=== PATIENT | female | born 1950 | race Caucasian/White ===

== ENCOUNTER 2017-05-15 07:48 | Inpatient (IN) | payer MEDICARE, MEDICAID ==
--- NOTE | 2017-05-06 00:16 | HP ---
HISTORY AND PHYSICAL: DATE OF OFFICE VISIT: 05/05/17 DATE OF SURGERY: 05/15/17 SURGEON: Frances Castillo MD * (DICTATED BY RICKY ORLANDO) PROCEDURE: Right total knee arthroplasty. CHIEF COMPLAINT: Right knee pain. HISTORY OF PRESENT ILLNESS: Ms. Jennings is a 67-year-old female with complaints of right knee pain secondary to advanced osteoarthritis. She has failed conservative management and has elected to proceed with a right total knee arthroplasty. PAST MEDICAL HISTORY: Multiple sclerosis, history of bladder cancer, chronic pain, and hyperlipidemia. PAST SURGICAL HISTORY: Tonsillectomy, hysterectomy, bladder plication, right lung lobe removal and right knee arthroscopy. CURRENT MEDICATIONS: 1. Dyazide. 2. Modafinil. 3. Vitamin D. 4. Abilify. 5. Colace. 6. Mirtazapine. 7. Montelukast sodium. 8. Flexeril. 9. Clonazepam. 10. Fluoxetine. 11. Morphine sulfate. 12. Astelin nasal spray. 13. Ambien. 14. Ampyra. 15. Premarin. 16. Bisacodyl. 17. Celebrex. ALLERGIES: LATEX, ZOCOR, and BACLOFEN. FAMILY HISTORY: Breast cancer, heart disease, chronic kidney disease. SOCIAL HISTORY: She is a 67-year-old female. She lives with her spouse. She does not smoke, use drugs or alcohol. REVIEW OF SYSTEMS: A complete 14-point review of systems was reviewed with the patient, was all negative or noncontributory. PHYSICAL EXAMINATION GENERAL: She is well developed, well nourished, in no acute distress. VITAL SIGNS: She stands 5 feet 2 inches tall, weighs 148 pounds. Her blood pressure is 132/78, her heart rate is 80. HEENT: Normocephalic, atraumatic. NECK: Supple. No palpable lymph nodes. PULMONARY: Lungs are clear to auscultation bilaterally. CARDIO: Regular rate and rhythm. Strong S1, S2. ABDOMEN: Soft, nontender, nondistended. NEUROLOGIC: She is alert and oriented x3. Cranial nerves II through XII are intact. MUSCULOSKELETAL: Right lower extremity, the skin is intact. There are no open wounds or abrasions. She has a valgus deformity of her left knee. Distally, she is overall neurovascularly intact. She walks with an antalgic type gait favoring her right knee. ASSESSMENT AND PLAN: Ms. Jennings is a 67-year-old female with complaints of right knee pain secondary to end-stage osteoarthritis. She has failed conservative management and has elected to proceed with a right total knee arthroplasty, which is scheduled for 05/15/[address] Castillo discussed the risks and benefits of the surgery and all of her questions were answered. She is currently on morphine sulfate 15 mg every 4 hours as needed for pain, so no pain medications was sent to her pharmacy at today's visit. She has a prescription for Coumadin, which she will start taking after the surgery. She will follow up with Dr. Castillo in 2 weeks after the surgery RICKY ORLANDO [id number] #: [id number] MTDD
[~2017-05-15 07:48] MED LIST: Buffered Lidocaine 0.9% SYRIN* 5 ML/SYR SYRINGE INTRADERM ONE
[2017-05-15] MEDS ORDERED: Buffered Lidocaine 0.9% SYRIN* 5 ML/SYR SYRINGE ONE (07:52)
[2017-05-15] MEDS ORDERED: Midazolam* 1 MG/ML 5 ML VIAL (5 MG) ONE ×2 (09:50→10:40)
[2017-05-15] MEDS ORDERED: Bupivacaine 0.5% SDV PF* 30 ML VIAL ONE (09:58)
[2017-05-15] MEDS ORDERED: fentaNYL* 50 MCG/ML 2 ML VIAL (100 MCG VIAL) ONE ×2 (10:17→14:19)
[2017-05-15] MEDS ORDERED: fentaNYL* 50 MCG/ML 2 ML VIAL (100 MCG VIAL) IV PRN (11:00)
[2017-05-15] MEDS ORDERED: HYDROmorphone* 1 MG/ML 1 ML SYR IV PRN (11:00)
[2017-05-15] MEDS ORDERED: DiMENhydriNATE IV* 50 MG/ML VIAL IV PUSH PRN (11:00)
[2017-05-15] MEDS ORDERED: Ondansetron INJ* 2 MG/ML VIAL IV PRN ×2 (11:00→11:03)
[2017-05-15] MEDS ORDERED: EPHEDrine (Pressors)* 50 MG/ML VIAL IV PUSH PRN (11:03)
[2017-05-15] MEDS ORDERED: Lactated Ringers 500 ml BAG* 500 ML IV PRN (11:03)
[2017-05-15] MEDS ORDERED: Ropivacaine 0.2% EPIDURAL* 200 MG/100 ML BAG EPIDURAL SCH (12:00)
[2017-05-15] MEDS ORDERED: Ropivacaine 0.2% EPIDURAL* 200 MG/100 ML BAG EPIDURAL ONE (12:37)
[2017-05-15] MEDS ORDERED: Bisacodyl SUPP* 10 MG SUPP PR PRN (12:51)
[2017-05-15] MEDS ORDERED: Acetaminophen TAB* 325 MG PO PRN (12:51)
[2017-05-15] MEDS ORDERED: Omeprazole CAP* 20 MG PO PRN (12:57)
[2017-05-15] MEDS ORDERED: AZELASTINE HCL BOTH NARES PRN (12:57)
--- NOTE | 2017-05-15 13:49 | RAD ---
HISTORY: Status post right knee arthroplasty COMPARISONS: January 13, 2017 VIEWS: 2, Frontal and lateral views of the right knee FINDINGS: BONE DENSITY: Normal. BONES: The patient is status post right knee arthroplasty. There is no hardware failure or osteolysis. JOINTS: Status post right knee arthroplasty ALIGNMENT: There is no dislocation. SOFT TISSUES: There is post surgical change to the soft tissues OTHER FINDINGS: None. IMPRESSION: STATUS POST RIGHT KNEE ARTHROPLASTY
[2017-05-15] MEDS ORDERED: clonazePAM TAB(*) 1 MG PO PRN (14:00)
[2017-05-15] MEDS ORDERED: oxyCODONE/Acetamin 5/325 MG* TAB ONE (14:20)
[2017-05-15] MEDS: oxyCODONE/Acetamin 5/325 MG* TAB PO PRN (14:21)
[2017-05-15] MEDS: ceFAZolin 1 GM VIAL(*) 1 GM in NS 0.9% 50 ML* 50 ML IVPB SCH ×2 (16:42→23:50)
--- NOTE | 2017-05-15 16:44 | CONSULT ---
Subjective Date of Service: 05/15/17 Interval History: 67 yo F with hx of multiple sclerosis, depression, bladder cancer, GERD and chronic pain s/p R TKA. Patient seen post-op on SSU. Prior to surgery she reports no acute issues. Calvert well recently, no fever, chills, illness. Multiple sclerosis has been stable, follows with Dr. Foreman. Chronic pain managed through pain clinic, on MSIR chronically. Reports no pain presently, still with residual effects from spinal anethesia. Only complaint is indigestion at this time. No SOB. Family History: Findings - Breast cancer, CAD, CKD Social History: Findings - Former 20 pack-year smoking history, no alcohol or illicit drug use, lives home with ex-, uses walker at baseline Past Medical History: Findings - Multiple sclerosis, GERD, depression, chronic pain, hx of bladder cancer Review of Systems - Measurements Intake and Output: Intake and Output Last 24 Hours 05/13/17 05/14/17 05/15/17 05/16/17 06:59 06:59 06:59 06:59 Intake Total 2620 Output Total 1900 Balance 720 Weight 68.946 kg Intake: IV Fluids 2500 LR 2500 Oral 120 Output: Hi 1900 - Review of Systems Constitutional Symptoms: Negative: Fever Dermatology: Positive: Normal HEENT: Positive: Normal Eyes: Positive: Normal Thyroid: Positive: Normal Pulmonary: Positive: Normal Cardiology: Positive: Normal Gastroenterology: Positive: Normal Genital - Urinary: Positive: Normal Musculoskeletal: Positive: Joint Pain, Arthritis Endocrinology: Positive: Normal Neurology: Positive: Normal Psychiatry: Positive: Normal Objective Active Medications: Acetaminophen (Tylenol Tab*) 650 mg PO Q4H PRN Aripiprazole (Abilify Tab*) 15 mg PO QAM NORMA Bisacodyl (Dulcolax Supp*) 10 mg OR DAILY PRN Clonazepam (Klonopin Tab(*)) 1 mg PO TID PRN Diphenhydramine HCl (Benadryl Iv*) 12.5 mg IV Q6H PRN Docusate Sodium (Colace Cap*) 100 mg PO BID NORMA Enoxaparin Sodium (Lovenox(*)) 30 mg SUBCUT Q24H NROMA Ephedrine Sulfate (Ephedrine Sulfate (Pressors)*) 5 mg IV PUSH Q5M PRN Fluoxetine HCl (Prozac Cap*) 20 mg PO QAM NORMA Ropivacaine (Ropivacaine 0.2% Epidural*) 200 mg in 100 mls @ 0 mls/hr EPIDURAL .PER RATE NORMA; Per Protocol Lactated Ringer's (Lactated Ringers 500 Ml Bag*) 500 mls @ 2,000 mls/hr IV ONCE PRN Cefazolin Sodium 1 gm/ Sodium (Chloride) 50 mls @ 200 mls/hr IVPB Q8H NORMA Lactated Ringer's (Lactated Ringers 1000 Ml Bag*) 1,000 mls @ 100 mls/hr IV PER RATE NORMA Lactulose (Lactulose*) 30 ml PO Q6H PRN Magnesium Hydroxide (Milk Of Magnesia Liq*) 30 ml PO Q6H PRN Mirtazapine (Remeron Tab*) 45 mg PO BEDTIME NORMA Modafinil (Provigil Tab*) 200 mg PO QAM NORMA Morphine Sulfate (Morphine Inj (Syringe)*) 4 mg IV Q2H PRN Multivitamins/Minerals (Theragran/Minerals Tab*) 1 tab PO QAM NORMA Non-Formulary Medication (Azelastine Hcl [Astelin]) 1 spray BOTH NARES DAILY PRN Non-Formulary Medication (Dalfampridine [Ampyra]) 10 mg PO BID NORMA Omeprazole (Prilosec Cap*) 20 mg PO QAM PRN Ondansetron HCl (Zofran Inj*) 4 mg IV Q6H PRN Ondansetron HCl (Zofran Inj*) 4 mg IV Q6H PRN Ondansetron HCl (Zofran Tab*) 4 mg PO Q6H PRN Oxycodone HCl (Roxycodone Tab*) 10 mg PO Q4H PRN Oxycodone/Acetaminophen (Percocet 5/325 Tab*) 1 tab PO Q3H PRN Oxycodone/Acetaminophen (Percocet 5/325 Tab*) 1 tab PO Q3H PRN Oxycodone/Acetaminophen (Percocet 5/325 Tab*) 2 tab PO Q3H PRN Polyethylene Glycol/Electrolytes (Miralax*) 17 gm PO DAILY PRN Warfarin Sodium (Coumadin Tab(*)) 6 mg PO ONCE@1700 ONE Zolpidem Tartrate (Ambien Tab*) 10 mg PO BEDTIME NORMA Vital Signs 05/15/17 05/15/17 05/15/17 08:18 12:55 13:00 Temperature 97.7 F 97.2 F Pulse Rate 80 72 70 Respiratory 18 16 16 Rate Blood Pressure 144/72 94/56 106/63 (mmHg) O2 Sat by Pulse 97 98 100 Oximetry 05/15/17 05/15/17 05/15/17 13:45 14:00 14:15 Temperature Pulse Rate 62 67 68 Respiratory 16 16 14 Rate Blood Pressure 122/77 118/66 108/51 (mmHg) O2 Sat by Pulse 99 100 100 Oximetry 05/15/17 05/15/17 05/15/17 14:51 15:14 15:22 Temperature 97.7 F Pulse Rate 67 67 Respiratory 16 16 18 Rate Blood Pressure 134/70 134/70 (mmHg) O2 Sat by Pulse 87 97 Oximetry Oxygen Devices in Use Now: Nasal Cannula - 2L Appearance: Elderly, F, laying in bed in NAD Eyes: No Scleral Icterus Ears/Nose/Mouth/Throat: - - Dry MM Neck: NL Appearance and Movements; NL JVP Respiratory: Symmetrical Chest Expansion and Respiratory Effort, Clear to Auscultation - in anterior and lateral moya Cardiovascular: NL Sounds; No Murmurs; No JVD, RRR Abdominal: NL Sounds; No Tenderness; No Distention Lymphatic: No Cervical Adenopathy Extremities: - - R knee with WOOD wrap and cryounit in place, hemovac in place with bloody discharge, mild LE edema Neurological: Alert and Oriented x 3, - - R foot able to wiggle toes, SILT Assessment/Plan - Billing 67 yo F with hx of multiple sclerosis, GERD, depression, chronic pain, hx of bladder cancer s/p R TKA on 05/15 1) S/P R TKA - management and analgesia as per Ortho - patient is on Lovenox/Coumadin for DVT PPx 2) Multiple sclerosis - continue home Ampyra, flexeril 3) Depression - continue abilify, fluoxetine, remeron 4) GERD - continue home PPI, will write for prn calcium carbonate 5) DVT PPx - Lovenox/Warfarin Thank you for this consult, will continue to follow along
[2017-05-15] MEDS: Calcium Carbonate CHEW TAB* 500 MG (TUMS) PO PRN (16:50)
[2017-05-15] MEDS ORDERED: Warfarin TAB(*) 6 MG PO ONE (17:00)
[2017-05-15] MEDS: Docusate CAP* 100 MG PO SCH (20:20)
[2017-05-15] MEDS: Mirtazapine TAB* 15 MG PO SCH (20:20)
[2017-05-15] MEDS: Polyethylene Glycol 3350* 17 GM PACKET PO PRN (20:20)
[2017-05-15] MEDS: DALFAMPRIDINE 10 MG PO SCH (20:23)
[2017-05-16] MEDS: oxyCODONE/Acetamin 5/325 MG* TAB PO PRN ×5 (04:59→23:19)
[2017-05-16 05:10] LABS: Hematocrit 26 % (35-47)
[2017-05-16 05:22] LABS: BUN/Creatinine Ratio 11.8 (8-20); Calcium 7.7 mg/dL (8.6-10.3); EGFR African American 153.8 (>60); EGFR Non-African American 119.6 (>60); Potassium 3.2 mmol/L (3.5-5.0)
[2017-05-16] MEDS ORDERED: oxyCODONE TAB* 5 MG TAB PO PRN (06:00)
[2017-05-16] MEDS ORDERED: Ondansetron INJ* 2 MG/ML VIAL IV PRN (06:00)
[2017-05-16] MEDS ORDERED: Ondansetron TAB* 4 MG PO PRN (06:00)
[2017-05-16] MEDS ORDERED: diPHENhydraMINE IV* 50 MG/ML 1 ml VIAL (BENADRYL) IV PRN (06:00)
[2017-05-16] MEDS ORDERED: oxyCODONE/Acetamin 5/325 MG* TAB PO PRN (06:00)
[2017-05-16] MEDS: Morphine INJ* 4 MG/ML 1 ML SYRINGE IV PRN ×2 (07:06→14:27)
--- NOTE | 2017-05-16 07:56 | PN ---
Progress Note - Progress Note Date of Service: 05/16/17 SOAP: Subjective: 67 y/o female s/p R TKA 05/[address] Castillo. Patient c/o pain, waiting for pain medication to work. Anxious about recovery. + tachy in AM, other VSS, afebrile. Objective: General- Resting in chair, anxious appearing, NAD AO MSK- SUrgical dressing intact over R knee, no drainage noted. Drain removed without difficulty. + DF/PF. PT 2+ R side. sensation grossly intact. Vital Signs Temp 98.9 F 05/16/17 05:00 Pulse 106 05/16/17 05:00 Resp 18 05/16/17 07:06 BP 112/56 05/16/17 03:33 Pulse Ox 100 05/16/17 03:33 Intake & Output 05/15/17 05/16/17 05/16/17 18:59 06:59 18:59 Intake Total 2980 2399 Output Total 1900 3850 Balance 1080 -1451 Weight 152 lb Intake: IV Fluids 2500 1404 LR 2500 1404 IVPB 105 Cefazolin 105 Oral 480 890 Output: Urine 2400 Hi 1900 1450 Assessment: stable 67 y/o female s/p R TKA 05/[address] Castillo. Plan: - DVT prophylaxis- Coumadin, lovenox. - Hyponatermia- Chronically low, KVO fluids, continue to monitor, BMP tomorrow - Hypokalemia- MVI, continue to monitor - Tachycardia- likely related to pain, anxiety. Continue to monitor Active Medications Generic Name Dose Route Start Last Admin Trade Name Freq PRN Reason Stop Dose Admin Acetaminophen 650 mg 05/15/17 12:51 Tylenol Tab* PO Q4H PRN PAIN OR TEMPERATURE Aripiprazole 15 mg 05/16/17 09:00 Abilify Tab* PO QAM NORMA Bisacodyl 10 mg 05/15/17 12:51 Dulcolax Supp* CA DAILY PRN constipation Calcium Carbonate 500 mg 05/15/17 16:38 05/15/17 16:50 Tums* PO 500 mg Q4H PRN Administration INDIGESTION Clonazepam 1 mg 05/15/17 14:00 Klonopin Tab(*) PO TID PRN NEEDED Diphenhydramine HCl 12.5 mg 05/16/17 06:00 Benadryl Iv* IV Q6H PRN PRURITIS Docusate Sodium 100 mg 05/15/17 21:00 05/15/17 20:20 Colace Cap* PO 100 mg BID NORMA Administration Enoxaparin Sodium 30 mg 05/16/17 12:00 Lovenox(*) SUBCUT Q24H NORMA Fluoxetine HCl 20 mg 05/16/17 09:00 Prozac Cap* PO QAM NORMA Cefazolin Sodium 1 gm/ Sodium 50 mls @ 200 mls/hr 05/15/17 16:00 05/15/17 23: 50 Chloride IVPB 05/16/17 08:14 200 mls/hr Q8H NORMA Administration Lactated Ringer's 1,000 mls @ 100 mls/hr 05/15/17 13:00 05/16/17 01:49 Lactated Ringers 1000 Ml Bag* IV 100 mls/hr PER RATE NORMA Administration Lactulose 30 ml 05/15/17 12:51 Lactulose* PO Q6H PRN constipation Magnesium Hydroxide 30 ml 05/15/17 12:51 Milk Of Magnesia Liq* PO Q6H PRN constipation Mirtazapine 45 mg 05/15/17 21:00 05/15/17 20:20 Remeron Tab* PO 45 mg BEDTIME [facility] Administration Modafinil 200 mg 05/16/17 09:00 Provigil Tab* PO QAM [facility] Morphine Sulfate 4 mg 05/16/17 06:00 05/16/17 07:06 Morphine Inj (Syringe)* IV 4 mg Q2H PRN Administration PAIN Multivitamins/Minerals 1 tab 05/16/17 09:00 Theragran/Minerals Tab* PO QAM [facility] Non-Formulary Medication 1 spray 05/15/17 12:57 Azelastine Hcl [Astelin] BOTH NARES DAILY PRN SINUS CONGESTION Non-Formulary Medication 10 mg 05/15/17 21:00 05/15/17 20:23 Dalfampridine [Ampyra] PO Not Given BID [facility] Omeprazole 20 mg 05/15/17 12:57 Prilosec Cap* PO QAM PRN INDIGESTION Ondansetron HCl 4 mg 05/16/17 06:00 Zofran Inj* IV Q6H PRN nausea Ondansetron HCl 4 mg 05/16/17 06:00 Zofran Tab* PO Q6H PRN NAUSEA Oxycodone HCl 10 mg 05/16/17 06:00 Roxycodone Tab* PO Q4H PRN SEVERE PAIN Oxycodone/Acetaminophen 1 tab 05/16/17 06:00 Percocet 5/325 Tab* PO Q3H PRN PAIN - MODERATE Oxycodone/Acetaminophen 2 tab 05/16/17 06:00 Percocet 5/325 Tab* PO Q3H PRN PAIN - MODERATE Polyethylene Glycol/Electrolytes 17 gm 05/15/17 12:51 05/15/17 20:20 Miralax* PO 17 gm DAILY PRN Administration Constipation Zolpidem Tartrate 10 mg 05/16/17 21:00 Ambien Tab* PO BEDTIME [facility] Protocol
[2017-05-16] MEDS: ceFAZolin 1 GM VIAL(*) 1 GM in NS 0.9% 50 ML* 50 ML IVPB SCH (08:16)
[2017-05-16] MEDS: Modafinil TAB* 100 MG PO SCH (08:17)
[2017-05-16] MEDS: FLUoxetine CAP* 20 MG PO SCH (08:17)
[2017-05-16] MEDS: Multivitamins/Minerals TAB PO SCH (08:17)
[2017-05-16] MEDS: Docusate CAP* 100 MG PO SCH ×2 (08:17→20:27)
[2017-05-16] MEDS: DALFAMPRIDINE 10 MG PO SCH ×2 (08:25→20:29)
[2017-05-16] MEDS: ARIPiprazole TAB* 15 MG PO SCH (09:14)
[2017-05-16] MEDS: Calcium Carbonate CHEW TAB* 500 MG (TUMS) PO PRN (09:18)
--- NOTE | 2017-05-16 09:31 | OP ---
DATE OF OPERATION: 05/15/17 - ROOM #342 DATE OF : 46 SURGEON: Frances Castillo MD SIGNAL INTELLIGENCE ANALYST: RICKY Addison. Ms. Ferrari did help throughout the procedure with preparation of the leg, wound retraction, manipulation of the knee, and wound closure. ANESTHESIOLOGIST: Dr. Garcia. ANESTHESIA: Spinal. PRE-OP DIAGNOSIS: Severe end-stage degenerative osteoarthritis of the right knee joint with valgus deformity and MCL incompetence. POST-OP DIAGNOSIS: Severe end-stage degenerative osteoarthritis of the right knee joint with valgus deformity and MCL incompetence. OPERATIVE PROCEDURE: Right total knee arthroplasty. COMPLICATIONS: None. TOURNIQUET TIME: 54 minutes. ESTIMATED BLOOD LOSS: 300 cc. SPECIMEN: Bone and cartilage from the right knee joint, sent to Pathology. HARDWARE: This is cemented [employer] total knee hardware. For the cement, two packages of Simplex bone cement. For the femur, a size 3 right posterior stabilized Legion femoral component. For the tibia, size 3 Genesys II right tibial base plate. For the insert, an 11 mm constrained articular insert size 3-4, and for the patella, 32 mm 7.5 thickness 3-peg hole poly patella. BRIEF HISTORY/INDICATIONS: Ms. Jennings is a 67-year-old female who has developed valgus deformity and severe arthritis over the last few years. When she presented to my clinic, she had a 30-degree valgus deformity with complete MCL incompetence. She had subluxation of the tibia on the femur. Radiograph showed [id number] arthritis of the lateral compartment and patellofemoral compartment. Due to her inability to ambulate without severe pain and failure of conservative treatment, she elected to undergo right total knee arthroplasty. Informed consent was obtained from the patient. She understood the risks of surgery included but were not limited to bleeding, infection, damage to nearby structures, continued pain, need for further surgery, intraoperative fracture, nerve palsy, hardware failure or loosening, knee stiffness, loss of motion, continued instability, need for a hinged implant, stroke, heart attack, blood clot, and . She wished to proceed. INTRAOPERATIVE FINDINGS: Intraoperatively, the patient was noted to have severe bony deformation involving the medial patellar facet, which was partially fractured. She also had lateral femoral condylar hypoplasia as well as chronic wear laterally at the lateral femoral condyle. Proximal tibia also had significant bone deformity. There was complete MCL incompetence and ACL incompetence. There was LCL stability, incompetence. DESCRIPTION OF PROCEDURE: Ms. Jennings was identified in the preanesthesia unit. Her right lower extremity was marked as the correct operative side. Informed consent was signed and placed in the chart. The patient was taken to the operating room and placed under spinal anesthesia. A Hi catheter was placed. Tourniquet was placed on the right thigh. Right lower extremity was prepped and draped in the usual sterile fashion. Preop time-out was made to correctly identify the patient's side and site. Appropriate perioperative antibiotics were given within 1 hour of incision. A 14 cm midline incision was made with a 10-blade. This was carried down sharply to the extensor mechanism. A new 10-blade was used to make a standard medial parapatellar arthrotomy. The patella was subluxed laterally. The MCL was noted to be completely incompetent. There was a palpable LCL. Electrocautery was used to elevate soft tissue off the superomedial tibia to the mid sagittal plane. There was a large amount of suprapatellar scar tissue, which was also excised carefully with electrocautery. The knee was flexed up. It was noted that the lateral femoral condyle had hypoplasia as well as highly abnormal wear along the lateral border. A drill was used to enter the distal femur. Distal femoral cutting guide was placed on the distal femur and the lateral femoral condylar hypoplasia was accounted for. 9 mm of distal femur was carefully removed. Next, the external rotation guide was pinned on the distal femur and the distal femur was sized to a size 3. A size 3 multi-cutting jig was pinned on the distal femur. Oscillating saw was used to make the appropriate 4 chamfer cuts. There was some missing bone laterally along the lateral femoral condyle but this was less than one-quarter of the width of the condyle. Decision was made to replace this with cement instead of taking more bone and augmenting. The PCL was completely released. Extramedullary tibial cutting guide was pinned on the proximal tibia. Oscillating saw was used to make the proximal tibial cut perpendicular to the mechanical axis of the tibia. The bone was carefully removed. Knee was brought out into extension. The spacer block had good fit. There was good alignment of the knee joint to anatomic valgus. MCL incompetence continued to be noted, but LCL was competent. Flexion and extension gaps were well balanced. The knee was flexed up. Lamina technical sales support specialist was placed both medially and laterally. Any remaining meniscus was carefully excised with electrocautery. Posterior osteophytes were removed with a curved osteotome. A size 3 right femoral trial was impacted onto the distal femur and had excellent fit. The box for the posterior stabilized implant was prepared using a reamer and box cut osteotome. A size 3 tibial tray trial with an 11 mm insert trial was placed and the knee was taken through a range of motion. The knee had full extension to 130 degrees of flexion with good patellofemoral tracking. Patella was everted. There was a recent fracture of the medial aspect of the medial patellar facet. Oscillating saw was used to remove 7 mm of patellar bone and cartilage. The patella was sized to a size 32. Three peg holes were drilled through the size 32 guide. 32 trial patella was placed and the knee was taken through a range of motion. There was satisfactory patellofemoral tracking. All trials were carefully removed. The tibia was subluxed anteriorly and sized to a size 3. Proximal tibia was prepared using a size 3 keel punch. All bony cut surfaces were copiously irrigated with sterile saline and dried. Final implants were cemented into place starting with the tibia, followed by the femur , and last the patella. An 11 mm insert trial was placed while the knee was brought out into full extension. Tourniquet was turned down at 54 minutes. The cement was allowed to fully cure. The knee was copiously irrigated with sterile saline. Electrocautery was used to obtain meticulous hemostasis. Once the cement had fully cured, the insert trial was removed. Any excess cement was carefully removed from around the implant and capsule. Final insert chosen was an 11 mm constrained articular insert size 3-4. This was locked into position on the tibial tray without difficulty. Stability of the insert was checked and rechecked and noted to be stable. The knee was copiously irrigated with sterile saline. The extensor mechanism was closed over a medium Hemovac drain using interrupted #1 Vicryls. The rest of the incision was closed in a layered fashion using 0 and 2-0 Vicryls. Skin was closed using running 3-0 nylon suture. Sterile Xeroform, 4x4s, and Webril were used to cover the incision. Joao wrap and cold pack were placed over this. The patient's anesthesia was reversed without difficulty. She was taken to the PACU in stable condition. Intended weightbearing will be weightbearing as tolerated. Intended DVT prophylaxis will be Coumadin with Lovenox bridge. [id number] #: [id number] MTDD
[2017-05-16] MEDS ORDERED: Potassium Chlor TAB* 20 MEQ TAB.ER PO ONE (09:41)
--- NOTE | 2017-05-16 11:48 | PN ---
Subjective Date of Service: 05/16/17 Interval History: Patient seen this morning. Had some pain this morning after epidural removed, tachycardia as well, but has since settled. Good PO intake. No N/V. Hi in place, plan to take it out this afternoon. No BM yet. Family History: Findings - Breast cancer, CAD, CKD Social History: Findings - Former 20 pack-year smoking history, no alcohol or illicit drug use, lives home with ex-, uses walker at baseline Past Medical History: Findings - Multiple sclerosis, GERD, depression, chronic pain, hx of bladder cancer Objective Active Medications: Acetaminophen (Tylenol Tab*) 650 mg PO Q4H PRN Aripiprazole (Abilify Tab*) 15 mg PO QAM [facility] Bisacodyl (Dulcolax Supp*) 10 mg MA DAILY PRN Calcium Carbonate (Tums*) 500 mg PO Q4H PRN Clonazepam (Klonopin Tab(*)) 1 mg PO TID PRN Diphenhydramine HCl (Benadryl Iv*) 12.5 mg IV Q6H PRN Docusate Sodium (Colace Cap*) 100 mg PO BID NORMA Enoxaparin Sodium (Lovenox(*)) 30 mg SUBCUT Q24H [facility] Fluoxetine HCl (Prozac Cap*) 20 mg PO QAM [facility]MA Lactulose (Lactulose*) 30 ml PO Q6H PRN Magnesium Hydroxide (Milk Of Magnesia Liq*) 30 ml PO Q6H PRN Mirtazapine (Remeron Tab*) 45 mg PO BEDTIME [facility] Modafinil (Provigil Tab*) 200 mg PO QAM [facility] Morphine Sulfate (Morphine Inj (Syringe)*) 4 mg IV Q2H PRN Multivitamins/Minerals (Theragran/Minerals Tab*) 1 tab PO QAM [facility]MA Non-Formulary Medication (Azelastine Hcl [Astelin]) 1 spray BOTH NARES DAILY PRN Non-Formulary Medication (Dalfampridine [Ampyra]) 10 mg PO BID NORMA Omeprazole (Prilosec Cap*) 20 mg PO QAM PRN Ondansetron HCl (Zofran Inj*) 4 mg IV Q6H PRN Ondansetron HCl (Zofran Tab*) 4 mg PO Q6H PRN Oxycodone HCl (Roxycodone Tab*) 10 mg PO Q4H PRN Oxycodone/Acetaminophen (Percocet 5/325 Tab*) 1 tab PO Q3H PRN Oxycodone/Acetaminophen (Percocet 5/325 Tab*) 2 tab PO Q3H PRN Polyethylene Glycol/Electrolytes (Miralax*) 17 gm PO DAILY PRN Warfarin Sodium (Coumadin Tab(*)) 6 mg PO ONCE@1700 ONE Zolpidem Tartrate (Ambien Tab*) 10 mg PO BEDTIME NORMA Vital Signs 05/15/17 05/15/17 05/15/17 12:55 13:00 13:05 Temperature 97.2 F Pulse Rate 72 70 67 Respiratory 16 16 16 Rate Blood Pressure 94/56 106/63 112/59 (mmHg) O2 Sat by Pulse 98 100 100 Oximetry 05/15/17 05/15/17 05/15/17 13:15 13:30 13:45 Temperature Pulse Rate 65 61 62 Respiratory 14 12 16 Rate Blood Pressure 116/61 120/67 122/77 (mmHg) O2 Sat by Pulse 100 100 99 Oximetry 05/15/17 05/15/17 05/15/17 14:00 14:15 14:21 Temperature Pulse Rate 67 68 Respiratory 16 14 16 Rate Blood Pressure 118/66 108/51 (mmHg) O2 Sat by Pulse 100 100 Oximetry 05/15/17 05/15/17 05/15/17 14:22 14:30 14:51 Temperature Pulse Rate 73 67 Respiratory 16 16 16 Rate Blood Pressure 125/83 134/70 (mmHg) O2 Sat by Pulse 100 87 Oximetry 05/15/17 05/15/17 05/15/17 15:14 15:22 15:53 Temperature 97.7 F Pulse Rate 67 79 Respiratory 16 18 14 Rate Blood Pressure 134/70 124/56 (mmHg) O2 Sat by Pulse 97 96 Oximetry 05/15/17 05/15/17 05/15/17 15:58 16:56 19:09 Temperature 96.6 F 97.2 F 98.3 F Pulse Rate 81 91 Respiratory 16 16 Rate Blood Pressure 119/57 132/55 (mmHg) O2 Sat by Pulse 94 99 Oximetry 05/15/17 05/15/17 05/15/17 19:23 20:43 22:00 Temperature 98.1 F Pulse Rate 96 Respiratory 18 14 14 Rate Blood Pressure 145/57 (mmHg) O2 Sat by Pulse 100 Oximetry 05/15/17 05/16/17 05/16/17 23:44 00:00 00:05 Temperature 98.4 F Pulse Rate 108 Respiratory 14 Rate Blood Pressure 151/57 (mmHg) O2 Sat by Pulse 100 100 Oximetry 05/16/17 05/16/17 05/16/17 03:33 04:59 05:00 Temperature 99.7 F 98.9 F Pulse Rate 112 106 Respiratory 16 18 Rate Blood Pressure 112/56 (mmHg) O2 Sat by Pulse 100 Oximetry 05/16/17 05/16/17 05/16/17 06:59 07:06 07:40 Temperature 98.1 F Pulse Rate 97 Respiratory 18 18 15 Rate Blood Pressure 116/56 (mmHg) O2 Sat by Pulse 90 Oximetry 05/16/17 05/16/17 05/16/17 08:00 08:17 11:19 Temperature 98.4 F Pulse Rate 90 Respiratory 18 18 15 Rate Blood Pressure 104/50 (mmHg) O2 Sat by Pulse 93 Oximetry Oxygen Devices in Use Now: None Appearance: Elderly, F, laying in chair in NAD Eyes: No Scleral Icterus Ears/Nose/Mouth/Throat: Mucous Membranes Moist Neck: NL Appearance and Movements; NL JVP Respiratory: Symmetrical Chest Expansion and Respiratory Effort, Clear to Auscultation Cardiovascular: NL Sounds; No Murmurs; No JVD, RRR Abdominal: NL Sounds; No Tenderness; No Distention Lymphatic: No Cervical Adenopathy Extremities: - - RLE edema, R knee with WOOD wrap and cryounit in place Skin: No Rash or Ulcers Neurological: Alert and Oriented x 3 Result Diagrams: 05/16/17 04:40 05/16/17 04:40 Assess/Plan/Problems-Billing 67 yo F with hx of multiple sclerosis, GERD, depression, chronic pain, hx of bladder cancer s/p R TKA on 05/15 1) S/P R TKA - management as per Ortho - post-op anemia noted, continue to monitor H/H - patient is on Lovenox/Coumadin for DVT PPx - Oxycodone 10 mg is equivalent to her home dose of morphine, pain seems controlled now but told patient we can increase if needed as she is essentially on her baseline pain medications at this time 2) Hyponatremia - mild, chronic issue, continue to monitor 3) Hypokalemia - repleted 4) Multiple sclerosis - continue home Ampyra (will bring in from home), flexeril 5) Depression - continue abilify, fluoxetine, remeron 6) GERD - continue home PPI, prn calcium carbonate 7) DVT PPx - Lovenox/Warfarin Thank you for this consult, will continue to follow along
[2017-05-16] MEDS ORDERED: Enoxaparin(*) 30 MG/0.3 ML SYR SUBCUT SCH (12:00)
[2017-05-16] MEDS ORDERED: Warfarin TAB(*) 6 MG PO ONE (17:00)
[2017-05-16] MEDS: Mirtazapine TAB* 15 MG PO SCH (20:27)
[2017-05-16] MEDS: Zolpidem TAB* 10 MG PO SCH (20:28)
[2017-05-16] MEDS: Potassium Chlor TAB* 20 MEQ TAB.ER PO SCH (20:28)
[2017-05-17] MEDS: oxyCODONE/Acetamin 5/325 MG* TAB PO PRN ×4 (05:43→23:54)
[2017-05-17] MEDS: Magnesium Hydroxide LIQ* 30 ML UDC PO PRN ×2 (05:43→21:16)
[2017-05-17 06:27] LABS: Hematocrit 26 % (35-47)
[2017-05-17 06:49] LABS: BUN/Creatinine Ratio 18.9 (8-20); Calcium 8.1 mg/dL (8.6-10.3); EGFR African American 147.1 (>60); EGFR Non-African American 114.4 (>60); Potassium 3.4 mmol/L (3.5-5.0)
--- NOTE | 2017-05-17 07:58 | PN ---
Progress Note - Progress Note Date of Service: 05/17/17 SOAP: Subjective: Pt. is alert, holding knee flexed to 90 degrees in bed. She reports SOB this AM , some bladder pain. Objective: RLE - dressing changed, inc c/d/i. distally nvi. Vital Signs: Temp Pulse Resp BP Pulse Ox 99.2 F 110 20 128/52 96 05/17/17 03:52 05/17/17 03:52 05/17/17 05:43 05/17/17 03:52 05/17/17 03:52 Laboratory Results - last 24 hr 05/17/17 05/17/17 05/17/17 06:06 06:06 06:06 Hgb 8.0 L Hct 26 L INR (Anticoag Therapy) 1.60 H Sodium 129 L Potassium 3.4 L Chloride 95 L Carbon Dioxide 25 Anion Gap 9 BUN 10 Creatinine 0.53 Est GFR ( Amer) 147.1 Est GFR (Non-Af Amer) 114.4 BUN/Creatinine Ratio 18.9 Glucose 145 H Calcium 8.1 L Assessment: 67 yo F pod 2 s/p RTKA Plan: wbat rle pt/ot - must ER at hip and extend at knee - constant prompts will order ua/cxr/ekg for sob and tachycardia will d/w medicine
[2017-05-17] MEDS: Carisoprodol TAB* 350 MG PO PRN (10:31)
[2017-05-17] MEDS: Docusate CAP* 100 MG PO SCH ×2 (10:31→21:16)
[2017-05-17] MEDS: ARIPiprazole TAB* 15 MG PO SCH (10:31)
[2017-05-17] MEDS: Multivitamins/Minerals TAB PO SCH (10:31)
[2017-05-17] MEDS: Modafinil TAB* 100 MG PO SCH (10:32)
[2017-05-17] MEDS: FLUoxetine CAP* 20 MG PO SCH (10:32)
[2017-05-17] MEDS: Potassium Chlor TAB* 20 MEQ TAB.ER PO SCH ×2 (10:32→21:16)
[2017-05-17] MEDS: DALFAMPRIDINE 10 MG PO SCH ×2 (10:33→21:15)
--- NOTE | 2017-05-17 10:58 | RAD ---
Indication: Shortness of breath. Single frontal view of the chest performed at 0805 hours was reviewed. Comparison is made with previous exam dated April 04, 2017. No mediastinal shift is noted. Heart is normal size and configuration. Mild vascular congestion is noted. Chronic pleural changes are noted especially in the right costophrenic angle. IMPRESSION: NO ACTIVE CARDIOPULMONARY DISEASE IS NOTED.
[2017-05-17] MEDS: Simethicone CHEW TAB* 80 MG PO PRN (12:58)
--- NOTE | 2017-05-17 13:22 | PN ---
Subjective Date of Service: 05/17/17 Interval History: Patient seen this afternoon. No new complaints. States pain is well controlled. Takes morphine 2-3x daily at home, unlikely to be in withdrawal. Although does report taking Clonazepam 2-3x day as well, cannot recall the last time she went without it, has not had any this admission. No dysuria, no fever, no chills, no SOB at present although reported some earlier this morning. Family History: Findings - Breast cancer, CAD, CKD Social History: Findings - Former 20 pack-year smoking history, no alcohol or illicit drug use, lives home with ex-, uses walker at baseline Past Medical History: Findings - Multiple sclerosis, GERD, depression, chronic pain, hx of bladder cancer Objective Active Medications: Acetaminophen (Tylenol Tab*) 650 mg PO Q4H PRN Aripiprazole (Abilify Tab*) 15 mg PO QAM NORMA Bisacodyl (Dulcolax Supp*) 10 mg NE DAILY PRN Calcium Carbonate (Tums*) 500 mg PO Q4H PRN Carisoprodol (Soma Tab*) 350 mg PO TID PRN Clonazepam (Klonopin Tab(*)) 1 mg PO TID PRN Diphenhydramine HCl (Benadryl Iv*) 12.5 mg IV Q6H PRN Docusate Sodium (Colace Cap*) 100 mg PO BID NORMA Fluoxetine HCl (Prozac Cap*) 20 mg PO QAM NORMA Lactulose (Lactulose*) 30 ml PO Q6H PRN Magnesium Hydroxide (Milk Of Magnesia Liq*) 30 ml PO Q6H PRN Mirtazapine (Remeron Tab*) 45 mg PO BEDTIME NORMA Modafinil (Provigil Tab*) 200 mg PO QAM NORMA Morphine Sulfate (Morphine Inj (Syringe)*) 4 mg IV Q2H PRN Multivitamins/Minerals (Theragran/Minerals Tab*) 1 tab PO QAM NORMA Non-Formulary Medication (Azelastine Hcl [Astelin]) 1 spray BOTH NARES DAILY PRN Non-Formulary Medication (Dalfampridine [Ampyra]) 10 mg PO BID NORMA Omeprazole (Prilosec Cap*) 20 mg PO QAM PRN Ondansetron HCl (Zofran Inj*) 4 mg IV Q6H PRN Ondansetron HCl (Zofran Tab*) 4 mg PO Q6H PRN Oxycodone HCl (Roxycodone Tab*) 10 mg PO Q4H PRN Oxycodone/Acetaminophen (Percocet 5/325 Tab*) 1 tab PO Q3H PRN Oxycodone/Acetaminophen (Percocet 5/325 Tab*) 2 tab PO Q3H PRN Pharmacy Profile Note (Coumadin Daily Reminder*) 1 note FOLLOW UP 1700 [facility] Polyethylene Glycol/Electrolytes (Miralax*) 17 gm PO DAILY PRN Potassium Chloride (Klor Con Er Tab*) 20 meq PO BID [facility] Simethicone (Mylicon*) 80 mg PO Q6H PRN Warfarin Sodium (Coumadin Tab(*)) 4 mg PO ONCE@1700 ONE Zolpidem Tartrate (Ambien Tab*) 10 mg PO BEDTIME [facility] Vital Signs 05/16/17 05/16/17 05/16/17 14:27 14:38 15:13 Temperature 98.4 F Pulse Rate 93 Respiratory 18 18 20 Rate Blood Pressure 111/49 (mmHg) O2 Sat by Pulse 93 Oximetry 05/16/17 05/16/17 05/16/17 19:40 21:15 23:19 Temperature 98.7 F Pulse Rate 91 Respiratory 16 16 16 Rate Blood Pressure 109/53 (mmHg) O2 Sat by Pulse 98 Oximetry 05/17/17 05/17/17 05/17/17 12:23 12:31 12:33 Temperature 98.0 F Pulse Rate 100 Respiratory 18 16 18 Rate Blood Pressure 108/51 (mmHg) O2 Sat by Pulse 93 Oximetry Oxygen Devices in Use Now: None Appearance: Middle-aged, F, laying in bed in NAD Eyes: No Scleral Icterus Ears/Nose/Mouth/Throat: Mucous Membranes Moist Neck: NL Appearance and Movements; NL JVP Respiratory: Symmetrical Chest Expansion and Respiratory Effort, Clear to Auscultation Cardiovascular: NL Sounds; No Murmurs; No JVD, - - Mild tachycardia Abdominal: NL Sounds; No Tenderness; No Distention Lymphatic: No Cervical Adenopathy Extremities: - - R knee with dressing in place Skin: No Rash or Ulcers Neurological: Alert and Oriented x 3 Result Diagrams: 05/17/17 06:06 05/17/17 06:06 Assess/Plan/Problems-Billing 67 yo F with hx of multiple sclerosis, GERD, depression, chronic pain, hx of bladder cancer s/p R TKA on 05/15 1) S/P R TKA - management as per Ortho - post-op anemia noted, Hb stable today - patient is on Lovenox/Coumadin for DVT PPx - Oxycodone 10 mg is equivalent to her home dose of morphine, pain seems controlled now but told patient we can increase if needed as she is essentially on her baseline pain medications at this time 2) Tachycardia - CXR negative, no fever, no dysuria - ?due to anemia or possibly mild BZD withdrawal - will change Clonazepam to scheduled as she takes it 2-3x daily at home - if tachycardia still present tomorrow can consider blood transfusion 3) Hyponatremia - mild, chronic issue, continue to monitor 4) Hypokalemia - replete as needed 5) Multiple sclerosis - continue home Ampyra, flexeril 6) Depression - continue abilify, fluoxetine, remeron 7) GERD - continue home PPI, prn calcium carbonate 8) DVT PPx - Lovenox/Warfarin Thank you for this consult, will continue to follow along
[2017-05-17] MEDS ORDERED: clonazePAM TAB(*) 1 MG PO PRN (13:25)
[2017-05-17 13:47] LABS: Urine Bacteria 3+ (Absent); Urine Bilirubin Negative (Negative); Urine Glucose Negative (Negative); Urine Nitrite Negative (Negative)
[2017-05-17] MEDS: clonazePAM TAB(*) 0.5 MG PO SCH ×2 (14:20→21:14)
[2017-05-17] MEDS ORDERED: Warfarin TAB(*) 4 MG PO ONE (17:00)
[2017-05-17] MEDS: Mirtazapine TAB* 15 MG PO SCH (21:16)
[2017-05-17] MEDS: Zolpidem TAB* 10 MG PO SCH (21:16)
[2017-05-17] MEDS: Polyethylene Glycol 3350* 17 GM PACKET PO PRN (21:17)
[2017-05-18] MEDS: oxyCODONE/Acetamin 5/325 MG* TAB PO PRN ×5 (04:48→21:30)
[2017-05-18 05:47] LABS: Hematocrit 25 % (35-47); Hemoglobin 7.6 g/dl (12.0-16.0)
[2017-05-18] MEDS: Multivitamins/Minerals TAB PO SCH (08:29)
[2017-05-18] MEDS: Potassium Chlor TAB* 20 MEQ TAB.ER PO SCH ×2 (08:29→21:30)
[2017-05-18] MEDS: Docusate CAP* 100 MG PO SCH ×2 (08:29→21:29)
[2017-05-18] MEDS: clonazePAM TAB(*) 0.5 MG PO SCH ×3 (08:30→21:29)
[2017-05-18] MEDS: FLUoxetine CAP* 20 MG PO SCH (08:30)
[2017-05-18] MEDS: DALFAMPRIDINE 10 MG PO SCH ×2 (08:30→21:36)
[2017-05-18] MEDS: ARIPiprazole TAB* 15 MG PO SCH (08:30)
[2017-05-18] MEDS: cefTRIAXone VIAL(*) 1,000 MG in NS 0.9% 50 ML* 50 ML IVPB SCH (08:56)
[2017-05-18] MEDS: Modafinil TAB* 100 MG PO SCH (10:06)
--- NOTE | 2017-05-18 10:12 | PN ---
Progress Note - Progress Note Date of Service: 05/18/17 SOAP: Subjective: Pt sitting comfortably in chair. Pt states doing a little better than yesterday. States feels unsteady walking with PT this AM. Would like to stay one more day. Objective: Dressing clean, dry, intact; Calves soft, nontender; sensation intact distally to light touch bilaterally; DP pulses 2+ bilaterally LABS: Hbg - 7.6; Hct 25; INR - 1.92 Assessment: s/p Right TKA POD#3 Plan: 1. OOB WBAT 2. PT/OT 3. DVT PPx: INR 1.92 Coumadin 2 mg today 4. Anemia - VS stable 5. UTI - continue abx 6. DC plan - Pt still unstable on her feet. Will have her stay one more day. ? STR vs home tomorrow
[2017-05-18] MEDS: Polyethylene Glycol 3350* 17 GM PACKET PO PRN (12:41)
--- NOTE | 2017-05-18 12:57 | PN ---
Subjective Date of Service: 05/18/17 Interval History: Patient seen this afternoon. Feels that she did better with PT this morning. Hopeful that she can go home instead of [facility]. No SOB. Pain controlled. Family History: Findings - Breast cancer, CAD, CKD Social History: Findings - Former 20 pack-year smoking history, no alcohol or illicit drug use, lives home with ex-, uses walker at baseline Past Medical History: Findings - Multiple sclerosis, GERD, depression, chronic pain, hx of bladder cancer Objective Active Medications: Acetaminophen (Tylenol Tab*) 650 mg PO Q4H PRN PRN Reason: PAIN OR TEMPERATURE Aripiprazole (Abilify Tab*) 15 mg PO QAM [facility] Last Admin: 05/18/17 08:30 Dose: 15 mg Bisacodyl (Dulcolax Supp*) 10 mg UT DAILY PRN PRN Reason: constipation Calcium Carbonate (Tums*) 500 mg PO Q4H PRN PRN Reason: INDIGESTION Last Admin: 05/16/17 09:18 Dose: 500 mg Carisoprodol (Soma Tab*) 350 mg PO TID PRN PRN Reason: SPASMS - MUSCLE Last Admin: 05/17/17 10:31 Dose: 350 mg Clonazepam (Klonopin Tab(*)) 0.5 mg PO TID [facility] Last Admin: 05/18/17 08:30 Dose: 0.5 mg Clonazepam (Klonopin Tab(*)) 0.5 mg PO BID PRN PRN Reason: ANXIETY Diphenhydramine HCl (Benadryl Iv*) 12.5 mg IV Q6H PRN PRN Reason: PRURITIS Docusate Sodium (Colace Cap*) 100 mg PO BID [facility] Last Admin: 05/18/17 08:29 Dose: 100 mg Fluoxetine HCl (Prozac Cap*) 20 mg PO QAM [facility] Last Admin: 05/18/17 08:30 Dose: 20 mg Ceftriaxone Sodium 1,000 mg/ (Sodium Chloride) 50 mls @ 200 mls/hr IVPB Q24H [facility] Last Admin: 05/18/17 08:56 Dose: 200 mls/hr Lactulose (Lactulose*) 30 ml PO Q6H PRN PRN Reason: constipation Magnesium Hydroxide (Milk Of Magnesia Liq*) 30 ml PO Q6H PRN PRN Reason: constipation Last Admin: 05/17/17 21:16 Dose: 30 ml Mirtazapine (Remeron Tab*) 45 mg PO BEDTIME [facility] Last Admin: 05/17/17 21:16 Dose: 45 mg Modafinil (Provigil Tab*) 200 mg PO QAM [facility] Last Admin: 05/18/17 10:06 Dose: 200 mg Morphine Sulfate (Morphine Inj (Syringe)*) 4 mg IV Q2H PRN PRN Reason: PAIN Last Admin: 05/16/17 14:27 Dose: 4 mg Multivitamins/Minerals (Theragran/Minerals Tab*) 1 tab PO QAM [facility] Last Admin: 05/18/17 08:29 Dose: 1 tab Non-Formulary Medication (Azelastine Hcl [Astelin]) 1 spray BOTH NARES DAILY PRN PRN Reason: SINUS CONGESTION Pto Non Formulary Med* (Dalfampridine [Ampyra] 10 Mg) 10 mg PO BID [facility] Last Admin: 05/18/17 08:30 Dose: 10 mg Omeprazole (Prilosec Cap*) 20 mg PO QAM PRN PRN Reason: INDIGESTION Ondansetron HCl (Zofran Inj*) 4 mg IV Q6H PRN PRN Reason: nausea Ondansetron HCl (Zofran Tab*) 4 mg PO Q6H PRN PRN Reason: NAUSEA Oxycodone HCl (Roxycodone Tab*) 10 mg PO Q4H PRN PRN Reason: SEVERE PAIN Last Admin: 05/16/17 19:15 Dose: 10 mg Oxycodone/Acetaminophen (Percocet 5/325 Tab*) 1 tab PO Q3H PRN PRN Reason: PAIN - MODERATE Oxycodone/Acetaminophen (Percocet 5/325 Tab*) 2 tab PO Q3H PRN PRN Reason: PAIN - MODERATE Last Admin: 05/18/17 12:40 Dose: 2 tab Pharmacy Profile Note (Coumadin Daily Reminder*) 1 note FOLLOW UP 1700 [facility] Last Admin: 05/17/17 18:54 Dose: 1 note Polyethylene Glycol/Electrolytes (Miralax*) 17 gm PO DAILY PRN PRN Reason: Constipation Last Admin: 05/18/17 12:41 Dose: 17 gm Potassium Chloride (Klor Con Er Tab*) 20 meq PO BID [facility] Last Admin: 05/18/17 08:29 Dose: 20 meq Simethicone (Mylicon*) 80 mg PO Q6H PRN PRN Reason: GI upset Last Admin: 05/17/17 12:58 Dose: 80 mg Warfarin Sodium (Coumadin Tab(*)) 2 mg PO ONCE@1700 ONE PRN Reason: Protocol Stop: 05/18/17 17:01 Zolpidem Tartrate (Ambien Tab*) 10 mg PO BEDTIME NORMA PRN Reason: Protocol Last Admin: 05/17/17 21:16 Dose: 10 mg Vital Signs 05/17/17 05/17/17 05/17/17 14:20 15:37 15:40 Temperature 98.1 F Pulse Rate 94 Respiratory 16 21 Rate Blood Pressure 112/53 (mmHg) O2 Sat by Pulse 90 93 Oximetry 05/17/17 05/17/17 05/17/17 21:14 23:14 23:38 Temperature 100.5 F Pulse Rate 106 Respiratory 16 18 16 Rate Blood Pressure 127/50 (mmHg) O2 Sat by Pulse 92 Oximetry 05/18/17 05/18/17 05/18/17 04:48 06:48 07:34 Temperature 97.5 F Pulse Rate 94 Respiratory 18 18 20 Rate Blood Pressure 117/63 (mmHg) O2 Sat by Pulse 97 Oximetry Oxygen Devices in Use Now: None Appearance: Elderly, F, laying in chair in NAD Eyes: No Scleral Icterus Ears/Nose/Mouth/Throat: Mucous Membranes Moist Neck: NL Appearance and Movements; NL JVP Respiratory: Symmetrical Chest Expansion and Respiratory Effort, Clear to Auscultation Cardiovascular: NL Sounds; No Murmurs; No JVD, - - mild tachycardia Abdominal: NL Sounds; No Tenderness; No Distention Lymphatic: No Cervical Adenopathy Extremities: - - R knee with WOOD wrap and cryounit in place Skin: No Rash or Ulcers Neurological: Alert and Oriented x 3 Result Diagrams: 05/18/17 05:32 05/17/17 06:06 Microbiology and Other Data: Microbiology 05/17/17 13:00 Urine Culture - Final Urine Assess/Plan/Problems-Billing 67 yo F with hx of multiple sclerosis, GERD, depression, chronic pain, hx of bladder cancer s/p R TKA on 05/15 1) S/P R TKA - management as per Ortho - post-op anemia noted, Hb down slightly today to 7.6, will transfuse 1u PRBC with persistent tachycardia - patient is on Lovenox/Coumadin for DVT PPx - Oxycodone 10 mg is equivalent to her home dose of morphine, pain seems controlled now but told patient we can increase if needed as she is essentially on her baseline pain medications at this time 2) Tachycardia - HR 100 on my exam at rest - UA mildly positive, patient with T100.5 yesterday evening, UCx with mixed sonu - not sure this represent infection but will plan for 3 days of ABx, CTX ordered this morning - will transfuse 1u PRBC as above 3) Hyponatremia - mild, chronic issue 4) Hypokalemia - BMP in AM 5) Multiple sclerosis - continue home Ampyra, flexeril 6) Depression - continue abilify, fluoxetine, remeron 7) GERD - continue home PPI, prn calcium carbonate 8) DVT PPx - Lovenox/Warfarin Thank you for this consult, will continue to follow along
[2017-05-18] MEDS ORDERED: Warfarin TAB(*) 2 MG PO ONE (17:00)
[2017-05-18] MEDS: Mirtazapine TAB* 15 MG PO SCH (21:29)
[2017-05-18] MEDS: Zolpidem TAB* 10 MG PO SCH (21:30)
[2017-05-18] MEDS: Calcium Carbonate CHEW TAB* 500 MG (TUMS) PO PRN (21:37)
[2017-05-19] MEDS: oxyCODONE/Acetamin 5/325 MG* TAB PO PRN ×3 (02:50→11:55)
[2017-05-19 06:43] LABS: Hematocrit 27 % (35-47); Hemoglobin 8.6 g/dl (12.0-16.0)
[2017-05-19] MEDS: DALFAMPRIDINE 10 MG PO SCH (08:59)
[2017-05-19] MEDS: cefTRIAXone VIAL(*) 1,000 MG in NS 0.9% 50 ML* 50 ML IVPB SCH (08:59)
[2017-05-19] MEDS: Potassium Chlor TAB* 20 MEQ TAB.ER PO SCH (09:00)
[2017-05-19] MEDS: Multivitamins/Minerals TAB PO SCH (09:00)
[2017-05-19] MEDS: clonazePAM TAB(*) 0.5 MG PO SCH (09:01)
[2017-05-19] MEDS: FLUoxetine CAP* 20 MG PO SCH (09:01)
[2017-05-19] MEDS: Modafinil TAB* 100 MG PO SCH (09:01)
[2017-05-19] MEDS: ARIPiprazole TAB* 15 MG PO SCH (09:05)
[2017-05-19] MEDS: Docusate CAP* 100 MG PO SCH (09:05)
--- NOTE | 2017-05-19 10:06 | PN ---
Progress Note - Progress Note Date of Service: 05/19/17 SOAP: Subjective: []Patient seen both in PT and in her room in chair. She did very well with PT this am, mastering transfers and stairs without difficulty. She denies severe pain, SOB, dizziness, CP. Objective: [] Vital Signs Temp 97.7 F 05/19/17 07:40 Pulse 97 05/19/17 07:40 Resp 18 05/19/17 09:01 BP 137/84 05/19/17 07:40 Pulse Ox 95 05/19/17 07:40 Intake & Output 05/18/17 05/19/17 05/19/17 18:59 06:59 18:59 Intake Total 1610 360 480 Output Total 200 300 Balance 1410 60 480 Intake: IVPB 70 Cefazolin 55 NS (0.9%) 15 Oral 1240 360 480 Packed Cells 300 Output: Urine 200 300 Other: Estimated Void Small Date of Last Bowel 05/18/17 Movement # Bowel Movements 1 1 Estimated Stool Amount Medium Large # Voids 1 Laboratory Results - last 24 hr 05/18/17 05/19/17 05/19/17 05:32 06:14 06:14 Hgb 8.6 L Hct 27 L INR (Anticoag Therapy) 2.47 H Blood Type A Positive Antibody Screen Negative Crossmatch See Detail Right knee incision clean and dry, faint ecchymosis around incision line, no evidence of infection, no drainage calf non tender and soft +DF/PF right ankle sensation intact distally Assessment: []s/p right total knee arthroplasty POD #4 Plan: []Discharge home today w [facility] Hold coumadin today Follow up as scheduled in 10-[address] Casitllo
[2017-05-19] MEDS: Carisoprodol TAB* 350 MG PO PRN (11:54)
[2017-05-19] MEDS: Simethicone CHEW TAB* 80 MG PO PRN (11:55)
[2017-05-19] MEDS: Calcium Carbonate CHEW TAB* 500 MG (TUMS) PO PRN (11:55)
[2017-05-19 13:08] VITALS: BP 132/60
--- NOTE | 2017-05-19 21:40 | DS ---
DISCHARGE SUMMARY: DATE OF ADMISSION: 05/15/17 DATE OF DISCHARGE: 05/19/17 ATTENDING PHYSICIAN: Dr. Frances Castillo. * (DICTATED BY RICKY LO) ADMISSION DIAGNOSIS: Severe end-stage degenerative osteoarthritis of the right knee with valgus deformity and MCL incompetence. DISCHARGE DIAGNOSES: 1. Severe end-stage degenerative arthritis of the right knee joint with valgus deformity and MCL incompetence. 2. Urinary tract infection. 3. Hypokalemia. SURGERY PERFORMED: Right total knee arthroplasty. HOSPITAL COURSE: The patient is a 67-year-old female who suffered with severe osteoarthritis over the last several years. This developed into severely deformed valgus knee with subluxation of her tibia on her femur. She had bone- on-bone lateral compartment and patellofemoral compartment arthritic changes. She was having difficulty ambulating without severe pain and failed all conservative modes of treatment. It was felt she would benefit from right total knee arthroplasty and she elected to proceed. She was taken to the operating room under the care of Dr. Frances Castillo on the date of 05/15/17. She tolerated the procedure well and left the operating room in stable condition. She improved satisfactorily with her PT and OT goals throughout her hospital stay. She did, however, complain of some shortness of breath and some bladder pain on postoperative day #2. Dr. Castillo ordered a urinalysis, chest x-ray, and an EKG. Her EKG showed some tachycardia without any other significant findings. Her chest x-ray was negative as well. Urinalysis showed mixed sonu and the patient was again seen by Dr. Porter, who started her on IV Rocephin for the urinary tract infection and was also transfused 1 unit of packed red blood cells on postoperative day #3 as her hemoglobin and hematocrit levels were low at 7.6 and 25 and she was still mildly tachycardic. After her transfusion, her tachycardia improved. Her hemoglobin and hematocrit rebounded to 8.6 and 27. Her urinary symptoms also resolved. She was also given potassium supplement and those numbers improved. Dr. Porter feels that she is stable for discharge medically on the day of 05/19 with one more day of oral antibiotic for the UTI and a repeat BMP in 1 week. The patient feels that she is feeling well and is ready for discharge home with [facility] services today. CONDITION ON DISCHARGE: Her temperature is 97.7, pulse 97, respiratory rate 15 , O2 sats 95% on room air, blood pressure 137/84. Her INR is therapeutic at 2.47. Her potassium is mildly decreased at 3.4, again reviewed by Dr. Porter. PLAN: The patient will be discharged to home later this afternoon, 05/19/17. She will continue to bear weight as tolerated on the right lower extremity. Her incision is healing without evidence of infection. Her calf is soft and nontender. Her neurovascular status is intact. She will hold on Coumadin today , 05/19/17 and is instructed to take 2 mg of Coumadin on 05/20/17 and 2 mg of Coumadin on 05/21/17 with a repeat INR blood draw on , 05/22/17 with dosages to follow from the office. She is instructed to take Keflex 250 mg p.o. 4 times daily on 05/20/17 only, then discontinue medication. She is scheduled to have a repeat BMP in 1 week at the time of her INR blood draw with results sent to Dr. Cam. She has a followup and will see Dr. Castillo in roughly 2 weeks. She also takes morphine sulfate regularly for chronic pain and will continue with these medications as her pain in her knee is well controlled. If there are any noted problems with increased swelling, drainage, calf pain or swelling, the office will be contacted prior to her scheduled appointment with Dr. Castillo. RICKY LO [id number]/[facility] #: [id number] PRISCILA
== END 2017-05-19 13:50 | disposition home health service (06) | DRG 470 ==
LOC: AA 07:48 → SSU 14:57
PROVIDERS: ADMIT Orthopaedic Surgery Adult Reconstructive Orthopaedic Surgery; ATTEND Orthopaedic Surgery Adult Reconstructive Orthopaedic Surgery
PROC: 0SRC0J9 Replacement of Right Knee Joint with Synthetic Substitute, Cemented, Open Approach (ICD-10-PCS; 2017-05-15)
PROC: 30233N1 Transfusion of Nonautologous Red Blood Cells into Peripheral Vein, Percutaneous Approach (ICD-10-PCS; principal; 2017-05-18)
DX: M17.11 Unilateral primary osteoarthritis, right knee (principal); G35 Multiple sclerosis; J44.9 Chronic obstructive pulmonary disease, unspecified; E87.1 Hypo-osmolality and hyponatremia; N39.0 Urinary tract infection, site not specified; M21.061 Valgus deformity, not elsewhere classified, right knee; G89.29 Other chronic pain; E78.5 Hyperlipidemia, unspecified; R00.0 Tachycardia, unspecified; F41.9 Anxiety disorder, unspecified; K21.9 Gastro-esophageal reflux disease without esophagitis; F32.9 Major depressive disorder, single episode, unspecified; D64.9 Anemia, unspecified; E87.6 Hypokalemia; Z90.710 Acquired absence of both cervix and uterus; Z88.8 Allergy status to other drugs, medicaments and biological substances; Z91.040 Latex allergy status; Z82.49 Family history of ischemic heart disease and other diseases of the circulatory system; Z85.51 Personal history of malignant neoplasm of bladder; Z84.1 Family history of disorders of kidney and ureter; Z80.3 Family history of malignant neoplasm of breast; Z87.891 Personal history of nicotine dependence
CPT/HCPCS: 36415; 71010; 80048; 81003; 81015; 85014; 85018; 85610; 86850; 86900; 86901; 86922; 87086; 88305; 88311; 93005; A9270-GY; C1776; J0690; J0696; J1650; J2250; J2270; J2795; J3010; P9040

== ENCOUNTER 2018-08-13 07:16 | Day surgery (SDC) | payer MEDICAID, MEDICARE ==
[~2018-08-13 07:16] MED LIST changes: +Famotidine IV* 10 MG/ML 2 ML (20 mg) IV ONE
[2018-08-13] MEDS ORDERED: Famotidine IV* 10 MG/ML 2 ML (20 mg) ONE (07:27)
[2018-08-13] MEDS ORDERED: ceFAZolin 2 GM PREMIX in ORs 2 GM/50 ML BAG IVPB ONE (07:27)
[2018-08-13] MEDS ORDERED: fentaNYL* 50 MCG/ML 2 ML VIAL (100 MCG VIAL) ONE (07:55)
[2018-08-13] MEDS ORDERED: ROPIVACAINE 5 MG/ML 30 ML BTL (0.5%) ONE (07:55)
[2018-08-13] MEDS ORDERED: Midazolam* 1 MG/ML 5 ML VIAL (5 MG) ONE (07:55)
[2018-08-13] MEDS ORDERED: Lidocaine 1% INJ* 10 MG/ML 30 ML SDV ONE (07:55)
[2018-08-13] MEDS ORDERED: Propofol* 10 MG/ML 20 ML BTL IV PUSH ONE (07:56)
[2018-08-13] MEDS ORDERED: Ondansetron INJ* 2 MG/ML VIAL ONE (07:56)
[2018-08-13] MEDS ORDERED: Ketorolac INJ* 30 MG/ML 1 ML VIAL ONE (07:56)
[2018-08-13] MEDS ORDERED: Naloxone* 0.4 MG/ML 1 ML VIAL IV PRN (08:22)
[2018-08-13] MEDS ORDERED: DiMENhydriNATE IV* 50 MG/ML VIAL IV PUSH PRN (08:22)
[2018-08-13] MEDS ORDERED: Acetaminophen TAB* 325 MG PO PRN (08:22)
[2018-08-13 09:31] VITALS: BP 160/90
--- NOTE | 2018-08-14 03:25 | OP ---
DATE OF OPERATION: 08/13/18 [facility] DATE OF : 46 SURGEON: Kenji Hart DPM TEXTILE PIN WORKER: None. ANESTHESIA: MAC with local. PRE-OP DIAGNOSIS: Painful severely contracted second left hammertoe with pre- ulcerative lesion at the distal aspect. POST-OP DIAGNOSIS: Painful severely contracted second left hammertoe with pre- ulcerative lesion at the distal aspect. OPERATIVE PROCEDURE: Correction of the second left hammertoe with flexor tenotomy and capsulotomy of the proximal interphalangeal joint and splinting of the second left toe. PATHOLOGY: None. HEMOSTASIS: Pneumatic ankle tourniquet. ESTIMATED BLOOD LOSS: Less than 5 cc. 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 There is no current active ulceration or infection, but given her health and difficulty with ambulation and the progression of the deformity, it is necessary to reduce the contracture and alleviate the pressure in the distal aspect of the toe to attempt to prevent recurrent ulceration and infection. DESCRIPTION OF PROCEDURE: The patient was brought to the operating room and placed on the operating table in supine position. The anesthesia department administered IV sedation and a peripheral nerve block was performed about the left foot with a 1:1 mixture of 1% lidocaine plain and 0.5% ropivacaine plain. The left foot was prepped and draped in the usual fashion. The left foot was then exsanguinated with an Esmarch bandage and the pneumatic ankle tourniquet was inflated to 250 mmHg about a well-padded left ankle. Attention was directed to the lateral aspect of the second digit where a linear incision was made. The incision was deepened into the subcutaneous tissues with care being taken to avoid neurovascular structures. Dissection was carried to the plantar aspect of the proximal phalangeal joint and just distal to this area, a #15 blade was inserted and while extending the digit, the long flexor tendon was transected. The plantar capsular structures were also needed to be released to allow for adequate reduction of the contracture. This allowed for adequate reduction of the contracture. The metatarsophalangeal joint had very little contracture, it is primarily at the proximal and distal phalangeal joints. The surgical site was flushed with copious amounts of normal sterile saline. The skin was reapproximated and secured with 5-0 nylon. Next, Mastisol was applied and long Steri-Strips were then used to splint, while extending the digit and holding in a rectus position. Xeroform gauze placed over the incision and a sterile dressing with 4x4 gauze, Mary and leg Coban wrap was applied while holding the digit in rectus position for further splinting. The pneumatic ankle tourniquet was deflated about the left ankle with a prompt hyperemic response to involve 5 digits of the patient's left foot, having appeared to tolerate the procedure and the anesthesia well. The patient was transported via cart from the operating room to Recovery in satisfactory condition. Capillary refill is less than 3 seconds to all digits of the left foot. [id number]/CPS #: [id number] MTDD
== END 2018-08-13 10:00 | disposition home or self-care (01) ==
LOC: OREAST 07:16
PROVIDERS: ATTEND Podiatrist Foot Surgery
DX: M20.42 Other hammer toe(s) (acquired), left foot (principal); G35 Multiple sclerosis; F41.8 Other specified anxiety disorders; M19.90 Unspecified osteoarthritis, unspecified site; G89.29 Other chronic pain
CPT/HCPCS: J0690; J1885; J2250; J2405; J2704; J2795; J3010

== ENCOUNTER 2018-10-27 09:36 | Inpatient (IN) | payer MEDICARE, MEDICAID ==
--- NOTE | 2018-10-19 14:31 | HP ---
AMENDED REPORT NOW INCLUDES DESIGNATED COSIGNER HISTORY AND PHYSICAL: DATE OF ADMISSION/SURGERY: 10/27/18 DATE OF OFFICE VISIT: 10/19/18 SURGEON: Frances Castillo MD * (DICTATED BY RICKY ORLANDO) PROCEDURE: Left total knee arthroplasty. CHIEF COMPLAINT: Left knee pain. HISTORY OF PRESENT ILLNESS: Ms. Jennings is a 68-year-old female with complaints of left knee pain. She has failed conservative treatment and elected to proceed with a left total knee arthroplasty. PAST MEDICAL HISTORY: RA, multiple sclerosis, depression, anxiety, bladder cancer, GERD, and peripheral vascular disease. PAST SURGICAL HISTORY: Tonsillectomy, hysterectomy, bladder plication, right lung empyema removal, right knee scope, right total knee arthroplasty, and bilateral foot surgery. CURRENT MEDICATIONS: 1. Provigil 200 mg half a tab in the morning, half a tab midday. 2. Ampyra 10 mg twice a day. 3. Clonazepam 0.5 mg daily as needed. 4. Fluoxetine 20 mg daily. 5. Morphine sulfate 15 mg for breakthrough pain. 6. Abilify 15 mg daily. 7. Mirtazapine 15 mg q.h.s. 8. Montelukast sodium 10 mg daily. 9. Multivitamin. 10. Ambien 12.5 mg q.h.s. as needed. 11. Azelastine nasal spray as needed. 12. MiraLAX. 13. Naproxen 500 mg twice a day. 14. Orphenadrine citrate 1 tab twice a day. 15. Glucosamine chondroitin. 16. AREDS daily. 17. Medical marijuana 1.3 mg INH daily. ALLERGIES: LATEX, BACLOFEN, and SIMVASTATIN. FAMILY HISTORY: Coronary artery disease, breast cancer, and kidney disease. SOCIAL HISTORY: She is a 68-year-old female. She lives with her . She does not smoke cigarette. She does use medical marijuana and she denies use of alcohol. REVIEW OF SYSTEMS: A complete 14-point review of systems was reviewed with the patient. It was positive for GERD. She denies history of DVT, PE, hepatitis, HIV, or anesthesia problems. PHYSICAL EXAMINATION GENERAL: She is well developed, well nourished, in no acute distress. VITAL SIGNS: She stands 52 inches tall, weighs 150 pounds. Her blood pressure is 144/82 and her heart rate is 81. HEENT: Normocephalic, atraumatic. NECK: Supple. No palpable lymph nodes. PULMONARY: The lungs are clear to auscultation bilaterally. CARDIO: Regular rate and rhythm. Strong S1 and S2. ABDOMEN: Soft, nontender, nondistended. NEUROLOGICAL: She is alert and oriented x3. MUSCULOSKELETAL: Left lower extremity, the skin is intact. There are no open wounds or abrasions. There is a large joint effusion. She has a 20-degree valgus deformity of the knee, which corrects by 5 degrees. Range of motion is 15 to 100 degrees of flexion with patellofemoral crepitus. She has a 2+ dorsalis pedis pulse, intact sensation, and her lower extremity muscle group strengths are intact at 5/5. ASSESSMENT AND PLAN: Ms. Jennings is a 68-year-old female with a severe end-stage osteoarthritis of the left knee. She has failed conservative treatment and elected to proceed with a left total knee arthroplasty. The surgery is scheduled for 10/27/[address] Castillo discussed the risks and benefits of the surgery at today's visit and all of her questions were answered. She will follow up with Dr. Castillo 2 weeks after the surgery. RICKY ORLANDO [id number]/CPS #: [id number] MTDD
[~2018-10-27 09:36] MED LIST changes: -Buffered Lidocaine 0.9% SYRIN* 5 ML/SYR SYRINGE INTRADERM ONE; +Buffered Lidocaine 1% SYRIN* 1 ML/SYRINGE INTRADERM ONE; -Famotidine IV* 10 MG/ML 2 ML (20 mg) IV ONE; +Lactated Ringers 1000 ML Bag* 1,000 ML IV SCH; +Tranexamic Acid 1,000 MG in NS 0.9% 50 ML* (outpatient use) IV SCH
[2018-10-27] MEDS ORDERED: fentaNYL* 50 MCG/ML 2 ML VIAL (100 MCG VIAL) ONE ×2 (09:44→15:19)
[2018-10-27] MEDS ORDERED: Midazolam* 1 MG/ML 2 ML VIAL (2 MG) ONE (09:44)
--- OUTSIDE RECORDS SUMMARY | 2018-10-27 09:44 | XMS REPORT | Continuity of Care Document ---
:1950 External Reference #:[id number] Author Name Sonia Alexander, KIMBERLY Address [address] [place] [address] Care Team Providers Name Role Phone Cortney Cam Care Team Information Outbound Supervisor Unavailable Cortney Cam Primary Care Physician Unavailable Payers Type Date Identification Numbers Payment Provider Subscriber Effective: 2008 Policy Number: [id number] Medicare [facility] Tran Bui PayID: [id number] [address] [place] [address] Effective: 2007 Policy Number: [id number] Medicaid [place] Tran [place]ui PayID: [id number] [address] [place] [address] Advance Directives Description No Information Available Problems Date Description Provider Status Onset: 08/22/2011 Chronic pain syndrome Christie Franco M.D. Active Onset: 08/22/2011 Multiple sclerosis Christie Franco M.D. Active Onset: 08/22/2011 Anxiety state Christie Franco M.D. Active Onset: 08/22/2011 Pain in limb Christie Franco M.D. Active Onset: 12/18/2011 Edema Stuart Goncalves M.D. Active Onset: 02/14/2012 Uterovaginal prolapse Christie Franco M.D. Active Onset: 12/04/2012 Osteoporosis Cortney Cam M.D. Active Onset: 01/01/2013 Depressive disorder Cortney Cam M.D. Active Onset: 05/21/2013 Insomnia Cortney Cam M.D. Active Onset: 05/21/2013 Anxiety state Cortney Cam M.D. Active Onset: 08/15/2015 Vitamin D deficiency Cortney Cam M.D. Active Onset: 08/15/2015 Mixed hyperlipidemia Cortney Cam M.D. Active Onset: 08/15/2015 Osteochondropathy Cortney Cam M.D. Active Onset: 08/15/2015 Family history of ischemic heart Cortney Cam M.D. Active disease and other diseases of the circulatory system Onset: 07/10/2018 Peripheral vascular disease Cortney Cam M.D. Active Family History Date Family Member(s) Problem(s) Comments General sister - after Breast CA mets. age ~70's.no lung, colon CA. No Diabetes. Father due to MT () - in his early 50s Mother due to Kidney Disease () - when patient was 4. Grew up with oldest sister. Number of Children 2 First Son Unremarkable estranged. lives in [place]. speaks with him every few months. First Son Anemia Second Son Unremarkable [place] Number of Siblings 12 siblings, 3 ( 1 MT, 1 brain anneurysm, 1 breast cancer ) Number of Grandchildren 2 Social History Type Date Description Comments Sex Unknown Marital Status Patient has a significant other - her 2nd ex . Living Situation Lives with male partner, her ex- . Gets along better with each other now that they are . 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 1 ppd Unknown Smoker x 43 yrs, has quit during both pregnancies Smoking Status Reviewed: 10/20/18 Former Cigarette Quit in 2009. 1 ppd Smoker x 43 yrs, has quit during both pregnancies ETOH Use Denies alcohol use Tobacco Use Start: Unknown End: Patient is a former Unknown smoker Exercise Stationary bicycle, Type/Frequency Current elliptical off and on. walks outside in good weather, with the walker . Allergies, Adverse Reactions, Alerts Date Description Reaction Status Severity Comments 04/17/2012 Latex Active 06/15/2015 Zocor bone pain. Active 03/01/2016 Baclofen Active rash 05/07/2018 Tizanidine caused falls Active 08/22/2011 NKDA Inactive Medications Medication Date Status Form Strength Qnty SIG Indications Ordering Provider Amoxicillin/Clavu 10/20/ Active Tablets 875-125mg 20tab 1 by mouth J01.90 Sonia lanate Potassium 2018 s twice a Naty day x 10 Alexander, days CARDIOLOGY CONSULTANT Cipro 10/02/ Active Tablets 250mg 10tab 1 by mouth N39.0 Cortney L. 2017 s twice a Dorina, casa x 5 d M.D. Orphenadrine 07/10/ Active Tablets ER 100mg 30tab take one Cortney L. Citrate ER 2017 12HR s tablet by Dorina mouth up M.D. to twice daily. use caution due to fatigue Modafinil 06/24/ Active Tablets 200mg 30tab take 1 Cortney L. 2017 s tablet by Dorina mouth M.DTabitha every morning - maximum daily dose of 1 per day Furosemide 11/01/ Active Tablets 20mg 30tab 1 by mouth Cortney L. 2017 s daily as Dorina needed for M.D. edema Ra Bladder 08/07/ Active Misc 99uni Use 5-6 Cortney LTabitha Control 2017 ts Pads A Day Dorina, Pads/Women/Ultima if needed M.DTabitha te Absorbency Abilify 06/15/ Active Tablets 10mg 30tab 1 by mouth F32.9 Cortney Merlos 2015 s daily [place] Cam Miralax 06/06/ Active Powder 3350NF 60uni 1 cap K59.00 Cortney Merlos 2014 ts twice a casa Cam as M.DTabitha needed Colace 06/06/ Active Capsules 100mg 60cap take one K59.00 Cortney Merlos 2014 s capsule by Dorina mouth M.DTabitha twice a day Mirtazapine 05/21/ Active Tablets 45mg 90tab take 1 F32.9 Cortney L. 2013 s tablet by Dorina mouth M.DTabitha daily at bedtime Montelukast 05/21/ Active Tablets 10mg 90tab take 1 Cortney LTabitha Sodium 2013 s tablet by Dorina mouth M.DTabitha every day FQ Prevail 12/14/ Active 36uni Use Cortney Merlos Protect Underwear 2013 ts Nightly [place] Cam Prevail 10/02/ Active Pads 99uni Use 1 Pad Amelia 2012 ts as Mauri, Necessary TOOL HARDENER Clonazepam 01/01/ Active Tablets 0.5mg 90tab take one F41.9 Nathan Tracie 2012 s tablet by Axel erickson four d, MD times a day maximum daily dose=4 tablets Depends Pads 05/18/ Active 5-6Pads Q 99Per use as N81.4 Cortney Merlos 2011 Day Month necessary [place] Cam Fluoxetine HCL 11/13/ Active Capsules 20mg 90cap take 1 F32.9 Cortney Merlos 2010 s capsule by Dorina mouth M.DTabitha every day Morphine Sulfate 02/01/ Active Tablets 15mg 50tab 1 po every Amelia Instant Release 2009 Soluble s 4 hours as Mauri, needed TOOL HARDENER Astelin 10/27/ Active Soln 137mcg/Sp 30uni use one Cortney Merlos 2008 ray ts spray in Dorina, each M.DTabitha nostril one time daily Ambien CR 02/11/ Active Tablets ER 12.5mg 30tab 1 by mouth G47.00 Cortney Merlos 2007 s at bedtime Dorina, as needed M.DTabitha mdd 1 mdd 1 Ampyra / Active Tablets ER 10mg 1 po bid Unknown 0000 12HR [facility] Caps / Active 1 po qd Unknown 0000 Premarin / Active Cream 0.625mg/G 30uni apply a Cortney Merlos 0000 M ts fingertip Dorina, amount to M.D. vaginal area every night Bisacodyl Ec / Active Tablets DR 5mg 1 po qd Unknown 0000 prn Medical Marijuana / Active Drops prn Unknown 0000 Modafinil 06/24/ Hx Tablets 200mg 30tab take 1 Cortney L. 2017 - s tablet by Dorina 06/24/ mouth M.D. 2017 every morning - maximum daily dose of 1 per day Cyclobenzaprine 05/07/ Hx Tablets 5mg 90tab take one R25.2 Cortney L. HCL 2017 - s tablet by Dorina 07/09/ mouth M.D. 2017 three times daily as needed. take care when driving. Tizanidine HCL 12/18/ Hx Tablets 2mg 120ta 1/2 to 2 Cortney Merlos 2018 - bs by mouth Dorina, 05/07/ four times M.D. 2018 daily Clindamycin HCL 04/10/ Hx Capsules 300mg 30cap 1 by mouth K04.7 Cortney Merlos 2017 - s three Dorina, 10/16/ times M.D. 2017 daily Right Afo 03/13/ Hx One #1. Cortney Merlos 2016 - Please Dorina, 07/09/ fax to . 2017 [facility]. Physical Therapy 02/13/ Hx evaluate G35 Cortney Merlos 2016 - and Treat Dorina, 04/20/ multiple M.D. 2018 sclerosis Dyazide 01/02/ Hx Capsules 37.5-25mg 45cap 1-2 by R60.0 Cortney Merlos 2016 - s mouth Dorina, 07/09/ every day M.D. 2017 Doxycycline 07/18/ Hx Capsules 100mg 10cap 2 by mouth S40.862A Amelia Hyclate 2015 - s once for Mauri, 08/22/ each deer [facility] 2016 tick bite in which the tick was attached for 24 hours or more Vitamin D 07/12/ Hx Capsules [id number] 8caps take 1 Cortney Merlos (Ergocalciferol) 2014 - capsule by Dorina, 04/27/ mouth once M.D. 2017 weekly for 8 weeks. no refills. Abilify 06/15/ Hx Tablets 2mg 30tab take one F32.9 Cortney Merlos 2014 - s tablet by Dorina, 06/13/ mouth M.D. 2015 every day with 10mg tablet Fleet Liquid 06/06/ Hx Enema 5.6GM/Dos 15uni [address] 564[address]00 Barbara Glycerin 2014 - e ts of rectum Henley, Suppositories 07/09/ every day M.D. 2017 as needed Lambswool Bootie 11/29/ Hx dx. 707.13 Cortney Merlos 2014 - 707.13 Dorina, 06/06/ M.D. 2014 Duoderm Pad 02/25/ Hx Dressing cut to 707.13 Cortney Merlos 2013 - size and Dorina, 10/14/ put over M.D. 2014 affected areas. leave on for one week. Cyclobenzaprine 12/12/ Hx Tablets 10mg 270ta take 1 G35 Cortney Merlos HCL 2013 - bs tablet by Dorina, 07/09/ mouth M.DTabitha 2018 three times daily as needed Oxybutynin 10/22/ Hx Tablets 5mg 90tab 1 by mouth Cortney Merlos Chloride 2013 - s three Dorina, 06/06/ times a M.D. 2014 day [employer] delivery fax# [phone] Senna Laxative 10/14/ Hx Tablets 8.6mg 180ta 6 tabs at 564.09 Fabiola 2013 - bs hs Brown, CARDIOLOGY CONSULTANT 2015 564.00 Evista 12/04/2012 Hx Tablets 60mg 30tabs 1 po daily 733.00 Cortney Cam, 10/14/2013 [place] Singulair 12/04/2012 Hx Tablets 10mg 30tabs 1 po daily 995.3 Cortney Merlos - [employer] [facility] Dorina, 05/21/2014 Delivery fax# MTabithaDTabitha [phone] Depends 05/27/2012 Hx 30units pullups 788.30 Amelia - asher/kim, Mauri, 08/22/2016 use nightly TOOL HARDENER Depends 05/18/2012 Hx 3-4Eac 20units use as 788.30 Nathan Dang-Medium - h Day necessary Neydaiman, Panty Liner 05/27/2012 M.D. Depends 05/15/2012 Hx 1Carton 4 per day 788.30 Cortney Cam, 05/18/2012 M.DTabitha Cipro 02/14/2012 Hx Tablets 250mg 6tabs 1 tab po bid Christie Davis - x 3 days Pasatiempo, 04/17/2012 M.D. Furosemide 12/18/2011 Hx Tablets 20mg 30tabs 1 by mouth R60.0 Cortney Merlos - daily as Dorina, 02/13/2017 needed for M.D. edema Nitrofurantoin 08/22/2011 Hx Capsules 100mg 1 po qd Family - Medicine 01/01/2013 [facility] Cipro 03/22/2011 Hx Tablets 500mg 14tabs 1 po qd Soha Polk, 04/26/2011 M.D. Morphine Sulfate 03/22/2011 Hx Tablets ER 30mg 30tabs 1 po bid Amelia ER - 12HR Mauri, 06/13/2016 TOOL HARDENER Ankle - Soft 03/22/2011 Hx R 1units wear during Soha Brace - Ankle day-take off thelma Mikeyfrench, 04/26/2011 at night M.D. Singulair 10/31/2010 Hx Tablets 10mg 30tabs Take One Cortney L. - Tablet By Dorina, 10/14/2013 Mouth One M.D. Time Daily Zocor 05/26/2010 Hx Tabs 20mg 30tabs Take One Soha - Tablet By thelma Gaviria, 03/22/2011 Mouth M.D. Nightly AT Bedtime Ferrous 05/03/2010 Hx Tablets 240(27 30tabs 1 tab taken Soha Gluconate - Fe) mg with glass of thelma Gaviria, 09/21/2010 orange juice M.D. Nystatin 02/10/2010 Hx Suspension [id number] 60ml 3 ml on each 112.0 Amelia - Unit/M side of mouth Mauri, 09/21/2010 L qid. hold in TOOL HARDENER mouth as long as possible before swallowing Lasix 02/01/2010 Hx Tablets 20mg 30tabs 1 po qam as Soha - needed for thelma Gaviria, 09/21/2010 edema M.D. Clindamycin HCL 01/11/2010 Hx Capsules 300mg 40caps 1 po qid Soha - thelma Gaviria, 02/01/2010 M.D. Levaquin 01/10/2010 Hx Tablets 750mg 5tabs 1 po qd x 5d Elaina - [facility], 01/11/2010 Afnp-C Ciprofloxacin 01/02/2010 Hx Tablets 250mg 20tabs 1 po bid Elaina HCL - [place], 01/10/2010 Afnp-C Advair Diskus 12/24/2009 Hx Misc 250-50 1Mdi Inhale One Soha - mcg/Do puff By Mouth thelma Gaviria, 09/21/2010 se Twice Daily M.D. Remeron 12/15/2009 Hx Tabs 45mg 30tabs take one 311 Cortney L. - tablet by Dorina, 05/21/2014 mouth nightly M.D. at bedtime [facility] fax# [phone] Cipro 09/09/2009 Hx Tablets 500mg 14tabs 1 po bid for Davidson A. - 7 days [place] Goncalves 01/02/2010 Bactrim DS 09/09/2009 Hx Tablets 800-16 20tabs one tab po Davidson A. - 0mg bid [place] Goncalves 01/02/2010 Flexeril 04/26/2009 Hx Tabs 10mg 90tabs take one 340 Amelia - tablet by Mauri, 12/12/2013 mouth three TOOL HARDENER times daily as needed Zocor 03/06/2009 Hx Tabs 20mg 30tabs Take One Soha - Tablet By thelma aGviria, 05/12/2010 Mouth M.D. Nightly AT Bedtime Skelaxin 12/22/2008 Hx Tablets 800mg 90tabs 1/2-1 tab po Soha - q 6 hours thelma Gaviria, 01/13/2010 MAustin Provigil 12/22/2008 Hx Tablets 200mg 30tabs 1 by mouth G35 Cortney Merlos - every morning Dorina, 08/22/2016 M.DTabitha Simvastatin 07/21/2008 Hx Tablets 20mg 30tabs take 1 tablet Soha - at bedtime thelma Gaviria, 05/26/2010 M.D. Advair Diskus 01/06/2008 Hx Misc 250/50 1units inhale one Soha - puff by mouth thelma Gaviria, 01/11/2010 twice daily M.D. Miralax 12/15/2007 Hx Powder 3350NF 1Month 1 tbsp In Soha - Beverage 1-2 thelma Gaviria, 12/22/2008 Times Daily M.D. as Needed Oxycontin 11/27/2007 Hx Tablets ER 20mg 60tabs 1 po bid Soha - 12HR thelma Gaviria, 12/30/2007 M.D. Auth # [id number] Flexeril 11/13/2007 Hx Tabs 10mg 90tabs Take One Soha - Tablet By thelma Gaviria, 12/22/2008 Mouth Three M.D. Times Daily as Needed For Muscle Spasm Abilify 11/13/2007 Hx Tablets 15mg 90tabs Take 1 Tablet 311 Cortney LTabitha - By Mouth Dorina, 06/15/2015 Every Morning M.DTabitha Advair 250/50 06/16/2007 Hx 250/50 1units One Soha - Inhalations thelma Gaviria, 02/12/2008 bid M.DTabitha Levaquin 05/19/2007 Hx Tablets 500mg 10tabs 1 po qd 466.0 Soha - thelma Gaviria, 06/04/2007 M.DTabtiha Zithromax 05/08/2007 Hx Tablets 250mg 6tabs 2 tabs day 1 466.0 Opal Gomez, KIMBERLY 05/19/2007 1 tab qd days 2 thru 5 Tessalon Perles 05/08/2007 Hx 200mg 20units 1 tid prn 466.0 Opal Gomez, KIMBERLY 06/04/2007 Guaifenisin 05/08/2007 Hx 600mg 14units 1 po bid 466.0 Opal Gomez, KIMBERLY 06/04/2007 Oxycodone 06/10/2006 Hx Capsules 5mg 400caps 1-4 tabs po q Elaina - 6 hours prn [facility], 02/01/2010 ut Afnp-C Miralax 06/10/2006 Hx Powder 527gm 17 GM In 8 Oz Soha - H2o 1-2 Times thelma Gaviria, 12/08/2006 Daily as M.D. Needed For Constipation Dyazide 06/03/2006 Hx 0 37.5/2 30units 1 PO qd prn Elaina - 5 [place], 02/12/2008 Afnp-C Percocet 05/30/2006 Hx Tablets 5mg;32 50tabs 1-2 tabs po q Soha - 5 mg 6 hours prn thelma Gaviria, 06/10/2006 M.DTabitha Keflex 05/26/2006 Hx Capsules 500mg 20caps 1 PO bid Elaina - [place], 06/03/2006 Afnp-C Celebrex 05/08/2006 Hx Capsules 200mg 180caps 1 po bid prn 511.0 Elaina - [place], 12/08/2006 Afnp-C Nasonex 03/17/2006 Hx 50mcg 1units 1 [place] Each Soha - Nostril qd thelma Gaviria, 12/08/2006 MAustin Vytorin 01/21/2006 Hx Tablets 10mg;2 30tabs 1 po qd Soha - 0 mg thelma Gaviria, 07/21/2008 MAustin Multivitamin 10/11/2005 Hx 30units 1 po qd Soha - thelma Gaviria, 02/10/2010 MAustin Calcium With Vit 10/11/2005 Hx Tabs 600mg 60tabs 1 po bid Soha D - thelma Gaviria, 05/21/2013 M.DTabitha Remeron 10/11/2005 Hx Tablets 30mg 90tabs 2 po q hs Family - Medicine 12/22/2008 [facility] Evista 10/11/2005 Hx Tablets 60mg 30tabs take one Cortney L. - tablet by Dorina, 10/14/2013 mouth one M.D. time daily Klonopin 08/20/2005 Hx Tablets 0.5mg 120tabs 1 po qid prn Soha - thelma Gaviria, 02/01/2010 M.DTabitha Prozac 08/20/2005 Hx Caps 20mg 30caps Take One Soha - Capsule By thelma Gaviria, 11/13/2010 Mouth One M.D. Time Daily Prozac 08/15/2005 Hx Capsules 20mg 0caps 1 po qd Family Medicine 08/15/2005 [facility] Actonel With 07/10/2005 Hx Tablets 35mg 0tabs 1 po qweek Soha Calcium - thelma Gaviria, 08/20/2005 MAustin Sonata 06/14/2005 Hx Capsules 10mg 30caps 1 po qhs prn Soha - sleep thelma Gaviria, 02/12/2008 M.Abiodun. prior auth#[id number] 869w Lipitor 06/12/2005 Hx Tablets 10mg 90tabs 1 po qhs Soha - thelma Gaviria, 01/21/2006 MTabithaDTabitha Bactrim DS 06/12/2005 Hx Tablets 160mg; 14tabs 1 PO bid Soha - 800 mg thelma Gaviria, 06/20/2005 MAustin Tylenol #3 06/12/2005 Hx Tablets 240tabs 1-2 qid prn Soha - pain thelma Gaviria, 12/22/2008 M.DTabitha Ambien 05/17/2005 Hx Tablets 10mg 30tabs 1 po qhs prn Soha - sleep thelma Gaviria, 06/14/2005 M.Susan Mirtazapine Hx Tablets 45mg 30tabs 1 po q hs Sohaeugenia Polk, 12/15/2009 M.DTabitha Provil Hx Tablets 200mg Sohaeugenia Polk, 12/22/2008 M.DTabitha Clonazepam Hx Tablets 0.5mg 90tabs 1-2 po tid Cortney Cam, 10/14/2013 SHRAVAN MAustin Fluoxetine Hx Capsules 20mg 1 po qd Unknown - 12/22/2008 Colace Hx Capsules 100mg 60caps 1 po bid Cortney Cam, 10/14/2013 M.DTabitha Iron Hx Tablets Unknown - 05/03/2010 Bactrim DS Hx Tablets 800-16 30tabs 1 po qd Unknown - 0mg 03/22/2011 Aloe Vera Juice Hx Unknown - 08/22/2011 Cipro Hx Tablets 500mg 1 po qd Unknown - 08/22/2011 Bactrim Hx Tablets bid Unknown - 04/27/2012 Cipro Hx Tablets 250mg 10tabs 1 po bid Unknown - 05/21/2013 Miralax Hx Powder [id number] 17 gm powder Unknown - in fluid 06/06/2015 daily Baclofen Hx Tablets 10mg take 1 Unknown - tablets by 03/07/2016 mouth three times a day as needed for muscle spasms Celebrex Hx Capsules 100mg take one Unknown - capsule by 04/13/2018 mouth twice a day as needed Medications Administered in Office Medication Date Status Form Strength Qnty SIG Indications Ordering Provider H1N1 MDCR Administered Injection Soha vaccine rajiv Wilkins M.DTabitha Immunizations CPT Code Status Date Vaccine Lot # [id number] Given 07/10/2018 High-Dose, Influenza Virus Vacccine-fluzone 65 [id number] and older [id number] Given 07/03/2017 High-Dose, Influenza Virus Vacccine-fluzone 65 [id number] and older 04705 Given 07/18/2016 High-Dose, Influenza Virus Vacccine-fluzone 65 [id number] and older Q2038 Given 07/30/2014 Split Influenza Medicare: Fluzone [id number] Given 07/30/2014 DO Not Use Split Influenza Virus Vaccine [id number] Q2038 Given 08/20/2013 Split Influenza Medicare: Fluzone [id number] 43751 Given 08/20/2013 Pneumococcal Conjugate Vacc-13 [id number] 86759 Given 04/17/2012 Tdap Tetanus, W Pertussis [id number] Q2038 Given 07/27/2011 Split Influenza Medicare: Fluzone [id number] Given 07/27/2011 Split Influenza Medicare: Fluzone [id number] 29422 Given 07/14/2010 DO Not Use Split Influenza Virus Vaccine [id number] 34075 Given 07/28/2009 DO Not Use Split Influenza Virus Vaccine [id number] 32059 Given 11/05/2006 Pneumococcal Immunization [id number] 29341 Given 11/05/2006 DO Not Use Split Influenza Virus Vaccine [id number] Vital Signs Date Vital Result Comment 10/20/2018 1:00pm BP Systolic 140 mmHg BP Diastolic 88 mmHg Heart Rate 84 /min Body Temperature 98.1 F Respiratory Rate 16 /min Weight 147.00 lb 10/02/2018 12:59pm BP Systolic 148 mmHg BP Diastolic 88 mmHg BP Systolic Recheck 140 mmHg BP Diastolic Recheck 80 mmHg Heart Rate 86 /min Body Temperature 97.5 F Height 60 inches 5'0" Weight 148.00 lb BMI (Body Mass Index) 28.9 kg/m2 07/24/2018 1:06pm BP Systolic 128 mmHg BP Diastolic 76 mmHg Heart Rate 72 /min Body Temperature 97.9 F Respiratory Rate 18 /min Height 60 inches 5'0" Weight 154.00 lb BMI (Body Mass Index) 30.1 kg/m2 07/10/2018 1:06pm BP Systolic 126 mmHg BP Diastolic 80 mmHg Heart Rate 96 /min Body Temperature 97.7 F Height 60 inches 5'0" Weight 155.00 lb BMI (Body Mass Index) 30.3 kg/m2 05/07/2018 4:20pm BP Systolic 144 mmHg BP Diastolic 60 mmHg Heart Rate 84 /min Body Temperature 97.7 F Respiratory Rate 16 /min Weight 149.00 lb 11/27/2017 4:21pm BP Systolic 158 mmHg BP Diastolic 88 mmHg Heart Rate 96 /min Body Temperature 98.0 F Respiratory Rate 18 /min Weight 152.00 lb 10/16/2017 4:32pm BP Systolic 122 mmHg BP Diastolic 80 mmHg Heart Rate 88 /min Body Temperature 98.3 F Respiratory Rate 18 /min Weight 146.00 lb 08/14/2017 11:24am BP Systolic 120 mmHg BP Diastolic 80 mmHg Heart Rate 80 /min Body Temperature 98.7 F Respiratory Rate 18 /min Weight 143.00 lb 04/10/2017 1:45pm BP Systolic 130 mmHg BP Diastolic 80 mmHg Heart Rate 76 /min Body Temperature 98.0 F Respiratory Rate 16 /min Weight 148.00 lb 02/13/2017 3:44pm BP Systolic 128 mmHg BP Diastolic 70 mmHg Heart Rate 80 /min Body Temperature 98.0 F Respiratory Rate 18 /min Height 62 inches 5'2" Weight 143.00 lb BMI (Body Mass Index) 26.2 kg/m2 01/02/2017 3:04pm BP Systolic 130 mmHg BP Diastolic 78 mmHg Heart Rate 80 /min Body Temperature 97.9 F Respiratory Rate 18 /min Height 60 inches 5'0" 08/22/2016 1:00pm BP Systolic 120 mmHg BP Diastolic 84 mmHg Heart Rate 72 /min Body Temperature 98.3 F Respiratory Rate 18 /min Height 60 inches 5'0" Weight 148.00 lb BMI (Body Mass Index) 28.9 kg/m2 08/05/2016 1:02pm BP Systolic 122 mmHg BP Diastolic 68 mmHg Heart Rate 80 /min Body Temperature 98.0 F Respiratory Rate 16 /min Height 60 inches 5'0" Weight 149.00 lb BMI (Body Mass Index) 29.1 kg/m2 07/18/2016 5:07pm BP Systolic 130 mmHg BP Diastolic 76 mmHg Heart Rate 80 /min Body Temperature 97.9 F Respiratory Rate 16 /min Height 60 inches 5'0" 06/13/2016 11:21am BP Systolic 134 mmHg BP Diastolic 80 mmHg Heart Rate 82 /min Body Temperature 97.6 F Respiratory Rate 20 /min Height 60 inches 5'0" Weight 150.00 lb BMI (Body Mass Index) 29.3 kg/m2 12/14/2015 2:59pm BP Systolic 124 mmHg BP Diastolic 76 mmHg Heart Rate 84 /min Body Temperature 97.7 F Respiratory Rate 18 /min Height 60 inches 5'0" Weight 148.00 lb BMI (Body Mass Index) 28.9 kg/m2 08/15/2015 4:13pm BP Systolic 120 mmHg BP Diastolic 78 mmHg Heart Rate 84 /min Body Temperature 98.1 F Respiratory Rate 18 /min Height 60 inches 5'0" Weight 146.00 lb BMI (Body Mass Index) 28.5 kg/m2 06/15/2015 12:59pm BP Systolic 120 mmHg BP Diastolic 80 mmHg Heart Rate 100 /min Body Temperature 98.1 F Respiratory Rate 18 /min Height 60 inches 5'0" Weight 147.00 lb BMI (Body Mass Index) 28.7 kg/m2 06/06/2015 3:12pm BP Systolic 130 mmHg BP Diastolic 84 mmHg Heart Rate 92 /min Body Temperature 99.1 F Respiratory Rate 16 /min Height 63 inches 5'3" Weight 149.00 lb BMI (Body Mass Index) 26.4 kg/m2 11/29/2014 3:37pm BP Systolic 120 mmHg BP Diastolic 70 mmHg Heart Rate 80 /min Body Temperature 98.2 F Respiratory Rate 18 /min Height 63 inches 5'3" Weight 146.00 lb BMI (Body Mass Index) 25.9 kg/m2 10/14/2014 1:56pm BP Systolic 124 mmHg BP Diastolic 78 mmHg Heart Rate 68 /min Body Temperature 98.1 F Respiratory Rate 16 /min Height 63 inches 5'3" Weight 142.25 lb BMI (Body Mass Index) 25.2 kg/m2 05/26/2014 3:23pm BP Systolic 118 mmHg BP Diastolic 70 mmHg Heart Rate 72 /min Body Temperature 97.3 F Respiratory Rate 16 /min Height 63 inches 5'3" Weight 140.00 lb BMI (Body Mass Index) 24.8 kg/m2 02/25/2014 3:52pm BP Systolic 130 mmHg BP Diastolic 84 mmHg Heart Rate 78 /min Body Temperature 98.0 F Respiratory Rate 16 /min Height 63 inches 5'3" Weight 141.00 lb BMI (Body Mass Index) 25.0 kg/m2 10/14/2013 12:56pm BP Systolic 120 mmHg BP Diastolic 72 mmHg Heart Rate 96 /min Body Temperature 98.4 F Height 63 inches 5'3" Weight 140.12 lb BMI (Body Mass Index) 24.8 kg/m2 05/21/2013 3:53pm BP Systolic 120 mmHg BP Diastolic 80 mmHg Heart Rate 80 /min Body Temperature 97.7 F Respiratory Rate 18 /min Height 63 inches 5'3" Weight 142.00 lb BMI (Body Mass Index) 25.2 kg/m2 01/01/2013 12:59pm BP Systolic 118 mmHg BP Diastolic 80 mmHg Heart Rate 80 /min Body Temperature 97.7 F Respiratory Rate 16 /min Height 63 inches 5'3" Weight 139.00 lb BMI (Body Mass Index) 24.6 kg/m2 12/04/2012 1:40pm BP Systolic 132 mmHg BP Diastolic 80 mmHg Heart Rate 84 /min Body Temperature 97.8 F Height 63 inches 5'3" Weight 137.38 lb BMI (Body Mass Index) 24.3 kg/m2 05/15/2012 4:47pm BP Systolic 120 mmHg BP Diastolic 80 mmHg Heart Rate 80 /min Body Temperature 98.1 F Height 63 inches 5'3" Weight 134.00 lb BMI (Body Mass Index) 23.7 kg/m2 04/27/2012 12:32pm BP Systolic 126 mmHg BP Diastolic 80 mmHg Heart Rate 84 /min Body Temperature 97.4 F Height 63 inches 5'3" Weight 136.00 lb BMI (Body Mass Index) 24.1 kg/m2 04/17/2012 10:54am BP Systolic 130 mmHg BP Diastolic 82 mmHg Heart Rate 84 /min Body Temperature 97.8 F Height 63 inches 5'3" Weight 137.00 lb BMI (Body Mass Index) 24.3 kg/m2 02/14/2012 1:03pm BP Systolic 118 mmHg BP Diastolic 80 mmHg Heart Rate 108 /min Height 63 inches 5'3" Weight 137.00 lb BMI (Body Mass Index) 24.3 kg/m2 01/20/2012 12:24pm BP Systolic 116 mmHg BP Diastolic 80 mmHg Heart Rate 96 /min Body Temperature 98.5 F Height 63 inches 5'3" Weight 135.00 lb BMI (Body Mass Index) 23.9 kg/m2 12/18/2011 11:03am BP Systolic 116 mmHg BP Diastolic 70 mmHg Heart Rate 96 /min Body Temperature 98.6 F Height 63 inches 5'3" Weight 143.00 lb BMI (Body Mass Index) 25.3 kg/m2 08/22/2011 2:53pm BP Systolic 128 mmHg BP Diastolic 72 mmHg Heart Rate 102 /min Body Temperature 98.2 F Height 63 inches 5'3" Weight 142.00 lb BMI (Body Mass Index) 25.2 kg/m2 04/26/2011 11:13am BP Systolic 114 mmHg BP Diastolic 80 mmHg Heart Rate 84 /min Body Temperature 98.9 F Respiratory Rate 16 /min Height 63 inches 5'3" Weight 142.00 lb BMI (Body Mass Index) 25.2 kg/m2 03/22/2011 2:07pm BP Systolic 120 mmHg BP Diastolic 68 mmHg Heart Rate 88 /min Body Temperature 99.1 F Respiratory Rate 20 /min Height 63 inches 5'3" Weight 143.00 lb BMI (Body Mass Index) 25.3 kg/m2 09/21/2010 3:05pm BP Systolic 142 mmHg BP Diastolic 82 mmHg Heart Rate 80 /min Body Temperature 98.6 F Height 63 inches 5'3" Weight 143.00 lb BMI (Body Mass Index) 25.3 kg/m2 05/03/2010 2:05pm BP Systolic 120 mmHg BP Diastolic 70 mmHg Heart Rate 96 /min Body Temperature 98.1 F Height 63 inches 5'3" Weight 139.00 lb BMI (Body Mass Index) 24.6 kg/m2 02/10/2010 10:13am BP Systolic 130 mmHg BP Diastolic 80 mmHg Heart Rate 84 /min Body Temperature 98.0 F Weight 138.00 lb 02/01/2010 3:10pm BP Systolic 142 mmHg BP Diastolic 80 mmHg Heart Rate 100 /min Body Temperature 99.3 F O2 % BldC Oximetry 94 % Weight 135.00 lb 01/13/2010 9:32am BP Systolic 118 mmHg BP Diastolic 60 mmHg Heart Rate 96 /min Body Temperature 98.6 F Respiratory Rate 16 /min O2 % BldC Oximetry 95 % Height 63 inches 5'3" Weight 142.00 lb BMI (Body Mass Index) 25.2 kg/m2 01/10/2010 7:19pm BP Systolic 108 mmHg BP Diastolic 70 mmHg Heart Rate 121 /min Body Temperature 101.0 F O2 % BldC Oximetry 93 % Height 63 inches 5'3" Weight 142.00 lb BMI (Body Mass Index) 25.2 kg/m2 01/02/2010 2:59pm BP Systolic 130 mmHg BP Diastolic 80 mmHg Heart Rate 120 /min Body Temperature 99.3 F O2 % BldC Oximetry 95 % Weight 146.00 lb 12/22/2008 3:53pm BP Systolic 132 mmHg BP Diastolic 70 mmHg Heart Rate 84 /min Body Temperature 98.0 F Weight 147.00 lb 02/12/2008 4:05pm BP Systolic 120 mmHg BP Diastolic 78 mmHg Heart Rate 80 /min Height 63 inches 5'3" Weight 134.00 lb BMI (Body Mass Index) 23.7 kg/m2 11/13/2007 2:00pm BP Systolic 112 mmHg BP Diastolic 70 mmHg Heart Rate 60 /min Height 63 inches 5'3" Weight 130.00 lb BMI (Body Mass Index) 23.0 kg/m2 06/16/2007 2:38pm BP Systolic 120 mmHg BP Diastolic 70 mmHg Heart Rate 80 /min Body Temperature 98.4 F Height 63 inches 5'3" Weight 129.00 lb BMI (Body Mass Index) 22.8 kg/m2 06/04/2007 2:06pm BP Systolic 130 mmHg BP Diastolic 78 mmHg Heart Rate 88 /min Body Temperature 98.5 F Height 63 inches 5'3" Weight 132.00 lb BMI (Body Mass Index) 23.4 kg/m2 05/08/2007 1:52pm BP Systolic 134 mmHg BP Diastolic 80 mmHg Body Temperature 98.3 F Height 63 inches 5'3" Weight 128.00 lb BMI (Body Mass Index) 22.7 kg/m2 12/08/2006 10:13am BP Systolic 112 mmHg BP Diastolic 72 mmHg Heart Rate 80 /min Height 63 inches 5'3" Weight 128.00 lb BMI (Body Mass Index) 22.7 kg/m2 06/03/2006 12:47pm BP Systolic 120 mmHg BP Diastolic 80 mmHg Heart Rate 88 /min Body Temperature 99.7 F Height 63 inches 5'3" Weight 129.00 lb BMI (Body Mass Index) 22.8 kg/m2 05/30/2006 10:53am BP Systolic 106 mmHg BP Diastolic 76 mmHg Heart Rate 108 /min Body Temperature 99.5 F O2 % BldC Oximetry 94 % Height 63 inches 5'3" Weight 129.00 lb BMI (Body Mass Index) 22.8 kg/m2 05/26/2006 4:08pm BP Systolic 132 mmHg BP Diastolic 70 mmHg Heart Rate 80 /min Height 63 inches 5'3" Weight 130.00 lb BMI (Body Mass Index) 23.0 kg/m2 05/08/2006 9:49am BP Systolic 122 mmHg BP Diastolic 70 mmHg Heart Rate 68 /min Body Temperature 99.5 F O2 % BldC Oximetry 95 % Height 63 inches 5'3" 02/05/2006 4:46pm BP Systolic 118 mmHg BP Diastolic 78 mmHg Heart Rate 72 /min Height 63 inches 5'3" Weight 129.00 lb BMI (Body Mass Index) 22.8 kg/m2 10/11/2005 1:37pm BP Systolic 112 mmHg BP Diastolic 80 mmHg BP Diastolic Recheck 80 mmHg Heart Rate 80 /min Height 63 inches 5'3" Weight 120.00 lb BMI (Body Mass Index) 21.3 kg/m2 08/20/2005 11:17am BP Systolic 114 mmHg BP Diastolic 70 mmHg Heart Rate 72 /min Height 63 inches 5'3" Weight 115.00 lb BMI (Body Mass Index) 20.4 kg/m2 07/10/2005 1:19pm BP Systolic 120 mmHg BP Diastolic 80 mmHg Body Temperature 99.1 F Height 63 inches 5'3" Weight 115.00 lb BMI (Body Mass Index) 20.4 kg/m2 06/12/2005 3:47pm BP Systolic 102 mmHg BP Diastolic 64 mmHg Heart Rate 68 /min Body Temperature 97.9 F Height 63 inches 5'3" Weight 111.00 lb BMI (Body Mass Index) 19.7 kg/m2 05/17/2005 2:03pm BP Systolic 122 mmHg BP Diastolic 80 mmHg Heart Rate 100 /min Weight 113.00 lb Results Test Date Facility Test Result H/L Range Note Inr/Protime [place]19[place] [facility] [place] 0.92 N 0.77-1.02 Laboratory test 10/19/2018 [facility] [place] Thrombo 28.9 seconds N 26.0-36.3 finding Time PTT Type & Screen 10/19/2018 [facility] [place] Blood A Positive Type Antibody Screen NEGATIVE Urine Culture And 10/02/2018 [facility] SEE RESULT 1 Sensitivities BELOW Ua - Micro (a) 10/02/2018 [facility] Appearance clear (607)- - Color yellow Glucose, Urine ([facility]/CTX) negative Bilirubin negative Ketones negative SP Grav 1.015 Blood small # PH 7.5 Protein negative Urobil 0.2 Nitrite negative Leukocytes ([facility]) trace # Hyaline - /Lpf Granular - /Lpf WBC ([facility]) 3-5 RBC 8-10 Mucus sm amount /Lpf Epith few /Lpf Bacteria 2+ /Hpf Amorphous - /Lpf Crystals, Fluid ([facility]ma/[facility]/CTX) - Z#Comments - Comprehensive Metabolic 10/02/2018 Godfrey Joshua ([facility]) Sodium 136 mEq/L 134-149 Prof Potassium 4.4 mEq/L 3.6-5.5 Chloride 105 mEq/L 94-112 Carbon Dioxide 30 mEq/L 21-32 Glucose 93 mg/dL 70-105 BUN 9 mg/dL 6-26 Creatinine 0.6 mg/dL 0.6-1.4 BUN/Creat Ratio 15.0 CALC 8.0-36.0 Calcium 8.6 mg/dL 8.6-10.2 Total Protein 6.5 g/dL 6.4-8.3 Albumin 4.4 g/dL 3.8-5.5 Globulin 2.1 g/dL 2.0-4.8 A/G Ratio 2.1 CALC 0.6-2.3 Alk. Phosphatase 117 U/L High 30-110 Alt (SGPT) 15 U/L 7-35 Ast (Sgot) 14 U/L 5-34 Total Bilirubin 0.3 mg/dL 0.2-1.3 GFR Non- >60 ml/min/1.73m^ >=60 GFR >60 ml/min/1.73m^ >=60 CBC Electronic a 10/02/2018 Godfrey David ([facility]) WBC 8.7 x10^3/UL 4.0- 10.0 RBC 4.10 x10^6/UL 3.93-6.00 HGB 12.8 g/dL 12.0-17.0 HCT 39 % 35-50 MCV 95.0 fL 80.0-95.0 MCH 31.2 pg 25.6-32.2 MCHC 32.6 g/dL 32.2-36.0 RDW-CV 12.9 % 11.6-14.4 PLT 383 x10^3/UL 163-400 MPV 9.5 fL 9.4-12.4 Michael# 6.25 x10^3/UL High 1.56-6.13 Lymph# 1.32 x10^3/UL 1.18-3.74 Hopewell# 0.90 x10^3/UL High 0.24-0.82 Eos # 0.2 x10^3/UL 0.0-0.5 Baso # 0.07 x10^3/UL 0.01-0.08 Michael% 71.5 % High 34.0-70.0 Lymph % 15.1 % Low 20.0-52.0 [place]% 10.3 % 5.0-12.0 Eos% 1.8 % 0.7-7.0 Baso% 0.8 % 0.1-1.2 Basic Metabolic Panel 08/06/2018 [facility] Sodium 131 mmol/L Low 135-145 Potassium 4.9 mmol/L N 3.5-5.0 Chloride 93 mmol/L Low 101-111 Co2 Carbon Dioxide 27 mmol/L N 22-32 Anion Gap 11 mmol/L N 2-11 Glucose 81 mg/dL N 70-100 Blood Urea Nitrogen 12 mg/dL N 6-24 Creatinine 0.67 mg/dL N 0.51-0.95 BUN/Creatinine Ratio 17.9 N 8-20 Calcium 9.0 mg/dL N 8.6-10.3 Egfr Non- 87.0 >60 Egfr 105.3 >60 2 Laboratory test 08/05/2018 [facility] Free T4 1.52 ng/dL 0.75-1.54 finding (607)- - ([facility]) TSH ([facility]) 1.38 uIU/ml 0.5-6.0 Laboratory test 07/24/2018 [facility] Inr (a) 1.0 0.9-1.1 finding (607)- - Laboratory test 07/24/2018 Donahue Joshua ([facility]) Free T4 1.58 ng/dL High 0.75-1.54 3 finding Comprehensive 07/24/2018 Donahue Joshua ([facility]) Sodium 128 mEq/L Low 134- 149 Metabolic Prof Potassium 4.4 mEq/L 3.6-5.5 Chloride 92 mEq/L Low 94-112 Carbon Dioxide 26 mEq/L 21-32 Glucose 116 mg/dL High 70-105 BUN 9 mg/dL 6-26 Creatinine 0.6 mg/dL 0.6-1.4 BUN/Creat Ratio 15.0 CALC 8.0-36.0 Calcium 9.4 mg/dL 8.6-10.2 Total Protein 7.1 g/dL 6.4-8.3 Albumin 4.8 g/dL 3.8-5.5 Globulin 2.3 g/dL 2.0-4.8 A/G Ratio 2.1 CALC 0.6-2.3 Alk. Phosphatase 112 U/L High 30-110 Alt (SGPT) 25 U/L 7-35 Ast (Sgot) 23 U/L 5-34 Total Bilirubin 0.4 mg/dL 0.2-1.3 GFR Non- >60 ml/min/1.73m^ >=60 GFR >60 ml/min/1.73m^ >=60 Lipid Profile 07/24/2018 Godfrey Joshua (a) Cholesterol 242 mg/dL High 120-200 Triglycerides 96 mg/dL 30-200 HDL Cholesterol 107 mg/dL High 30-85 LDL (Calculated) 116 CALC 0-129 VLDL Cholesterol 19 mg/dL 0-50 HDL Risk Factor 2.3 CALC 0.0-4.4 CBC Electronic [facility]ma 07/24/2018 Godfrey Joshua (a) WBC 9.4 x10^3/UL 4.0- 10.0 RBC 4.15 x10^6/UL 3.93-6.00 HGB 13.1 g/dL 12.0-17.0 HCT 39 % 35-50 MCV 93.0 fL 80.0-95.0 MCH 31.6 pg 25.6-32.2 MCHC 33.9 g/dL 32.2-36.0 RDW-CV 13.0 % 11.6-14.4 PLT 337 x10^3/UL 163-400 MPV 9.2 fL Low 9.4-12.4 Michael# 7.24 x10^3/UL High 1.56-6.13 Lymph# 1.24 x10^3/UL 1.18-3.74 Hopewell# 0.80 x10^3/UL 0.24-0.82 Eos # 0.0 x10^3/UL 0.0-0.5 Baso # 0.02 x10^3/UL 0.01-0.08 Michael% 77.4 % High 34.0-70.0 Lymph % 13.2 % Low 20.0-52.0 [place]% 8.5 % 5.0-12.0 Eos% 0.1 % Low 0.7-7.0 Baso% 0.2 % 0.1-1.2 Laboratory test 07/24/2018 Donahue Joshua ([facility]) TSH 0.48 mIU/L Low 0.50- 6.00 4 finding Iron And Tibc 11/20/2017 [facility] Iron 344 g/dL 250-450 5 [address] [facility] [address] [address] bc) (607)- - Uibc 244 g/dL 118-369 Iron, Serum 100 g/dL 27-139 Iron Saturation 29 % 15-55 Laboratory test 11/20/2017 Donahue Joshua (a) Vitamin B-12 >2000 pg/mL High 230-1050 6 finding CBC Electronic Fma 11/20/2017 Donahue Joshua (a) WBC 7.4 x10^3/UL 3.6- 9.6 RBC 4.22 x10^6/UL 3.90-5.70 HGB 13.2 g/dL 12.1-17.2 HCT 39 % 36-50 MCV 92.0 fL 82.2-97.4 MCH 31.3 pg 27.6-33.3 MCHC 34.1 g/dL 33.0-35.5 RDW-CV 16.1 % High 11.6-13.7 PLT 342 x10^3/UL 150-400 MPV 7.2 fL Low 7.4-10.4 Michael# 4.4 x10^3/UL Lymph# 1.7 x10^3/UL 0.7-4.9 Hopewell# 0.4 x10^3/UL 0.1-0.9 Eos # 0.7 x10^3/UL Baso # 0.1 x10^3/UL Michael% 56.3 % Lymph % 23.8 % 20.5-51.1 [place]% 6.8 % 1.7-9.3 Eos% 9.5 % Baso% 0.9 % Comprehensive Metabolic 10/16/2017 Donahue Joshua ([facility]) Sodium 137 mEq/L 134-149 Prof Potassium 4.1 mEq/L 3.6-5.5 Chloride 102 mEq/L 94-112 Carbon Dioxide 32 mEq/L 21-32 Glucose 100 mg/dL 70-105 BUN 11 mg/dL 6-26 Creatinine 0.6 mg/dL 0.6-1.4 BUN/Creat Ratio 18.3 CALC 8.0-36.0 Calcium 9.4 mg/dL 8.6-10.2 Total Protein 6.8 g/dL 6.4-8.3 Albumin 4.2 g/dL 3.8-5.5 Globulin 2.6 g/dL 2.0-4.8 A/G Ratio 1.6 CALC 0.6-2.3 Alk. Phosphatase 75 U/L 30-110 Alt (SGPT) 15 U/L 7-35 Ast (Sgot) 16 U/L 5-34 Total Bilirubin 0.2 mg/dL 0.2-1.3 GFR Non- >60 ml/min/1.73m^ >=60 GFR >60 ml/min/1.73m^ >=60 Lipid Profile 08/07/2017 Godfrey Joshua ([facility]) Cholesterol 233 mg/dL High 120-200 Triglycerides 271 mg/dL High 30-200 HDL Cholesterol 80 mg/dL 30-85 LDL (Calculated) 99 CALC 0-129 VLDL Cholesterol 54 mg/dL High 0-50 HDL Risk Factor 2.9 CALC 0.0-4.4 Iron And 08/07/2017 [facility] Iron [facility]Tibc) 364 g/dL 250-450 Tibc [address] [place] [address] (607)- - Uibc 325 g/dL 118-369 Iron, Serum 39 g/dL 27-139 Iron Saturation 11 % Low 15-55 Laboratory test finding 08/07/2017 Godfrey Joshua ([facility]) TSH 1.17 mIU/L 0.50-6.00 Comprehensive Metabolic 08/07/2017 Godfrey Joshua ([facility]) Sodium 143 mEq/L 134-149 Prof Potassium 4.5 mEq/L 3.6-5.5 Chloride 102 mEq/L 94-112 Carbon Dioxide 27 mEq/L 21-32 Glucose 86 mg/dL 70-105 BUN 13 mg/dL 6-26 Creatinine 0.6 mg/dL 0.6-1.4 BUN/Creat Ratio 21.7 CALC 8.0-36.0 Calcium 9.4 mg/dL 8.6-10.2 Total Protein 6.7 g/dL 6.4-8.3 Albumin 4.1 g/dL 3.8-5.5 Globulin 2.6 g/dL 2.0-4.8 A/G Ratio 1.6 CALC 0.6-2.3 Alk. Phosphatase 107 U/L 30-110 Alt (SGPT) 16 U/L 7-35 Ast (Sgot) 20 U/L 5-34 Total Bilirubin 0.2 mg/dL 0.2-1.3 GFR Non- >60 ml/min/1.73m^ >=60 GFR >60 ml/min/1.73m^ >=60 Complete Blood Count 08/07/2017 Godfrey David ([facility]) WBC 5.6 x10^3/UL 3.6-9.6 RBC 4.05 x10^6/UL 3.90-5.70 HGB 12.8 g/dL 12.1-17.2 HCT 37 % 36-50 MCV 91.0 fL 82.2-97.4 MCH 31.7 pg 27.6-33.3 MCHC 34.8 g/dL 33.0-35.5 RDW 12.6 % 11.6-13.7 PLT 292 x10^3/UL 150-400 MPV 6.2 fL Low 7.4-10.4 Gran # 3.5 x10^3/UL 1.5-7.2 Lymph# 1.9 x10^3/UL 0.7-4.9 Hope[place]# 0.2 x10^3/UL 0.1-0.9 Gran % 61.1 % 42.2-75.2 Lymph % 34.6 % 20.5-51.1 [place]% 4.3 % 1.7-9.3 Laboratory test 08/07/2017 Godfrey David ([facility]) Folate Level 8.21 ng/mL 3.00-16.00 finding Vitamin D25 9 Low 30-100 LDL, Direct 110 mg/dL 0-130 Complete Blood Count 07/18/2017 Godfrey Joshua ([facility]) WBC 8.0 x10^3/UL 3.6-9.6 RBC 3.89 x10^6/UL Low 3.90-5.70 HGB 8.9 g/dL Low 12.1-17.2 7 HCT 29 % Low 36-50 MCV 75.0 fL Low 82.2-97.4 MCH 23.0 pg Low 27.6-33.3 MCHC 30.5 g/dL Low 33.0-35.5 RDW 18.5 % High 11.6-13.7 PLT 496 x10^3/UL High 150-400 MPV 6.6 fL Low 7.4-10.4 Gran # 5.4 x10^3/UL 1.5-7.2 Lymph# 2.1 x10^3/UL 0.7-4.9 Hopewell# 0.5 x10^3/UL 0.1-0.9 Gran % 66.4 % 42.2-75.2 Lymph % 27.0 % 20.5-51.1 [place]% 6.6 % 1.7-9.3 Basic Metabolic Profile 07/18/2017 Donahue Joshua ([facility]) Sodium 136 mEq/L 134-149 Potassium 4.3 mEq/L 3.6-5.5 Chloride 97 mEq/L 94-112 Carbon Dioxide 26 mEq/L 21-32 Glucose 87 mg/dL 70-105 BUN 14 mg/dL 6-26 Creatinine 0.7 mg/dL 0.6-1.4 BUN/Creat Ratio 20.0 CALC 8.0-36.0 Calcium 9.2 mg/dL 8.6-10.2 GFR Non- >60 ml/min/1.73m^ >=60 GFR >60 ml/min/1.73m^ >=60 Ua - Micro (a) 07/18/2017 [facility] Medicine Appearance cloudy (607)- - Color yellow Glucose, Urine ([facility]ma/[facility]/CTX) neg Bilirubin neg Ketones neg SP Grav 1.010 Blood neg PH 6.0 Protein neg Urobil 0.2 Nitrite neg Leukocytes (a/[facility]) trace # WBC (a,[facility]) 8-10 # Epith few /Lpf # Bacteria trace /Hpf # Amorphous ([place] large amount /Lpf # Laboratory test 06/10/2017 [facility] Inr (a) 1.2 Low 2.0-3.0 finding (607)- - Creatinine 10/17/2016 [facility] [place]inine 0.68 mg/dL N 0.51-0.95 Egfr Non- 86.0 N >60 Egfr 110.7 N >60 8 Laboratory test 09/12/2016 [facility]ifix 18 SEE RESULTS 9, 10 finding MELANY <SEE NOTE> Comprehensive 08/07/2016 Godfrey David ([facility]) Sodium 133 mEq/L Low 134- 14 11 Metabolic Prof 9 Potassium 4.4 mEq/L 3.6-5.5 Chloride 92 mEq/L Low 94-112 12 Carbon Dioxide 26 mEq/L 21-32 Glucose 106 mg/dL High 70-105 13 BUN 9 mg/dL 6-26 Creatinine 0.7 mg/dL 0.6-1.4 BUN/Creat Ratio 12.9 CALC 8.0-36.0 Calcium 9.8 mg/dL 8.6-10.2 Total Protein 6.6 g/dL 6.4-8.3 Albumin 4.0 g/dL 3.8-5.5 Globulin 2.6 g/dL 2.0-4.8 A/G Ratio 1.5 CALC 0.6-2.3 Alk. Phosphatase 100 U/L 30-110 Alt (SGPT) 18 U/L 7-35 Ast (Sgot) 23 U/L 5-34 Total Bilirubin 0.3 mg/dL 0.2-1.3 GFR Non- >60 ml/min/1.73m^ >=60 GFR >60 ml/min/1.73m^ >=60 Lipid Profile 08/07/2016 Godfrey Joshua ([facility]) Cholesterol 243 mg/dL High 120-200 Triglycerides 139 mg/dL 30-200 HDL Cholesterol 89 mg/dL High 30-85 14 LDL (Calculated) 126 CALC 0-129 VLDL Cholesterol 28 mg/dL 0-50 HDL Risk Factor 2.7 CALC 0.0-4.4 Laboratory test finding 08/07/2016 Godfrey Joshua ([facility]) TSH 1.82 mIU/L 0.50-6.00 Free T4 1.36 ng/dL 0.75-1.54 Vitamin D25 17 Low 30-100 Vitamin B-12 867 pg/mL 230-1050 Complete Blood Count 08/07/2016 Godfrey Joshua ([facility]) WBC 8.0 x10^3/UL 3.6-9.6 RBC 4.07 x10^6/UL 3.90-5.70 HGB 12.4 g/dL 12.1-17.2 HCT 37 % 36-50 MCV 90.0 fL 82.2-97.4 MCH 30.4 pg 27.6-33.3 MCHC 33.6 g/dL 33.0-35.5 RDW 15.6 % High 11.6-13.7 PLT 395 x10^3/UL 150-400 MPV 6.5 fL Low 7.4-10.4 Gran # 5.2 x10^3/UL 1.5-7.2 Lymph# 2.3 x10^3/UL 0.7-4.9 Hopewell# 0.5 x10^3/UL 0.1-0.9 Gran % 63.1 % 42.2-75.2 Lymph % 29.9 % 20.5-51.1 [place]% 7.0 % 1.7-9.3 Laboratory test 07/18/2016 [facility]ix 18 SEE RESULTS 15, 16 finding BELO <SEE NOTE> Laboratory test 06/28/2016 [facility] [place] SEE RESULT 17 finding Pathology BELOW Ict-Hemoccult 06/13/2016 [facility] Medicine Ict Hemoccult neg (MCR)[facility]ma Screeni (607)- - (1) Ict Hemoccult-(2) neg Ict-Hemoccult (3) neg Complete Blood Count 06/16/2015 Donahue Joshua ([facility]) WBC 7.7 x10^3/UL 3.6-9.6 RBC 3.89 x10^6/UL Low 3.90-5.70 HGB 12.3 g/dL 12.1-17.2 HCT 36 % 36-50 MCV 93.0 fL 82.2-97.4 MCH 31.7 pg 27.6-33.3 MCHC 33.9 g/dL 33.0-35.5 RDW 14.3 % High 11.6-13.7 PLT 381 x10^3/UL 150-400 MPV 6.5 fL Low 7.4-10.4 Gran # 4.6 x10^3/UL 1.5-7.2 Lymph# 2.4 x10^3/UL 0.7-4.9 [place]# 0.7 x10^3/UL 0.1-0.9 Gran % 59.1 % 42.2-75.2 Lymph % 31.5 % 20.5-51.1 [place]% 9.3 % 1.7-9.3 Lipid Profile 06/16/2015 Donahue Joshua (a) Cholesterol 243 mg/dL High 120-200 Triglycerides 179 mg/dL 30-200 HDL Cholesterol 88 mg/dL High 30-85 LDL (Calculated) 119 CALC 0-129 VLDL Cholesterol 36 mg/dL 0-50 HDL Risk Factor 2.8 CALC 0.0-4.4 Laboratory test finding 06/16/2015 Godfrey Joshua ([facility]) Vitamin D25 23 Low 30-100 18 Vitamin B-12 710 pg/mL 230-1050 Comprehensive Metabolic 06/16/2015 Donahue Joshua (a) Sodium 134 mEq/L 134-149 Prof Potassium 4.2 mEq/L 3.6-5.5 Chloride 96 mEq/L 94-112 Carbon Dioxide 29 mEq/L 21-32 Glucose 111 mg/dL High 70-105 19 BUN 10 mg/dL 6-26 Creatinine 0.6 mg/dL 0.6-1.4 BUN/Creat Ratio 16.7 CALC 8.0-36.0 Calcium 9.7 mg/dL 8.6-10.2 Total Protein 6.9 g/dL 6.4-8.3 Albumin 4.3 g/dL 3.8-5.5 Globulin 2.6 g/dL 2.0-4.8 A/G Ratio 1.7 CALC 0.6-2.3 Alk. Phosphatase 95 U/L 30-110 Alt (SGPT) 17 U/L 7-35 Ast (Sgot) 20 U/L 5-34 Total Bilirubin 0.3 mg/dL 0.2-1.3 GFR Non- >60 ml/min/1.73m^ >=60 GFR >60 ml/min/1.73m^ >=60 Laboratory test finding 06/16/2015 Godfrey Joshua (a) TSH 1.38 mIU/L 0.50-6.00 Free T4 1.26 ng/dL 0.75-1.54 Comprehensive Metabolic 05/26/2014 Godfrey Joshua (a) Sodium 131 mEq/L Low 134-149 20 Prof Potassium 4.4 mEq/L 3.6-5.5 Chloride 89 mEq/L Low 94-112 21 Carbon Dioxide 24 mEq/L 21-32 Glucose 98 mg/dL 70-105 BUN 8 mg/dL 6-26 Creatinine 0.6 mg/dL 0.6-1.4 BUN/Creat Ratio 13.3 CALC 8.0-36.0 Calcium 9.1 mg/dL 8.6-10.2 Total Protein 7.2 g/dL 6.3-8.1 Albumin 4.4 g/dL 3.8-5.5 Globulin 2.8 g/dL 2.0-4.8 A/G Ratio 1.6 CALC 0.6-2.3 Alk. Phosphatase 91 U/L 30-110 Alt (SGPT) 20 U/L 7-35 Ast (Sgot) 17 U/L 5-34 Total Bilirubin 0.3 mg/dL 0.2-1.3 Complete Blood Count 05/26/2014 Donahue Joshua (a) WBC 7.4 x10^3/UL 3.6-9.6 RBC 3.87 x10^6/UL Low 3.90-5.70 HGB 12.8 g/dL 12.1-17.2 HCT 37 % 36-50 MCV 96.0 fL 82.2-97.4 MCH 33.1 pg 27.6-33.3 MCHC 34.3 g/dL 33.0-35.5 RDW 12.2 % 11.6-13.7 PLT 317 x10^3/UL 150-400 MPV 6.7 fL Low 7.4-10.4 Gran # 5.3 x10^3/UL 1.5-7.2 Lymph# 1.8 x10^3/UL 0.7-4.9 [place]# 0.3 x10^3/UL 0.1-0.9 Gran % 70.3 % 42.2-75.2 Lymph % 24.9 % 20.5-51.1 [place]% 4.8 % 1.7-9.3 Laboratory test 02/25/2014 Donahue Joshua (a) Vitamin D25 31 30-100 finding Laboratory test 10/20/2013 Donahue Joshua (a) B12 482 pg/mL 230-1050 finding TSH 1.09 mIU/L 0.50-6.00 Comprehensive Metabolic 10/20/2013 Donahue Joshua (a) Albumin 4.7 g/dL 3.8-5.5 Prof Alk. Phos. 83 U/L 30-110 Alt (SGPT) 14 U/L 7-35 Ast (Sgot) 19 U/L 5-34 BUN 10 mg/dL 6-26 Calcium 9.7 mg/dL 8.6-10.2 Chloride 94 mEq/L 94-112 Creatinine 0.8 mg/dL 0.6-1.4 Carbon Dioxide 27 mEq/L 21-32 Glucose 98 mg/dL 70-105 Sodium 134 mEq/L 134-149 Total Bilirubin 0.4 mg/dL 0.2-1.3 Total Protein 6.8 g/dL 6.3-8.1 Potassium 4.1 mEq/L 3.6-5.5 Globulin 2.1 g/dL 2.0-4.8 A/G Ratio 2.2 Calc 0.6-2.3 BUN/Creat Ratio 11.8 Calc 8.0-36.0 Lipid Profile 10/20/2013 Donahue Joshua ([facility]) Cholesterol 275 mg/dL High 120-200 HDL 80 mg/dL 30-85 Triglycerides 171 mg/dL 30-200 HDL Risk Factor 3.5 CALC 0.0-4.4 LDL (Calculated) 161 CALC High 0-129 VLDL (Calculated) 34 mg/dL 0-50 CBC Electronic (a) 10/20/2013 [facility] WBC 6.6 3.6-9.6 (607)- - RBC 4.09 3.90-5.70 Hemoglobin ([facility]) 13.2 g/dL 12.1 - 17.2 Hematocrit ([facility]/CTX) 39.7 % 36.1 - 50.3 Platelets 338 10^3/ul 150-400 Lymph% 34.9 % 17.0-48.0 Mixed% 8.2 Neutrophils % 56.9 Mean Corpuscular Vol 97 82.2-97.4 Mean Corpuscular Hemoglobin 32.2 27.6-33.3 Mean Corpuscular Hemo Concen 33.1 32.0-36.0 RDW 12.2 11.6-13.7 Mean Platelet Volume 6.7 6.5-11.0 Urine Culture And 09/17/2013 [facility] Urine Culture (SEE NOTE) 22 Sensitivities Laboratory test 02/17/2013 [facility] Urine Culture No significant g 23 finding [address] <SEE NOTE> [place] [address] [phone] Urine Culture And 12/31/2012 [facility] [place] Culture (SEE NOTE) 24 Sensitivities Laboratory test 05/22/2012 [facility] Urine Culture No growth. finding [address] [place], [place] [id number] [phone] CBC Auto Diff 05/07/2012 [facility] [place] White Blood 11.8 [facility]M High 4.8-1 Count 0.8 Red Cell Count 3.30 CUMM Low 4.2-5.4 Hemoglobin 10.5 g/dL Low 12.0-16.0 Hematocrit 31 % Low 35-47 Mean Corpuscular Volume 94 um3 79-97 Mean Corpuscular Hemoglob 32 pg High 27-31 Mean Corpuscular HGB Cone 34 g/dL 32-36 Redcell Distribution WDTH 14 % 10.5-15 Platelet Count 580 CUMM High 150-450 Mean Platelet Volume 7.5 um3 7.4-10.4 Gran % 76.1 % 38-83 Lymph % 14.4 % Low 20-45 Mononuclear % 6.6 % 1-9 Eosinophil % 1.9 % 0-6 Basophil % 1.0 % 0-2 Abs Lymphs 1.7 1.0-4.8 Abs Mononuclear 0.8 0-0.8 Absolute Neutrophil Count 8.9 High 1.5-7.7 Abs Eosinophils 0.2 0-0.6 Abs Basophils 0.1 0-0.2 Protime 05/07/2012 [facility] [place] 0.94 0.88-1.13 25 Protime 11.2 SEC 10.3-13.5 26 Laboratory test finding 05/07/2012 [facility] [place] BNP Evaluatr 45.0 pg/mL 0-100 Comp Metabolic Panel 05/07/2012 [facility] [place] Sodium 129 mmol/L Low 135-145 Potassium 4.0 mmol/L 3.5-5.0 Chloride 95 mmol/L Low 101-111 Co2 (Carbon Dioxide) 26.0 mmol/L 22-32 Anion Gap 8.0 mmol/L 2-11 27 Glucose 90 mg/dL 70-100 BUN 7 mg/dL 6-24 Creatinine 0.7 mg/dL 0.50-1.40 One Over Creatinine 1.42 BUN/Creatinine Ratio 10.0 8-20 Calcium 9.2 mg/dL 8.1-9.9 Total Protein 6.5 GM/DL 6.2-8.1 Albumin 3.3 GM/DL 3.2-5.2 Globulin 3.2 GM/DL 2-4 Albumin/Globulin Ratio 1.0 1-3 Bilirubin Total 0.5 mg/dL 0.4-1.5 28 Alkaline Phosphatase 85 U/L 30-110 Alt (SGPT) 14 U/L 14-54 Ast (Sgot) 22 U/L 12-42 eGFR Non- 84.2 > 60 eGFR 108.3 > 60 29 Laboratory test finding 05/07/2012 [facility] Magnesium 2.0 mg/dL 1.7-2.6 Troponin-I 0 NG/ML 0-0.06 30 Laboratory test 03/31/2012 [facility] ([facility]) [facility] [place] Lab Test cytology report finding Ua - Micro (Fma) 02/14/2012 [facility] Appearance CLEAR (607)- - Color YELLOW Glucose NEG Bilirubin NEG Ketones NEG SP Grav 1.015 Blood NEG PH 7.5 Protein NEG Urobil 0.2 Nitrite NEG Leukocytes ([facility]) SMALL # Hyaline - /Lpf Granular - /Lpf WBC ([facility]) 10-12 # RBC 0-1 # Mucus - /Lpf Epith RARE /Lpf # Bacteria TRACE /Hpf # Amorphous - /Lpf Crystals, Fluid ([facility]/CTX) - Z#Comments - Laboratory test 12/18/2011 [facility] Urine Culture No growth. finding [address] [place] [id number] [phone] Basic Metabolic 12/18/2011 [facility] (a) BUN 8 mg/dL 6-26 Profile Calcium 9.3 mg/dL 8.6-10.2 Chloride 93 mEq/L Low 94-112 31 Creatinine 0.7 mg/dL 0.6-1.4 Carbon Dioxide 28 mEq/L 21-32 Glucose 98 mg/dL 70-105 Sodium 131 mEq/L Low 134-149 32 Potassium 4.1 mEq/L 3.6-5.5 BUN/Creat Ratio 12.1 Calc 8.0-36.0 Ua - Micro (Fma) 12/18/2011 [facility] Appearance CLEAR (607)- - Color YELLOW Glucose, Urine ([facility]/CTX) NEG Bilirubin NEG Ketones NEG SP Grav 1.010 Blood NEG PH 7.0 Protein NEG Urobil 0.2 Nitrite NEG Leukocytes ([facility]) NEG Hyaline - /Lpf Granular - /Lpf WBC ([facility]) 2-3 # RBC - Mucus ([facility]) - /Lpf Epith RARE /Lpf # Bacteria RARE /Hpf # Amorphous ([facility]) - /Lpf Crystals, Fluid ([facility]/CTX) - Z#Comments - CBC Electronic (a) 12/18/2011 [facility] WBC 6.6 3.6-9.6 (607)- - RBC 3.82 Low 3.90-5.70 Hemoglobin ([facility]/CTX) 12.2 g/dL 12.1 - 17.2 Hematocrit ([facility]ma/[facility]/CTX) 36.3 % 36.1 - 50.3 Platelets 393 10^3/ul 150-400 Lymph% 18.0 Low 20.5-51.1 Mixed% 18.0 Neutrophils % 4.9 Mean Corpuscular Vol 95 82.2-97.4 Mean Corpuscular Hemoglobin 31.9 27.6-33.3 Mean Corpuscular Hemo Concen 33.6 32.0-36.0 RDW 12.1 11.6-13.7 Mean Platelet Volume 6.7 6.5-11.0 Lipid Profile 04/26/2011 [facility] ([facility]) Cholesterol 229 mg/dL High 120-200 HDL 65 mg/dL 30-85 Triglycerides 151 mg/dL 30-200 HDL Risk Factor 3.5 CALC 0.0-4.0 LDL (Calculated) 134 CALC High 0-129 VLDL (Calculated) 30 mg/dL 0-50 Hepatic 04/26/2011 [facility] ([facility]) Albumin 4.2 g/dL 3.8-5.5 Alk. Phos. 79 U/L 30-110 Alt (SGPT) 21 U/L 7-35 Ast (Sgot) 20 U/L 5-34 Total Bilirubin 0.2 mg/dL 0.2-1.3 Total Protein 6.5 g/dL 6.3-8.1 Direct Bilirubin 0.1 mg/dL 0.0-0.6 Globulin 2.2 g/dL 2.0-4.8 A/G Ratio 1.9 Calc 0.6-2.2 Indirect Bilirubin 0.09 Low 0.10-1.00 CBC Auto Diff 04/15/2011 [facility] [place] Blood Count 9.6 CUMM 4.8-10.8 Red Cell Count 3.82 CUMM Low 4.2-5.4 Hemoglobin 12.4 g/dL 12.0-16.0 Hematocrit 37 % 35-47 Mean Corpuscular Volume 97 um3 79-97 Mean Corpuscular Hemoglob 33 pg High 27-31 Mean Corpuscular HGB Cone 33 g/dL 32-36 Redcell Distribution WDTH 13 % 10.5-15 Platelet Count 353 CUMM 150-450 Mean Platelet Volume 7.8 um3 7.4-10.4 Gran % 68.0 % 38-83 Lymph % 21.4 % Low 25-47 Mononuclear % 8.5 % 1-9 Eosinophil % 1.6 % 0-6 Basophil % 0.5 % 0-2 Abs Lymphs 2.1 1.0-4.8 Abs Mononuclear 0.8 0-0.8 Absolute Neutrophil Count 6.5 1.5-7.7 Abs Eosinophils 0.2 0-0.6 Abs Basophils 0.1 0-0.2 Basic Metabolic Panel 04/15/2011 [facility] [place]odium 130 mmol/L Low 135-145 Potassium 4.6 mmol/L 3.5-5.0 Chloride 94 mmol/L Low 101-111 Co2 (Carbon Dioxide) 29.0 mmol/L 22-32 Anion Gap 7.0 mmol/L 2-11 33 Glucose 87 mg/dL 70-100 BUN 4 mg/dL Low 6-24 Creatinine 0.60 mg/dL 0.50-1.40 One Over Creatinine 1.60 BUN/Creatinine Ratio 6.7 Low 8-20 Calcium 9.6 mg/dL 8.1-9.9 eGFR Non- 101.3 > 60 eGFR 130.3 > 60 34 Ict Hemoccult (Fma) 04/12/2011 [facility] Ict Hemoccult (1) 03/24 NEG (607)- - Ict Hemoccult-(2) 03/25 NEG Ict-Hemoccult (3) 03/26 NEG CBC With Electronic Diff 10/25/2010 [facility] White Blood Count 8.4 CUMM 4.8- 10.8 Red Cell Count 3.82 CUMM Low 4.2-5.4 Hemoglobin 13.4 g/dL 12.0-16.0 Hematocrit 37 % 35-47 Mean Corpuscular Volume 97 um3 79-97 Mean Corpuscular Hemoglob 35 pg High 27-31 Mean Corpuscular HGB Cone 36 g/dL 32-36 Redcell Distribution WDTH 13 % 10.5-15 Platelet Count 340 CUMM 150-450 Mean Platelet Volume 6.7 um3 Low 7.4-10.4 Gran % 64.6 % 38-83 Lymph % 22.2 % Low 25-47 Mononuclear % 9.0 % 1-9 Eosinophil % 3.6 % 0-6 Basophil % 0.6 % 0-2 Abs Lymphs 1.9 1.0-4.8 Abs Mononuclear 0.8 0-0.8 Absolute Neutrophil Count 5.3 1.5-7.7 Abs Eosinophils 0.3 0-0.6 Abs Basophils 0.1 0-0.2 Basic Metabolic Panel 10/25/2010 [facility] Sodium 129 mmol/L Low 135-145 Potassium 4.2 mmol/L 3.5-5.0 Chloride 92 mmol/L Low 101-111 Co2 (Carbon Dioxide) 29.0 mmol/L 22-32 Anion Gap 8.0 mmol/L 2-11 35 Glucose 101 mg/dL High 70-100 BUN 7 mg/dL 6-24 Creatinine 0.80 mg/dL 0.50-1.40 One Over Creatinine 1.20 BUN/Creatinine Ratio 8.8 8-20 Calcium 9.2 mg/dL 8.1-9.9 eGFR Non- 77.2 > 60 eGFR 93.5 > 60 36 Lipid Profile 09/21/2010 God[facility] David (Fma) Cholesterol 179 mg/dL 120- 200 HDL 72 mg/dL 30-85 Triglycerides 191 mg/dL 30-200 HDL Risk Factor 2.5 CALC Low 4.2-7.0 LDL (Calculated) 69 CALC 0-129 VLDL (Calculated) 38 mg/dL 0-50 Comprehensive Metabolic 09/21/2010 [facility] (Fma) Albumin 4.4 g/dL 3.8-5.5 Prof Alk. Phos. 67 U/L 30-110 Alt (SGPT) 19 U/L 7-35 Ast (Sgot) 21 U/L 5-34 BUN 11 mg/dL 6-26 Calcium 9.0 mg/dL 8.6-10.2 Chloride 90 mEq/L Low 94-112 37 Creatinine 0.7 mg/dL 0.6-1.4 Carbon Dioxide 28 mEq/L 21-32 Glucose 71 mg/dL 70-105 Sodium 127 mEq/L Low 134-149 Total Bilirubin 0.2 mg/dL 0.2-1.3 Total Protein 6.7 g/dL 6.3-8.1 Potassium 4.4 mEq/L 3.6-5.5 Globulin 2.3 g/dL 2.0-4.8 A/G Ratio 1.9 Calc 0.6-2.2 BUN/Creat Ratio 16.8 Calc 8.0-36.0 Laboratory test finding 09/21/2010 Donahue Joshua ([facility]) TSH 1.02 mIU/L 0.50-6.00 CBC ([facility]) 09/21/2010 [facility] WBC 7.8 3.6-9.6 (607)- - RBC 3.72 Low 3.90-5.70 Hemoglobin (a/CMC/CTX) 12.0 g/dL Low 12.1 - 17.2 Hematocrit (a/CMC/CTX) 36.0 % Low 36.1 - 50.3 Platelets 508 10^3/ul High 150-400 Lymph% 32.0 20.5-51.1 Mixed% 7.6 Neutrophils % 60.4 Mean Corpuscular Vol 97 82.2-97.4 Mean Corpuscular Hemoglobin 32.2 27.6-33.3 Mean Corpuscular Hemo Concen 33.4 32.0-36.0 RDW 11.6 11.6-13.7 Mean Platelet Volume 6.9 6.5-11.0 Urinalysis W/Microscopic 01/13/2010 [facility] [place]a Color YELLOW Yellow Appearance-Urine CLEAR Clear Specific [place]-Ur 1.018 1.010-1.030 Esterase-Urine NEGATIVE Negative Nitrite NEGATIVE Negative Bvdrumlredts-Tg-MWS NEGATIVE Negative Protein-Urine TRACE Abnormal Negative PH-Urine 6.5 5-9 Blood-Urine TRACE Abnormal Negative Ketones-Urine NEGATIVE Negative Bilirubin-Ur NEGATIVE Negative Glucose-Urine NEGATIVE Negative WBC-Urine 3-5 0-5 RBC-Urine 0-2 0-2 Mucus Urine SMALL None Epith Cells-Ur FEW None CBC With Manual Diff 01/13/2010 [facility] White Blood Count 24.8 CUMM High 4.8- 10.8 Red Cell Count 3.97 CUMM Low 4.2-5.4 Hemoglobin 13.0 g/dL 12.0-16.0 Hematocrit 38 % 35-47 Mean Corpuscular Volume 96 um3 79-97 Mean Corpuscular Hemoglob 33 pg High 27-31 Mean Corpuscular HGB Cone 34 g/dL 32-36 Redcell Distribution WDTH 14 % 10.5-15 Platelet Count 836 CUMM High 150-450 Mean Platelet Volume 7.0 um3 Low 7.4-10.4 Polysegmented Neutrophil 92 % High 38-83 Band Neutrophil 2 % 0-8 Lymphocyte 3 % Low 25-47 Monocyte 1 % 0-13 Atypical Lymph 2 % 0-6 Absolute Neutrophil Count 23.3 Anisocytosis SLIGHT Comp Stat 01/13/2010 [facility] Sodium 126 mmol/L Low 135-145 Potassium 4.2 mmol/L 3.5-5.0 Chloride 88 mmol/L Low 101-111 Co2 (Carbon Dioxide) 28.0 mmol/L 22-32 Anion Gap 10.0 mmol/L 2-11 38 Glucose 130 mg/dL High 70-100 39 BUN 6 mg/dL 6-24 Creatinine 0.60 mg/dL 0.50-1.40 One Over Creatinine 1.60 BUN/Creatinine Ratio 10.0 8-20 Calcium 8.5 mg/dL 8.1-9.9 40 Total Protein 6.1 GM/DL Low 6.2-8.1 Albumin 2.4 GM/DL Low 3.2-5.2 Globulin 3.7 GM/DL 2-4 Albumin/Globulin Ratio 0.6 Low 1-3 Bilirubin Total 0.4 mg/dL 0.4-1.5 41 Alkaline Phosphatase 97 U/L 30-110 Alt (SGPT) 25 U/L 14-54 Ast (Sgot) 28 U/L 12-42 eGFR Non- 108.0 > 60 eGFR 130.7 > 60 42 Laboratory test finding 01/13/2010 [facility] Troponin-I (TnI) 0.03 NG/ML 43 Protime 01/13/2010 [facility] Inr 1.21 High 0.97-1.03 44 Protime 14.3 SEC High 11.5-12.2 45 Laboratory test 01/13/2010 [facility] PTT (Aptt) 26.7 25.15-38.53 46 finding Laboratory test 01/11/2010 [facility] Urine Culture No growth. finding [address] [place] [address] [phone] Ua - Micro (Fma) 01/10/2010 [facility] Appearance slt cloudy (607)- - Color yellow Glucose, Urine (Fma/CMC/CTX) - Bilirubin - Ketones - SP Grav 1.015 Blood small # PH 7.5 Protein - Urobil 1.0 Nitrite - Leukocytes (Fma/CMC/[facility]) - Hyaline - /Lpf Granular - /Lpf WBC (Fma,[facility]) 5-8 # RBC 5-10 # Mucus (Fma/CBC/[facility]) - /Lpf Epith filled /Lpf Bacteria 1+ /Hpf # Amorphous (Fma/CMC/[facility]) - /Lpf Crystals, Fluid (Fma/CMC/CTX) - Z#Comments - CBC With Manual Diff 01/16/2009 [facility] White Blood Count 10.5 CUMM 4.8- 10.8 47 Red Cell Count 4.15 CUMM Low 4.2-5.4 Hemoglobin 13.7 g/dL 12.0-16.0 Hematocrit 40 % 35-47 Mean Corpuscular Volume 96 um3 79-97 Mean Corpuscular Hemoglob 33 pg High 27-31 Mean Corpuscular HGB Cone 34 g/dL 32-36 Redcell Distribution WDTH 15 % 10.5-15 Platelet Count 396 CUMM 150-450 Mean Platelet Volume 8.2 um3 7.4-10.4 Polysegmented Neutrophil 60 % 38-83 Lymphocyte 29 % 25-47 Monocyte 10 % 0-13 Eosenophil 1 % 0-6 Absolute Neutrophil Count 6.3 RBC Morphology NORMAL Basic Metabolic Panel 01/16/2009 [facility] Sodium 134 mmol/L Low 135-145 Potassium 4.3 mmol/L 3.5-5.0 Chloride 100 mmol/L Low 101-111 Co2 (Carbon Dioxide) 28.0 mmol/L 22-32 Anion Gap 6.0 mmol/L 2-11 48 Glucose 79 mg/dL 70-100 49 BUN 3 mg/dL Low 6-24 Creatinine 0.70 mg/dL 0.50-1.40 One Over Creatinine 1.40 BUN/Creatinine Ratio 4.3 Low 8-20 Calcium 9.2 mg/dL 8.1-9.9 50 Laboratory test finding 12/23/2008 [facility] BUN 5 mg/dL Low 6-24 51 Creatinine 12/23/2008 [facility] Creatinine 0.72 mg/dL 0.50-1.40 One Over Creatinine 1.30 Ua - Micro (Fma) 12/22/2008 [facility] Appearance clear (607)- - Color yellow Glucose, Urine (Fma/CMC/CTX) neg Bilirubin neg Ketones neg SP Grav 1.010 Blood trace # PH 7.5 Protein neg Urobil 0.2 Nitrite neg Leukocytes (Fma/CMC/[facility]) neg Hyaline - /Lpf Granular - /Lpf WBC (Fma,[facility]) 1-2 # RBC 3-5 # Mucus (Fma/CBC/[facility]) - /Lpf Epith occass /Lpf # Bacteria trace /Hpf # Amorphous (Fma/CMC/[facility]) - /Lpf Crystals, Fluid (Fma/CMC/CTX) - Z#Comments - Comprehensive 11/06/2007 [facility] Glucose 95 mg/dL 70-100 52 Metabolic [address] [place] [address] [phone] Creatinine, Serum 0.8 mg/dL 0.5-1.2 Sodium 131 mmol/L Low 136-146 Potassium 4.5 mmol/L 3.5-5.3 Chloride 96 mmol/L Low 98-110 Carbon Dioxide 25 mmol/L 20-32 Albumin 4.6 g/dL 3.5-4.7 Protein, Total 6.8 g/dL 6.4-8.2 Calcium 8.9 mg/dL 8.4-10.4 Alkaline Phosphatase 71 U/L 10-118 Sgot (Ast) 34 U/L 3-40 SGPT (Alt) 28 U/L 7-50 Bilirubin, Total 0.30 mg/dL 0.30-1.20 BUN <5 mg/dL 4-18 Lipid Profile 11/06/2007 [facility] Cholesterol, Total 142 mg/dL 120-200 53 [address] [place] [address] [phone] HDL Cholesterol 81 mg/dL High 40-60 LDL Cholesterol, Calc. 46 mg/dL <130 54 Triglycerides 73 mg/dL 55 LDL/HDL Cholesterol 0.6 56 Chol/HDL Cholesterol 1.8 57 CBC 11/06/2007 [facility] WBC 10.5 x103 4.3-10.9 [address] [place], [place] [id number] [phone] RBC 4.63 x106 3.80-5.30 Hemoglobin 15.5 g/dL 11.8-15.8 Hematocrit 45.0 % 35.0-47.0 MCV 97.2 fl 82.0-98.0 MCH 33.5 pg 27.5-33.5 MCHC 34.4 g/dL 32.0-36.0 RDW 14.0 % 11.5-14.5 Platelet Count 370 x103 130-400 MPV 10.3 fl 6.5-10.5 Segmented Neutrophils 57.9 % 44.0-74.0 Lymphocytes 27.8 % 15.0-45.0 Monocytes 9.3 % 2.0-13.0 Eosinophils 4.4 % 0.0-6.0 Basophils 0.6 % 0.0-2.0 Neutrophil Absolute 6.1 x103 1.4-7.0 Lymphocytes Absolute 2.9 x103 1.0-3.4 Monocyte Absolute 1.0 x103 0.2-1.0 Eosinophil Absolute 0.5 x103 0.0-0.5 Basophil Absolute 0.1 x103 0.0-0.2 Laboratory 11/06/2007 [facility] TSH (Thyrotropin) 0.870 0.350-5.500 test finding [address] uIU/ml [place] [id number] [phone] GFR (Calculated) >60 58 Comp Metabolic-ALL 12/08/2006 [facility] Glucose, Serum 83 mg/dL 70 -105 Lab Compani (607)- - (Fma/CMC/CTX) BUN (Fma/CMC/[facility]) 6 mg/dL 6-26 Creatinine (Fma/CMC/CTX) 0.9 mg/dL 0.6-1.4 Sodium 138 134-149 Potassium 4.7 3.6-5.5 Chloride 94 mEq/L 94-112 Co2 28 21-32 Albumin (Fma/CMCC/[facility]) 4.3 3.8-5.5 Total Protein 6.8 g/dL 6.3-8.1 Calcium (Fma/CMC/[facility]) 9.3 mg/dL 8.6-10.2 Alkaline Phosphatase (F/C/CTX) 77 U/L 30-110 Ast (Sgot) (Fma/CMC/[facility]) 21 U/mL 5-34 Alt (SGPT) (CMC/[facility]/FF) 18 10-40 Bilirubin, Total 0.4 mg/dL 0.2-1.3 #GFR, Calculated (CTX) - Lipid Panel-ALL 12/08/2006 [facility] Cholesterol 182 mg/dL 120- 200 [facility] (607)- - (Fma/CMC/[facility]) HDL-Chol 84 mg/dL 30-85 Triglyceride 152 mg/dL 30-200 LDL/HDL Chol. Ratio (F/C/CTX) - Chol./HDL Ratio (Fma/CMC/CTX) - Low 30-85 LDL, Calculated ([facility]) 67 mg/dL 0-129 HDL Risk Factor (Fma) 2.2 CALC Low 4.2-7.0 Laboratory test 12/08/2006 [facility] TSH (a/CMC/[facility]) 0.82 uIU/ ml 0.5-6.0 finding (607)- - Free T4 (Fma/CMC/[facility]) 1.11 ng/dL 0.75-1.54 Free T3 (Fma,CMC,CX) 2.83 pg/mL 2.0-4.9 CBC Electronic-ALL Lab [facility] 12/08/2006 [facility] WBC 12.1 High 3.6-9.6 (607)- - RBC 4.30 3.90-5.70 Hemoglobin (Fma/CMC/CTX) 14.3 g/dL 12.1 - 17.2 Hematocrit (Fma/CMC/CTX) 42 % 36.1 - 50.3 Mean Corpuscular Vol 97.7 High 82.2-97.4 Mean Corpuscular Hemaglobin 33.3 27.6-33.3 Mean Corpuscular Hemo Concen 34.0 33.0-36.0 RDW 14.0 High 11.6-13.7 Platelets 388 10^3/ul 150-400 Mean Platelet Volume 8.4 7.4-10.4 Neutrophils 65.6 42.2-75.2 Lymphocytes 27.4 % 20.5 - 51.1 Monocytes 7.0 % 1.7-9.3 Eosinophil - Basophil% - Abs Neutrophils - Abs Lymphs - Abs Mononuclear - Abs Eosinophils - Abs Basophils - Basic Metabolic 06/03/2006 [facility] Glucose, Serum 94 mg/dL 70- 105 (a) (607)- - (Fma/CMC/CTX) BUN (Fma/CMC/[facility]) 6 mg/dL 6-26 Creatinine (Fma/CMC/CTX) 0.8 mg/dL 0.6-1.4 BUN/Creatinin Ratio 7.5 Low 8.0-36 Sodium 137 134-149 Potassium 4.3 3.6-5.5 Chloride 97 mEq/L 94-112 Co2 27 21-32 Calcium (Fma/CMC/[facility]) 8.6 mg/dL 8.6-10.2 Lipid Profile 06/03/2006 [facility] Cholesterol 104 mg/dL Low 120- 200 59 (Fma) Female (607)- - (Fma/CMC/[facility]) Triglyceride 85 mg/dL 30-200 HDL-Chol 38 mg/dL 30-85 LDL, Calculated (a/CMC) 50 CALC 0-129 VLDL 17 0-50 HDL Risk Factor ([facility]) 2.8 CALC Low 4.2-7.0 Laboratory test 06/03/2006 [facility] Ast (Sgot) 18 U/mL 5-34 finding (607)- - (Fma/CMC/[facility]) Alt (SGPT) Female (a) 19 7-35 Ua - Micro ([facility]) 02/05/2006 [facility] Appearance CLEAR (607)- - Color LIGHT YELLOW Glucose NEGATIVE Bilirubin NEGATIVE Ketones NEGATIVE SP Grav <=1.005 Blood TRACE LMP: N/A PH 7.0 Protein, Random Urine NEGATIVE Urobil 0.2 Nitrite NEGATIVE Leukocytes NEGATIVE Hyaline - /Lpf Granular - /Lpf WBC, Fluid 0-3 RBC, Fluid 0-3 Mucus - /Lpf Epith RARE /Lpf Bacteria TRACE /Hpf Amorphous - /Lpf Crystals - /Lpf Z#Comments - Laboratory 12/18/2005 [facility] Antinuclear AB NEGATIVE Negative 60, 61 test finding [address] ([place]) [place] [address] [phone] Laboratory 12/18/2005 [facility] RPR NON-REACTIV Non-Reactiv test finding [address] [place] [address] [phone] Lyme Igg/M 12/18/2005 [facility] Lyme IgG/IgM <0.91 index 0.00-0.90 62 W/Reflx [address] [facility] [address] [place], [place] [id number] [phone] Lyme Ab Interp.,Eia DNR Lyme Ab Interp.,Eia DNR Lyme Disease Ab, Quant, IgM <0.91 index 0.00-0.90 63 Lyme Ab IgM Interp., Eia DNR Lyme Ab IgM Interp., Eia DNR Sjogren's AB 12/18/2005 [facility] Anti Ro Antibodies 1 U/ml Negative 64 [address] [place], [place] [id number] [phone] Anti LA Antibodies 2 U/ml Negative 65 Lipid Profile 12/18/2005 [facility] Cholesterol 293 mg/dL High 120- 200 (Fma) Female (607)- - (Fma/[facility]) Triglyceride 97 mg/dL 30-200 HDL-Chol 69 mg/dL 30-85 LDL, Calculated (a/CMC) 204 CALC High 0-129 LDL Direct (/CMC/[facility]) - mg/dL 0-130 VLDL 19 0-50 HDL Risk Factor (Fma) 4.2 CALC 4.2-7.0 Laboratory test 12/18/2005 [facility] Sed Rate 10 MM finding (607)- - (Fma/CMC/[facility]) Lipid Profile 07/24/2005 [facility] Cholesterol 158 mg/dL 120-20 (Fma) Female (607)- - 0 Triglyceride 71 mg/dL 30-200 HDL-Chol 49 mg/dL 30-85 LDL, Calculated (a/CMC) 94 CALC 0-129 LDL Direct (/[facility]) - mg/dL 0-130 VLDL 14 0-50 HDL Risk Factor (Fma) 3.2 CALC Low 4.2-7.0 Liver Function (Fma) 07/24/2005 [facility] Total Protein 6.7 g/dL 6.3-8.1 (607)- - Albumin (a/[facility]) 4.3 3.8-5.5 A/G Ratio (Fma/CMC/[facility]) 1.8 0.6-2.2 Globulin 2.4 2.0-4.8 Alkaline Phosphatase (F/C/CTX) 68 U/L 30-110 Alt (SGPT) (Fma/CMC/[facility]) 11 10-40 Ast (Sgot) ([facility]) 16 U/mL 5-34 Bilirubin, Total 0.6 mg/dL 0.2-1.3 Bilirubin, Direct 0.2 mg/dL 0-0.6 Bilirubin, Indirect 0.38 ml/dl 0.10-1.0 Ua - Micro ([facility]) 07/10/2005 [facility] Appearance CLEAR (607)- - Color LT YELLOW Glucose NEG Bilirubin NEG Ketones NEG SP Grav <=1.005 Blood TRACE-LYSED PH 7.5 Protein NEG Urobil 0.2 Nitrite NEG Leukocytes NEG Hyaline - /Lpf Granular - /Lpf WBC'S 4-6 RBC'S 2-4 Mucus - /Lpf Epith OCC Bacteria TRACE Amorphous - /Lpf Crystals - /Lpf Z#Comments - Ua - Micro ([facility]) 06/12/2005 [facility] Appearance CLOUDY (607)- - Color LT YELLOW Glucose NEG Bilirubin NEG Ketones NEG SP Grav <=1.005 Blood TRACE-LYSED PH 7.5 Protein NEG Urobil 0.2 Nitrite NEG Leukocytes SMALL Hyaline - /Lpf Granular - /Lpf WBC'S 8-12 RBC'S 3-5 Mucus - /Lpf Epith FEW Bacteria 2+ Amorphous - /Lpf Crystals - /Lpf Z#Comments - Laboratory test 06/12/2005 [facility] Thinprep W/HPV SEE IMAGE finding [address] [place] [address] (VARSHA/ASCUS) [phone] Lipid Profile 05/22/2005 [facility] Cholesterol 253 mg/dL High 120- 2 66 (Fma) Female (607)- - 00 Triglyceride 148 mg/dL 30-200 HDL-Chol 58 mg/dL 30-85 LDL, Calculated (a/[facility]) 165 CALC High 0-129 LDL Direct (/[facility]) - mg/dL 0-130 VLDL 30 0-50 HDL Risk Factor (a) 4.3 CALC 4.2-7.0 Laboratory test 05/22/2005 [facility] TSH ([facility]) 1.01 uIU/ ml 0.5-6.0 finding (607)- - B12 885 pg/mL 230-1050 Folic Acid >22.00 Comp Metabolic 05/22/2005 [facility] Glucose, Serum 116 mg/dL High 70-105 ([facility]) Female (607)- - (Fma/CMC/CTX) BUN (Fma/[facility]) 7 mg/dL 6-26 Creatinine, Serum 0.8 mg/dL 0.6-1.4 BUN/Creatinin Ratio 8.9 8.0-36 Sodium 135 134-149 Potassium 4.2 3.6-5.5 Chloride 95 mEq/L 94-112 Co2 27 21-32 Calcium (Fma/[facility]) 9.7 mg/dL 8.6-10.2 Total Protein 7.2 g/dL 6.3-8.1 Albumin (Fma/[facility]) 4.6 3.8-5.5 Globulin 2.6 2.0-4.8 A/G Ratio (A/G Ratio) 1.7 0.6-2.2 Alkaline Phosphatase (F/C/CTX) 83 U/L 22-95 Alt (SGPT) (Fma/[facility]) 15 10-40 Ast (Sgot) (Fma/CMC/[facility]) 18 U/mL 5-34 Bilirubin, Total 0.7 mg/dL 0.2-1.3 CBC Electronic ([facility]) 05/22/2005 [facility] WBC 9.5 3.6-9.6 (607)- - Lymphocytes 24.7 % 20.5 - 51.1 Monocytes 3.7 % 1.7-9.3 Granulocytes 71.6 % 42.2 - 75.2 Lymphocytes 2.3 10^3/uL 0.7 - 4.9 Monocytes 0.4 10^3/uL 0.1 - 0.9 Granulocytes 6.8 10^3/uL 1.5 - 7.2 RBC 4.42 3.90-5.70 Hemoglobin (Fma/CMC/CTX) 14.7 g/dL 12.1 - 17.2 Hematocrit (Fma/CMC/CTX) 42.4 % 36.1 - 50.3 Mean Corpuscular Vol 95.9 82.2-97.4 Mean Corpuscular Hemaglobin 33.3 27.6-33.3 Mean Corpuscular Hemo Concen 34.7 33.0-36.0 RDW 12.7 11.6-13.7 Platelets 475. 10^3/ul High 150-400 Mean Platelet Volume 7.8 7.4-10.4 1 SEE RESULT BELOW Name: TRAN BUI : [address]: Cortney Cam MD Acct: [id number] Unit: [id number] AGE: 68 Location: [facility] Re10/02/18 SEX: F Status: REG REF SPEC: [id number] LINDA: 10/02/18-[address] [facility] [address]: Cortney Cam MD REQ: [id number] RECD: 10/02/18 EXPLICIT FAX#: [id number] [phone] STATUS: COMP [facility] DR: Frances Castillo MD _ SOURCE: URINE SPDESC: ORDERED: Urine Culture COMMENTS: [id number] jernigan urine top Copy Result to: Frances CASTILLO ([id number]) Urine Source: Random Procedure Result Reported Site Urine Culture Final 10/03/18- 1604 ML No growth of clinically significant organisms * ML - Main Lab . END OF REPORT DEPARTMENT OF PATHOLOGY, [address] [place] [address] Vasiliy Ventura M.D. Director [facility] # [id number] 2 Because ethnic data is not always readily available, this report includes an eGFR for both -Americans and non- Americans. The National Kidney Disease Education Program (NKDEP) does not endorse the use of the MDRD equation for patients that are not between the ages of 18 and 70, are , have extremes of body size, muscle mass, or nutritional status, or are non- or non-. According to the National Kidney Foundation, irrespective of diagnosis, the stage of the disease is based on the level of kidney function: Stage Description GFR(mL/min/1.73 m(2)) 1 Kidney damage with normal or decreased GFR 90 2 Kidney damage with mild decrease in GFR 60-89 3 Moderate decrease in GFR 30-59 4 Severe decrease in GFR 15-29 5 Kidney failure <15 (or dialysis) 3 RESULTS VERIFIED BY REPEAT ANALYSIS 4 RESULTS VERIFIED BY REPEAT ANALYSIS 5 1 sst 6 RESULTS VERIFIED BY REPEAT ANALYSIS 7 RESULTS VERIFIED BY REPEAT ANALYSIS 8 Because ethnic data is not always readily available, this report includes an eGFR for both -Americans and non- Americans. The National Kidney Disease Education Program (NKDEP) does not endorse the use of the MDRD equation for patients that are not between the ages of 18 and 70, are , have extremes of body size, muscle mass, or nutritional status, or are non- or non-. According to the National Kidney Foundation, irrespective of diagnosis, the stage of the disease is based on the level of kidney function: Stage Description GFR(mL/min/1.73 m(2)) 1 Kidney damage with normal or decreased GFR 90 2 Kidney damage with mild decrease in GFR 60-89 3 Moderate decrease in GFR 30-59 4 Severe decrease in GFR 15-29 5 Kidney failure <15 (or dialysis) 9 fu 10 SEE RESULTS BELOW [id number] EPIFIX 18 TRANSFUSED 09/13/16 1027 11 RESULTS VERIFIED BY REPEAT ANALYSIS 12 RESULTS VERIFIED BY REPEAT ANALYSIS 13 RESULTS VERIFIED BY REPEAT ANALYSIS 14 consistent w/ previous results 15 FU 16 SEE RESULTS BELOW [id number] EPIFIX 18 TRANSFUSED 07/19/16 0905 17 SEE RESULT BELOW Name: TRAN BUI : [address]: Andrew Kay MD Acct: [id number] Unit: [id number] AGE: 66 Location: [facility] Re06/28/16 SEX: F Status: REG REF SPEC: [id number] LINDA: 06/28/16-[address]: Andrew Kay MD REQ: [id number] RECD: 06/28/16 STATUS: TAO PEREZ DR: Cortney Cam MD _ ORDERED: LEVEL IV FINAL DIAGNOSIS Skin, left ankle, biopsy: -- Superficial hyper parakeratotic epidermal fragments. -- No evidence of malignancy identified. See comment. The fragments are very superficial and there is no representation of the deeper layers of the epidermis or the dermoepidermal junction. A neoplastic process cannot be entirely excluded without evaluation of the deeper aspects of this lesion. CLINICAL HISTORY Ulceration for one and a half years. PRE-OPERATIVE DIAGNOSIS Chronic non-healing ulcer left lateral malleolus GROSS DESCRIPTION The specimen is received in formalin labeled, Left Ankle, and consists of a 1.1 x 0.8 x 0.2 cm boyer-white irregular skin fragment with an eccentric 0.8 by up to 0.4 cm boyer-yellow crusted area. The specimen is inked, trisected and submitted entirely in one cassette. Signed (signature on file) Vasiliy Ventura MD [id number] END OF REPORT * ML=Testing performed at Main Lab DEPARTMENT OF PATHOLOGY, [facility] [address] [place], [place] [address] Vasiliy Ventura M.D. Director [facility] # [id number] 18 FASTING 19 RESULTS VERIFIED BY REPEAT ANALYSIS 20 consistent w/ previous results 21 consistent w/ previous results 22 RUN DATE: 09/19/13 [facility] LAB LIVE PAGE 1 RUN TIME: 6442 [facility] [employer] [place], [place] [address] Specimen Inquiry Name: TRAN BUI : [address]: Giorgio Grullon MD Acct: [id number] Unit: [id number] AGE: 63 Location: LAB Re09/17/13 SEX: F Status: REG REF SPEC: [id number] LINDA: 09/17/13-[address] [facility] [address]: Giorgio Grullon MD REQ: [id number] RECD: 09/17/13 STATUS: STEPHEN RIOS DR: Cortney Reece MD _ SOURCE: URINE SPDESC: ORDERED: Urine Culture QUERIES: Urine Source: Clean Catch Procedure Result Verified Site Urine Culture Final 09/19/13- 1408 ML Mixed joshua; possible contamination. Suggest resubmission. END OF REPORT * ML=Testing performed at Main Lab DEPARTMENT OF PATHOLOGY, [facility] [employer] [place], [place] [address] Vasiliy Ventura M.D. Director [facility] Permit #[id number] No significant growth. RUN DATE: 01/02/13 [facility] LAB LIVE PAGE 1 RUN TIME: 922 [facility] [employer] [place], [place] [address] Specimen Inquiry Name: TRAN BUI : [address]: Giorgio Grullon MD Acct: [id number] Unit: [id number] AGE: 62 Location: [facility] Re12/31/12 SEX: F Status: REG REF SPEC: [id number] LINDA: 12/31/12-[address] [facility] [address]: Giorgio Grullon MD REQ: [id number] RECD: 12/31/125196 STATUS: STEPHEN PEREZ DR: Dexter REID,Cortney Tucker MD _ SOURCE: URINE [facility]: ORDERED: Urine Culture Procedure Result Verified Site Urine Culture Final 01/02/13- 922 ML Organism 1 NORMAL JOSHUA Dalton Count 75-100,000 (Many) CFU/ML END OF REPORT * ML=Testing performed at Main Lab DEPARTMENT OF PATHOLOGY, [address] [place] [address] Vasiliy Ventura M.D. Director [facility] Permit #[id number] Recommended INR for Patients on Oral Anticoagulants Prophylaxis 2.0 - 3.0 Treatment of thrombosis 2.0 - 3.0 Prevention of embolism 2.0 - 3.0 Prevention of embolism from prosthetic heart valves 2.5 - 3.5 26 DIAGNOSIS,TREATMENT,AND THERAPY MUST BE BASED ON THE INR VALUE ALONE. 27 Anion gap measurement may be of limited value in the presence of any alkalosis, especially in a combined acid base disorder. . 28 A metabolite of Naproxen, O-desmethylnaproxen, has been shown to interfere with the [place] method for measuring total bilirubin. Samples from patients who have taken Naproxen have shown spurious elevation in total bilirubin levels. 29 Because ethnic data is not always readily available, this report includes an eGFR for both -Americans and non- Americans. The National Kidney Disease Education Program (NKDEP) does not endorse the use of the MDRD equation for patients that are not between the ages of 18 and 70, are , have extremes of body size, muscle mass, or nutritional status, or are non- or non-. According to the National Kidney Foundation, irrespective of diagnosis, the stage of the disease is based on the level of kidney function: Stage Description GFR(mL/min/1.73 m(2)) 1 Kidney damage with normal or decreased GFR 90 2 Kidney damage with mild decrease in GFR 60-89 3 Moderate decrease in GFR 30-59 4 Severe decrease in GFR 15-29 5 Kidney failure <15 (or dialysis) 30 New Reference Range and Interpretation effective 07/09/2002 TnI (ng/ml) INTERPRETATION Less Than 0.06 ng/mL NOT SUPPORTIVE OF DIAGNOSIS OF [place] 0.06 - 0.50 ng/ml INDETERMINATE: SUGGEST SERIAL STUDIES IF CLINICALLY INDICATED. Greater than 0.5 ng/mL CONSISTENT WITH DIAGNOSIS OF [place] . 31 result prachi'd 32 result prachi'd 33 Anion gap measurement may be of limited value in the presence of any alkalosis, especially in a combined acid base disorder. . 34 Because ethnic data is not always readily available, this report includes an eGFR for both -Americans and non- Americans. The National Kidney Disease Education Program (NKDEP) does not endorse the use of the MDRD equation for patients that are not between the ages of 18 and 70, are , have extremes of body size, muscle mass, or nutritional status, or are non- or non-. According to the National Kidney Foundation, irrespective of diagnosis, the stage of the disease is based on the level of kidney function: Stage Description GFR(mL/min/1.73 m(2)) 1 Kidney damage with normal or decreased GFR 90 2 Kidney damage with mild decrease in GFR 60-89 3 Moderate decrease in GFR 30-59 4 Severe decrease in GFR 15-29 5 Kidney failure <15 (or dialysis) 35 Anion gap measurement may be of limited value in the presence of any alkalosis, especially in a combined acid base disorder. . 36 Because ethnic data is not always readily available, this report includes an eGFR for both -Americans and non- Americans. The National Kidney Disease Education Program (NKDEP) does not endorse the use of the MDRD equation for patients that are not between the ages of 18 and 70, are , have extremes of body size, muscle mass, or nutritional status, or are non- or non-. According to the National Kidney Foundation, irrespective of diagnosis, the stage of the disease is based on the level of kidney function: Stage Description GFR(mL/min/1.73 m(2)) 1 Kidney damage with normal or decreased GFR 90 2 Kidney damage with mild decrease in GFR 60-89 3 Moderate decrease in GFR 30-59 4 Severe decrease in GFR 15-29 5 Kidney failure <15 (or dialysis) 37 RESULT PRACHI'D 38 Anion gap measurement may be of limited value in the presence of any alkalosis, especially in a combined acid base disorder. . 39 Note change in reference range as of 05/26/08. The change was based on recommendations from the [place] [employer]. 40 Please note change in reference range effective 08 . 41 A metabolite of Naproxen, O-desmethylnaproxen, has been shown to interfere with the Jendrassik-Juwan method for measuring total bilirubin. Samples from patients who have taken Naproxen have shown spurious elevation in total bilirubin levels. 42 Because ethnic data is not always readily available, this report includes an eGFR for both -Americans and non- Americans. The National Kidney Disease Education Program (NKDEP) does not endorse the use of the MDRD equation for patients that are not between the ages of 18 and 70, are , have extremes of body size, muscle mass, or nutritional status, or are non- or non-. According to the National Kidney Foundation, irrespective of diagnosis, the stage of the disease is based on the level of kidney function: Stage Description GFR(mL/min/1.73 m(2)) 1 Kidney damage with normal or decreased GFR 90 2 Kidney damage with mild decrease in GFR 60-89 3 Moderate decrease in GFR 30-59 4 Severe decrease in GFR 15-29 5 Kidney failure <15 (or dialysis) 43 New Reference Range and Interpretation effective 07/09/2002 TnI (ng/ml) INTERPRETATION Less Than 0.06 ng/mL NOT SUPPORTIVE OF DIAGNOSIS OF [place] 0.06 - 0.50 ng/ml INDETERMINATE: SUGGEST SERIAL STUDIES IF CLINICALLY INDICATED. Greater than 0.5 ng/mL CONSISTENT WITH DIAGNOSIS OF [place] . 44 Recommended INR for Patients on Oral Anticoagulants Prophylaxis 2.0 - 3.0 Treatment of thrombosis 2.0 - 3.0 Prevention of embolism 2.0 - 3.0 Prevention of embolism from prosthetic heart valves 2.5 - 3.5 45 DIAGNOSIS,TREATMENT,AND THERAPY MUST BE BASED ON THE INR VALUE ALONE. 46 PLEASE NOTE NEW REFERENCE RANGE EFFECTIVE 09. 47 SDS 01/23/09 48 Anion gap measurement may be of limited value in the presence of any alkalosis, especially in a combined acid base disorder. . 49 Note change in reference range as of 05/26/08. The change was based on recommendations from the [place] [employer]. 50 Please note change in reference range effective 08 . 51 HAND DELIVERED TO [facility] BY [facility] AT 1257 ON 12/23/08. NO GREEN DRAWN 52 FASTING; 2 SST; 1 PURPLE TOP TUBE 53 Cholesterol Risk Levels (NIH) Recommended: under 200 mg/dl Borderline : 200-239 mg/dl High Risk : Above 240 mg/dl 54 The National Cholesterol Education Program recommends the following ranges for LDL Cholesterol: Optimal under 100 mg/dl Near or above Optimal 100 - 129 mg/dl Borderline High 130 - 159 mg/dl High 160 - 189 mg/dl Very High above 190 mg/dl 55 Triglyceride Risk Levels: Normal : <150 mg/dl Borderline : 150-199 mg/dl High : 200-499 mg/dl Very High : >500 mg/dl 56 LDL/HDL Risk Ratio Levels MALE FEMALE 1/2 X Average 1.00 1.47 Average 3.55 3.22 2 X Average 6.25 5.03 3 X Average 7.99 6.14 57 CHOL/HDL Risk Ratio Levels MALE FEMALE 1/2 X Average 3.4 3.3 Average 5.0 4.4 2 X Average 9.5 7.0 3 X Average 24.0 11.0 58 mL/min/1.73m2 . Normal Function or Mild Renal Disease, if clinically at risk: >or=60 Moderately decreased: 30 - 59 Severely decreased: 15 - 29 Renal Failure: <15 . Please note that the MDRD equation requires an additional adjustment for -Americans (multiply the GFR result by 1.210). . Glomerular Filtration Rate (GFR) is estimated based on the MDRD equation, which assumes a steady state for creatinine (Naty Int Med 139/2 137-149, 2003), as recommended by the National Kidney Disease Education Program in conjunction with the National Institutes of Health and the National Kidney Foundation. . Clinical conditions in which it may be necessary to measure GFR by using clearance methods include extremes of age and body size, severe malnutrition or obesity, diseases of skeletal muscle, paraplegia or quadriplegia, vegetarian diet, rapidly changing kidney function, and calculation of the dose of potentially toxic drugs that are excreted by the kidneys. 59 RESULT VERIFIED BY REPEAT ANALYSIS 60 TEST SJOGREN'S AB WAS ADDED ON 12/19/05 AT 00:10 BY GFN. 3 SST 61 (Performed by Enzyme Immunoassay, EIA) 62 Negative <0.91 Equivocal 0.91 - 1.09 Positive >1.09 Note: The CDC currently advises that Western blot testing be performed following all equivocal or positive EIA results. Final diagnosis should include appropriate clinical findings and a positive EIA which is also positive by Western blot. 63 Negative <0.91 Equivocal 0.91 - 1.09 Positive >1.09 . Note: IgM levels may peak at 3-6 weeks post infection, then gradually decline. FDA currently advises that Western Blot testing be performed following all equivocal or positive EIA results. Final diagnosis should include appropriate clinical findings and a positive EIA which is also positive by Western Blot. 64 < 10 Negative > or=10 Positive 65 < 10 Negative > or=10 Positive 66 PLTS SLIGHTLY INCREASED ON SMEAR Procedures Date Code Description Status 10/02/2018 89550 Electrocardiogram Complete Completed 07/10/2018 43478 CPHL SHQ Completed 02/19/2018 [id number] Colonoscopy Completed 08/08/2017 [id number] Mammogram Completed 06/10/2017 69600 Finger Or Heel Stick Completed 04/25/2016 [id number] Bone Mineral Density Test Completed 04/25/2016 [id number] Mammogram Completed 06/16/2015 46320 Dxa Bone Density Study One Or More Sites Axial Completed Skeleton 03/14/2015 [id number] Mammogram Completed 09/08/2014 [id number] Mammogram Completed 05/26/2014 14963 Electrocardiogram Complete Completed 05/24/2014 [id number] Colonoscopy Completed 03/08/2014 [id number] Mammogram Completed 03/10/2012 [id number] Mammogram Completed 10/02/2010 [id number] Mammogram Completed 12/22/2007 [id number] Mammogram Completed 05/30/2006 65832 Pulse Oximetry Completed 02/12/2006 [id number] Mammogram Completed Encounters Type Date Location Provider Dx Diagnosis Office Visit 10/20/2018 [facility] Office Sonia Alfonso J01.90 Acute sinusitis , 1:00p KIMBERLY Alexander unspecified Office Visit 10/02/2018 [facility] Office Cortney Merlos Z01.818 Encounter for other 1:00p [place] preprocedural examination M25.562 Pain in left knee M25.462 Effusion, left knee M17.12 Unilateral primary osteoarthritis, left knee N39.0 Urinary tract infection, site not specified I73.9 Peripheral vascular disease, unspecified G35 Multiple sclerosis Office Visit 07/10/2018 1:00p [facility] Office Cortney Merlos Z00.01 Encounter for [place] general adult medical exam w abnormal findings Z12.31 Encntr screen mammogram for malignant neoplasm of breast G35 Multiple sclerosis R25.2 Cramp and spasm I73.9 Peripheral vascular disease, unspecified D50.8 Other iron deficiency anemias E55.9 Vitamin D deficiency, unspecified F41.9 Anxiety disorder, unspecified M20.42 Other hammer toe(s) (acquired), left foot Z23 Encounter for immunization E78.49 Other hyperlipidemia E78.4 Other hyperlipidemia Office Visit 05/07/2018 3:40p [facility] Office Cortney Merlos I73.9 Peripheral vascular [place] disease, unspecified R25.2 Cramp and spasm Office Visit 11/27/2017 3:40p [facility] Office Cortney Merlos G35 Earline Cam M.D. sclerosis D50.8 Other iron deficiency anemias E87.1 Hypo-osmolality and hyponatremia Office Visit 10/16/2017 [facility] Cortney Merlos E87.1 Hypo-osmolality and 3:40p Office [place] hyponatremia D50.8 Other iron deficiency anemias Office Visit 08/14/2017 11:20a [facility] Cortney Merlos D50.8 Other iron [place] deficiency anemias B02.9 Zoster without complications E55.9 Vitamin D deficiency, unspecified Office Visit 04/10/2017 [facility] Cortney Merlos Z01.818 Encounter for other 1:40p Office [place] preprocedural examination M17.11 Unilateral primary osteoarthritis, right knee M25.561 Pain in right knee M21.061 Valgus deformity, not elsewhere classified, right knee G35 Multiple sclerosis K04.7 Periapical abscess without sinus Office Visit 02/13/2017 3:20p [facility] Office Cortney Merlos G35 Earline Cam M.D. sclerosis R60.0 Localized edema Office Visit 01/02/2017 Claudia Dotson R60.0 Localized edema 3:00p Office TOOL HARDENER Office Visit 08/22/2016 [facility] Cortney Merlos Z01.818 Encounter for other 1:00p Office [place] preprocedural examination S83.31xA Tear of articular cartilage of right knee, current, init M23.303 Oth meniscus derangements, unsp medial meniscus, right knee M17.11 Unilateral primary osteoarthritis, right knee M23.41 Loose body in knee, right knee R23.8 Other skin changes E78.2 Mixed hyperlipidemia Office Visit 08/05/2016 1:00p Main Office Cortney Merlos Z00.01 Encounter for [place] general adult medical exam w abnormal findings G35 Multiple sclerosis F41.9 Anxiety disorder, unspecified M85.89 Oth disrd of bone density and structure, multiple sites M25.561 Pain in right knee Office Visit 07/18/2016 4:30p [facility] Amelia Dotson Z23 Encounter for TOOL HARDENER immunization W57.xxxA Bit/stung by nonvenom insect & oth nonvenom arthropods, init S40.862A Insect bite (nonvenomous) of left upper arm, init encntr Office Visit 06/13/2016 11:20a [facility] Cortney Merlos M25.561 Pain in right [place] knee L89.521 Pressure ulcer of left ankle, stage 1 Z12.11 Encounter for screening for malignant neoplasm of colon Office Visit 12/14/2015 2:40p [facility] Cortney Merlos E55.9 Vitamin D [place] deficiency, unspecified F41.9 Anxiety disorder, unspecified G35 Multiple sclerosis Office Visit 08/15/2015 3:40p [facility] Cortney Merlos E55.9 Vitamin D [place] deficiency, unspecified E78.2 Mixed hyperlipidemia Z82.49 Family hx of ischem heart dis and oth dis of the circ sys M85.89 Oth disrd of bone density and structure, multiple sites Office Visit 06/15/2015 1:00p [facility] Office Cortney Merlos V70.0 Examination [place] General Medical Routine AT Health Care Facility 340 Multiple Sclerosis 300.00 Anxiety State Unspec 311 Depressive Disorder Not Elsewhere Spec 272.2 Hyperlipidemia Mixed 268.9 Vitamin D Deficiency Unspec Office Visit 06/06/2015 3:20p Main Office Barbara Schmid, 564.00 Constipation M.Susan Unspecified 724.1 Pain Thoracic Spine Office Visit 11/29/2014 3:00p [facility] Cortney Merlos 707.13 Ulcer Of [place] Ankle 300.00 Anxiety State Unspec Office Visit 10/14/2014 1:45p [facility] Fabiola Catalan NP 707.13 Ulcer Of Ankle Office Visit 05/26/2014 3:00p [facility] Cortney Merlos 719.47 Pain Joint [place] Ankle & Foot V72.83 Examination Preoperative Other Spec 340 Multiple Sclerosis Office Visit 02/25/2014 3:40p [facility] Cortney Merlos 340 Earline Cam M.D. Sclerosis 272.2 Hyperlipidemia Mixed 268.9 Vitamin D Deficiency Unspec 707.13 Ulcer Of Ankle 707.15 Ulcer Of Other Part Of Foot Office Visit 10/14/2013 1:00p [facility] Mayda Blum Multiple Sclerosis CARDIOLOGY CONSULTANT 311 Depressive Disorder Not Elsewhere Spec 780.52 Insomnia Unspecified 300.00 Anxiety State Unspec 780.79 Malaise And Fatigue Other 564.09 Constipation Other Office Visit 05/21/2013 3:00p [facility] Cortney Merlos 340 Earline Cam M.D. Sclerosis 311 Depressive Disorder Not Elsewhere Spec 780.52 Insomnia Unspecified 300.00 Anxiety State Unspec 564.09 Constipation Other Office Visit 01/01/2013 1:00p [facility] Cortney Merlos 340 Multiple [place] Sclerosis 311 Depressive Disorder Not Elsewhere Spec 300.09 Anxiety States Other 782.3 Edema Office Visit 12/04/2012 1:40p [facility] Cortney LTabitha 311 Depressive [place] Disorder Not Elsewhere Spec 340 Multiple Sclerosis 733.00 Osteoporosis Unspec 995.3 Allergy Unspec Office Visit 05/15/2012 3:40p [facility] Cortney Merlos 618.4 Prolapse [place] Uterovaginal Unspec 788.30 Incontinence Urinary Unspec 782.3 Edema Office Visit 04/27/2012 Main Office Christie Davis 782.3 Edema 12:20p [place] Office Visit 04/17/2012 [facility] Christie Davis V72.83 Examination 10:40a Office [place] Preoperative Other Spec V72.84 Examination Preoperative Unspec 340 Multiple Sclerosis 618.4 Prolapse Uterovaginal Unspec 338.4 Chronic Pain Syndrome 599.0 UTI Urinary Tract Infection Site Not Spec v06.5 Tetanus Diphtheria (DT) Office Visit 02/14/2012 1:00p Claudia Davis V72.31 Routine Civil Drafting Technician Office [place] Examination 599.0 UTI Urinary Tract Infection Site Not Spec 618.4 Prolapse Uterovaginal Unspec 791.7 Cells & Casts In Urine Other Office Visit 01/20/2012 12:20p Main Office Mayda Patterson Multiple Sclerosis [place] 338.4 Chronic Pain Syndrome 300.09 Anxiety States Other 782.3 Edema Office Visit 12/18/2011 11:00a [facility] Office Stuart Rush 599.0 UTI Natalia Goncalves M.D. Tract Infection Site Not Spec 782.3 Edema Office Visit 08/22/2011 2:40p Main Office Christie Davis 338.4 Chronic Pain [place] Syndrome 340 Multiple Sclerosis 300.09 Anxiety States Other 729.5 Pain In Limb Office Visit 04/26/2011 [facility] Soha renee 272.4 Hyperlipidemia Other 11:00a Office [place] Gaviria Unspec 340 Multiple Sclerosis 338.4 Chronic Pain Syndrome 300.09 Anxiety States Other Office Visit 03/22/2011 2:00p [facility] Soha renee 496 COPD Airway [place] Gaviria Obstruction Chronic Not Class Elsewhere 272.4 Hyperlipidemia Other Unspec 340 Multiple Sclerosis 729.5 Pain In Limb 719.07 Effusion Joint Ankle & Foot 719.47 Pain Joint Ankle & Foot 300.09 Anxiety States Other Office Visit 09/21/2010 3:00p [facility] Soha renee 401.9 Hypertension [place] Gaviria Unspec 496 COPD Airway Obstruction Chronic Not Class Elsewhere 272.4 Hyperlipidemia Other Unspec 340 Multiple Sclerosis Office Visit 05/03/2010 2:00p [facility] Soha renee 496 COPD Airway [place] Gaviria Obstruction Chronic Not Class Elsewhere 340 Multiple Sclerosis 785.0 Tachycardia Unspec 401.9 Hypertension Unspec Office Visit 02/10/2010 10:15a Main Office Amelia Dotson, 112.0 Candidiasis Mouth TOOL HARDENER Office Visit 02/01/2010 3:10p [facility] Soha renee 510.9 Empyema W/O [place] Gaviria Fistula 486 Pneumonia Organism Unspec 496 COPD Airway Obstruction Chronic Not Class Elsewhere 340 Multiple Sclerosis 338.4 Chronic Pain Syndrome 785.0 Tachycardia Unspec Office Visit 01/13/2010 9:30a Main Office Tiesha Clemons 486 Pneumonia Organism [place] Li Unspec Office Visit 01/10/2010 7:00p Main Office Elaina 780.60 Fever, Unspecified [place], Afnp-C Office Visit 01/02/2010 3:00p [facility] Elaina 465.9 URI Upper [place], Respiratory Afnp-C Infections Acute Unspec Sites 496 COPD Airway Obstruction Chronic Not Class Elsewhere 300.00 Anxiety State Unspec 340 Multiple Sclerosis 780.52 Insomnia Unspecified 466.0 Bronchitis Acute 599.0 UTI Urinary Tract Infection Site Not Spec Office Visit 12/22/2008 3:40p [facility] Soha renee 340 Earline Gaviria M.D. Sclerosis 496 COPD Airway Obstruction Chronic Not Class Elsewhere 789.03 Pain Abdominal Right Lower Quadrant 296.60 Bipolar I Disorder Current Mixed NOS 311 Depressive Disorder Not Elsewhere Spec Office Visit 02/12/2008 4:00p [facility] Soha Curtis M.D. Sclerosis 496 COPD Airway Obstruction Chronic Not Class Elsewhere 847.4 Sprains & Strains Coccyx 780.52 Insomnia Unspecified Office Visit 11/13/2007 1:30p [facility] Soha renee 401.9 Hypertension [place] Gaviria Unspec 272.4 Hyperlipidemia Other Unspec 340 Multiple Sclerosis 496 COPD Airway Obstruction Chronic Not Class Elsewhere Office Visit 06/16/2007 2:40p [facility] Soha renee 491.20 Bronchitis Office [place] Gaviria Obstructive Chronic W/O Acute Exacerbation Office Visit 06/04/2007 2:10p Main Office Soha renee 491.20 Bronchitis [place] G[place] Obstructive Chronic W/O Acute Exacerbation 340 Multiple Sclerosis Office Visit 05/08/2007 1:40p [facility] Office Opal Gomez, 466.0 Bronchitis Acute CARDIOLOGY CONSULTANT Office Visit 12/08/2006 10:00a Main Office Soha renee 340 Multiple [place] Gaviria Sclerosis 401.9 Hypertension Unspec 272.4 Hyperlipidemia Other Unspec 311 Depressive Disorder Not Elsewhere Spec 272.0 Hypercholesterolemia Pure Office Visit 06/03/2006 1:00p [facility] Office Elaina Pickering, 486 Pneumonia Afnp-C Organism Unspec 272.0 Hypercholesterolemia Pure 782.3 Edema 340 Multiple Sclerosis 511.0 Pleurisy W/O Mention Of Effusion Or Current Tuberculosis Office Visit 05/30/2006 11:00a [facility] Office Soha renee 511.0 Pleurisy W/O [place] Gaviria Mention Of Effusion Or Current Tuberculosis 486 Pneumonia Organism Unspec 340 Multiple Sclerosis Office Visit 05/26/2006 4:15p Main Office Elaina Pickering, 511.0 Pleurisy W/O Afnp-C Mention Of Effusion Or Current Tuberculosis 466.0 Bronchitis Acute Office Visit 05/08/2006 9:30a [facility] Office Amelia Dotson, 511.0 Pleurisy W/O TOOL HARDENER Mention Of Effusion Or Current Tuberculosis Office Visit 02/05/2006 4:20p Main Office Soha renee 569.1 Rectal Prolapse [place] Gaviria 618.4 Prolapse Uterovaginal Unspec 788.63 Urgency Of Urination Office Visit 10/11/2005 1:20p [facility] Soha renee 401.9 Hypertension [place] Gaviria Unspec 733.00 Osteoporosis Unspec 782.0 Skin Sensation Disturbance Office Visit 08/20/2005 11:00a [facility] Office Soha renee 311 Depressive [place] Gaviria Disorder Not Elsewhere Spec 719.49 Pain Joint Multiple Sites Office Visit 07/10/2005 1:00p [facility] Office Soha renee 461.9 Sinusitis Acute [place] Gaviria Unspec 272.4 Hyperlipidemia Other Unspec 788.41 Urinary Frequency Office Visit 06/12/2005 3:20p [facility] Office Soha renee V72.31 Routine Civil Drafting Technician [place] Gaviria Examination V70.0 Examination General Medical Routine AT Health Care Facility 780.79 Malaise And Fatigue Other 782.0 Skin Sensation Disturbance Office Visit 05/17/2005 1:40p [facility] Office Soha renee 724.5 Backache Unspec [place] Gaviria Plan of Treatment 10/20/2018 - Sonia Alexander, NPJ01.90 Acute sinusitis, unspecifiedNew Medication:Amoxicillin/Clavulanate Potassium 875-125 mg - 1 by mouth twice a day x 10 daysComments:Supportive care: 1) Make sure you are resting. This is the only way the body can take the energy it needs to heal itself. 2) Fluids, fluids, fluids! - Drink a lot of water or other caffeine free, clearliquids - Use a humidifier in your room at night or perform steam inhalations (20-30 mins ) three times a day- If tolerated, use a saline nasal spray to help clear out your sinuses 3) Cough and blow it out, the more you can get out of your system the better4) For throat pain: try using an adult dose ofchildren's Tylenol to help coat your throat and give you some pain relief. 5) Sleep with the head ofthe bed up6) Avoid cigarette smoke, caffeine, alcoholWe expect you to begin to feel better in 48-72 hours after starting antibiotic therapy, if you are not improving or begin to get worse, please contact the office to be seen again.AllComments:~B_~U_Medication Management~b_~u_ Patient Understands medications he 's taking? Yes No Are there Barriers to Adherence? Yes No Has the patient been asked about herbal supplements and therapies, and OTC meds? Yes No ~B_~U_Care Plan~b_~u_1. Patient has been queried about patient's goals/preferences and functional/lifestyle goals at relevant visits. If relevant, describe: na2. Treatment goals as explained to the patient: above3. Are there barriers to meeting treatment goals? Yes No If Yes, please describe:4. Self-Management goals as described to the patient:Yes NoAs always, we strongly encourage a healthy diet and making physical activity a part of your every day life. If you have questions about how or where to start, please contact the office.
--- OUTSIDE RECORDS SUMMARY | 2018-10-27 09:45 | XMS REPORT | Continuity of Care Document ---
:1950 External Reference #:[id number] Author Name Mary Woods Care Team Providers Name Role Phone Cortney Cam MD Primary Care Physician Unavailable Payers Type Date Identification Numbers Payment Provider Subscriber Effective: 2008 Policy Number: [id number] Medicare Tran [employer]ui PayID: [id number] [address] [place] [address] Expires: 2018 Policy Number: [id number] Medicaid [employer] Name: 1 1 [address] PayID: [id number] [place] [address] Policy Number: [id number] Medicaid [employer] Group Name: 1 1 [address] PayID: [id number] [place] [address] Advance Directives Description No Information Available Problems Date Description Provider Status Onset: 09/21/2014 Multiple sclerosis Emerson Foreman M.D. Active Onset: 03/26/2017 Localized, primary osteoarthritis Frances Castillo M.D. Active Family History Date Family Member(s) Problem(s) Comments General Sister from breast cancer Social History Type Date Description Comments Sex Unknown Lives With Occupation Retired Hand Dominance Right-handed ETOH Use Denies alcohol use Tobacco Use Start: Unknown End: Patient is a former smoker Unknown Smoking Status Reviewed: 10/13/18 Patient is a former smoker Exercise Type/Frequency Exercises sporadically Allergies, Adverse Reactions, Alerts Date Description Reaction Status Severity Comments 01/06/2017 Latex Active 06/10/2017 Baclofen rash Active 06/10/2017 Simvastatin pain Active 03/24/2013 NKDA Inactive Medications Medication Date Status Form Strength Qnty SIG Indications Ordering Provider Provigil 06/10 Active Tablets 200mg 30tab 1/2 tab po Emerson S. /2016 s qam and Ahsan, 1/2 tab po M.D. midday Colace 05/22 Active Capsules 100mg 60cap 1 tab by Frances s mouth Jonathan, twice a M.D. day as needed for constipati on Compression 03/26 Active Misc 30 1unit wear M25.561 Frances Stockings s during Jonathan, day, off M.D. at night dx- ble edema thigh high Knee Brace 09/11 Active Misc 1unit left knee M23.221 Javier s blessing Car MD brace Knee Brace 09/11 Active Misc 1unit right knee M23.221 Javier s blessing Car MD brace Cyclobenzaprine 12/21 Active Tablets 5mg 30tab 1 tab po Emerson S. s tid prn Phoenix Foreman Ampyra 09/06 Active Tablets ER 10mg 180ta take 1 S. 12HR bs tablet by Ahsan, mouth M.D. twice a day (3 month supply) Clonazepam Active Tablets 0.5mg 1 tab po Unknown /0000 prn Fluoxetine HCL Active Capsules 20mg 1 tab po Unknown /0000 daily Morphine Sulfate Active Tablets 15mg 1 tab po Unknown /0000 prn breakthrou gh pain Abilify Active Tablets 15mg 1 tab po Unknown /0000 daily Mirtazapine Active Tablets 15mg 90tab take one Unknown /0000 s tablet by mouth every other night at bedtime Montelukast Active Tablets 10mg 90tab 1 by mouth Unknown Sodium /0000 s every day Multivitamins Active Capsules 30cap 1 capsule Unknown /0000 s guillermo;y Zolpidem Active Tablets ER 12.5mg 1 by mouth Unknown Tartrate ER /0000 at bedtime as needed Azelastine HCL Active Solution 0.1% spray 2 Unknown (Nasal) /0000 spray in each nostril two times a day as needed Miralax Active Powder 3350NF 17 gm Unknown /0000 every day mixed w/ 8 oz water/juic e Furosemide Active Tablets 20mg take 1 Unknown /0000 tablet by mouth once daily if needed Naproxen Active Tablets 500mg 1 tablet Unknown /0000 with food by mouth twice a day Tizanidine HCL Active Capsules 1 or 2 cap Unknown /0000 by mouth as needed at night for spasms Compression 07/29 Hx Misc 1unit Thigh high Javeir Prakash s milton Bryson, - n 04/23 B12 Fast 06/14 Hx Tablets 5000mcg 90tab sublingual Dispers s daily Lamont, - M.D. 04/23 Iron Slow 06/14 Hx Tablets ER 143(45Fe) 90tab take one mg s capsule/ta Lamont, - blet daily M.D. 04/23 by mouth Cephalexin 05/05 Hx Tablets 500mg 20tab 1 by mouth M25.561 s four times Jonathan, - a day M.D. 06/09 Coumadin 04/04 Hx Tablets 2mg 90tab take 1-3 s tabs by Jonathan, - mouth at 5 M.D. 06/15 at night as directed Celebrex 03/17 Hx Capsules 100mg 60cap 1 tab by M25.461 s mouth Lamont, - twice a M.D. 06/09 day needed MDD 2 Celebrex 11/18 Hx Capsules 100mg 60cap 1 tab by M25.461 s mouth Adelaide, - twice a MD 03/26 day needed [place] 08/30 Hx Tablets 5-325mg 45tab 1 tabs by s mouth Adelaide, every 4-6 MD hours Medrol 08/08 Hx Tablets 4mg 21tab take as M17.11 s directed Adelaide, per dosepak instructio ns Naproxen 06/13 Hx Tablets 500mg 30tab 1 tablet M25.561 s with food Bordoni, - by mouth PSYCHIATRIC SPECIALIST 08/26 twice a day Morphine Sulfate Hx Tablets ER 30mg 1 tab po Unknown ER / bid - 06/11 Provigil Hx Tablets 100mg 60tab 1 po qam Emerson S. /0000 s and 1 at [place], - midday M.D. 06/10 Premarin Hx Cream 0.625mg/G 42.50 1 Unknown /0000 M 0gm applicatio - n by way 03/26 of 2 x weekly Vitamin D3 Hx Capsules 400Unit 90cap 1 by mouth Unknown /0000 s every day Senna Hx Capsules 8.6mg 60cap 1 by mouth Unknown /0000 s every day Ibuprofen Hx Capsules 200mg as needed Unknown /0000 - 09/05 Milk Of Magnesia Hx Suspension 1200mg/15 1unit once a day Unknown /0000 ML s as needed for constipati on Preservision/Lut Hx Capsules 1 tab po Unknown ein /0000 daily - 03/26 Nitrofurantoin Hx Capsules 100mg 14cap 1 cap by Unknown Monohydrate /0000 s mouth - twice a 06/12 day x days Morphine Sulfate Hx Caps ER 30mg Unknown ER /0000 24HR - 06/10 Bisacodyl Ec 00/ Hx Unknown /0000 - 03/26 Vitamin D2 Hx Tablets 400Unit 1.25 mg Unknown /0000 - 03/26 Triamterene/Hydr Hx Capsules 37.5-25mg 1 by mouth Unknown ochlorothiazide /0000 every day - 03/26 Medications Administered in Office Medication Date Status Form Strength Qnty SIG Indications Ordering Provider Depomedrol 40MG 09/21/ Administered Injection Frances 2017 Phoenix Castillo No Injection 09/11/ Administered Injection Nathan Miguel M.D. No Injection 09/11/ Administered Injection Nathan Miguel M.D. Triamcinolone 08/05/ Administered Injection Nathan Miguel M.D. (Kenalog) Triamcinolone 07/23/ Administered Injection Nathan Miguel M.D. (Kenalog) Triamcinolone 04/23/ Administered Injection Nathan Dean) Galindo Miguel M.D. Triamcinolone 04/23/ Administered Injection Nathan Miguel M.D. (Kenalog) Depomedrol 40MG 09/25/ Administered Injection Javier Prakash 2015 MD Adelaide No Injection 08/01/ Administered Injection Javier Prakash 2015 MD [place] Depomedrol 40MG 06/13/ Administered Injection Javier Prakash 2015 MD [place] Immunizations Description No Information Available Vital Signs Date Vital Result Comment 10/13/2018 9:40am Height 62 inches 5'2" Weight 150.00 lb Heart Rate 96 /min BP Systolic 138 mmHg BP Diastolic 84 mmHg Pain Level 5 O2 % BldC Oximetry 97 % BMI (Body Mass Index) 27.4 kg/m2 09/21/2018 2:06pm Height 62 inches 5'2" Weight 150.00 lb Heart Rate 92 /min BP Systolic 146 mmHg BP Diastolic 84 mmHg BMI (Body Mass Index) 27.4 kg/m2 09/14/2018 5:04pm Height 62 inches 5'2" Heart Rate 94 /min BP Systolic Sitting 153 mmHg BP Diastolic Sitting 90 mmHg Respiratory Rate 14 /min Pain Level 7 09/11/2018 1:03pm Height 62 inches 5'2" Heart Rate 94 /min BP Systolic Sitting 154 mmHg BP Diastolic Sitting 95 mmHg Respiratory Rate 14 /min Pain Level 8 08/05/2018 9:05am Height 62 inches 5'2" Heart Rate 94 /min BP Systolic Sitting 158 mmHg BP Diastolic Sitting 88 mmHg Respiratory Rate 14 /min Pain Level 8 07/23/2018 1:45pm Height 62 inches 5'2" Weight 152.00 lb Heart Rate 88 /min BP Systolic Sitting 148 mmHg BP Diastolic Sitting 86 mmHg Pain Level 7 O2 % BldC Oximetry 93 % BMI (Body Mass Index) 27.8 kg/m2 06/10/2018 1:50pm Height 62 inches 5'2" Weight 148.00 lb Heart Rate 88 /min BP Systolic 150 mmHg BP Diastolic 86 mmHg Respiratory Rate 20 /min BMI (Body Mass Index) 27.1 kg/m2 04/23/2018 1:51pm Height 62 inches 5'2" Weight 152.00 lb Heart Rate 89 /min BP Systolic Sitting 152 mmHg BP Diastolic Sitting 84 mmHg Respiratory Rate 14 /min Pain Level 4 BMI (Body Mass Index) 27.8 kg/m2 10/20/2017 2:33pm Height 62 inches 5'2" Weight 146.00 lb Heart Rate 95 /min BP Systolic Sitting 152 mmHg BP Diastolic Sitting 95 mmHg Respiratory Rate 16 /min Pain Level 6 BMI (Body Mass Index) 26.7 kg/m2 08/06/2017 11:29am Height 62 inches 5'2" Weight 148.00 lb Heart Rate 78 /min Respiratory Rate 14 /min Body Temperature 97.2 F Pain Level 0 BMI (Body Mass Index) 27.1 kg/m2 07/17/2017 1:55pm Height 62 inches 5'2" Weight 149.38 lb Heart Rate 100 /min BP Systolic Sitting 130 mmHg BP Diastolic Sitting 80 mmHg Respiratory Rate 14 /min Pain Level 5 BMI (Body Mass Index) 27.3 kg/m2 07/04/2017 2:12pm Height 62 inches 5'2" Weight 148.00 lb Heart Rate 112 /min BP Systolic 117 mmHg BP Diastolic 70 mmHg Pain Level 0 BMI (Body Mass Index) 27.1 kg/m2 06/16/2017 1:54pm Height 62 inches 5'2" Weight 150.00 lb Heart Rate 105 /min BP Systolic 129 mmHg BP Diastolic 67 mmHg Body Temperature 97.3 F Pain Level 0 BMI (Body Mass Index) 27.4 kg/m2 06/10/2017 1:02pm Height 62 inches 5'2" 06/10/2017 10:48am Height 62 inches 5'2" Weight 150.00 lb Heart Rate 100 /min BP Systolic Sitting 124 mmHg BP Diastolic Sitting 76 mmHg Respiratory Rate 20 /min BMI (Body Mass Index) 27.4 kg/m2 05/26/2017 2:20pm Height 62 inches 5'2" Weight 150.00 lb Heart Rate 100 /min BP Systolic 98 mmHg BP Diastolic 57 mmHg Body Temperature 98.6 F BMI (Body Mass Index) 27.4 kg/m2 05/12/2017 11:19am Height 62 inches 5'2" Weight 148.00 lb Heart Rate 102 /min BP Systolic 100 mmHg BP Diastolic 59 mmHg Body Temperature 98.2 F Pain Level 10 BMI (Body Mass Index) 27.1 kg/m2 2017 8:32am Height 62 inches 5'2" Weight 148.00 lb Heart Rate 80 /min BP Systolic 132 mmHg BP Diastolic 78 mmHg Respiratory Rate 16 /min Body Temperature 98.3 F Pain Level 7 BMI (Body Mass Index) 27.1 kg/m2 04/04/2017 7:56am Height 62 inches 5'2" Weight 148.00 lb Heart Rate 108 /min BP Systolic 155 mmHg BP Diastolic 78 mmHg Body Temperature 98.1 F BMI (Body Mass Index) 27.1 kg/m2 03/26/2017 8:31am Height 62 inches 5'2" Weight 148.00 lb Heart Rate 87 /min BP Systolic 133 mmHg BP Diastolic 79 mmHg Body Temperature 97.8 F BMI (Body Mass Index) 27.1 kg/m2 03/17/2017 1:56pm Height 62 inches 5'2" Weight 150.00 lb Heart Rate 115 /min BP Systolic 132 mmHg BP Diastolic 60 mmHg Body Temperature 98.5 F BMI (Body Mass Index) 27.4 kg/m2 01/13/2017 1:57pm Height 62 inches 5'2" Weight 150.00 lb Heart Rate 97 /min BP Systolic 135 mmHg BP Diastolic 71 mmHg Body Temperature 98.3 F BMI (Body Mass Index) 27.4 kg/m2 01/06/2017 9:22am Heart Rate 78 /min BP Systolic 152 mmHg BP Diastolic 84 mmHg Respiratory Rate 16 /min Body Temperature 97.7 F 11/18/2016 2:56pm Height 62 inches 5'2" Weight 150.00 lb Heart Rate 105 /min BP Systolic 136 mmHg BP Diastolic 80 mmHg Respiratory Rate 16 /min BMI (Body Mass Index) 27.4 kg/m2 10/16/2016 3:16pm Height 62 inches 5'2" Weight 150.00 lb Respiratory Rate 18 /min Pain Level 2 BMI (Body Mass Index) 27.4 kg/m2 09/25/2016 12:57pm Height 62 inches 5'2" Weight 150.00 lb Respiratory Rate 18 /min Pain Level 3 BMI (Body Mass Index) 27.4 kg/m2 09/11/2016 2:45pm Height 62 inches 5'2" Weight 150.00 lb Respiratory Rate 16 /min Body Temperature 98.3 F Pain Level 2 BMI (Body Mass Index) 27.4 kg/m2 08/21/2016 3:55pm Height 62 inches 5'2" Weight 150.00 lb Pain Level 0 BMI (Body Mass Index) 27.4 kg/m2 08/08/2016 11:11am Height 62 inches 5'2" Weight 150.00 lb Respiratory Rate 16 /min Pain Level 9 BMI (Body Mass Index) 27.4 kg/m2 08/01/2016 8:39am Height 62 inches 5'2" Weight 150.00 lb Pain Level 10 BMI (Body Mass Index) 27.4 kg/m2 06/13/2016 1:37pm Height 62 inches 5'2" Weight 150.00 lb BP Systolic 132 mmHg BP Diastolic 78 mmHg Pain Level 5 BMI (Body Mass Index) 27.4 kg/m2 06/12/2016 10:48am Height 62 inches 5'2" Weight 146.00 lb Heart Rate 96 /min BP Systolic Sitting 128 mmHg BP Diastolic Sitting 68 mmHg Respiratory Rate 14 /min BMI (Body Mass Index) 26.7 kg/m2 06/13/2015 11:57am Height 62 inches 5'2" Weight 148.00 lb Heart Rate 84 /min BP Systolic Sitting 130 mmHg BP Diastolic Sitting 86 mmHg Respiratory Rate 14 /min BMI (Body Mass Index) 27.1 kg/m2 09/21/2014 3:18pm Height 62 inches 5'2" Weight 140.00 lb Heart Rate 80 /min BP Systolic Sitting 138 mmHg BP Diastolic Sitting 74 mmHg Respiratory Rate 12 /min BMI (Body Mass Index) 25.6 kg/m2 12/21/2013 3:00pm Heart Rate 84 /min BP Systolic Sitting 120 mmHg BP Diastolic Sitting 86 mmHg Respiratory Rate 16 /min 03/24/2013 3:12pm Height 62 inches 5'2" Weight 137.00 lb Heart Rate 88 /min BP Systolic 128 mmHg BP Diastolic 76 mmHg Respiratory Rate 10 /min BMI (Body Mass Index) 25.1 kg/m2 Results Test Date Facility Test Result H/L Range Note Urine Culture And 10/02/2018 [facility] Urine Culture SEE RESULT [address] [place] [address] [phone] Body Fluid C&S 09/14/2018 [facility] Body Fluid SEE RESULT 2, [address] [place] [address] Stain [phone] Body Fluid Cell 09/14/2018 [facility] Body Fluid Synovial Fluid Count [address] [place] [address] [phone] Body Fluid Appearance Cloudy Body Fluid Color Yellow Body Fluid Volume 7 mL Body Fluid WBC 2826 /mcL N 4 Body Fluid RBC 71 /mcL Body Fluid Neutrophils 42 % Body Fluid Lymph 43 % Body Fluid Vermilion 15 % Body Fluid Total Cells Counted 100 Fluid Reviewed By MD (SEE NOTE) 5 Laboratory test 09/14/2018 [facility] Body Fluid None Seen None Seen [address] C[place], [place] [id number] [phone] Body Fluid Cell 09/11/2018 [facility] Body Fluid Synovial Count [address] Source Fluid [place], [place] [id number] [phone] Body Fluid WBC 834 /mcL N 7 Body Fluid RBC 30 /mcL Body Fluid Neutrophils 29 % Body Fluid Lymph 33 % Body Fluid Vermilion 38 % Body Fluid Total Cells Counted 100 Body Fluid Appearance Clear Body Fluid Color Yellow Body Fluid Volume 3 mL Fluid Reviewed By MD (SEE NOTE) 8 Laboratory test 09/11/2018 [facility] Body Fluid SEE RESULT [address] [place] [address] [phone] Body Fluid Crystals None Seen None Seen 10 Cell Morphology 06/10/2017 [facility] Microcytosis 2+ N [address] [place], [place] [id number] [phone] Hypochromasia 1+ N Polychromasia 2+ N Hla B27 06/10/2017 [facility] Hla B27 Negative N [address] [place], [place] [id number] [phone] Hla B27 Interp See Comment N 12 Laboratory test 06/10/2017 [facility] Rheumatoid Factor <15 IU/ mL N <15 [address] [place], [place] [address] [phone] Connective Tissue 06/10/2017 [facility] Anti-Nuclear 0.3 U N [address] [place] [address] [phone] Cyclic Citrullinated Peptide <15.6 U N 15 Interpretation See Comment N 16 Laboratory test 06/10/2017 [facility] Vitamin D, 1,25 27 pg/mL N 18-78 [address] [place] [address] [phone] Vitamin B12 And 06/10/2017 [facility] Vitamin B12 287 pg/mL N 180-914 18 Folate Serum [address] [place] [address] [phone] Folic Acid (Folate) 10.92 ng/mL N >3.99 Laboratory test 06/10/2017 [facility] Ferritin 28.1 ng/mL N 11 -[address] [place] [address] [phone] Iron & Iron Binding 06/10/2017 [facility] Iron 18 g/dL Low 50-[address] [place] [address] [phone] Unsaturated Iron Binding 436 g/dL N Total Iron Binding Capacity 454 g/dL High 250-450 % Iron Saturation 4 % Low 15-55 CBC Auto Diff 06/10/2017 [facility] White Blood 9.1 10^3/uL N 3.5-10.[address] [place] [address] [phone] Red Blood Count 3.48 10^6/uL Low 4.0-5.4 Hemoglobin 7.9 g/dL Low 12.0-16.0 Hematocrit 26 % Low 35-47 Mean Corpuscular Volume 75 fL Low 80-97 Mean Corpuscular Hemoglobin 23 pg Low 27-31 Mean Corpuscular HGB Conc 30 g/dL Low 31-36 Red Cell Distribution Width 19 % High 10.5-15 Platelet Count 714 10^3/uL High 150-450 Mean Platelet Volume 7 um3 Low 7.4-10.4 Abs Neutrophils 5.8 10^3/uL N 1.5-7.7 Abs Lymphocytes 1.9 10^3/uL N 1.0-4.8 Abs Monocytes 1.0 10^3/uL High 0-0.8 Abs Eosinophils 0.4 10^3/uL N 0-0.6 Abs Basophils 0.1 10^3/uL N 0-0.2 Abs Nucleated RBC 0 10^3/uL N Granulocyte % 63.7 % N 38-83 Lymphocyte % 20.7 % Low 25-47 Monocyte % 10.9 % High 1-9 Eosinophil % 3.9 % N 0-6 Basophil % 0.8 % N 0-2 Nucleated Red Blood Cells % 0 N Laboratory test 06/10/2017 [facility] TSH (Thyroid 1.71 mcIU/mL N 0.34-5.[address] [place]) [place] [address] [phone] Erythrocyte Sed Rate 43 mm/Hr High 0-40 C Reactive Protein 7.70 mg/L High < 5.00 19 Pthi 06/10/2017 [facility] Calcium (PTH Intact) 9.2 mg/dL N 8.6-10.3 [address] [place] [address] [phone] PTH Intact 1.5 pmol/L N 1.3-9.3 Type & Screen 2017 [facility] Patient Blood Type A Positive N [address] [place] [address] [phone] Antibody Screen NEGATIVE N CBC No Diff 04/04/2017 [facility] White Blood 9.3 10^3/uL N 3.5-10.[address] [place] [address] [phone] Red Blood Count 4.07 10^6/uL N 4.0-5.4 Hemoglobin 10.0 g/dL Low 12.0-16.0 Hematocrit 33 % Low 35-47 Mean Corpuscular Volume 81 fL N 80-97 Mean Corpuscular Hemoglobin 25 pg Low 27-31 Mean Corpuscular HGB Conc 31 g/dL N 31-36 Red Cell Distribution Width 17 % High 10.5-15 Platelet Count 505 10^3/uL High 150-450 Mean Platelet Volume 8 um3 N 7.4-10.4 Urinalysis Profile 04/04/2017 [facility] Urine Color Yellow N [address] [place] [address] [phone] Urine Appearance Clear N Urine Specific Gilbert 1.009 Low 1.010-1.030 Urine pH 7.0 N 5-9 Urine Urobilinogen Negative N Negative Urine Ketones Negative N Negative Urine Protein Negative N Negative Urine Leukocytes Negative N Negative Urine Blood Negative N Negative Urine Nitrite Negative N Negative Urine Bilirubin Negative N Negative Urine Glucose Negative N Negative Type & Screen 04/04/2017 [facility] Patient Blood Type A Positive N [address] [place] [address] [phone] Antibody Screen NEGATIVE N Comp Metabolic Panel 04/04/2017 [facility] Sodium 132 mmol/L Low 133-145 [address] [place] [address] [phone] Potassium 3.9 mmol/L N 3.5-5.0 Chloride 99 mmol/L Low 101-111 Co2 Carbon Dioxide 29 mmol/L N 22-32 Anion Gap 4 mmol/L N 2-11 Glucose 92 mg/dL N 70-100 Blood Urea Nitrogen 12 mg/dL N 6-24 Creatinine 0.62 mg/dL N 0.51-0.95 BUN/Creatinine Ratio 19.4 N 8-20 Calcium 9.3 mg/dL N 8.6-10.3 Total Protein 6.7 g/dL N 6.4-8.9 Albumin 4.2 g/dL N 3.2-5.2 Globulin 2.5 g/dL N 2-4 Albumin/Globulin Ratio 1.7 N 1-3 Total Bilirubin 0.30 mg/dL N 0.2-1.0 Alkaline Phosphatase 115 U/L High 34-104 Alt 11 U/L N 7-52 Ast 14 U/L N 13-39 Egfr Non- 95.7 N >60 Egfr 123.1 N >60 22 Inr/Protime 04/04/2017 [facility] Inr 0.83 Low 0.89-1.[address] [place] [address] [phone] Laboratory test 04/04/2017 [facility] Partial 28.6 N 26.0- 36.3 [address] [place] [address] Time PTT [phone] Urine Culture And 04/04/2017 [facility] Urine SEE RESULT [address] [place] [address] [phone] Body Fluid C&S 01/13/2017 [facility] Body Fluid SEE RESULT 25, [address] Cult BELOW [address] [place] [address] Gram Stain [phone] Body Fluid Cell 01/13/2017 [facility] Body Fluid Synovial N Count [address] [place] [address] [phone] Body Fluid Appearance Cloudy N Body Fluid Color Yellow N Body Fluid Volume 5 mL N Body Fluid WBC 440 /mcL N 27 Body Fluid RBC 7896 /mcL N Body Fluid Comment (SEE NOTE) N 28 Body Fluid Neutrophils 33 % N Body Fluid Lymph 20 % N Body Fluid Vermilion 46 % N Body Fluid Eosinophil 1 % N Body Fluid Other Cells 1 N Body Fluid Total Cells Counted 100 N Fluid Reviewed By MD (SEE NOTE) N 29 Laboratory test 01/13/2017 [facility] Anaerobic SEE RESULT [address] [place] [address] [phone] Body Fluid Crystals CPPD(Ca Pyrophos <SEE NOTE> N 31 Creatinine 10/17/2016 [facility] Creatinine 0.68 mg/dL N 0.51- 0.[address] [place] [address] [phone] Egfr Non- 86.0 N >60 Egfr 110.7 N >60 32 Laboratory test finding 09/13/2016 [facility] Albumin 3.7 g/dL N 3.2-5.[address] [place] [address] [phone] Prealbumin 22 mg/dL N 18-38 Laboratory test 09/12/2016 [facility] Epifix 18 SEE RESULTS 33, [address] [place] <[place] [address] NOTE> [phone] Laboratory test 07/18/2016 [facility] Epifix 18 SEE RESULTS 35, [address] [place] [address] DRIVE BELO <[place] [address] NOTE> [phone] Laboratory test 06/28/2016 [facility] Surgical SEE RESULT 37 finding [facility] [address] [address] [phone] 1 SEE RESULT BELOW Name: TRAN BUI : [address]: Cortney Cam MD Acct: [id number] Unit: [id number] AGE: 68 Location: [facility] Re10/02/18 SEX: F Status: REG REF SPEC: [id number] LINDA: 10/02/18-[address]: Cortney Cam MD REQ: [id number] RECD: 10/02/18 EXPLICIT FAX#: [id number], [id number] STATUS: COMP OTHR DR: Frances Castillo MD _ SOURCE: URINE [facility]: ORDERED: Urine Culture COMMENTS: [id number] jernigan urine top Copy Result to: Frances CASTILLO ([id number]) Urine Source: Random Procedure Result Reported Site Urine Culture Final 10/03/18- 1604 ML No growth of clinically significant organisms * ML - Main Lab . END OF REPORT DEPARTMENT OF PATHOLOGY, [address] [place] [address] Vasiliy Ventura M.D. Director [facility] # [id number] 2 [id number] SEE RESULT BELOW Name: TRAN BUI : [address]: Nathan Miguel MD Acct: [id number] Unit: [id number] AGE: 68 Location: [facility] Re09/14/18 SEX: F Status: REG REF SPEC: [id number] LINDA: 09/14/[address]: Nathan Miguel MD REQ: [id number] RECD: 09/15/181232 STATUS: COMP _ SOURCE: BODY FLUID SPDESC: ORDERED: JACOBO Robertson/GS, MRSA/SA SSTI COMMENTS: synovial fluid [id number] Procedure Result Reported Site Body Fluid Gram Stain Final 09/15/18- 1515 ML 2+ Nucleated Cells No Organisms Seen Preparation By Cytospin Smear Body Fluid Culture Final 09/19/18- 0822 ML No Growth Day 4 MRSA/S. aureus SSTI PCR Final 09/15/18- 1624 ML Organism 1 MRSA NEGATIVE Organism 2 S.AUREUS NEGATIVE * ML - Main Lab . END OF REPORT DEPARTMENT OF PATHOLOGY, [address] [place] [address] Vasiliy Ventura M.D. Director [facility] # [id number] 4 -- REFERENCE VALUE -- Synovial: <150/mcL Peritoneal: <500/mcL Pleural: <500/mcL Pericardial: <500/mcL 5 Mixed acute and chronic inflammatory elements identified. Correlation with microbiology studies is suggested. Reviewed by Dr. Ventura 6 [id number] What is the body fluid source?: Synovial (Joint) Fluid 7 -- REFERENCE VALUE -- Synovial: <150/mcL Peritoneal: <500/mcL Pleural: <500/mcL Pericardial: <500/mcL 8 Mixed inflammatory elements noted. Correlation microbiology studies recommended. Reviewed by Dr. Ventura 9 SEE RESULT BELOW Name: TRAN BUI : [address]: Nathan Miguel MD Acct: [id number] Unit: [id number] AGE: 68 Location: [facility] Re09/11/18 SEX: F Status: REG REF SPEC: [id number] LINDA: 09/11/181350 [facility] DR: Nathan Miguel MD REQ: [id number] RECD: 09/11/18 STATUS: COMP _ SOURCE: JOINT FLUI SPDESC:KNEE ORDERED: BF Cult/GS, MRSA/SA SSTI Procedure Result Reported Site Body Fluid Gram Stain Final 09/12/18- 0739 ML 2+ Neutrophils No Organisms Seen Preparation By Cytospin Smear Body Fluid Culture Final 09/15/18- 1025 ML No Growth Day 4 MRSA/S. aureus SSTI PCR Final 09/11/18- 2113 ML Organism 1 MRSA NEGATIVE Organism 2 S.AUREUS NEGATIVE * - [facility] . END OF REPORT DEPARTMENT OF PATHOLOGY, [address] [place] [address] Vasiliy Ventura M.D. Director [facility] # [id number] 10 [id number] What is the body fluid source?: Synovial (Joint) Fluid 11 REFERENCE VALUE Not Applicable 12 RESULT: HLA-B27 antigen was not detected. ADDITIONAL INFORMATION Method: Flow Cytometry Performing Laboratory [facility]# [id number] Test Performed by: [facility] [place] [id number] Test Performed by: [facility] [address] [address] 14 REFERENCE VALUE <=1.0 (Negative) 15 REFERENCE VALUE <20.0 (Negative) 16 Tests for antibodies to dsDNA and KAREL antigens are not performed automatically unless the JIM result is > or= 3.0 U. Studies performed at [facility] [facility] indicate that positive JIM results <3.0 U are rarely accompanied by positive second order tests. Test Performed by: [facility] - [address] [address] 17 ADDITIONAL INFORMATION This test was developed and its performance characteristics determined by [facility] in a manner consistent with CLIA requirements. This test has not been cleared or approved by the U.S. Food and Drug Administration. Test Performed by: [facility] - [address] [address] 18 Normal Range 180 to 914 Indeterminate Range 145 to 180 Deficient Range <145 19 Acute inflammation: >10.00 20 PAIN IN RIGHT KNEE, UNILATERAL PRIMARY OSTEOARTHRI 21 SD [id number] 22 Because ethnic data is not always readily [...] 15-29 5 Kidney failure <15 (or dialysis) 23 SD [id number] 24 SEE RESULT BELOW Name: TRAN BUI : [address]: Frances Castillo MD Acct: [id number] Unit: [id number] AGE: 66 Location: [facility] Re04/04/17 SEX: F Status: REG REF SPEC: [id number] LINDA: 04/04/17-[address] [facility] [address]: Frances Castillo MD REQ: [id number] RECD: 04/04/17 STATUS: COMP _ SOURCE: URINE SPDESC: ORDERED: Urine Culture COMMENTS: [id number] QUERIES: Urine Source: Clean Catch Procedure Result Reported Site Urine Culture Final 04/05/17- 1304 ML No growth of clinically significant organisms * ML - MAIN LAB ([facility]) . END OF REPORT * ML=Testing performed at Main Lab DEPARTMENT OF PATHOLOGY, [address] [place] [address] Vasiliy Ventura M.D. Director [facility] # [id number] 25 [id number] 26 SEE RESULT BELOW Name: TRAN BUI : [address]: Javier Bryson MD Acct: [id number] Unit: [id number] AGE: 66 Location: [facility] Re01/13/17 SEX: F Status: REG REF SPEC: [id number] LINDA: 01/13/17-[address]: Javier Bryson MD REQ: [id number] RECD: 01/13/17 STATUS: COMP _ SOURCE: JOINT FLUI SPDESC:KNEE RIGHT ORDERED: JACOBO Robertson/CASIMIRO COMMENTS: [id number] Procedure Result Reported Site Body Fluid Gram Stain Final 01/14/17- 0732 ML No Neutrophils Observed No Organisms Seen Preparation By Direct Smear Body Fluid Culture Final 01/17/17- 0834 ML No Growth Day 4 * ML - MAIN LAB ([facility]) . END OF REPORT * ML=Testing performed at Main Lab DEPARTMENT OF PATHOLOGY, [address] [place] [address] Vasiliy Ventura M.D. Director [facility] # [id number] 27 -- REFERENCE VALUE -- Synovial: <150/mcL Peritoneal: <500/mcL Pleural: <500/mcL Pericardial: <500/mcL 28 Differential performed on concentrated smear. 29 Blood is present. No evidence of an acute inflammatory response. No evidence of malignancy. Reviewed by Soha Ibarra MD 30 SEE RESULT BELOW Name: TRAN UBI : [address]: Javier Bryson MD Acct: [id number] Unit: [id number] AGE: 66 Location: [facility] Re01/13/17 SEX: F Status: REG REF SPEC: [id number] LINDA: 01/13/[address] [facility] [address]: Javier Bryson MD REQ: [id number] RECD: 01/13/17 STATUS: COMP _ SOURCE: MISC SOURC SPDESC:KNEE RIGHT ORDERED: Anaerobic Cult COMMENTS: [id number] Procedure Result Reported Site Anaerobic Culture Final 01/17/17833 ML No Growth Day 4 * ML - MAIN LAB ([facility]) . END OF REPORT * ML=Testing performed at Main Lab DEPARTMENT OF PATHOLOGY, [address] [place] [address] Vasiliy Ventura M.D. Director [facility] # [id number] 31 CPPD(Ca Pyrophosate) 32 Because ethnic data is not always readily [...] 15-29 5 Kidney failure <15 (or dialysis) 33 fu 34 SEE RESULTS BELOW [id number] EPIFIX 18 TRANSFUSED 09/13/16 1027 35 FU 36 SEE RESULTS BELOW [id number] EPIFIX 18 TRANSFUSED 07/19/16 0905 37 SEE RESULT BELOW Name: TRAN BUI : [address]: Andrew Kay MD Acct: [id number] Unit: [id number] AGE: 66 Location: [facility] Re06/28/16 SEX: F Status: REG REF SPEC: [id number] LINDA: 06/28/160957 SUBM DR: Andrew Kay MD REQ: [id number] RECD: 06/28/16 STATUS: TAO PEREZ DR: Cortney [...] Signed (signature on file) Vasiliy Ventura MD 1247 END OF REPORT * ML=Testing performed at Main Lab DEPARTMENT OF PATHOLOGY, [address] [place] [address] Vasiliy Ventura M.D. Director [facility] # [id number] Procedures Date Code Description Status 09/21/2018 Inject/Drain Joint/Bursa Major W/O US Completed 09/11/2018 Inject/Drain Joint/Bursa Major W/O US Completed 08/05/2018 Inject/Drain Joint/Bursa Major W/O US Completed 07/23/2018 Inject/Drain Joint/Bursa Major W/O US Completed 04/23/2018 Inject/Drain Joint/Bursa Major W/O US Completed 04/23/2018 Inject/Drain Joint/Bursa Major W/O US Completed 05/17/2017 52066 EKG, Interpretation Only Completed 05/15/2017 72245 TKR Total Knee Replacement Completed 05/15/2017 07818 TKR Total Knee Replacement Completed 04/04/2017 97123 EKG, Interpretation Only Completed 01/13/201729704 Inject/Drain Joint/Bursa Major W/O US Completed 01/06/2017 81256 Debridement Skin,& sq Tissue Completed 10/16/2016 Inject/Drain Joint/Bursa Major W/O US Completed 10/04/2016 76359 Removal Devitalization Tissue Wound Less Than Equal 20 Completed Square CM 09/25/2016 Inject/Drain Joint/Bursa Major W/O US Completed 09/13/2016 61185 Application Skin Substitute Graft Trunk,Arms Lets Up To Completed 100 SQ CM 09/11/2016 Inject/Drain Joint/Bursa Major W/O US Completed 09/06/2016 56190 Debridement Skin,& sq Tissue Completed 08/30/2016 68274 Arthroscopy,Knee,Meniscectomy Media & Lateral Completed 08/30/2016 58319 Arthroscopy,Knee,Meniscectomy Media & Lateral Completed 08/23/2016 57722 Removal Devitalization Tissue Wound Less Than Equal 20 Completed Square CM 08/09/2016 16779 Chemical Cautery Granulation Tissue Completed 08/08/2016 Inject/Drain Joint/Bursa Major W/O US Completed 08/01/2016 Inject/Drain Joint/Bursa Major W/O US Completed 07/19/2016 96284 Application Skin Graft Face,Scalp,Eyelids,Mouth, Neck Up Completed To 100CM 06/13/2016 Inject/Drain Joint/Bursa Major W/O US Completed Encounters Type Date Location Provider Dx Diagnosis Office Visit 09/21/2018 Orthopedic Frances Castillo, M25.562 Pain in left knee 2:00p Services Of Lyssa Garibay M25.462 Effusion, left knee M17.12 Unilateral primary osteoarthritis, left knee M21.062 Valgus deformity, not elsewhere classified, left knee Office Visit 09/14/2018 4:20p Rheumatology Nathan Miguel M25.562 Pain in Services Of Noemi Garibay left knee M71.22 Synovial cyst of popliteal space [Goncalves], left knee Office Visit 09/11/2018 12:40p Rheumatology Nathan Askew70.42 Prepatellar Services Of Noemi Miguel M.D. bursitis, left knee M25.562 Pain in left knee M79.605 Pain in left leg R60.0 Localized edema M25.462 Effusion, left knee M25.561 Pain in right knee Office Visit 08/05/2018 Rheumatology Nathan Askew70.42 Prepatellar 9:00a Services Of Noemi Miguel M.D. bursitis, left knee Office Visit 07/23/2018 Rheumatology Nathan M25.562 Pain in left knee 1:40p Services Of Noemi Miguel M.D. 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 sclerosis R53.83 Other fatigue Z79.899 Other assisted (current) drug therapy Office Visit 06/10/2017 1:00p Rheumatology Nathan Miguel, M71.461 Calcium Services Of Noemi Garibay deposit in bursa, right knee M25.561 Pain in right knee M25.461 Effusion, right knee D64.9 Anemia, unspecified R60.0 Localized edema Office Visit 05/18/2017 [facility] Devin Z96.651 Presence of 11:33a fozia Dickerson MD right artificial Hospitalists knee joint G35 Multiple sclerosis R00.0 Tachycardia, unspecified D64.9 Anemia, unspecified Office Visit 05/17/2017 [facility] Devin R00.0 Tachycardia, 11:32a fozia Dickerson MD unspecified Hospitalists G89.29 Other chronic pain G35 Multiple sclerosis Z96.651 Presence of right artificial knee joint Office Visit 05/16/2017 [facility] Devin Z96.651 Presence of 11:31a fozia Dickerson MD right artificial Hospitalists knee joint G35 Multiple sclerosis K21.9 Gastro-esophageal reflux disease without esophagitis G89.29 Other chronic pain Office Visit 05/15/2017 [facility] Devin Z96.651 Presence of 11:29a fozia Dickerson MD right artificial Hospitalists knee joint G35 Multiple sclerosis K21.9 Gastro-esophageal reflux disease without esophagitis G89.29 Other chronic pain Office Visit 05/12/2017 11:15a Orthopedic Services Frances Castillo, M25.561 Pain in right Of C.M.A. M.D. knee M17.11 Unilateral primary osteoarthritis, right knee M21.061 Valgus deformity, not elsewhere classified, right knee M25.461 Effusion, right knee Office Visit 03/26/2017 8:00a Orthopedic Services Frances Castillo M25.561 Pain in right Of C.M.A. M.D. knee M17.11 Unilateral primary osteoarthritis, right knee M21.061 Valgus deformity, not elsewhere classified, right knee Office Visit 03/17/2017 1:45p Orthopedic Javier Prakash M25.461 Effusion, right Services Of MD [place] knee C.M.A. M17.11 Unilateral primary osteoarthritis, right knee M21.061 Valgus deformity, not elsewhere classified, right knee Office Visit 01/13/2017 1:45p Orthopedic Javier F M25.461 Effusion, right Services Of MD [place] knee C.M.A. M17.11 Unilateral primary osteoarthritis, right knee M21.061 Valgus deformity, not elsewhere classified, right knee Office Visit 11/08/2016 1:17p Wound Care Andrew Solorio L89.520 Pressure ulcer of [facility] MD Rahul, left ankle, FACS unstageable G35 Multiple sclerosis Office Visit 10/18/2016 10:45a Wound Care Andrew Solorio L89.520 Pressure ulcer of [facility] MD Rahul, left ankle, FACS unstageable G35 Multiple sclerosis R60.0 Localized edema E46 Unspecified protein-calorie malnutrition Office Visit 08/21/2016 Orthopedic Javier F M23.303 Oth meniscus 3:40p Services Of MD [place] derangements, unsp C.M.A. medial meniscus, right knee M17.11 Unilateral primary osteoarthritis, right knee M23.41 Loose body in knee, right knee M23.221 Derang of post horn of medial mensc d/t old tear/inj, r knee M23.611 Oth spon disrupt of anterior cruciate ligament of right knee Office Visit 08/08/2016 Orthopedic Javier F M17.11 Unilateral primary 11:20a Services Of MD [place] osteoarthritis, C.M.A. right knee M23.303 Oth meniscus derangements, unsp medial meniscus, right knee M23.221 Derang of post horn of medial mensc d/t old tear/inj, r knee M23.41 Loose body in knee, right knee M23.611 Oth spon disrupt of anterior cruciate ligament of right knee Office Visit 08/01/2016 8:20a Orthopedic Javier F M25.561 Pain in Services Of Lyssa Bryson MD right knee M17.11 Unilateral primary osteoarthritis, right knee M25.461 Effusion, right knee Office Visit 07/26/2016 8:30a Wound Care Andrew Solorio L89.520 Pressure ulcer of [facility] MD Rahul, left ankle, FACS unstageable G35 Multiple sclerosis Office Visit 06/13/2016 Orthopedic Javier F M17.11 Unilateral primary 1:30p Services Of [facility] [place] osteoarthritis, C.M.A. right knee M25.561 Pain in right knee Office Visit 06/12/2016 10:45a [facility] Emerson Dwyer G35 Multiple Services Of Noemi Foreman M.D. sclerosis Office Visit 06/13/2015 11:45a Phong Dwyer 340 Multiple Services Of Noemi Foreman M.D. Sclerosis Office Visit 09/21/2014 3:15p Neurohospitalist [facility] [place] Foreman Sclerosis Office Visit 12/21/2013 2:45p [facility] [place] [facility] Of Noemi Foreman M.D. Sclerosis Office Visit 03/24/2013 3:00p [facility] [place] [facility] Noemi Foreman M.D. Sclerosis Office Visit 09/09/2012 11:15a Phong Dwyer 340 Multiple Services Of Noemi Foreman M.D. Sclerosis Office Visit 01/28/2010 3:00a Phong Ronquillo Keenan 486 [facility]o M.D. Organism Unspec 492.8 Emphysema Other 280.9 Iron Deficiency Anemia Unspec 309.81 Posttraumatic Stress Disorder Office Visit 01/27/2010 1:30a Phong Ronquillo Keenan Aguayo, 486 [facility] [place] Organism Unspec Hospitalists 492.8 Emphysema Other 511.9 Pleurisy Effusion Unspec 309.81 Posttraumatic Stress Disorder 311 Depressive Disorder Not Elsewhere Spec Office Visit 01/26/2010 2:00a Phong Ronquillo Keenan Ninasanjana, 486 Pneumonia Assoc,fozia Garibay Organism Unspec Hospitalists 492.8 Emphysema Other 782.3 Edema 276.8 Hypopotassemia Office Visit 01/25/2010 2:00a Phong Ronquillo Keenan 492.8 Emphysema Other Assoc,pc [place] Aguayo Hospitalists 486 Pneumonia Organism Unspec 309.81 Posttraumatic Stress Disorder 311 Depressive Disorder Not Elsewhere Spec Office Visit 01/24/2010 1:45a Phong Ronquillo Keenan Ninasanjana, 486 [facility] [place] Organism Unspec Hospitalists 492.8 Emphysema Other 340 Multiple Sclerosis 309.81 Posttraumatic Stress Disorder 311 Depressive Disorder Not Elsewhere Spec Office Visit 01/23/2010 2:00a Phong Ronquillo Keenan Ninasanjana, 486 Pneumonia [facility] [place] Organism Unspec Hospitalists 492.8 Emphysema Other 511.9 Pleurisy Effusion Unspec 340 Multiple Sclerosis 309.81 Posttraumatic Stress Disorder 272.4 Hyperlipidemia Other Unspec Office Visit 01/22/2010 2:00a [facility] Keenan Aguayo, 486 Pneumonia [facility]oc,pc [place] Organism Unspec Hospitalists 511.9 Pleurisy Effusion Unspec 492.8 Emphysema Other 340 Multiple Sclerosis 309.81 Posttraumatic Stress Disorder 272.4 Hyperlipidemia Other Unspec Office Visit 01/21/2010 2:30a [facility] Keenan Aguayo, 486 Pneumonia Assoc,foiza [place] Organism Unspec Hospitalists 511.9 Pleurisy Effusion Unspec 492.8 Emphysema Other 340 Multiple Sclerosis 309.81 Posttraumatic Stress Disorder 272.4 Hyperlipidemia Other Unspec Office Visit 01/20/2010 2:30a [facility] Keenan Aguayo, 486 Pneumonia Assoc,fozia Garibay Organism Unspec Hospitalists 492.8 Emphysema Other 340 Multiple Sclerosis 311 Depressive Disorder Not Elsewhere Spec Office Visit 01/19/2010 1:30a [facility] Keenan 492.8 Emphysema Other Assoc,pc [place] Aguayo Hospitalists 486 Pneumonia Organism Unspec 340 Multiple Sclerosis 309.81 Posttraumatic Stress Disorder Office Visit 01/18/2010 2:00a [facility] Bobbyprashant Carranza, 285.9 Anemia Unspec Assrosita,fozia Garibay Hospitalists 492.8 Emphysema Other Office Visit 01/17/2010 2:30a [facility] 486 Pneumonia Assoc,fozia Carranza M.D. Organism Unspec Hospitalists Office Visit 01/16/2010 1:30a [facility] Bobby 486 Pneumonia Assoc,fozia Carranza M.D. Organism Unspec Hospitalists Office Visit 01/15/2010 1:15a [facility] Bobby 511.9 Pleurisy Assoc,fozia Carranza M.D. 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 at [facility]10/27/2018 1:30 pm - RIKI Hand at [facility]..10/27/2018 1:30 pm - RICKY Frye at [facility]..10/27/2018 1:30 pm - Frances Castillo M.D. at [facility]..10/19/2018 9:30 am - Frances Castillo M.D. at [facility].A.06/15/2019 2:30 pm - Emerson Foreman M.D. at [facility]10/13/2018 - Nathan Miguel M.D.M17.12 Unilateral primary osteoarthritis, left kneeFollow up:Follow up in 6 months or sooner if needed
--- OUTSIDE RECORDS SUMMARY | 2018-10-27 09:46 | XMS REPORT ---
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 Active Onset: 08/22/2011 Multiple sclerosis Christie Franco M.D. Active Onset: 08/22/2011 Anxiety state Christie Franco M.D. Active Onset: 08/22/2011 Pain in limb Christie Franco M.D. Active Onset: 12/18/2011 Edema Stuart Goncalves M.D. Active Onset: 02/14/2012 Uterovaginal prolapse Christei Franco M.D. Active Onset: 12/04/2012 Osteoporosis Cortney Cam M.D. Active Onset: 01/01/2013 Depressive disorder Cortney Cam M.D. Active Onset: 05/21/2013 Insomnia Cortney Cam M.D. Active Onset: 05/21/2013 Anxiety state Cortney Cam M.D. Active Onset: 08/15/2015 Vitamin D deficiency Cortney Cam M.D. Active Onset: 08/15/2015 Mixed hyperlipidemia Cortney Cam M.D. Active Onset: 08/15/2015 Osteochondropathy Cortney Cam M.D. Active Onset: 08/15/2015 Family hx of ischem heart dis and Cortney Cam M.D. Active oth dis of the circ sys Onset: 07/10/2018 Peripheral vascular disease Cortney Cam M.D. Active Family History Date Family Member(s) Problem(s) Comments General sister - after Breast CA mets. age ~70's.no lung, colon CA. No Diabetes. Father due to OR () - in his early 50s Mother due to Kidney Disease () - when patient was 4. Grew up with oldest sister. Number of Children 2 First Son Unremarkable estranged. lives in [place]. speaks with him every few months. First Son Anemia Second Son Unremarkable lives in [place]. Number of Siblings 12 siblings, 3 ( 1 OR, 1 brain anneurysm, 1 breast cancer ) Number of Grandchildren 2 Social History Type Date Description Comments Marital Status Patient has a significant other - her 2nd ex . Living Situation Lives with male partner, her ex- . Gets along better with each other now that they are . 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 1 ppd x 43 yrs, has quit during both pregnancies ETOH Use Denies alcohol use Smoking Patient is a former smoker Daily Caffeine Consumes on average 5-10 cups of coffee per day Exercise Type/Frequency Stationary bicycle, Current elliptical off and on. walks outside in good weather, with the walker . Allergies, Adverse Reactions, Alerts Date Description Reaction Status Severity Comments 04/17/2012 Latex active 06/15/2015 Zocor bone pain. active 03/01/2016 Baclofen active rash 05/07/2018 Tizanidine caused falls active 08/22/2011 NKDA inactive Medications Medication Date Status Form Strength Qnty SIG Indications Ordering Provider Jero 10/02/ Active Tablets 250mg 10tab 1 by mouth N39.0 Cortney L. 2018 s twice a casa Cam x 5 d M.DTabitha Orphenadrine 07/10/ Active Tablets ER 100mg 30tab take one Cortney Bishop. Citrate ER 2017 12HR s tablet by Dorina mouth up M.D. to twice daily. use caution due to fatigue Modafinil 06/24/ Active Tablets 200mg 30tab take 1 Uriel T. 2018 s tablet by dre Jeffries M.DTabitha every morning - maximum daily dose of 1 per day Furosemide 11/01/ Active Tablets 20mg 30tab 1 by mouth Cortney L. 2017 s daily as Dorina needed for M.D. edema Ra Bladder 08/07/ Active Misc 99uni Use 5-6 Cortney Chelita Control 2017 ts Pads A Day Dorina Pads/Women/Ultima if needed M.D. te Absorbency Abilify 06/15/ Active Tablets 10mg 30tab 1 by mouth F32.9 Cortney Merlos 2015 s daily [place] Miralax 06/06/ Active Powder 3350NF 60uni 1 cap K59.00 Cortnye Merlos 2014 ts twice a casa Cam as M.DTabitha needed Colace 06/06/ Active Capsules 100mg 60cap take one K59.00 Cortney Merlos 2014 s capsule by Dorina mouth M.D. twice a day Mirtazapine 05/21/ Active Tablets 45mg 90tab take 1 F32.9 Cortney LTabitha 2014 s tablet by Dorina mouth M.DTabitha daily at bedtime Montelukast 05/21/ Active Tablets 10mg 90tab take 1 Cortney LTabitha Sodium 2013 s tablet by Dorina mouth M.D. every day FQ Prevail 12/14/ Active 36uni Use Cortney Merlos Protect Underwear 2013 ts Nightly [place] Cam Prevail 10/02/ Active Pads 99uni Use 1 Pad Amelia 2012 ts as Mauri, Necessary BOARD WINDER Clonazepam 01/01/ Active Tablets 0.5mg 90tab take one F41.9 Cortney Merlos 2012 s tablet by Dorina, mouth four M.D. times a day maximum daily dose=4 tablets Depends Pads 05/18/ Active 5-6Pads Q 99Per use as N81.4 Cortney Merlos 2011 Day Month necessary [place] Cam Fluoxetine HCL 11/13/ Active Capsules 20mg 90cap take 1 F32.9 Cortney Merlos 2010 s capsule by Dorina, mouth M.D. every day Morphine Sulfate 02/01/ Active Tablets 15mg 50tab 1 po every Amelia Instant Release 2010 Soluble s 4 hours as Mauri, needed BOARD WINDER Astelin 10/27/ Active Soln 137mcg/Sp 30uni use one Cortney Merlos 2008 ray ts spray in Dorina, each M.D. nostril one time daily Ambien CR 02/11/ [...] Hx Tablets 200mg 30tab take 1 Cortney Merlos 2017 - s tablet by Dorina, 06/24/ mouth M.D. 2017 every morning - maximum daily dose of 1 per day Cyclobenzaprine 05/07/ Hx Tablets 5mg 90tab take one R25.2 Cortney Merlos HCL 2017 - s tablet by Dorina, 07/09/ mouth M.D. 2017 three times daily as needed. take care when driving. Tizanidine HCL 12/18/ Hx Tablets 2mg 120ta 1/2 to 2 Cortney Merlos 2018 - bs by mouth Dorina, 05/07/ four times M.D. 2018 daily Clindamycin HCL 04/10/ Hx Capsules 300mg 30cap 1 by mouth K04.7 Cortney Merlos 2016 - s three Dorina, 10/16/ times M.D. 2017 daily Right Afo 03/13/ Hx One #1. Cortney Merlos 2016 - Please Dorina, 07/09/ fax to 2017 [facility]. Physical Therapy 02/13/ Hx evaluate G35 Cortney Merlos 2016 - and Treat Dorina, 04/20/ multiple M.D. 2018 sclerosis Dyazide 01/02/ Hx Capsules 37.5-25mg 45cap 1-2 by R60.0 Cortney Merlos 2016 - s mouth Dorina, 07/09/ every day M.D. 2018 Doxycycline 07/18/ Hx Capsules 100mg 10cap 2 by mouth S40.862A Amelia Hyclate 2015 - s once for Mauri, 08/22/ each deer BOARD WINDER 2016 tick bite in which the tick was attached for 24 hours or more Vitamin D 07/12/ Hx Capsules [id number] 8caps take 1 Cortney Merlos (Ergocalciferol) 2014 [...] Glycerin 2014 - e ts of rectum [place], Suppositories 07/09/ every day M.D. 2017 as needed [place]wool Bootie 11/29/ Hx dx. 707.13 Cortney Merlos 2014 - 707.13 Dorina, 06/06/ M.D. 2014 Duoderm Pad 02/25/ Hx Dressing cut to 707.13 Cortney Merlos 2014 - size and Dorina, 10/14/ put over M.D. 2014 affected areas. leave on for one week. Cyclobenzaprine 12/12/ Hx Tablets 10mg 270ta take 1 G35 Cortney Merlos HCL 2013 - bs tablet by Dorina, 07/09/ mouth M.D. 2017 three times daily as needed Oxybutynin 10/22/ Hx Tablets 5mg 90tab 1 by mouth Cortney Merlos Chloride 2014 - s three Dorina, 06/06/ times a M.D. 2014 day [employer] [facility] fax# [phone] Senna Laxative 10/14/ Hx Tablets 8.6mg 180ta 6 tabs at 564.09 Fabiola 2014 - bs hs Hossein, SERVICE DESK LEAD 2015 564.00 Evista 12/04/2012 Hx Tablets 60mg 30tabs 1 po daily 733.00 Cortney Cam, 10/14/2013 MAustin Singulair 12/04/2012 Hx Tablets 10mg 30tabs 1 po daily 995.3 Cortney Merlos - [employer] [facility] Dorina, 05/21/2014 Delivery fax# [phone] Depends 05/27/2012 Hx 30units pullups 788.30 Amelia - asher/kim, Mauri, 08/22/2016 use nightly BOARD WINDER Depends 05/18/2012 Hx 3-4Eac 20units use as 788.30 Nathan Dang-Medium - h Day necessary Neydaiman, Panty Liner 05/27/2012 M.D. Depends 05/15/2012 Hx 1Carton 4 per day 788.30 Cortney Cam, 05/18/2012 MAustin Cipro 02/14/2012 Hx Tablets 250mg 6tabs 1 tab po bid Christie D. - x 3 days Joan, 04/17/2012 M.D. Furosemide 12/18/2011 Hx Tablets 20mg 30tabs 1 by mouth R60.0 Cortney Merlos - daily as Dorina, 02/13/2017 needed for M.D. edema Nitrofurantoin 08/22/2011 Hx Capsules 100mg 1 po qd [facility] 01/01/2013 [facility] Cipro 03/22/2011 Hx Tablets 500mg 14tabs 1 po qd Soha Polk, 04/26/2011 M.D. Morphine Sulfate 03/22/2011 Hx Tablets ER 30mg 30tabs 1 po bid Amelia ER - 12HR Mauri, 06/13/2016 BOARD WINDER Ankle - Soft 03/22/2011 Hx R 1units wear during Soha Brace - Ankle day-take off thelma Gaviria, 04/26/2011 at night M.D. Singulair 10/31/2010 Hx [...] orange juice M.D. Nystatin 02/10/2010 Hx Suspension [id number] 60ml 3 ml on each 112.0 Amelia - Unit/M side of mouth Mauri, 09/21/2010 L qid. hold in BOARD WINDER mouth as long as possible before swallowing Lasix 02/01/2010 Hx Tablets 20mg 30tabs 1 po qam as Soha - needed for thelma Gaviria, 09/21/2010 edema M.D. Clindamycin HCL 01/11/2010 Hx Capsules 300mg 40caps 1 po qid Soha - thelma Gaviria, 02/01/2010 M.D. Levaquin 01/10/2010 Hx Tablets 750mg 5tabs 1 po qd x 5d Elaina - [facility], 01/11/2010 Afnp-C Ciprofloxacin 01/02/2010 Hx Tablets 250mg 20tabs 1 po bid [facility]ain[facility]2010 Afnp-C Advair Diskus 12/24/2009 Hx Misc 250-50 1Mdi Inhale One Soha - mcg/Do puff By Mouth thelma Gaviria, 09/21/2010 se Twice Daily M.D. Remeron 12/15/2009 Hx Tabs 45mg 30tabs take one 311 Cortney L. - tablet by Dorina, 05/21/2014 mouth nightly M.D. at bedtime [employer] [facility] fax# [phone] Cipro 09/09/2009 Hx Tablets 500mg 14tabs 1 po bid for [place] A. - 7 days [place] Goncalves 01/02/2010 Bactrim DS 09/09/2009 Hx Tablets 800-16 20tabs one tab po [place] A. - 0mg bid [place] Goncalves 01/02/2010 Flexeril 04/26/2009 Hx Tabs 10mg 90tabs take one 340 Amelia - tablet by Mauri, 12/12/2013 mouth three BOARD WINDER times daily as needed Zocor 03/06/2009 Hx Tabs 20mg 30tabs Take One Soha - Tablet By thelma Gaviria, 05/12/2010 Mouth M.D. Nightly AT Bedtime Skelaxin 12/22/2008 Hx Tablets 800mg 90tabs 1/2-1 tab po Soha - q 6 hours thelma Gaviria, 01/13/2010 MTabithaDTabitha Provigil 12/22/2008 Hx Tablets 200mg 30tabs 1 by mouth G35 Cortney L. - every morning Dorina, 08/22/2016 M.D. Simvastatin 07/21/2008 Hx Tablets 20mg 30tabs take [...] 12HR thelma Gaviria, 12/30/2007 M.D. Auth # [id number] Flexeril 11/13/2007 Hx Tabs 10mg 90tabs Take One Soha - Tablet By thelma Gaviria, 12/22/2008 Mouth Three M.D. Times Daily as Needed For Muscle Spasm Abilify 11/13/2007 Hx Tablets 15mg 90tabs Take 1 Tablet 311 Cortney L. - By Mouth Dorina, 06/15/2015 Every Morning M.D. Advair 250/50 06/16/2007 Hx 250/50 1units One Soha - Inhalations thelma Gaviria, 02/12/2008 bid M.D. Levaquin 05/19/2007 Hx Tablets 500mg 10tabs 1 po qd 466.0 Soha - thelma Gaviria, 06/04/2007 MTabithaDTabitha Zithromax 05/08/2007 Hx Tablets 250mg 6tabs 2 tabs day 1 466.0 Opal Gomez, SERVICE DESK LEAD 05/19/2007 1 tab qd days 2 thru 5 Tessalon Perles 05/08/2007 Hx 200mg 20units 1 tid prn 466.0 Opal Gomez NP 06/04/2007 Guaifenisin 05/08/2007 Hx 600mg 14units 1 po bid 466.0 Opal Gomez, SERVICE DESK LEAD 06/04/2007 Oxycodone 06/10/2006 Hx Capsules 5mg 400caps 1-4 tabs po q Elaina - 6 hours prn [place], 02/01/2010 ut Afnp-C Miralax 06/10/2006 Hx Powder 527gm 17 GM In 8 Oz Soha - H2o 1-2 Times thelma Gaviria, 12/08/2006 Daily as M.D. Needed For Constipation Dyazide 06/03/2006 Hx 0 37.5/2 30units 1 PO qd prn [facility] 02[facility]2008 Afnp-C Percocet 05/30/2006 Hx Tablets 5mg;32 50tabs 1-2 tabs po q Soha - 5 mg 6 hours prn thelma Gaviria, 06/10/2006 MTabithaDTabitha Keflex 05/26/2006 Hx Capsules 500mg 20caps 1 PO bid Elaina - [place], 06/03/2006 Afnp-C Celebrex 05/08/2006 Hx Capsules 200mg 180caps 1 po bid prn 511.0 Elaina - [place], 12/08/2006 Afnp-C Nasonex 03/17/2006 Hx 50mcg 1units 1 [place] Each Soha - Nostril qd thelma Gaviria, 12/08/2006 M.DTabitha Vytorin 01/21/2006 Hx Tablets 10mg;2 30tabs 1 po qd Soha - 0 mg thelma Gaviria, 07/21/2008 M.D. Multivitamin 10/11/2005 Hx 30units 1 po qd Soha - thelma Gaviria, 02/10/2010 [place] Calcium With Vit 10/11/2005 Hx Tabs 600mg 60tabs 1 po bid Soha D - thelma Gaviria, 05/21/2013 MTabtihaDTabitha Remeron 10/11/2005 Hx Tablets 30mg 90tabs 2 po q hs [facility] 12/22/2008 [facility] Evista 10/11/2005 Hx Tablets 60mg 30tabs take one Cortney L. - tablet by Dorina, 10/14/2013 mouth one M.D. time daily Klonopin 08/20/2005 Hx Tablets 0.5mg 120tabs 1 po qid prn Soha - thelma Gaviria, 02/01/2010 MAustin Prozac 08/20/2005 Hx Caps 20mg 30caps Take One Soha - Capsule By htelma Gaviria, 11/13/2010 Mouth One M.D. Time Daily Prozac 08/15/2005 Hx Capsules 20mg 0caps 1 po qd [facility] 08/15/2005 [facility] Actonel With 07/10/2005 Hx Tablets 35mg 0tabs 1 po qweek Soha Calcium - thelma Gaviria, 08/20/2005 [place] Sonata 06/14/2005 Hx Capsules 10mg 30caps 1 po qhs prn Soha - sleep thelma Gaviria, 02/12/2008 MAustin prior auth#[id number] Lipitor 06/12/2005 Hx Tablets 10mg 90tabs 1 po qhs Soha - thelma Gaviria, 01/21/2006 MAustin Bactrim DS 06/12/2005 Hx Tablets 160mg; 14tabs 1 PO bid Soha - 800 mg thelma Gaviria, 06/20/2005 MTabithaDTabitha Tylenol #3 06/12/2005 Hx Tablets 240tabs 1-2 qid prn Soha - pain thelma Gaviria, 12/22/2008 M.DTabitha Ambien 05/17/2005 Hx Tablets 10mg 30tabs 1 po qhs prn Soha - sleep thelma Gaviria, 06/14/2005 M.Susan Mirtazapine Hx Tablets 45mg 30tabs 1 po q hs Soha - [place], 12/15/2009 M.DTabitha Provil Hx Tablets 200mg Soha - thelma Gaviria, 12/22/2008 M.DTabitha Clonazepam Hx Tablets 0.5mg 90tabs 1-2 po tid Cortney Cam, 10/14/2013 NE M.DTabitha Fluoxetine Hx Capsules 20mg 1 po qd [...] Strength Qnty SIG Indications Ordering Provider [id number] [facility] Administered Injection Soha vaccine rajiv Wilkins M.D. Immunizations CPT Code Status Date Vaccine Lot # [id number] Given 07/10/2018 High-Dose, Influenza Virus Vacccine-fluzone 65 [id number] and older 76085 Given 07/03/2017 High-Dose, Influenza Virus Vacccine-fluzone 65 [id number] and older 61860 Given 07/18/2016 High-Dose, Influenza Virus Vacccine-fluzone 65 [id number] and older [id number] Given 07/30/2014 Split Influenza Medicare: Fluzone 51120 Given 07/30/2014 DO Not Use Split Influenza Virus Vaccine [id number] Q2038 Given 08/20/2013 Split Influenza Medicare: Fluzone [id number] 22387 Given 08/20/2013 Pneumococcal Conjugate Vacc-13 [id number] 05714 Given 04/17/2012 Tdap Tetanus, W Pertussis [id number] Q2038 Given 07/27/2011 Split Influenza Medicare: Fluzone Q2038 Given 07/27/2011 Split Influenza Medicare: Fluzone [id number] 25969 Given 07/14/2010 DO Not Use Split Influenza Virus Vaccine [id number] 93992 Given 07/28/2009 DO Not Use Split Influenza Virus Vaccine [id number] 82818 Given 11/05/2006 Pneumococcal Immunization [id number] 84251 Given 11/05/2006 DO Not Use Split Influenza Virus Vaccine [id number] Vital Signs Date Vital Result Comment 10/02/2018 BP Systolic 148 mmHg BP Diastolic 88 mmHg BP Systolic Recheck 140 mmHg BP Diastolic Recheck 80 mmHg Heart Rate 86 /min Body Temperature 97.5 F Height 60 inches 5'0" Weight 148.00 lb BMI (Body Mass Index) 28.9 kg/m2 07/24/2018 BP Systolic 128 mmHg BP Diastolic 76 mmHg Heart Rate 72 /min Body Temperature 97.9 F Respiratory Rate 18 /min Height 60 inches 5'0" Weight 154.00 lb BMI (Body Mass Index) 30.1 kg/m2 07/10/2018 BP Systolic 126 mmHg BP Diastolic 80 mmHg Heart Rate 96 /min Body Temperature 97.7 F Height 60 inches 5'0" Weight 155.00 lb BMI (Body Mass Index) 30.3 kg/m2 05/07/2018 BP Systolic 144 mmHg BP Diastolic 60 mmHg Heart Rate 84 /min Body Temperature 97.7 F Respiratory Rate 16 /min Weight 149.00 lb 11/27/2017 BP Systolic 158 mmHg BP Diastolic 88 mmHg Heart Rate 96 /min Body Temperature 98.0 F Respiratory Rate 18 /min Weight 152.00 lb 10/16/2017 BP Systolic 122 mmHg BP Diastolic 80 mmHg Heart Rate 88 /min Body Temperature 98.3 F Respiratory Rate 18 /min Weight 146.00 lb 08/14/2017 BP Systolic 120 mmHg BP Diastolic 80 mmHg Heart Rate 80 /min Body Temperature 98.7 F Respiratory Rate 18 /min Weight 143.00 lb 04/10/2017 BP Systolic 130 mmHg BP Diastolic 80 mmHg Heart Rate 76 /min Body Temperature 98.0 F Respiratory Rate 16 /min Weight 148.00 lb 02/13/2017 BP Systolic 128 mmHg BP Diastolic 70 mmHg Heart Rate 80 /min Body Temperature 98.0 F Respiratory Rate 18 /min Height 62 inches 5'2" Weight 143.00 lb BMI (Body Mass Index) 26.2 kg/m2 01/02/2017 BP Systolic 130 mmHg BP Diastolic 78 mmHg Heart Rate 80 /min Body Temperature 97.9 F Respiratory Rate 18 /min Height 60 inches 5'0" 08/22/2016 BP Systolic 120 mmHg BP Diastolic 84 mmHg Heart Rate 72 /min Body Temperature 98.3 F Respiratory Rate 18 /min Height 60 inches 5'0" Weight 148.00 lb BMI (Body Mass Index) 28.9 kg/m2 08/05/2016 BP Systolic 122 mmHg BP Diastolic 68 mmHg Heart Rate 80 /min Body Temperature 98.0 F Respiratory Rate 16 /min Height 60 inches 5'0" Weight 149.00 lb BMI (Body Mass Index) 29.1 kg/m2 07/18/2016 BP Systolic 130 mmHg BP Diastolic 76 mmHg Heart Rate 80 /min Body Temperature 97.9 F Respiratory Rate 16 /min Height 60 inches 5'0" 06/13/2016 BP Systolic 134 mmHg BP Diastolic 80 mmHg Heart Rate 82 /min Body Temperature 97.6 F Respiratory Rate 20 /min Height 60 inches 5'0" Weight 150.00 lb BMI (Body Mass Index) 29.3 kg/m2 12/14/2015 BP Systolic 124 mmHg BP Diastolic 76 mmHg Heart Rate 84 /min Body Temperature 97.7 F Respiratory Rate 18 /min Height 60 inches 5'0" Weight 148.00 lb BMI (Body Mass Index) 28.9 kg/m2 08/15/2015 BP Systolic 120 mmHg BP Diastolic 78 mmHg Heart Rate 84 /min Body Temperature 98.1 F Respiratory Rate 18 /min Height 60 inches 5'0" Weight 146.00 lb BMI (Body Mass Index) 28.5 kg/m2 06/15/2015 BP Systolic 120 mmHg BP Diastolic 80 mmHg Heart Rate 100 /min Body Temperature 98.1 F Respiratory Rate 18 /min Height 60 inches 5'0" Weight 147.00 lb BMI (Body Mass Index) 28.7 kg/m2 06/06/2015 BP Systolic 130 mmHg BP Diastolic 84 mmHg Heart Rate 92 /min Body Temperature 99.1 F Respiratory Rate 16 /min Height 63 inches 5'3" Weight 149.00 lb BMI (Body Mass Index) 26.4 kg/m2 11/29/2014 BP Systolic 120 mmHg BP Diastolic 70 mmHg Heart Rate 80 /min Body Temperature 98.2 F Respiratory Rate 18 /min Height 63 inches 5'3" Weight 146.00 lb BMI (Body Mass Index) 25.9 kg/m2 10/14/2014 BP Systolic 124 mmHg BP Diastolic 78 mmHg Heart Rate 68 /min Body Temperature 98.1 F Respiratory Rate 16 /min Height 63 inches 5'3" Weight 142.25 lb BMI (Body Mass Index) 25.2 kg/m2 05/26/2014 BP Systolic 118 mmHg BP Diastolic 70 mmHg Heart Rate 72 /min Body Temperature 97.3 F Respiratory Rate 16 /min Height 63 inches 5'3" Weight 140.00 lb BMI (Body Mass Index) 24.8 kg/m2 02/25/2014 BP Systolic 130 mmHg BP Diastolic 84 mmHg Heart Rate 78 /min Body Temperature 98.0 F Respiratory Rate 16 /min Height 63 inches 5'3" Weight 141.00 lb BMI (Body Mass Index) 25.0 kg/m2 10/14/2013 BP Systolic 120 mmHg BP Diastolic 72 mmHg Heart Rate 96 /min Body Temperature 98.4 F Height 63 inches 5'3" Weight 140.12 lb BMI (Body Mass Index) 24.8 kg/m2 05/21/2013 BP Systolic 120 mmHg BP Diastolic 80 mmHg Heart Rate 80 /min Body Temperature 97.7 F Respiratory Rate 18 /min Height 63 inches 5'3" Weight 142.00 lb BMI (Body Mass Index) 25.2 kg/m2 01/01/2013 BP Systolic 118 mmHg BP Diastolic 80 mmHg Heart Rate 80 /min Body Temperature 97.7 F Respiratory Rate 16 /min Height 63 inches 5'3" Weight 139.00 lb BMI (Body Mass Index) 24.6 kg/m2 12/04/2012 BP Systolic 132 mmHg BP Diastolic 80 mmHg Heart Rate 84 /min Body Temperature 97.8 F Height 63 inches 5'3" Weight 137.38 lb BMI (Body Mass Index) 24.3 kg/m2 05/15/2012 BP Systolic 120 mmHg BP Diastolic 80 mmHg Heart Rate 80 /min Body Temperature 98.1 F Height 63 inches 5'3" Weight 134.00 lb BMI (Body Mass Index) 23.7 kg/m2 04/27/2012 BP Systolic 126 mmHg BP Diastolic 80 mmHg Heart Rate 84 /min Body Temperature 97.4 F Height 63 inches 5'3" Weight 136.00 lb BMI (Body Mass Index) 24.1 kg/m2 04/17/2012 BP Systolic 130 mmHg BP Diastolic 82 mmHg Heart Rate 84 /min Body Temperature 97.8 F Height 63 inches 5'3" Weight 137.00 lb BMI (Body Mass Index) 24.3 kg/m2 02/14/2012 BP Systolic 118 mmHg BP Diastolic 80 mmHg Heart Rate 108 /min Height 63 inches 5'3" Weight 137.00 lb BMI (Body Mass Index) 24.3 kg/m2 01/20/2012 BP Systolic 116 mmHg BP Diastolic 80 mmHg Heart Rate 96 /min Body Temperature 98.5 F Height 63 inches 5'3" Weight 135.00 lb BMI (Body Mass Index) 23.9 kg/m2 12/18/2011 BP Systolic 116 mmHg BP Diastolic 70 mmHg Heart Rate 96 /min Body Temperature 98.6 F Height 63 inches 5'3" Weight 143.00 lb BMI (Body Mass Index) 25.3 kg/m2 08/22/2011 BP Systolic 128 mmHg BP Diastolic 72 mmHg Heart Rate 102 /min Body Temperature 98.2 F Height 63 inches 5'3" Weight 142.00 lb BMI (Body Mass Index) 25.2 kg/m2 04/26/2011 BP Systolic 114 mmHg BP Diastolic 80 mmHg Heart Rate 84 /min Body Temperature 98.9 F Respiratory Rate 16 /min Height 63 inches 5'3" Weight 142.00 lb BMI (Body Mass Index) 25.2 kg/m2 03/22/2011 BP Systolic 120 mmHg BP Diastolic 68 mmHg Heart Rate 88 /min Body Temperature 99.1 F Respiratory Rate 20 /min Height 63 inches 5'3" Weight 143.00 lb BMI (Body Mass Index) 25.3 kg/m2 09/21/2010 BP Systolic 142 mmHg BP Diastolic 82 mmHg Heart Rate 80 /min Body Temperature 98.6 F Height 63 inches 5'3" Weight 143.00 lb BMI (Body Mass Index) 25.3 kg/m2 05/03/2010 BP Systolic 120 mmHg BP Diastolic 70 mmHg Heart Rate 96 /min Body Temperature 98.1 F Height 63 inches 5'3" Weight 139.00 lb BMI (Body Mass Index) 24.6 kg/m2 02/10/2010 BP Systolic 130 mmHg BP Diastolic 80 mmHg Heart Rate 84 /min Body Temperature 98.0 F Weight 138.00 lb 02/01/2010 BP Systolic 142 mmHg BP Diastolic 80 mmHg Heart Rate 100 /min Body Temperature 99.3 F O2 % BldC Oximetry 94 % Weight 135.00 lb 01/13/2010 BP Systolic 118 mmHg BP Diastolic 60 mmHg Heart Rate 96 /min Body Temperature 98.6 F Respiratory Rate 16 /min O2 % BldC Oximetry 95 % Height 63 inches 5'3" Weight 142.00 lb BMI (Body Mass Index) 25.2 kg/m2 01/10/2010 BP Systolic 108 mmHg BP Diastolic 70 mmHg Heart Rate 121 /min Body Temperature 101.0 F O2 % BldC Oximetry 93 % Height 63 inches 5'3" Weight 142.00 lb BMI (Body Mass Index) 25.2 kg/m2 01/02/2010 BP Systolic 130 mmHg BP Diastolic 80 mmHg Heart Rate 120 /min Body Temperature 99.3 F O2 % BldC Oximetry 95 % Weight 146.00 lb 12/22/2008 BP Systolic 132 mmHg BP Diastolic 70 mmHg Heart Rate 84 /min Body Temperature 98.0 F Weight 147.00 lb 02/12/2008 BP Systolic 120 mmHg BP Diastolic 78 mmHg Heart Rate 80 /min Height 63 inches 5'3" Weight 134.00 lb BMI (Body Mass Index) 23.7 kg/m2 11/13/2007 BP Systolic 112 mmHg BP Diastolic 70 mmHg Heart Rate 60 /min Height 63 inches 5'3" Weight 130.00 lb BMI (Body Mass Index) 23.0 kg/m2 06/16/2007 BP Systolic 120 mmHg BP Diastolic 70 mmHg Heart Rate 80 /min Body Temperature 98.4 F Height 63 inches 5'3" Weight 129.00 lb BMI (Body Mass Index) 22.8 kg/m2 06/04/2007 BP Systolic 130 mmHg BP Diastolic 78 mmHg Heart Rate 88 /min Body Temperature 98.5 F Height 63 inches 5'3" Weight 132.00 lb BMI (Body Mass Index) 23.4 kg/m2 05/08/2007 BP Systolic 134 mmHg BP Diastolic 80 mmHg Body Temperature 98.3 F Height 63 inches 5'3" Weight 128.00 lb BMI (Body Mass Index) 22.7 kg/m2 12/08/2006 BP Systolic 112 mmHg BP Diastolic 72 mmHg Heart Rate 80 /min Height 63 inches 5'3" Weight 128.00 lb BMI (Body Mass Index) 22.7 kg/m2 06/03/2006 BP Systolic 120 mmHg BP Diastolic 80 mmHg Heart Rate 88 /min Body Temperature 99.7 F Height 63 inches 5'3" Weight 129.00 lb BMI (Body Mass Index) 22.8 kg/m2 05/30/2006 BP Systolic 106 mmHg BP Diastolic 76 mmHg Heart Rate 108 /min Body Temperature 99.5 F O2 % BldC Oximetry 94 % Height 63 inches 5'3" Weight 129.00 lb BMI (Body Mass Index) 22.8 kg/m2 05/26/2006 BP Systolic 132 mmHg BP Diastolic 70 mmHg Heart Rate 80 /min Height 63 inches 5'3" Weight 130.00 lb BMI (Body Mass Index) 23.0 kg/m2 05/08/2006 BP Systolic 122 mmHg BP Diastolic 70 mmHg Heart Rate 68 /min Body Temperature 99.5 F O2 % BldC Oximetry 95 % Height 63 inches 5'3" 02/05/2006 BP Systolic 118 mmHg BP Diastolic 78 mmHg Heart Rate 72 /min Height 63 inches 5'3" Weight 129.00 lb BMI (Body Mass Index) 22.8 kg/m2 10/11/2005 BP Systolic 112 mmHg BP Diastolic 80 mmHg BP Diastolic Recheck 80 mmHg Heart Rate 80 /min Height 63 inches 5'3" Weight 120.00 lb BMI (Body Mass Index) 21.3 kg/m2 08/20/2005 BP Systolic 114 mmHg BP Diastolic 70 mmHg Heart Rate 72 /min Height 63 inches 5'3" Weight 115.00 lb BMI (Body Mass Index) 20.4 kg/m2 07/10/2005 BP Systolic 120 mmHg BP Diastolic 80 mmHg Body Temperature 99.1 F Height 63 inches 5'3" Weight 115.00 lb BMI (Body Mass Index) 20.4 kg/m2 06/12/2005 BP Systolic 102 mmHg BP Diastolic 64 mmHg Heart Rate 68 /min Body Temperature 97.9 F Height 63 inches 5'3" Weight 111.00 lb BMI (Body Mass Index) 19.7 kg/m2 05/17/2005 BP Systolic 122 mmHg BP Diastolic 80 mmHg Heart Rate 100 /min Weight 113.00 lb Results Test Date Test Result H/L Range Note Urine Culture And 10/02/2018 Urine Culture SEE RESULT BELOW 1 Sensitivities Ua - Micro (Fma) 10/02/2018 Appearance clear Color yellow Glucose, Urine (Fma/CMC/CTX) negative Bilirubin negative Ketones negative SP Grav 1.015 Blood small PH 7.5 Protein negative Urobil 0.2 Nitrite negative Leukocytes (Fma/CMC/[facility]) trace Hyaline - /Lpf Granular - /Lpf WBC ([facility]) 3-5 RBC 8-10 Mucus sm amount /Lpf Epith few /Lpf Bacteria 2+ /Hpf Amorphous - /Lpf Crystals, Fluid (Fma/CMC/CTX) - Z#Comments - Comprehensive Metabolic Prof 10/02/2018 Sodium 136 mEq/L 134-149 Potassium 4.4 mEq/L 3.6-5.5 Chloride 105 mEq/L [...] >=60 GFR >60 ml/min/1.73m^ >=60 CBC Electronic [facility] 10/02/2018 WBC 8.7 x10^3/UL 4.0-10.0 RBC 4.10 x10^6/UL 3.93-6.00 HGB 12.8 g/dL 12.0-17.0 HCT 39 % 35-50 MCV 95.0 fL 80.0-95.0 MCH 31.2 pg 25.6-32.2 MCHC 32.6 g/dL 32.2-36.0 RDW-CV 12.9 % 11.6-14.4 PLT 383 x10^3/UL 163-400 MPV 9.5 fL 9.4-12.4 Michael# 6.25 x10^3/UL High 1.56-6.13 Lymph# 1.32 x10^3/UL 1.18-3.74 [place]# 0.90 x10^3/UL High 0.24-0.82 Eos # 0.2 x10^3/UL 0.0-0.5 Baso # 0.07 x10^3/UL 0.01-0.08 Michael% 71.5 % High 34.0-70.0 Lymph % 15.1 % Low 20.0-52.0 [place]% 10.3 % 5.0-12.0 Eos% 1.8 % 0.7-7.0 Baso% 0.8 % 0.1-1.2 Basic Metabolic Panel 08/06/2018 Sodium 131 mmol/L Low 135-145 Potassium 4.9 mmol/L 3.5-5.0 Chloride 93 mmol/L Low 101-111 Co2 Carbon Dioxide 27 mmol/L 22-32 Anion Gap 11 mmol/L 2-11 Glucose 81 mg/dL 70-100 Blood Urea Nitrogen 12 mg/dL 6-24 Creatinine 0.67 mg/dL 0.51-0.95 BUN/Creatinine Ratio 17.9 8-20 Calcium 9.0 mg/dL 8.6-10.3 Egfr Non- 87.0 >60 Egfr 105.3 >60 2 Laboratory test finding 08/05/2018 Free T4 ([facility]) 1.52 ng/dL 0.75- 1.54 TSH (Fma/CMC/[facility]) 1.38 uIU/ml 0.5-6.0 Laboratory test finding 07/24/2018 Inr (Fma) 1.0 0.9-1.1 Laboratory test finding 07/24/2018 Free T4 1.58 ng/dL High 0.75-1.54 3 Comprehensive Metabolic Prof 07/24/2018 Sodium 128 mEq/L Low 134-149 Potassium 4.4 mEq/L 3.6-5.5 Chloride 92 mEq/L [...] GFR >60 ml/min/1.73m^ >=60 Lipid Profile 07/24/2018 Cholesterol 242 mg/dL High 120-200 Triglycerides 96 mg/dL 30-200 HDL Cholesterol 107 mg/dL High 30-85 LDL (Calculated) 116 CALC 0-129 VLDL Cholesterol 19 mg/dL 0-50 HDL Risk Factor 2.3 CALC 0.0-4.4 CBC Electronic [facility]ma 07/24/2018 WBC 9.4 x10^3/UL 4.0-10.0 RBC 4.15 x10^6/UL 3.93-6.00 HGB 13.1 g/dL 12.0-17.0 HCT 39 % 35-50 MCV 93.0 fL 80.0-95.0 MCH 31.6 pg 25.6-32.2 MCHC 33.9 g/dL 32.2-36.0 RDW-CV 13.0 % 11.6-14.4 PLT 337 x10^3/UL 163-400 MPV 9.2 fL Low 9.4-12.4 Michael# 7.24 x10^3/UL High 1.56-6.13 Lymph# 1.24 x10^3/UL 1.18-3.74 [place]# 0.80 x10^3/UL 0.24-0.82 Eos # 0.0 x10^3/UL 0.0-0.5 Baso # 0.02 x10^3/UL 0.01-0.08 Michael% 77.4 % High 34.0-70.0 Lymph % 13.2 % Low 20.0-52.0 [place]% 8.5 % 5.0-12.0 Eos% 0.1 % Low 0.7-7.0 Baso% 0.2 % 0.1-1.2 Laboratory test finding 07/24/2018 TSH 0.48 mIU/L Low 0.50-6.00 4 Iron And Tibc 11/20/2017 Iron Bind.Cap.(Tibc) 344 g/dL 250-450 5 Uibc 244 g/dL 118-369 5 Iron, Serum 100 g/dL 27-139 5 Iron Saturation 29 % 15-55 5 Laboratory test finding 11/20/2017 Vitamin B-12 >2000 pg/mL High 230-1050 6 CBC Electronic [facility]ma 11/20/2017 WBC 7.4 x10^3/UL 3.6-9.6 RBC 4.22 x10^6/UL 3.90-5.70 HGB 13.2 g/dL 12.1-17.2 HCT 39 % 36-50 MCV 92.0 fL 82.2-97.4 MCH 31.3 pg 27.6-33.3 MCHC 34.1 g/dL 33.0-35.5 RDW-CV 16.1 % High 11.6-13.7 PLT 342 x10^3/UL 150-400 MPV 7.2 fL Low 7.4-10.4 Michael# 4.4 x10^3/UL Lymph# 1.7 x10^3/UL 0.7-4.9 [place]# 0.4 x10^3/UL 0.1-0.9 Eos # 0.7 x10^3/UL Baso # 0.1 x10^3/UL Michael% 56.3 % Lymph % 23.8 % 20.5-51.1 [place]% 6.8 % 1.7-9.3 Eos% 9.5 % Baso% 0.9 % Comprehensive Metabolic Prof 10/16/2017 Sodium 137 mEq/L 134-149 Potassium 4.1 mEq/L 3.6-5.5 Chloride 102 mEq/L [...] GFR >60 ml/min/1.73m^ >=60 Lipid Profile 08/07/2017 Cholesterol 233 mg/dL High 120-200 Triglycerides 271 mg/dL High 30-200 HDL Cholesterol 80 mg/dL 30-85 LDL (Calculated) 99 CALC 0-129 VLDL Cholesterol 54 mg/dL High 0-50 HDL Risk Factor 2.9 CALC 0.0-4.4 Iron And Tibc 08/07/2017 Iron Bind.Cap.(Tibc) 364 g/dL 250-450 5 Uibc 325 g/dL 118-369 5 Iron, Serum 39 g/dL 27-139 5 Iron Saturation 11 % Low 15-55 5 Laboratory test finding 08/07/2017 TSH 1.17 mIU/L 0.50-6.00 Comprehensive Metabolic Prof 08/07/2017 Sodium 143 mEq/L 134-149 Potassium 4.5 mEq/L 3.6-5.5 Chloride 102 mEq/L [...] >60 ml/min/1.73m^ >=60 Complete Blood Count 08/07/2017 WBC 5.6 x10^3/UL 3.6-9.6 RBC 4.05 x10^6/UL 3.90-5.70 HGB 12.8 g/dL 12.1-17.2 HCT 37 % 36-50 MCV 91.0 fL 82.2-97.4 MCH 31.7 pg 27.6-33.3 MCHC 34.8 g/dL 33.0-35.5 RDW 12.6 % 11.6-13.7 PLT 292 x10^3/UL 150-400 MPV 6.2 fL Low 7.4-10.4 Gran # 3.5 x10^3/UL 1.5-7.2 Lymph# 1.9 x10^3/UL 0.7-4.9 [place]# 0.2 x10^3/UL 0.1-0.9 Gran % 61.1 % 42.2-75.2 Lymph % 34.6 % 20.5-51.1 [place]% 4.3 % 1.7-9.3 Laboratory test finding 08/07/2017 Folate Level 8.21 ng/mL 3.00-16.00 Vitamin D25 9 Low 30-100 LDL, Direct 110 mg/dL 0-130 Complete Blood Count 07/18/2017 WBC 8.0 x10^3/UL 3.6-9.6 RBC 3.89 x10^6/UL Low 3.90-5.70 HGB 8.9 g/dL Low 12.1-17.2 7 HCT 29 % Low 36-50 MCV 75.0 fL Low 82.2-97.4 MCH 23.0 pg Low 27.6-33.3 MCHC 30.5 g/dL Low 33.0-35.5 RDW 18.5 % High 11.6-13.7 PLT 496 x10^3/UL High 150-400 MPV 6.6 fL Low 7.4-10.4 Gran # 5.4 x10^3/UL 1.5-7.2 Lymph# 2.1 x10^3/UL 0.7-4.9 [place]# 0.5 x10^3/UL 0.1-0.9 Gran % 66.4 % 42.2-75.2 Lymph % 27.0 % 20.5-51.1 [place]% 6.6 % 1.7-9.3 Basic Metabolic Profile 07/18/2017 Sodium 136 mEq/L 134-149 Potassium 4.3 mEq/L 3.6-5.5 Chloride 97 mEq/L 94-112 Carbon Dioxide 26 mEq/L 21-32 Glucose 87 mg/dL 70-105 BUN 14 mg/dL 6-26 Creatinine 0.7 mg/dL 0.6-1.4 BUN/Creat Ratio 20.0 CALC 8.0-36.0 Calcium 9.2 mg/dL 8.6-10.2 GFR Non- >60 ml/min/1.73m^ >=60 GFR >60 ml/min/1.73m^ >=60 Ua - Micro ([facility]ma) 07/18/2017 Appearance cloudy Color yellow Glucose, Urine ([facility]ma/CMC/CTX) neg Bilirubin neg Ketones neg SP Grav 1.010 Blood neg PH 6.0 Protein neg Urobil 0.2 Nitrite neg Leukocytes ([facility]ma/CMC/[facility]) trace WBC ([facility]ma,[facility]) 8-10 Epith few /Lpf Bacteria trace /Hpf Amorphous ([facility]ma/CMC/[facility]) large amount /Lpf Laboratory test finding 06/10/2017 Inr (a) 1.2 Low 2.0-3.0 Creatinine 10/17/2016 Creatinine 0.68 mg/dL 0.51-0.95 Egfr Non- 86.0 >60 Egfr 110.7 >60 8 Laboratory test finding 09/12/2016 Epifix 18 SEE RESULTS BELO 9, 10 <SEE NOTE> Comprehensive Metabolic 08/07/2016 Sodium 133 mEq/L Low 134-149 11 Prof Potassium 4.4 mEq/L 3.6-5.5 Chloride 92 [...] GFR >60 ml/min/1.73m^ >=60 Lipid Profile 08/07/2016 Cholesterol 243 mg/dL High 120-200 Triglycerides 139 mg/dL 30-200 HDL Cholesterol 89 mg/dL High 30-85 14 LDL (Calculated) 126 CALC 0-129 VLDL Cholesterol 28 mg/dL 0-50 HDL Risk Factor 2.7 CALC 0.0-4.4 Laboratory test finding 08/07/2016 TSH 1.82 mIU/L 0.50-6.00 Free T4 1.36 ng/dL 0.75-1.54 Vitamin D25 17 Low 30-100 Vitamin B-12 867 pg/mL 230-1050 Complete Blood Count 08/07/2016 WBC 8.0 x10^3/UL 3.6-9.6 RBC 4.07 x10^6/UL 3.90-5.70 HGB 12.4 g/dL 12.1-17.2 HCT 37 % 36-50 MCV 90.0 fL 82.2-97.4 MCH 30.4 pg 27.6-33.3 MCHC 33.6 g/dL 33.0-35.5 RDW 15.6 % High 11.6-13.7 PLT 395 x10^3/UL 150-400 MPV 6.5 fL Low 7.4-10.4 Gran # 5.2 x10^3/UL 1.5-7.2 Lymph# 2.3 x10^3/UL 0.7-4.9 [place]# 0.5 x10^3/UL 0.1-0.9 Gran % 63.1 % 42.2-75.2 Lymph % 29.9 % 20.5-51.1 [place]% 7.0 % 1.7-9.3 Laboratory test finding 07/18/2016 Epifix 18 SEE RESULTS BELO 15, 16 <SEE NOTE> Laboratory test finding 06/28/2016 Surgical Pathology SEE RESULT BELOW 17 Ict-Hemoccult (MCR)Fma 06/13/2016 Ict Hemoccult (1) neg Screeni Ict Hemoccult-(2) neg Ict-Hemoccult (3) neg Complete Blood Count 06/16/2015 WBC 7.7 x10^3/UL 3.6-9.6 RBC 3.89 x10^6/UL Low 3.90-5.70 HGB 12.3 g/dL 12.1-17.2 HCT 36 % 36-50 MCV 93.0 fL 82.2-97.4 MCH 31.7 pg 27.6-33.3 MCHC 33.9 g/dL 33.0-35.5 RDW 14.3 % High 11.6-13.7 PLT 381 x10^3/UL 150-400 MPV 6.5 fL Low 7.4-10.4 Gran # 4.6 x10^3/UL 1.5-7.2 Lymph# 2.4 x10^3/UL 0.7-4.9 [place]# 0.7 x10^3/UL 0.1-0.9 Gran % 59.1 % 42.2-75.2 Lymph % 31.5 % 20.5-51.1 [place]% 9.3 % 1.7-9.3 Lipid Profile 06/16/2015 Cholesterol 243 mg/dL High 120-200 Triglycerides 179 mg/dL 30-200 HDL Cholesterol 88 mg/dL High 30-85 LDL (Calculated) 119 CALC 0-129 VLDL Cholesterol 36 mg/dL 0-50 HDL Risk Factor 2.8 CALC 0.0-4.4 Laboratory test finding 06/16/2015 Vitamin D25 23 Low 30-100 18 Vitamin B-12 710 pg/mL 230-1050 Comprehensive Metabolic Prof 06/16/2015 Sodium 134 mEq/L 134-149 Potassium 4.2 mEq/L 3.6-5.5 Chloride 96 mEq/L [...] >60 ml/min/1.73m^ >=60 Laboratory test finding 06/16/2015 TSH 1.38 mIU/L 0.50-6.00 Free T4 1.26 ng/dL 0.75-1.54 Comprehensive Metabolic Prof 05/26/2014 Sodium 131 mEq/L Low 134-149 20 Potassium 4.4 mEq/L 3.6-5.5 Chloride 89 mEq/L [...] 0.3 mg/dL 0.2-1.3 Complete Blood Count 05/26/2014 WBC 7.4 x10^3/UL 3.6-9.6 RBC 3.87 x10^6/UL Low 3.90-5.70 HGB 12.8 g/dL 12.1-17.2 HCT 37 % 36-50 MCV 96.0 fL 82.2-97.4 MCH 33.1 pg 27.6-33.3 MCHC 34.3 g/dL 33.0-35.5 RDW 12.2 % 11.6-13.7 PLT 317 x10^3/UL 150-400 MPV 6.7 fL Low 7.4-10.4 Gran # 5.3 x10^3/UL 1.5-7.2 Lymph# 1.8 x10^3/UL 0.7-4.9 [place]# 0.3 x10^3/UL 0.1-0.9 Gran % 70.3 % 42.2-75.2 Lymph % 24.9 % 20.5-51.1 [place]% 4.8 % 1.7-9.3 Laboratory test finding 02/25/2014 Vitamin D25 31 30-100 Laboratory test finding 10/20/2013 B12 482 pg/mL 230-1050 TSH 1.09 mIU/L 0.50-6.00 Comprehensive Metabolic Prof 10/20/2013 Albumin 4.7 g/dL 3.8-5.5 Alk. Phos. 83 U/L 30-110 Alt (SGPT) [...] Ratio 11.8 Calc 8.0-36.0 Lipid Profile 10/20/2013 Cholesterol 275 mg/dL High 120-200 HDL 80 mg/dL 30-85 Triglycerides 171 mg/dL 30-200 HDL Risk Factor 3.5 CALC 0.0-4.4 LDL (Calculated) 161 CALC High 0-129 VLDL (Calculated) 34 mg/dL 0-50 CBC Electronic (Fma) 10/20/2013 WBC 6.6 3.6-9.6 RBC 4.09 3.90-5.70 Hemoglobin ([facility]ma/CMC/CTX) 13.2 g/dL 12.1 - 17.2 Hematocrit ([facility]ma/CMC/CTX) 39.7 % 36.1 - 50.3 Platelets 338 10^3/ul 150-400 Lymph% 34.9 % 17.0-48.0 Mixed% 8.2 Neutrophils % 56.9 Mean Corpuscular Vol 97 82.2-97.4 Mean Corpuscular Hemoglobin 32.2 27.6-33.3 Mean Corpuscular Hemo Concen 33.1 32.0-36.0 RDW 12.2 11.6-13.7 Mean Platelet Volume 6.7 6.5-11.0 Urine Culture And 09/17/2013 Urine Culture (SEE NOTE) 22 Sensitivities Laboratory test 02/17/2013 Urine Culture No significant g 23 finding <SEE NOTE> Urine Culture And 12/31/2012 Urine Culture (SEE NOTE) 24 Sensitivities Laboratory test 05/22/2012 Urine Culture No growth. finding CBC Auto Diff 05/07/2012 White Blood 11.8 CUMM High 4.8-10.8 Count Red Cell Count 3.30 CUMM Low 4.2-5.4 [...] 0-0.6 Abs Basophils 0.1 0-0.2 Protime 05/07/2012 Inr 0.94 0.88-1.13 25 Protime 11.2 SEC 10.3-13.5 26 Laboratory test finding 05/07/2012 BNP Evaluatr 45.0 pg/mL 0-100 Comp Metabolic Panel 05/07/2012 Sodium 129 mmol/L Low 135-145 Potassium 4.0 [...] > 60 29 Laboratory test finding 05/07/2012 Magnesium 2.0 mg/dL 1.7-2.6 Troponin-I 0 NG/ML 0-0.06 30 Laboratory test finding 03/31/2012 [facility] Test cytology report Ua - Micro (a) 02/14/2012 Appearance CLEAR Color YELLOW Glucose NEG Bilirubin NEG Ketones NEG SP Grav 1.015 Blood NEG PH 7.5 Protein NEG Urobil 0.2 Nitrite NEG Leukocytes ([facility]ma/[facility]) SMALL Hyaline - /Lpf Granular - /Lpf WBC ([facility]ma,[facility]) 10-12 RBC 0-1 Mucus - /Lpf Epith RARE /Lpf Bacteria TRACE /Hpf Amorphous - /Lpf Crystals, Fluid (Fma/CMC/CTX) - Z#Comments - Laboratory test finding 12/18/2011 Urine Culture No growth. Basic Metabolic Profile 12/18/2011 BUN 8 mg/dL 6-26 Calcium 9.3 mg/dL 8.6-10.2 Chloride 93 mEq/L Low 94-112 31 Creatinine 0.7 mg/dL 0.6-1.4 Carbon Dioxide 28 mEq/L 21-32 Glucose 98 mg/dL 70-105 Sodium 131 mEq/L Low 134-149 32 Potassium 4.1 mEq/L 3.6-5.5 BUN/Creat Ratio 12.1 Calc 8.0-36.0 Ua - Micro (a) 12/18/2011 Appearance CLEAR Color YELLOW Glucose, Urine (a/CMC/CTX) NEG Bilirubin NEG Ketones NEG SP Grav 1.010 Blood NEG PH 7.0 Protein NEG Urobil 0.2 Nitrite NEG Leukocytes ([facility]ma/CMC/[facility]) NEG Hyaline - /Lpf Granular - /Lpf WBC (a,[facility]) 2-3 RBC - Mucus (Fma/CBC/[facility]) - /Lpf Epith RARE /Lpf Bacteria RARE /Hpf Amorphous (Fma/CMC/[facility]) - /Lpf Crystals, Fluid (Fma/CMC/CTX) - Z#Comments - CBC Electronic ([facility]) 12/18/2011 WBC 6.6 3.6-9.6 RBC 3.82 Low 3.90-5.70 Hemoglobin (Fma/CMC/CTX) 12.2 g/dL 12.1 - 17.2 Hematocrit (a/CMC/CTX) 36.3 % 36.1 - 50.3 Platelets 393 10^3/ul 150-400 Lymph% 18.0 Low 20.5-51.1 Mixed% 18.0 Neutrophils % 4.9 Mean Corpuscular Vol 95 82.2-97.4 Mean Corpuscular Hemoglobin 31.9 27.6-33.3 Mean Corpuscular Hemo Concen 33.6 32.0-36.0 RDW 12.1 11.6-13.7 Mean Platelet Volume 6.7 6.5-11.0 Lipid Profile 04/26/2011 Cholesterol 229 mg/dL High 120-200 HDL 65 mg/dL 30-85 Triglycerides 151 mg/dL 30-200 HDL Risk Factor 3.5 CALC 0.0-4.0 LDL (Calculated) 134 CALC High 0-129 VLDL (Calculated) 30 mg/dL 0-50 Hepatic 04/26/2011 Albumin 4.2 g/dL 3.8-5.5 Alk. Phos. 79 U/L 30-110 Alt (SGPT) 21 U/L 7-35 Ast (Sgot) 20 U/L 5-34 Total Bilirubin 0.2 mg/dL 0.2-1.3 Total Protein 6.5 g/dL 6.3-8.1 Direct Bilirubin 0.1 mg/dL 0.0-0.6 Globulin 2.2 g/dL 2.0-4.8 A/G Ratio 1.9 Calc 0.6-2.2 Indirect Bilirubin 0.09 Low 0.10-1.00 CBC Auto Diff 04/15/2011 White Blood Count 9.6 CUMM 4.8-10.8 Red [...] Basophils 0.1 0-0.2 Basic Metabolic Panel 04/15/2011 Sodium 130 mmol/L Low 135-145 Potassium 4.6 [...] > 60 34 Ict Hemoccult (Fma) 04/12/2011 Ict Hemoccult (1) 03/24 NEG Ict Hemoccult-(2) 03/25 NEG Ict-Hemoccult (3) 03/26 NEG CBC With Electronic Diff 10/25/2010 White Blood Count 8.4 CUMM 4.8-10.8 Red Cell Count 3.82 CUMM [...] Basophils 0.1 0-0.2 Basic Metabolic Panel 10/25/2010 Sodium 129 mmol/L Low 135-145 Potassium 4.2 [...] 93.5 > 60 36 Lipid Profile 09/21/2010 Cholesterol 179 mg/dL 120-200 HDL 72 mg/dL 30-85 Triglycerides 191 mg/dL 30-200 HDL Risk Factor 2.5 CALC Low 4.2-7.0 LDL (Calculated) 69 CALC 0-129 VLDL (Calculated) 38 mg/dL 0-50 Comprehensive Metabolic Prof 09/21/2010 Albumin 4.4 g/dL 3.8-5.5 Alk. Phos. 67 U/L 30-110 Alt (SGPT) [...] 16.8 Calc 8.0-36.0 Laboratory test finding 09/21/2010 TSH 1.02 mIU/L 0.50-6.00 CBC (a) 09/21/2010 WBC 7.8 3.6-9.6 RBC 3.72 Low 3.90-5.70 Hemoglobin (Fma/CMC/CTX) 12.0 g/dL Low 12.1 - 17.2 Hematocrit (Fma/CMC/CTX) 36.0 % Low 36.1 - 50.3 Platelets 508 10^3/ul High 150-400 Lymph% 32.0 20.5-51.1 Mixed% 7.6 Neutrophils % 60.4 Mean Corpuscular Vol 97 82.2-97.4 Mean Corpuscular Hemoglobin 32.2 27.6-33.3 Mean Corpuscular Hemo Concen 33.4 32.0-36.0 RDW 11.6 11.6-13.7 Mean Platelet Volume 6.9 6.5-11.0 Urinalysis W/Microscopic 01/13/2010 Ua Color YELLOW Yellow Appearance-Urine CLEAR Clear Specific [place]-Ur 1.018 1.010-1.030 Esterase-Urine NEGATIVE Negative Nitrite NEGATIVE Negative [id number] NEGATIVE Negative Protein-Urine TRACE Negative PH-Urine 6.5 5-9 Blood-Urine TRACE Negative Ketones-Urine NEGATIVE Negative Bilirubin-Ur NEGATIVE Negative Glucose-Urine NEGATIVE Negative WBC-Urine 3-5 0-5 RBC-Urine 0-2 0-2 Mucus Urine SMALL None Epith Cells-Ur FEW None CBC With Manual Diff 01/13/2010 White Blood Count 24.8 CUMM High 4.8-10.8 Red Cell Count 3.97 CUMM Low 4.2-5.4 [...] Count 23.3 Anisocytosis SLIGHT Comp Stat 01/13/2010 Sodium 126 mmol/L Low 135-145 Potassium 4.2 [...] > 60 42 Laboratory test finding 01/13/2010 Troponin-I (TnI) 0.03 NG/ML 43 Protime 01/13/2010 Inr 1.21 High 0.97-1.03 44 Protime 14.3 SEC High 11.5-12.2 45 Laboratory test finding 01/13/2010 PTT (Aptt) 26.7 25.15-38.53 46 Laboratory test finding 01/11/2010 Urine Culture No growth. Ua - Micro (Fma) 01/10/2010 Appearance slt cloudy Color yellow Glucose, Urine (Fma/CMC/CTX) - Bilirubin - Ketones - SP Grav 1.015 Blood small PH 7.5 Protein - Urobil 1.0 Nitrite - Leukocytes (Fma/CMC/[facility]) - Hyaline - /Lpf Granular - /Lpf WBC (Fma,[facility]) 5-8 RBC 5-10 Mucus (Fma/CBC/[facility]) - /Lpf Epith filled /Lpf Bacteria 1+ /Hpf Amorphous (Fma/CMC/[facility]) - /Lpf Crystals, Fluid (Fma/CMC/CTX) - Z#Comments - CBC With Manual Diff 01/16/2009 White Blood Count 10.5 CUMM 4.8-10.8 47 Red Cell Count 4.15 CUMM Low 4.2-5.4 47 Hemoglobin 13.7 g/dL 12.0-16.0 47 Hematocrit 40 % 35-47 47 Mean Corpuscular Volume 96 um3 79-97 47 Mean Corpuscular Hemoglob 33 pg High 27-31 47 Mean Corpuscular HGB Cone 34 g/dL 32-36 47 Redcell Distribution WDTH 15 % 10.5-15 47 Platelet Count 396 CUMM 150-450 47 Mean Platelet Volume 8.2 um3 7.4-10.4 47 Polysegmented Neutrophil 60 % 38-83 47 Lymphocyte 29 % 25-47 47 Monocyte 10 % 0-13 47 Eosenophil 1 % 0-6 47 Absolute Neutrophil Count 6.3 47 RBC Morphology NORMAL 47 Basic Metabolic Panel 01/16/2009 Sodium 134 mmol/L Low 135-145 47 Potassium 4.3 mmol/L 3.5-5.0 47 Chloride 100 mmol/L Low 101-111 47 Co2 (Carbon Dioxide) 28.0 mmol/L 22-32 47 Anion Gap 6.0 mmol/L 2-11 47, 48 Glucose 79 mg/dL 70-100 47, 49 BUN 3 mg/dL Low 6-24 47 Creatinine 0.70 mg/dL 0.50-1.40 47 One Over Creatinine 1.40 47 BUN/Creatinine Ratio 4.3 Low 8-20 47 Calcium 9.2 mg/dL 8.1-9.9 47, 50 Laboratory test finding 12/23/2008 BUN 5 mg/dL Low 6-24 51 Creatinine 12/23/2008 Creatinine 0.72 mg/dL 0.50-1.40 51 One Over Creatinine 1.30 51 Ua - Micro (Fma) 12/22/2008 Appearance clear Color yellow Glucose, Urine (Fma/CMC/CTX) neg Bilirubin neg Ketones neg SP Grav 1.010 Blood trace PH 7.5 Protein neg Urobil 0.2 Nitrite neg Leukocytes (Fma/CMC/[facility]rex) neg Hyaline - /Lpf Granular - /Lpf WBC (Fma,[facility]rex) 1-2 RBC 3-5 Mucus (Fma/CBC/[facility]rex) - /Lpf Epith occass /Lpf Bacteria trace /Hpf Amorphous (Fma/CMC/[facility]rex) - /Lpf Crystals, Fluid (Fma/CMC/CTX) - Z#Comments - Comprehensive Metabolic 11/06/2007 Glucose 95 mg/dL 70-100 52 Creatinine, Serum 0.8 mg/dL 0.5-1.2 52 Sodium 131 mmol/L Low 136-146 52 Potassium 4.5 mmol/L 3.5-5.3 52 Chloride 96 mmol/L Low 98-110 52 Carbon Dioxide 25 mmol/L 20-32 52 Albumin 4.6 g/dL 3.5-4.7 52 Protein, Total 6.8 g/dL 6.4-8.2 52 Calcium 8.9 mg/dL 8.4-10.4 52 Alkaline Phosphatase 71 U/L 10-118 52 Sgot (Ast) 34 U/L 3-40 52 SGPT (Alt) 28 U/L 7-50 52 Bilirubin, Total 0.30 mg/dL 0.30-1.20 52 BUN <5 mg/dL 4-18 52 Lipid Profile 11/06/2007 Cholesterol, Total 142 mg/dL 120-200 52, 53 HDL Cholesterol 81 mg/dL High 40-60 52 LDL Cholesterol, Calc. 46 mg/dL <130 52, 54 Triglycerides 73 mg/dL 52, 55 LDL/HDL Cholesterol 0.6 52, 56 Chol/HDL Cholesterol 1.8 52, 57 CBC 11/06/2007 WBC 10.5 x103 4.3-10.9 52 RBC 4.63 x106 3.80-5.30 52 Hemoglobin 15.5 g/dL 11.8-15.8 52 Hematocrit 45.0 % 35.0-47.0 52 MCV 97.2 fl 82.0-98.0 52 MCH 33.5 pg 27.5-33.5 52 MCHC 34.4 g/dL 32.0-36.0 52 RDW 14.0 % 11.5-14.5 52 Platelet Count 370 x103 130-400 52 MPV 10.3 fl 6.5-10.5 52 Segmented Neutrophils 57.9 % 44.0-74.0 52 Lymphocytes 27.8 % 15.0-45.0 52 Monocytes 9.3 % 2.0-13.0 52 Eosinophils 4.4 % 0.0-6.0 52 Basophils 0.6 % 0.0-2.0 52 Neutrophil Absolute 6.1 x103 1.4-7.0 52 Lymphocytes Absolute 2.9 x103 1.0-3.4 52 Monocyte Absolute 1.0 x103 0.2-1.0 52 Eosinophil Absolute 0.5 x103 0.0-0.5 52 Basophil Absolute 0.1 x103 0.0-0.2 52 Laboratory test finding 11/06/2007 TSH (Thyrotropin) 0.870 uIU/ml 0.350- 5.500 52 GFR (Calculated) >60 52, 58 Comp Metabolic-ALL Lab 12/08/2006 Glucose, Serum 83 mg/dL 70-105 Compani (Fma/CMC/CTX) BUN (Fma/CMC/[facility]) 6 mg/dL 6-26 Creatinine [...] 0.2-1.3 #GFR, Calculated (CTX) - Lipid Panel-ALL Lab 12/08/2006 Cholesterol (Fma/CMC/[facility]) 182 mg/dL 120-200 Companies HDL-Chol 84 mg/dL 30-85 Triglyceride 152 mg/dL 30-200 LDL/HDL Chol. Ratio (F/C/CTX) - Chol./HDL Ratio (Fma/CMC/CTX) - Low 30-85 LDL, Calculated ([facility]) 67 mg/dL 0-129 HDL Risk Factor (Fma) 2.2 CALC Low 4.2-7.0 Laboratory test finding 12/08/2006 TSH (Fma/CMC/[facility]) 0.82 uIU/ml 0.5- 6.0 Free T4 (Fma/CMC/[facility]) 1.11 ng/dL 0.75-1.54 Free T3 (Fma,CMC,CX) 2.83 pg/mL 2.0-4.9 CBC Electronic-ALL Lab [facility]ani 12/08/2006 WBC 12.1 High 3.6-9.6 RBC 4.30 3.90-5.70 Hemoglobin (Fma/CMC/CTX) 14.3 g/dL [...] Eosinophils - Abs Basophils - Basic Metabolic (Fma) 06/03/2006 Glucose, Serum (Fma/CMC/CTX) 94 mg/dL 70 -105 BUN (Fma/CMC/[facility]) 6 mg/dL 6-26 Creatinine (Fma/CMC/CTX) 0.8 mg/dL 0.6-1.4 BUN/Creatinin Ratio 7.5 Low 8.0-36 Sodium 137 134-149 Potassium 4.3 3.6-5.5 Chloride 97 mEq/L 94-112 Co2 27 21-32 Calcium (a/[facility] [place]/[facility]) 8.6 mg/dL 8.6-10.2 Lipid Profile ([facility]) 06/03/2006 Cholesterol ([facility] [place]/[facility]) 104 mg/dL Low 120-200 59 Female Triglyceride 85 mg/dL 30-200 HDL-Chol 38 mg/dL 30-85 LDL, Calculated ([facility] [place]) 50 CALC 0-129 VLDL 17 0-50 HDL Risk Factor (a) 2.8 CALC Low 4.2-7.0 Laboratory test finding 06/03/2006 Ast (Sgot) ([facility] [place]/[facility]) 18 U/mL 5 -34 Alt (SGPT) Female (a) 19 7-35 Ua - Micro ([facility]) 02/05/2006 Appearance CLEAR Color LIGHT YELLOW Glucose NEGATIVE Bilirubin NEGATIVE Ketones NEGATIVE SP Grav <=1.005 Blood TRACE LMP: N/A PH 7.0 Protein, Random Urine NEGATIVE Urobil 0.2 Nitrite NEGATIVE Leukocytes NEGATIVE Hyaline - /Lpf Granular - /Lpf WBC, Fluid 0-3 RBC, Fluid 0-3 Mucus - /Lpf Epith RARE /Lpf Bacteria TRACE /Hpf Amorphous - /Lpf Crystals - /Lpf Z#Comments - Laboratory test 12/18/2005 Antinuclear AB NEGATIVE Negative 60, 61 finding ([facility]) Laboratory test 12/18/2005 RPR NON-REACTIVE Non-Reactive 60 finding Lyme Igg/M W/Reflx 12/18/2005 Lyme IgG/IgM Ab <0.91 index 0.00-0.90 60, 62 [place] Ab Interp.,Eia DNR 60 Lyme Ab Interp.,Eia DNR 60 Lyme Disease Ab, Quant, IgM <0.91 index 0.00-0.90 60, 63 Lyme Ab IgM Interp., Eia DNR 60 Lyme Ab IgM Interp., Eia DNR 60 Sjogren's AB 12/18/2005 Anti Ro Antibodies 1 U/ml Negative 60, 64 Anti LA Antibodies 2 U/ml Negative 60, 65 Lipid Profile ([facility]) 12/18/2005 Cholesterol ([facility] [place]) 293 mg/dL High 120-200 Female Triglyceride 97 mg/dL 30-200 HDL-Chol 69 mg/dL 30-85 LDL, Calculated ([facility] [place]) 204 CALC High 0-129 LDL Direct (/[facility] [place]/[facility]) - mg/dL 0-130 VLDL 19 0-50 HDL Risk Factor (Fma) 4.2 CALC 4.2-7.0 Laboratory test finding 12/18/2005 Sed Rate ([facility] [place]/[facility]) 10 MM Lipid Profile ([facility]) 07/24/2005 Cholesterol 158 mg/dL 120-200 Female Triglyceride 71 mg/dL 30-200 HDL-Chol 49 mg/dL 30-85 LDL, Calculated ([facility] [place]) 94 CALC 0-129 LDL Direct (/[facility] [place]/[facility]) - mg/dL 0-130 VLDL 14 0-50 HDL Risk Factor (Fma) 3.2 CALC Low 4.2-7.0 Liver Function ([facility]) 07/24/2005 Total Protein 6.7 g/dL 6.3-8.1 Albumin ([facility]) 4.3 3.8-5.5 A/G Ratio ([facility] [place]/[facility]) 1.8 0.6-2.2 Globulin 2.4 2.0-4.8 Alkaline Phosphatase (F/C/CTX) 68 U/L 30-110 Alt (SGPT) ([facility] [place]/[facility]) 11 10-40 Ast (Sgot) ([facility] [place]) 16 U/mL 5-34 Bilirubin, Total 0.6 mg/dL 0.2-1.3 Bilirubin, Direct 0.2 mg/dL 0-0.6 Bilirubin, Indirect 0.38 ml/dl 0.10-1.0 Ua - Micro ([facility]) 07/10/2005 Appearance CLEAR Color LT YELLOW Glucose NEG Bilirubin NEG Ketones NEG SP Grav <=1.005 Blood TRACE-LYSED PH 7.5 Protein NEG Urobil 0.2 Nitrite NEG Leukocytes NEG Hyaline - /Lpf Granular - /Lpf WBC'S 4-6 RBC'S 2-4 Mucus - /Lpf Epith OCC Bacteria TRACE Amorphous - /Lpf Crystals - /Lpf Z#Comments - Ua - Micro ([facility] 06/12/2005 Appearance CLOUDY Color LT YELLOW Glucose NEG Bilirubin NEG Ketones NEG SP Grav <=1.005 Blood TRACE-LYSED PH 7.5 Protein NEG Urobil 0.2 Nitrite NEG Leukocytes SMALL Hyaline - /Lpf Granular - /Lpf WBC'S 8-12 RBC'S 3-5 Mucus - /Lpf Epith FEW Bacteria 2+ Amorphous - /Lpf Crystals - /Lpf Z#Comments - Laboratory test finding 06/12/2005 Thinprep W/HPV LGSIL SEE IMAGE (VARSHA/ASCUS) Lipid Profile (a) 05/22/2005 Cholesterol 253 mg/dL High 120-200 66 Female Triglyceride 148 mg/dL 30-200 66 HDL-Chol 58 mg/dL 30-85 66 LDL, Calculated ([facility]) 165 CALC High 0-129 66 LDL Direct (/[facility] [place]) - mg/dL 0-130 66 VLDL 30 0-50 66 HDL Risk Factor ([facility]) 4.3 CALC 4.2-7.0 66 Laboratory test finding 05/22/2005 TSH (a/[facility]) 1.01 uIU/ml 0.5- 6.0 66 B12 885 pg/mL 230-1050 66 Folic Acid >22.00 66 Comp Metabolic (a) 05/22/2005 Glucose, Serum 116 mg/dL High 70-105 66 Female (Fma/CMC/CTX) BUN (a/[facility]) 7 mg/dL 6-26 66 Creatinine, Serum 0.8 mg/dL 0.6-1.4 66 BUN/Creatinin Ratio 8.9 8.0-36 66 Sodium 135 134-149 66 Potassium 4.2 3.6-5.5 66 Chloride 95 mEq/L 94-112 66 Co2 27 21-32 66 Calcium (Fma/[facility]) 9.7 mg/dL 8.6-10.2 66 Total Protein 7.2 g/dL 6.3-8.1 66 Albumin (Fma/CMCC/[facility]) 4.6 3.8-5.5 66 Globulin 2.6 2.0-4.8 66 A/G Ratio (A/G Ratio) 1.7 0.6-2.2 66 Alkaline Phosphatase (F/C/CTX) 83 U/L 22-95 66 Alt (SGPT) (Fma/CMC/[facility]) 15 10-40 66 Ast (Sgot) (a/[facility]) 18 U/mL 5-34 66 Bilirubin, Total 0.7 mg/dL 0.2-1.3 66 CBC Electronic (Fma) 05/22/2005 WBC 9.5 3.6-9.6 66 Lymphocytes 24.7 % 20.5 - 51.1 66 Monocytes 3.7 % 1.7-9.3 66 Granulocytes 71.6 % 42.2 - 75.2 66 Lymphocytes 2.3 10^3/uL 0.7 - 4.9 66 Monocytes 0.4 10^3/uL 0.1 - 0.9 66 Granulocytes 6.8 10^3/uL 1.5 - 7.2 66 RBC 4.42 3.90-5.70 66 Hemoglobin (Fma/CMC/CTX) 14.7 g/dL 12.1 - 17.2 66 Hematocrit (Fma/CMC/CTX) 42.4 % 36.1 - 50.3 66 Mean Corpuscular Vol 95.9 82.2-97.4 66 Mean Corpuscular Hemaglobin 33.3 27.6-33.3 66 Mean Corpuscular Hemo Concen 34.7 33.0-36.0 66 RDW 12.7 11.6-13.7 66 Platelets 475. 10^3/ul High 150-400 66 Mean Platelet Volume 7.8 7.4-10.4 66 1 SEE RESULT BELOW Name: TRAN BUI : [address]: Cortney Cam MD Acct: [id number] Unit: [id number] AGE: 68 Location: [facility] Re10/02/18 SEX: F Status: REG REF SPEC: [id number] LINDA: 10/02/18-[address]: Cortney Cam MD REQ: [id number] RECD: 10/02/18 EXPLICIT FAX#: [id number], [id number] STATUS: COMP OTHR DR: Frances Castillo MD _ SOURCE: URINE [facility]: ORDERED: Urine Culture COMMENTS: [id number] jernigan urine top Copy Result to: Frances CASTILLO ([id number]) Urine Source: Random Procedure Result Reported Site Urine Culture Final 10/03/18- 1604 ML No growth of clinically significant organisms * ML - Main Lab . END OF REPORT DEPARTMENT OF PATHOLOGY, [address] [place] [address] Vasiliy Ventura M.D. Director [facility] # [id number] 2 Because ethnic data is not always [...] dialysis) 9 fu 10 SEE RESULTS BELOW [id number] EPIFIX 18 TRANSFUSED 09/13/16 1027 11 RESULTS VERIFIED BY REPEAT ANALYSIS 12 RESULTS VERIFIED BY REPEAT ANALYSIS 13 RESULTS VERIFIED BY REPEAT ANALYSIS 14 consistent w/ previous results 15 FU 16 SEE RESULTS BELOW [id number] EPIFIX 18 TRANSFUSED 07/19/16 0905 17 SEE RESULT BELOW Name: TRAN BUI : [address]: Andrew Kay MD Acct: [id number] Unit: [id number] AGE: 66 Location: [facility] Re06/28/16 SEX: F Status: REG REF SPEC: [id number] LINDA: 06/28/1657 [facility] DR: Andrew Kay MD REQ: [id number] RECD: 06/28/16 STATUS: TAO PEREZ DR: Cortney [...] performed at Main Lab DEPARTMENT OF PATHOLOGY, [facility] [address] [place], [place] [address] Vasiliy Ventura M.D. Director [facility] # [id number] 18 FASTING 19 RESULTS VERIFIED BY REPEAT ANALYSIS 20 consistent w/ previous results 21 consistent w/ previous results 22 RUN DATE: 09/19/13 [facility] LAB LIVE PAGE 1 RUN TIME: 1409 [facility] [address] [place], [place] [address] Specimen Inquiry Name: TRAN BUI : [address]: Giorgio Grullon MD Acct: [id number] Unit: [id number] AGE: 63 Location: LAB Re09/17/13 SEX: F Status: REG REF SPEC: [id number] LINDA: 09/17/13-[address] [place] [address] DR: Giorgio Grullon MD REQ: [id number] RECD: 09/17/13 STATUS: STEPHEN PEREZ DR: Cortney Reece MD _ SOURCE: URINE SPDESC: ORDERED: Urine Culture QUERIES: Urine Source: Clean Catch Procedure Result Verified Site Urine Culture Final 09/19/13- 1408 ML Mixed joshua; possible contamination. Suggest resubmission. END OF REPORT * ML=Testing performed at Main Lab DEPARTMENT OF PATHOLOGY, [facility] [address] [place], [place] [address] Vasiliy Ventrua M.D. Director [facility] Permit #[id number] 23 No significant growth. 24 RUN DATE: 01/02/13 [facility] LAB LIVE PAGE 1 RUN TIME: 922 [facility] [address] [place], [place] [address] Specimen Inquiry Name: TRAN BUI : [address]: Giorgio Grullon MD Acct: [id number] Unit: [id number] AGE: 62 Location: [facility] Re12/31/12 SEX: F Status: REG REF SPEC: [id number] LINDA: 12/31/12-[address]: Giorgio Grullon MD REQ: [id number] RECD: 12/31/12 STATUS: STEPHEN PEREZ DR: Dexter REID,Cortney Tucker MD _ SOURCE: URINE SPDESC: ORDERED: Urine Culture Procedure Result Verified Site Urine Culture Final 01/02/13922 ML Organism 1 NORMAL JOSHUA [place] Count 75-100,000 (Many) CFU/ML END OF REPORT * ML=Testing performed at Main Lab DEPARTMENT OF PATHOLOGY, [address] [place] [address] Vasiliy Ventura M.D. Director [facility] Permit #[id number] 25 Recommended INR for Patients on Oral [...] has been shown to interfere with the Jendrchanelik-Juwan method for measuring total bilirubin. Samples from [...] 0.06 ng/mL NOT SUPPORTIVE OF DIAGNOSIS OF OR 0.06 - 0.50 ng/ml INDETERMINATE: SUGGEST SERIAL STUDIES IF CLINICALLY INDICATED. Greater than 0.5 ng/mL CONSISTENT WITH DIAGNOSIS OF OR . 31 result prachi'd 32 result prachi'd [...] change was based on recommendations from the [place] [employer]. 40 Please note change in reference range effective 08 . 41 A metabolite of Naproxen, O-desmethylnaproxen, has been shown to interfere with the Jendrassik-Kenesaw method for measuring total bilirubin. Samples from [...] 0.06 ng/mL NOT SUPPORTIVE OF DIAGNOSIS OF OR 0.06 - 0.50 ng/ml INDETERMINATE: SUGGEST SERIAL STUDIES IF CLINICALLY INDICATED. Greater than 0.5 ng/mL CONSISTENT WITH DIAGNOSIS OF OR . 44 Recommended INR for Patients on [...] change was based on recommendations from the [place] [employer]. 50 Please note change in reference range effective 08 . 51 HAND DELIVERED TO MICAH BY [facility] AT 1257 ON 12/23/08. NO GREEN DRAWN [...] PLTS SLIGHTLY INCREASED ON SMEAR Procedures Date CPT Code Description Status Comment 07/10/2018 52663 CPHL SHQ Completed 02/19/2018 Colonoscopy Completed 08/08/2017 Mammogram Completed 06/10/2017 37351 Finger Or Heel Stick Completed 04/25/2016 Bone Mineral Density Test Completed osteopenia. -2.1 R femur. significant decrease from 2007. 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 04/25/2016 Mammogram Completed 06/16/2015 69624 Dxa Bone Density Study One Or Completed More Sites Axial Skeleton 03/14/2015 Mammogram Completed 09/08/2014 Mammogram Completed 05/26/2014 81217 Electrocardiogram Complete Completed 05/24/2014 Colonoscopy Completed 03/08/2014 Mammogram Completed 03/10/2012 Mammogram Completed 10/02/2010 Mammogram Completed 12/22/2007 Mammogram Completed 05/30/2006 46374 Pulse Oximetry Completed 02/12/2006 Mammogram Completed Encounters Type Date Location Provider CPT E/M Dx Office Visit 07/10/2018 1:00p [facility] Cortney Cam, [address] Z00.01 [place] Z12.31 G35 R25.2 I73.9 D50.8 E55.9 F41.9 M20.42 Z23 E78.49 E78.4 Office Visit 05/07/2018 3:40p [facility] Cortney Cam M.D. 25969 I73.9 R25.2 Office Visit 11/27/2017 3:40p [facility] Cortney Cam M.D. 32262 G35 D50.8 E87.1 Office Visit 10/16/2017 3:40p [facility] Office Cortney Cam M.D. 50826 E87.1 D50.8 Office Visit 08/14/2017 11:20a [facility] Office Cortney Cam M.D. 00450 D50.8 B02.9 E55.9 Office Visit 04/10/2017 1:40p [facility] Office Cortney Cam M.D. 61989 Z01.818 M17.11 M25.561 M21.061 G35 K04.7 Office Visit 02/13/2017 3:20p [facility] Office Cortney Cam M.D. 53964 G35 R60.0 Office Visit 01/02/2017 3:00p [facility] Amelia Dotson, BOARD WINDER 48894 R60.0 Office Visit 08/22/2016 1:00p [facility] Office Cortney Cam M.D. 32667 Z01.818 S83.31xA M23.303 M17.11 M23.41 R23.8 E78.2 Office Visit 08/05/2016 1:00p [facility] Office Cortney Cam M.D. 29242 Z00.01 G35 F41.9 M85.89 M25.561 Office Visit 07/18/2016 4:30p [facility] Amelia Dotson, BOARD WINDER 38754 Z23 W57.xxxA S40.862A Office Visit 06/13/2016 11:20a [facility] Office Cortney Cam M.D. 38415 M25.561 L89.521 Z12.11 Office Visit 12/14/2015 2:40p [facility] Office Cortney Cam M.D. 62866 E55.9 F41.9 G35 Office Visit 08/15/2015 3:40p [facility] Office Cortney Cam M.D. 73723 E55.9 E78.2 Z82.49 M85.89 Office Visit 06/15/2015 1:00p [facility] Office Cortney Cam M.D. 93187 V70.0 340 300.00 311 272.2 268.9 Office Visit 06/06/2015 3:20p Main Office Barbara Schmid M.D. 41356 564.00 724.1 Office Visit 11/29/2014 3:00p [facility] Cortney Cam M.D. 54147 707.13 300.00 Office Visit 10/14/2014 1:45p [facility] Fabiola Catalan, KIMBERLY 28780 707.13 Office Visit 05/26/2014 3:00p [facility] Cortney Cam M.D. 24622 719.47 V72.83 340 Office Visit 02/25/2014 3:40p [facility] Office Cortney Cam M.D. 17240 340 272.2 268.9 707.13 707.15 Office Visit 10/14/2013 1:00p [facility] Fabiola CatalanKIMBERLY 16611 340 311 780.52 300.00 780.79 564.09 Office Visit 05/21/2013 3:00p [facility] Office Cortney Cam M.D. 37066 340 311 780.52 300.00 564.09 Office Visit 01/01/2013 1:00p [facility] Office Cortney Cam M.D. 44391 340 311 300.09 782.3 Office Visit 12/04/2012 1:40p [facility] Office Cortney Cam M.D. 71474 311 340 733.00 995.3 Office Visit 05/15/2012 3:40p [facility] Office Cortney Cam M.D. 51754 618.4 788.30 782.3 Office Visit 04/27/2012 12:20p Main Office Christie Franco 44233 782.3 M.D. Office Visit 04/17/2012 10:40a [facility] Christie Franco 04155 V72.83 MAustin V72.84 340 618.4 338.4 599.0 v06.5 Office Visit 02/14/2012 1:00p [facility] Christie Franco 15756 V72.31 MTabithaDTabitha 599.0 618.4 791.7 Office Visit 01/20/2012 12:20p Main Office Christie Franco M.D. 55217 340 338.4 300.09 782.3 Office Visit 12/18/2011 11:00a [facility] Stuart Goncalves M.D. 09614 599.0 782.3 Office Visit 08/22/2011 2:40p Main Office Christie Franco M.D. 93464 338.4 340 300.09 729.5 Office Visit 04/26/2011 11:00a [facility] Soha Polk, 77082 272.4 M.D. 340 338.4 300.09 Office Visit 03/22/2011 2:00p [facility] Office Soha Polk M.D. 02664 496 272.4 340 729.5 719.07 719.47 300.09 Office Visit 09/21/2010 3:00p [facility] Office Soha Polk 46018 401.9 M.D. 496 272.4 340 Office Visit 05/03/2010 2:00p [facility] Office Soha Polk M.D. 50745 496 340 785.0 401.9 Office Visit 02/10/2010 10:15a Main Office OLEKSANDR Jane 31902 112.0 Office Visit 02/01/2010 3:10p [facility] Office Soha Polk 11281 510.9 M.D. 486 496 340 338.4 785.0 Office Visit 01/13/2010 9:30a Main Office Tiesha Li M.D. 46702 486 Office Visit 01/10/2010 7:00p Main Office Olivier Causey 08393 780.60 Office Visit 01/02/2010 3:00p [facility] Olivier Causey 11043 465.9 496 300.00 340 780.52 466.0 599.0 Office Visit 12/22/2008 3:40p [facility] Office Soha Polk M.D. 26823 340 496 789.03 296.60 311 Office Visit 02/12/2008 4:00p [facility] Office Soha Polk M.D. 20779 340 496 847.4 780.52 Office Visit 11/13/2007 1:30p [facility] Office Soha Polk, 30408 401.9 M.D. 272.4 340 496 Office Visit 06/16/2007 2:40p [facility] Office Soha Polk 10974 491.20 M.D. Office Visit 06/04/2007 2:10p Main Office Soha Polk 05686 491.20 M.D. 340 Office Visit 05/08/2007 1:40p [facility] Office Opal Khan Jason, KIMBERLY 60874 466.0 Office Visit 12/08/2006 10:00a Main Office Soha Polk 14867 340 M.D. 401.9 272.4 311 272.0 Office Visit 06/03/2006 1:00p [facility] Office Olivier Causey 42757 486 272.0 782.3 340 511.0 Office Visit 05/30/2006 11:00a [facility] Office Soha Polk, 64987 511.0 M.D. 486 340 Office Visit 05/26/2006 4:15p Main Office Olivier Causey 15469 511.0 466.0 Office Visit 05/08/2006 9:30a [facility] Office Amelia OcampoMIKE dohertyP 23168 511.0 Office Visit 02/05/2006 4:20p Main Office Soha Polk 86734 569.1 M.D. 618.4 788.63 Office Visit 10/11/2005 1:20p [facility] Office Soha Polk 01627 401.9 M.D. 733.00 782.0 Office Visit 08/20/2005 11:00a [facility] Office Soha Polk M.D. 68890 311 719.49 Office Visit 07/10/2005 1:00p [facility] Office Soha Polk 81263 461.9 M.D. 272.4 788.41 Office Visit 06/12/2005 3:20p [facility] Office Soha Polk, 37677 V72.31 M.D. V70.0 780.79 782.0 Office Visit 05/17/2005 1:40p [facility] Office Soha Polk, 99597 724.5 MAustin Plan of Care 10/02/2018 - Cortney Cam M.D.Z01.818 Encounter for other preprocedural examinationNew Labs:Protime W/ InrComments:EKG sinus tachy. no acute st-t changes. Bloodwork is within normal limits. She was treated for a UTI on the basis of the UA and symptomatology, but the culture came back clear.She saw vascular surgery for bilateral leg swelling in August. Diagnosed with mild lymphedema as well as some mild peripheral vascular disease. He did not recommend any treatment at that time and her leg condition vis a vis swelling is unchanged. NO left DVT on 09/11/18.~B_~U_Tran Bui is cleared for Left total knee replacement surgery. ~u_~b_Patient has a chronic problem with constipation due to pain meds (from the pain clinic) and MS. Please start a good bowel regimen with the first dose of pain meds after swwdakbR72.562 Pain in left kneeM25.462 Effusion, left kneeM17.12 Unilateral primary osteoarthritis , left kneeN39.0 Urinary tract infection, site not specifiedNew Medication: Cipro 250 mgI73.9 Peripheral vascular disease, [id number] Multiple sclerosisAllComments:~B_~U_Medication Management~b_~u_ Patient Understands medications she's taking? Yes No Are there Barriers to Adherence? Yes No Has the patient been asked about herbal supplements and therapies, and OTC meds? Yes No
[2018-10-27] MEDS ORDERED: ceFAZolin 2 GM PREMIX in ORs 2 GM/50 ML BAG IVPB ONE (09:51)
[2018-10-27] MEDS ORDERED: Bupivacaine 0.5% SDV PF* 30ML VIAL ONE ×2 (11:07→12:09)
[2018-10-27] MEDS ORDERED: Lidocaine 1% INJ* 10 MG/ML 30 ML SDV ONE (11:38)
[2018-10-27] MEDS ORDERED: Bupivacaine 0.5%* 50 ML VIAL ONE (11:45)
[2018-10-27] MEDS ORDERED: Propofol* 10 MG/ML 20 ML BTL ONE (12:09)
[2018-10-27] MEDS ORDERED: ROPIVACAINE 5 MG/ML 30 ML BTL (0.5%) ONE (12:09)
[2018-10-27] MEDS ORDERED: Bupivacaine 0.25% SDV PF* 10 ML VIAL INJ ONE (12:59)
[2018-10-27] MEDS ORDERED: EPHEDrine (Pressors)* 50 MG/ML VIAL ONE ×2 (13:29→14:01)
[2018-10-27] MEDS ORDERED: Ondansetron INJ* 2 MG/ML VIAL IV PRN ×2 (13:32→14:53)
[2018-10-27] MEDS ORDERED: oxyCODONE/Acetamin 5/325 MG* TAB PO PRN (13:32)
[2018-10-27] MEDS ORDERED: fentaNYL* 50 MCG/ML 2 ML VIAL (100 MCG VIAL) IV PRN (13:32)
[2018-10-27] MEDS ORDERED: Naloxone* 0.4 MG/ML 1 ML VIAL IV PRN (13:32)
[2018-10-27] MEDS ORDERED: Ibuprofen TAB* 600 MG PO PRN (13:32)
[2018-10-27] MEDS ORDERED: HYDROmorphone INJ1* 1 MG/ML SYRINGE IV PRN (13:32)
[2018-10-27] MEDS ORDERED: Acetaminophen TAB* 325 MG PO PRN (13:32)
[2018-10-27] MEDS ORDERED: Magnesium Hydroxide LIQ* 30 ML UDC PO PRN (14:45)
[2018-10-27] MEDS ORDERED: diPHENhydraMINE PO* 25 MG PO PRN (14:53)
[2018-10-27] MEDS ORDERED: Polyethylene Glycol 3350* 17 GM PACKET PO PRN (14:53)
[2018-10-27] MEDS ORDERED: Morphine VIAL* 4 MG/ML VIAL (1 ml vial) IV PRN (14:53)
[2018-10-27] MEDS ORDERED: Bisacodyl SUPP* 10 MG SUPP PR PRN (14:53)
[2018-10-27] MEDS ORDERED: diPHENhydraMINE IV* 50 MG/ML 1 ml VIAL (BENADRYL) IV PRN (14:53)
[2018-10-27] MEDS ORDERED: Azelastine 0.15% NASAL(NF) 30 ML BTL RIGHT NARE PRN (14:56)
[2018-10-27] MEDS ORDERED: Pantoprazole TAB * 40 MG TAB PO PRN (14:56)
[2018-10-27] MEDS ORDERED: Acetaminophen TAB* 325 MG PO SCH (15:00)
[2018-10-27] MEDS ORDERED: ceFAZolin 1 GM ADVAN(*) 1 GM in NS 0.9% 50 ML* 50 ML IVPB SCH (15:00)
[2018-10-27] MEDS: Morphine ORAL CONCENTRATE* 5 MG/0.25 ML ORAL.SYRIN PO PRN (15:57)
[2018-10-27] MEDS ORDERED: ORPHENADRINE CITRATE 100 MG PO PRN (16:18)
[2018-10-27] MEDS ORDERED: Albuterol 2.5 MG/3 ML NEB.SOL* (0.083%) INH PRN (16:27)
[2018-10-27] MEDS ORDERED: Ondansetron INJ* 2 MG/ML VIAL ONE (16:54)
[2018-10-27] MEDS: Lactated Ringers 1000 ML Bag* 1,000 ML IV SCH (16:55)
[2018-10-27] MEDS: oxyCODONE/Acetamin 5/325 MG* TAB PO PRN ×2 (17:34→21:54)
[2018-10-27] MEDS: Acetaminophen TAB* 325 MG PO SCH (18:54)
--- NOTE | 2018-10-27 20:22 | CONS ---
CC: Dr. Cortney Cam; Dr. Castillo * CONSULTATION REPORT: DATE OF CONSULT: 10/27/18 PRIMARY CARE PROVIDER: Cortney Cam MD ATTENDING PHYSICIAN WHILE IN THE HOSPITAL: Lauren Rosas MD (report dictated by Colby Cronin NP) REQUESTING PHYSICIAN IN CONSULT: Frances Castillo MD REASON FOR MEDICAL CONSULTATION: Evaluation and medical management of comorbid medical problems. HISTORY OF PRESENT ILLNESS: Mrs. Jennings is a 68-year-old female patient who has been having significant amount of left knee pain for sometime. She states that she did sought care with Dr. Castillo for this and it was felt that she would require a total knee replacement on her left knee as she had failed conservative therapy. The patient has a significant past medical history. She carries a history of MS, depression, history of bladder cancer, COPD, anxiety, chronic pain, insomnia, history of hyperlipidemia, and mild lymphedema. She was evaluated in the PACU. She denies having any chest pain. She denies having any chest pain or shortness of breath currently. She states she feels well. She is not having any abdominal pain. She is hungry. She is eating. She denies having any pain in her knee. She states she does not feel lightheaded or dizzy, but because of her medical complexity, we were asked to evaluate. She again denies shortness of breath. PAST MEDICAL HISTORY: Significant for: 1. MS. 2. Bladder cancer. 3. COPD. 4. Anxiety. 5. Chronic pain. 6. Insomnia. 7. Hyperlipidemia. 8. Mild lymphedema. 9. Osteoarthritis. PAST SURGICAL HISTORY: 1. She has had tonsillectomy. 2. Hysterectomy. 3. Bladder plication. 4. Right lung empyema status post resection. 5. Right total knee replacement. 6. Right and left hammertoe repair. 7. She had a left total knee done today. MEDICATIONS: Home meds include: 1. Bisacodyl 5 mg p.o. every 12 hours as needed. 2. Astepro 1 spray nasally b.i.d. as needed. 3. Abilify 15 mg p.o. q.a.m. 4. Glucosamine chondroitin 1 capsule p.o. b.i.d. 5. Prozac 20 mg p.o. q.a.m. 6. Colace 100 mg p.o. b.i.d. 7. Ampyra 10 mg p.o. b.i.d. 8. Premarin 0.5 application vaginally every other day. 9. Multivitamin 1 tablet daily. 10. Singulair 10 mg p.o. at bedtime. 11. Provigil 200 mg in the morning. 12. Remeron 45 mg at bedtime. 13. Medical marijuana 1.3 mg inhale daily as needed. 14. Norflex 100 mg p.o. b.i.d. as needed. 15. Omeprazole 20 mg daily as needed. 16. Naproxen 500 mg p.o. b.i.d. 17. Morphine 15 mg p.o. t.i.d. as needed. 18. Klonopin 1 to 2 tablets p.o. t.i.d. as needed. 19. Ambien 12.5 mg p.o. at bedtime. 20. PreserVision 2 tablets p.o. daily. 21. MiraLAX 17 g p.o. daily as needed. 22. Augmentin 875 mg p.o. b.i.d. ALLERGIES TO MEDICATIONS: Include LATEX, BACLOFEN, and SIMVASTATIN. FAMILY HISTORY: Her mother of kidney disease when the patient was 4. Father had a history of CT. SOCIAL HISTORY: She is a former smoker. She does not smoke anymore. She denies alcohol abuse. Surrogate decision maker is her son, Bennie. REVIEW OF SYSTEMS: There is no documented fever. She denies having any significant weight change. There is no ear discharge. There was no rhinorrhea. No sore throat. No thyroid enlargement. She denied having any chest pain. There was no orthopnea. There was no nocturnal dyspnea. There was no abdominal pain. There is no nausea, no vomiting. No dysuria, no frequency. No seizure. There was no loss of consciousness. No pruritus and no skin ulcerations. Review of 14 systems completed, all others negative. PHYSICAL EXAMINATION: Reveals vital signs, blood pressure 119/69, pulse 86, respirations 18, O2 sat 98%, temperature was 96.8. General: At this time, Mrs. Jennings is a 68-year-old female patient. She is sitting in the PACU bed. She does not appear to be in any acute distress. She appears well nourished, well developed. HEENT: Head: Atraumatic, normocephalic. Eyes: EOMs are intact. Sclerae anicteric and not pale. Neck was supple. Throat: Oral mucosa appears to be moist. No oropharyngeal erythema. Heart: Sounds S1, S2. She had a regular rate and rhythm. There were no murmurs, rubs, or gallops. Lungs were clear to auscultation. No wheezes, rales, or rhonchi. Abdomen was soft, flat, nontender. Bowel sounds are present. Extremities: Distal CSM checks are intact to the bilateral lower extremities. She had plantar and dorsiflexion 5/ 5 strength. She is moving upper extremities with 5/5 strength. Neurologically , she is awake. She is alert. She is oriented x3. She had no gross focal deficits. Her skin was grossly intact. There is an incision to the left knee, which is covered with a dressing that is clean, dry, and intact. LABORATORY DATA/DIAGNOSTIC STUDIES: There are preop labs, INR 0.92, PTT of 28.9. WBC of 8.7, RBC of 4.10, hemoglobin 12.8, hematocrit of 39, platelet count 383. Sodium 136, potassium 4.4, chloride 105, bicarb 30, glucose 93, BUN 9 , creatinine of 0.6. Calcium 8.6. AST 14, ALT 15, alk phos 117. She had a preoperative EKG that showed normal sinus rhythm, rate of 95, no ST elevation or T wave inversions noted. She had a preop chest x-ray, which showed findings suggestive of COPD, no evidence of acute findings. Old medical records were reviewed. ASSESSMENT AND PLAN: Mrs. Jennings is a 68-year-old female patient coming in to the orthopedic services today for elective left total knee. We were asked to evaluate in consult. My recommendations at this point are: 1. Status post left total knee. I will defer the management to Dr. Castillo and her team. 2. History of multiple sclerosis. We will continue with her meds as prescribed. We will monitor for any flare. She appears to be stable currently. We will continue to follow. 3. Depression, anxiety. Continue with supportive care. 4. History of bladder cancer. Follow up with PCP. 5. Gastroesophageal reflux disease. Continue PPI therapy. 6. History of peripheral vascular disease. Continue with current medical regimen. Follow up with PCP. 7. Chronic obstructive pulmonary disease. I have ordered p.r.n. albuterol. 8. Chronic pain. Continue meds as prescribed. 9. Hyperlipidemia. She is being followed by primary. Continue with current medical regimen. 10. Recent sinus infection. She has been on Augmentin according to the patient ; we can continue that. 11. DVT prophylaxis. Defer to the primary team. 12. Fluids, electrolytes, and nutrition. She can have a regular diet. 13. Code status. Full code. TIME SPENT: Time spent on the consult 60 minutes, greater than half that time was spent duon-vh-[id number] with the patient obtaining my history and physical, the other half time was spent going over the plan of care with the patient, implementing the plan of care. I did discuss the plan of care with my attending, Dr. Rosas, she is in agreement. COLBY CRONIN, KIMBERLY [id number]/CPS #: [id number] PRISCILA
[2018-10-27] MEDS: oxyCODONE TAB* 5 MG TAB PO PRN (20:48)
[2018-10-27] MEDS ORDERED: ORPHENADRINE CITRATE PO SCH (21:00)
[2018-10-27] MEDS ORDERED: Apixaban* 2.5 MG TAB PO SCH (21:00)
[2018-10-27] MEDS: Mirtazapine TAB* 15 MG PO SCH (21:51)
[2018-10-27] MEDS: Docusate CAP* 100 MG PO SCH (21:52)
[2018-10-27] MEDS: Amoxicillin/Clavulanate TAB* 875 MG PO SCH (21:52)
[2018-10-27] MEDS: Zolpidem TAB* 10 MG PO PRN (21:52)
[2018-10-27] MEDS: DALFAMPRIDINE 10 MG PO SCH (21:53)
[2018-10-27] MEDS: Montelukast Sodium TAB* 10 MG PO SCH (21:53)
[2018-10-27] MEDS: Cyclobenzaprine TAB* 10 MG PO PRN (21:54)
[2018-10-27] MEDS: Magnesium Hydroxide LIQ* 30 ML UDC PO SCH (21:55)
[2018-10-27] MEDS: ceFAZolin 1 GM ADVAN(*) 1 GM in NS 0.9% 50 ML* 50 ML IVPB SCH (21:58)
[2018-10-28] MEDS: oxyCODONE/Acetamin 5/325 MG* TAB PO PRN ×4 (02:16→17:50)
[2018-10-28] MEDS: traMADol TAB* 50 MG PO PRN ×2 (02:17→08:32)
[2018-10-28] MEDS: Acetaminophen TAB* 325 MG PO SCH ×3 (02:20→17:19)
[2018-10-28] MEDS: Lactated Ringers 1000 ML Bag* 1,000 ML IV SCH (03:04)
[2018-10-28] MEDS: oxyCODONE TAB* 5 MG TAB PO PRN ×3 (03:40→20:51)
[2018-10-28] MEDS: ceFAZolin 1 GM ADVAN(*) 1 GM in NS 0.9% 50 ML* 50 ML IVPB SCH ×2 (05:39→14:35)
[2018-10-28] MEDS ORDERED: Morphine INJ* 2 MG/ML 1 ML SYRINGE (TWO MG - NEW SYRINGE VERSION) IV PRN (06:00)
[2018-10-28 06:06] LABS: Hematocrit 34 % (35-47); Hemoglobin 11.4 g/dl (12.0-16.0); Mean Platelet Volume 7.9 fL (7.4-10.4); Platelet Count 341 10^3/ul (150-450)
[2018-10-28 06:19] LABS: BUN/Creatinine Ratio 12.2 (8-20); Calcium 8.6 mg/dL (8.6-10.3); EGFR African American 151.1 (>60); EGFR Non-African American 124.9 (>60); Potassium 3.8 mmol/L (3.5-5.0)
--- NOTE | 2018-10-28 06:47 | PN ---
Progress Note - Progress Note Date of Service: 10/28/18 SOAP: Subjective: Pt. reports pain in left knee is severe. She denies heart palpitations, chest pain or shortness of breath. Objective: Vital Signs: Temp Pulse Resp BP Pulse Ox 99.0 F 112 16 135/57 96 10/28/18 00:52 10/28/18 04:31 10/28/18 05:44 10/28/18 00:52 10/28/18 04:31 Laboratory Results - last 24 hr 10/28/18 10/28/18 05:31 05:31 Hgb 11.4 L Hct 34 L Plt Count 341 MPV 7.9 Sodium 129 L Potassium 3.8 Chloride 93 L Carbon Dioxide 29 Anion Gap 7 BUN 6 Creatinine 0.49 L Est GFR ( Amer) 151.1 Est GFR (Non-Af Amer) 124.9 BUN/Creatinine Ratio 12.2 Glucose 146 H Calcium 8.6 LLE - thigh and calf soft. dressing c/d/i. distally +df/pf, full sens lt, 2+ dp pulse. 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
--- NOTE | 2018-10-28 07:13 | OP ---
DATE OF OPERATION: 10/27/18 - ROOM #332 DATE OF : 46 ATTENDING SURGEON: Frances Castillo MD CERTIFIED SUBSTANCE ABUSE COUNSELOR: RICKY Newton ANESTHESIOLOGIST: Dr. Patricio. ANESTHESIA: Spinal. PRE-OP DIAGNOSIS: Severe end-stage degenerative osteoarthritis of the left knee joint with valgus deformity and medial collateral ligament incompetence. POST-OP DIAGNOSIS: Severe end-stage degenerative osteoarthritis of the left knee joint with valgus deformity and medial collateral ligament incompetence. OPERATIVE PROCEDURE: Let total knee arthroplasty. TOURNIQUET TIME: 51 minutes. COMPLICATIONS: None. ESTIMATED BLOOD LOSS: 150 cc. SPECIMENS: Bone and cartilage from the left knee joint sent to Pathology. HARDWARE USED: This is buckley and nephew cemented total knee arthroplasty hardware. Two packages of Simplex bone cement. For the femur, a left size 4 narrow Legion posterior stabilized femoral component. For the tibia, a size 3 left tibial baseplate Kendal II. For the insert, an 11-mm constrained articular insert size 3-4. And for the patella, a 32-mm 3-peg all-poly patella with 7.5 thickness. BRIEF HISTORY/INDICATIONS: Ms. Jennings is a 68-year-old female with years of increasingly severe left knee pain and valgus deformity. She developed MCL incompetence and began to complain of instability in the knee. She failed conservative treatment with brace wear, use of a walker, antiinflammatories, and intraarticular injections. Radiographs demonstrated [id number] arthritis. Due to continued pain and decreased quality of life, she elected to undergo left total knee arthroplasty. Informed consent was obtained from the patient. She understood the risks of surgery included but were not limited to bleeding, infection, damage to nearby structures, continued pain, need for further surgery, intraoperative fracture, nerve palsy, hardware failure or loosening, knee stiffness, loss of motion, stroke, heart attack, blood clot, and . She wished to proceed. INTRAOPERATIVE FINDINGS: Intraoperatively, the patient was noted to have preop valgus deformity of 15 degrees with MCL laxity. She was noted have intraoperative complete loss of cartilage in all 3 compartments. DESCRIPTION OF PROCEDURE: Ms. Jennings was identified in the preanesthesia unit. Her left lower extremity was marked as the correct operative side. Informed consent was signed and placed in the chart. The patient was taken to the operating room and placed under spinal anesthesia. A Hi catheter was placed. Tourniquet was placed on the left thigh. Left lower extremity was prepped and draped in the usual sterile fashion. Preop time-out was made to correctly identify the patient, side and site. Appropriate perioperative antibiotics were given within 1 hour of incision. Tourniquet was inflated and the midline incision was made with a 10 blade. New 10 blade was used to make a standard medial parapatellar arthrotomy. The patella was subluxed laterally. Electrocautery was used to elevate soft tissue off the superomedial tibia to the midsagittal plane. The knee was flexed up. The anterior horn of the lateral meniscus and ACL were sharply released. A drill was used to enter the distal femur. Intramedullary distal femoral cutting guide was pinned on the distal femur. Oscillating saw was used to make the distal femoral cut. Next, the external rotation guide was pinned on the distal femur. Distal femur was sized to a size 4. Size 4 multi-cutting jig was pinned on the distal femur. Oscillating saw was used to make the appropriate 4 chamfer cuts. The PCL was completely released. Extramedullary tibial cutting guide was pinned on the proximal tibia. Oscillating saw was used to make the proximal tibial cut perpendicular to the mechanical axis of the tibia. The bone was carefully removed. The knee was brought out into full extension. There was MCL laxity noted, it was baseline. Electrocautery was used to elevate any soft tissue along the posterolateral tibia. Any osteophytes were removed. Flexion and extension gap was well balanced. The knee was flexed up. Lamina molding and trim installer was placed both medially and laterally. Any remaining meniscus was carefully removed. Curved osteotome was used to remove any posterior osteophytes. Tibial tray and drop rm were placed and once again confirmed a satisfactory tibial cut. A size 4 narrow left femoral trial was impacted on to the distal femur and had excellent stability. The box for the posterior stabilized implant was prepared using a reamer and box cut osteotome. Size 3 tibial tray trial with an 11-mm insert trial was placed and the knee was taken through a range of motion. The knee had full extension to 130 degrees of flexion. There was satisfactory patellofemoral tracking. The patella was everted. The 7 mm of patellar bone and cartilage was carefully removed using an oscillating saw. The patella was sized to a size 32. Three peg holes were drilled through the size 32 patella guide. A 32 trial patella with 7.5 thickness was placed and the knee was taken through a range of motion. There was satisfactory patellofemoral tracking. All trials were removed. The tibia was subluxed anteriorly and sized to a size 3. Proximal tibia was prepared using a size 3 keel punch. All bony cut surfaces were copiously irrigated with sterile saline and dried. Final implants were cemented into place starting with the tibia, followed by the femur, and last the patella. An 11-mm insert trial was placed and the knee was brought out into full extension. The knee was copiously irrigated with sterile saline. Tourniquet was turned down. Electrocautery was used to obtain meticulous hemostasis. Once the cement had fully cured, the insert trial was removed. Any excess cement was carefully removed from around the capsule and hardware. Final insert chosen was an 11-mm constrained articular insert size 3- 4. This was locked into position on the tibial tray without difficulty. Stability of the insert was checked and rechecked and noted to be stable. The extensor mechanism was closed using interrupted #1 Vicryl. The rest of the incision was closed in a layered fashion using 0 and 2-0 Vicryl. Skin was closed using running 3-0 nylon suture. Sterile Xeroform, 4x4's, and Webril were used to cover the incision. Joao wrap and cold pack were placed over this. The patient's anesthesia was reversed without difficulty. She was taken to the PACU in stable condition. Intended weightbearing will be weightbearing as tolerated. Intended DVT prophylaxis will be Eliquis. [id number]/[facility] #: [id number] [facility]
[2018-10-28] MEDS: Amoxicillin/Clavulanate TAB* 875 MG PO SCH (08:29)
[2018-10-28] MEDS: Magnesium Hydroxide LIQ* 30 ML UDC PO SCH ×2 (08:29→21:13)
[2018-10-28] MEDS: Cyclobenzaprine TAB* 10 MG PO PRN ×2 (08:30→17:51)
[2018-10-28] MEDS: Modafinil TAB* 100 MG PO SCH (08:31)
[2018-10-28] MEDS: Multivitamins/Minerals TAB PO SCH (08:31)
[2018-10-28] MEDS: Apixaban* 2.5 MG TAB PO SCH ×2 (08:31→20:52)
[2018-10-28] MEDS: FLUoxetine CAP* 20 MG PO SCH (08:32)
[2018-10-28] MEDS: Docusate CAP* 100 MG PO SCH ×2 (08:32→20:52)
[2018-10-28] MEDS: ARIPiprazole TAB* 15 MG PO SCH (08:32)
[2018-10-28] MEDS: DALFAMPRIDINE 10 MG PO SCH ×2 (09:47→20:53)
[2018-10-28] MEDS: Morphine ORAL CONCENTRATE* 5 MG/0.25 ML ORAL.SYRIN PO PRN ×2 (11:52→16:14)
--- NOTE | 2018-10-28 14:58 | PN ---
Subjective Date of Service: 10/28/18 Interval History: Ms. Jennings is feeling better today. She had a difficult night d/t uncontrolled pain , but feels as though her pain is well controlled at this point. Ice is helping. She denies SOB, CP, N/V. Appetite is poor. Family History: Unchanged from Admission Social History: Unchanged from Admission Past Medical History: Unchanged from Admission Objective Active Medications: Acetaminophen (Tylenol Tab*) 975 mg PO Q8H NORMA Albuterol (Ventolin 2.5 Mg/3 Ml Neb.Carmen*) 2.5 mg INH Q2H PRN SOB/WHEEZING Amoxicillin/Clavulanate Potassium (Augmentin Tab*) 875 mg PO BID NORMA Apixaban (Eliquis*) 2.5 mg PO Q12H [facility]MA Aripiprazole (Abilify Tab*) 15 mg PO QAM [facility]MA Azelastine HCl (Astepro 0.15% Nasal (Nf)) 1 spray RIGHT NARE BID PRN Allergy Symptoms Bisacodyl (Dulcolax Supp*) 10 mg NE DAILY PRN constipation Clonazepam (Klonopin Tab(*)) 0.5 mg PO TID PRN ANXIETY Cyclobenzaprine HCl (Flexeril Tab*) 5 mg PO TID PRN SPASMS Diphenhydramine HCl (Benadryl Iv*) 25 mg IV Q6H PRN itching Diphenhydramine HCl (Benadryl Po*) 25 mg PO Q6H PRN INSOMNIA Docusate Sodium (Colace Cap*) 100 mg PO BID NORMA Fluoxetine HCl (Prozac Cap*) 20 mg PO QAM [facility]MA Lactulose (Lactulose*) 30 ml PO Q6H PRN constipation Magnesium Hydroxide (Milk Of Magnesia Liq*) 30 ml PO BID NORMA Magnesium Hydroxide (Milk Of Magnesia Liq*) 30 ml PO Q6H PRN constipation Mirtazapine (Remeron Tab*) 45 mg PO BEDTIME [facility] Modafinil (Provigil Tab*) 200 mg PO QAM [facility]MA Montelukast Sodium (Singulair Tab*) 10 mg PO BEDTIME [facility] Morphine Sulfate (Morphine Oral Concentrate*) 15 mg PO TID PRN PAIN Morphine Sulfate (Morphine Inj ((Syringe))*) 2 mg IV Q2H PRN PAIN Multivitamins/Minerals (Theragran/Minerals Tab*) 1 tab PO QAM NORMA Pto:(Dalfampridine [ (Ampyra] Er 10 Mg)) 10 mg PO BID NORMA Non-Formulary Medication (Orphenadrine Citrate [Orphenadrine Citrate Er]) 100 mg PO BID PRN SPASMS Ondansetron HCl (Zofran Inj*) 4 mg IV Q6H PRN nausea Oxycodone HCl (Roxycodone Tab*) 10 mg PO Q4H PRN moderate to severe pain Oxycodone/Acetaminophen (Percocet 5/325 Tab*) 2 tab PO Q3H PRN PAIN - MODERATE Pantoprazole Sodium (Protonix Tab*) 40 mg PO QAM PRN INDIGESTION Polyethylene Glycol/Electrolytes (Miralax*) 17 gm PO DAILY PRN Constipation Tramadol HCl (Ultram*) 50 mg PO Q6H PRN PAIN Zolpidem Tartrate (Ambien Tab*) 10 mg PO BEDTIME PRN; Protocol INSOMNIA Vital Signs - 8 hr 10/28/18 10/28/18 10/28/18 07:45 07:53 08:00 Temperature 99.1 F Pulse Rate 100 Respiratory 16 18 18 Rate Blood Pressure 120/48 (mmHg) O2 Sat by Pulse 91 Oximetry 10/28/18 10/28/18 10/28/18 10:49 11:29 11:52 Temperature 98.5 F Pulse Rate 97 Respiratory 18 16 18 Rate Blood Pressure 141/70 (mmHg) O2 Sat by Pulse 95 Oximetry Oxygen Devices in Use Now: None Appearance: Elderly female sitting in chair in NAD Eyes: No Scleral Icterus Ears/Nose/Mouth/Throat: Mucous Membranes Moist Neck: NL Appearance and Movements; NL JVP, Trachea Midline Respiratory: Symmetrical Chest Expansion and Respiratory Effort, Clear to Auscultation Cardiovascular: NL Sounds; No Murmurs; No JVD, RRR Abdominal: NL Sounds; No Tenderness; No Distention Extremities: - - Mild nonpitting edema to LLE Skin: - - Surgical dressing to left knee Neurological: Alert and Oriented x 3 Lines/Tubes/Other Access: Clean, Dry and Intact Peripheral IV Nutrition: Taking PO's Result Diagrams: 10/28/18 05:31 10/28/18 05:31 Assess/Plan/Problems-Billing Assessment: Ms. Jennings is a 68 yo F with PMH of MS, GERD, PVD, bladder cancer, chronic pain, and COPD; presented to [facility] for an elective left TKA with Dr. Castillo. Hospital Medicine is consulting for co-medical management. - Patient Problems (1) Status post total left knee replacement Code(s): Z96.652 - PRESENCE OF LEFT ARTIFICIAL KNEE JOINT Comment: - POD #1 - Management per Ortho (2) Tachycardia Code(s): R00.0 - TACHYCARDIA, UNSPECIFIED Comment: - HR 90-110s, though she has been in significant pain; HR appears to have decreased since pain has been more controlled - EKG this morning shows NSR with a rate of 79, no ischemic changes - Continue to monitor, but no concerns at this time (3) Sinus infection Code(s): J32.9 - CHRONIC SINUSITIS, UNSPECIFIED Comment: - Resolved; currently asymptomatic - According to med rec, Augmentin was started 10/20, so course should be finished at this point - D/c Augmentin (4) Multiple sclerosis Code(s): G35 - MULTIPLE SCLEROSIS Comment: - Stable, not in exacerbation - Continue dalfampridine (5) Chronic pain Code(s): G89.29 - OTHER CHRONIC PAIN Comment: - Continue Norflex, morphine (6) Anxiety and depression Code(s): F41.9 - ANXIETY DISORDER, UNSPECIFIED; F32.9 - MAJOR DEPRESSIVE DISORDER, SINGLE EPISODE, UNSPECIFIED Comment: - Continue Abilify, fluoxitine, modafinil (7) GERD (gastroesophageal reflux disease) Code(s): K21.9 - GASTRO-ESOPHAGEAL REFLUX DISEASE WITHOUT ESOPHAGITIS Comment : - Continue pantoprazole (8) DVT prophylaxis Comment: - Eliquis per Ortho (9) Full code status Code(s): Z78.9 - OTHER SPECIFIED HEALTH STATUS Comment: Status and Disposition: Disposition per Ortho. Thank you for this consultation. We will continue to follow distantly. Please call with questions. Attending: Lauren Rosas
[2018-10-28] MEDS ORDERED: CALCIUM CARBONATE 750 MG PO PRN (19:10)
[2018-10-28] MEDS: Montelukast Sodium TAB* 10 MG PO SCH (20:51)
[2018-10-28] MEDS: Mirtazapine TAB* 15 MG PO SCH (20:52)
[2018-10-28] MEDS: Zolpidem TAB* 10 MG PO PRN (21:07)
[2018-10-29] MEDS: oxyCODONE/Acetamin 5/325 MG* TAB PO PRN ×4 (00:28→22:22)
[2018-10-29] MEDS: oxyCODONE TAB* 5 MG TAB PO PRN ×3 (02:37→18:44)
[2018-10-29] MEDS: Acetaminophen TAB* 325 MG PO SCH ×3 (02:38→17:17)
[2018-10-29 06:35] LABS: Hematocrit 34 % (35-47); Hemoglobin 11.4 g/dl (12.0-16.0); Platelet Count 337 10^3/ul (150-450)
[2018-10-29] MEDS: Multivitamins/Minerals TAB PO SCH (08:24)
[2018-10-29] MEDS: Modafinil TAB* 100 MG PO SCH (08:24)
[2018-10-29] MEDS: ARIPiprazole TAB* 15 MG PO SCH (08:24)
[2018-10-29] MEDS: Apixaban* 2.5 MG TAB PO SCH ×2 (08:24→22:21)
[2018-10-29] MEDS: DALFAMPRIDINE 10 MG PO SCH ×2 (08:24→22:22)
[2018-10-29] MEDS: Docusate CAP* 100 MG PO SCH ×2 (08:25→23:06)
[2018-10-29] MEDS: Cyclobenzaprine TAB* 10 MG PO PRN (08:25)
[2018-10-29] MEDS: Morphine ORAL CONCENTRATE* 5 MG/0.25 ML ORAL.SYRIN PO PRN (08:25)
[2018-10-29] MEDS: FLUoxetine CAP* 20 MG PO SCH (08:25)
[2018-10-29] MEDS: Magnesium Hydroxide LIQ* 30 ML UDC PO SCH ×2 (08:25→23:06)
[2018-10-29] MEDS ORDERED: Cyclobenzaprine TAB* 10 MG PO PRN (08:52)
[2018-10-29] MEDS ORDERED: Conjugated Estrogens VAG CM* 42.5 gm TUBE VAGINAL SCH (09:00)
--- NOTE | 2018-10-29 10:49 | PN ---
Progress Note - Progress Note Date of Service: 10/29/18 SOAP: Subjective: []Pt seen and examined at bedside. She feels much better than yesterday stating her pain has been well controlled overnight as well as today. After PT has pain is 6/10. Denies CP, SOB, dizziness, nausea. Objective: []General: Well appearing, NAD LLE: Left knee dressing changed, incision CDI without erythema. Thigh is soft, DF/PF intact. DP2+, sensation intact to light touch distally Calves supple and nontender without erythema, edema or palpable cords Assessment: [] 68 yo F pod 3 s/p LTKA Plan: WBAT eliquis 2.5 mg bid for dvt proph PT/OT Pain has been well controlled but continues to have high HR. Has been using IS. Repeat EKG, mag level, UA, CTA ordered. Patient is asymptomatic. Sodium is improved, still appears dry, BP stable, NS maintenance fluid started Pt desires DC home today, if workup is negative and HR normalizes this would be appropriate this afternoon Vital Signs Temp 98.5 F 10/29/18 07:31 Pulse 106 10/29/18 10:45 Resp 18 10/29/18 10:37 BP 121/63 10/29/18 07:31 Pulse Ox 94 10/29/18 10:45 Intake & Output 10/28/18 10/29/18 10/29/18 18:59 06:59 18:59 Intake Total 1470 480 Output Total 1300 1200 0 Balance 170 -720 0 Weight 147 lb 6.4 oz Intake: IVPB 1100 ABX - CEFAZOLIN 110 LR 990 Oral 370 480 Output: Urine 1300 1200 0 Other: Estimated Stool Amount Medium Laboratory Last Values Hgb 11.4 g/dl (12.0-16.0) L 10/29/18 06:16 Hct 34 % (35-47) L 10/29/18 06:16 Plt Count 337 10^3/ul (150-450) 10/29/18 06:16 MPV 8.0 fL (7.4-10.4) 10/29/18 06:16 Sodium 131 mmol/L (135-145) L 10/29/18 06:16 Potassium 3.8 mmol/L (3.5-5.0) 10/28/18 05:31 Chloride 93 mmol/L (101-111) L 10/28/18 05:31 Carbon Dioxide 29 mmol/L (22-32) 10/28/18 05:31 Anion Gap 7 mmol/L (2-11) 10/28/18 05:31 BUN 6 mg/dL (6-24) 10/28/18 05:31 Creatinine 0.49 mg/dL (0.51-0.95) L 10/28/18 05:31 Est GFR ( Amer) 151.1 (>60) 10/28/18 05:31 Est GFR (Non-Af Amer) 124.9 (>60) 10/28/18 05:31 BUN/Creatinine Ratio 12.2 (8-20) 10/28/18 05:31 Glucose 146 mg/dL (70-100) H 10/28/18 05:31 Calcium 8.6 mg/dL (8.6-10.3) 10/28/18 05:31 Magnesium 2.0 mg/dL (1.9-2.7) 10/29/18 06:16
[2018-10-29] MEDS ORDERED: NS 0.9% 500 ML* 500 ML IV ONE ×2 (10:50→16:27)
[2018-10-29] MEDS ORDERED: Iohexol 350* (CONTRAST) 500 ML MDV IV ONE (11:37)
[2018-10-29 13:26] LABS: BUN/Creatinine Ratio 15.1 (8-20); Calcium 8.8 mg/dL (8.6-10.3); Potassium 3.9 mmol/L (3.5-5.0)
--- NOTE | 2018-10-29 13:50 | PN ---
Subjective Date of Service: 10/29/18 Interval History: Discussed patient with Ortho PA (Louise). Due to patient's persistent tachycardia, she has had repeat EKGs, labs, and CTA. So far all unremarkable. We are awaiting additional labs and UA. Resting in recliner on assessment. Reports pain in left knee is well controlled. Denies urinary symptoms including burning/pain with urination, increase in frequency, or suprapubic/flank pain. She does report she has minor difficulty starting her stream which is baseline for her due to MS. Denies cp, palpitations, sob, n/v/d, dizziness, headache. Family History: Unchanged from Admission Social History: Unchanged from Admission Past Medical History: Unchanged from Admission Objective Active Medications: Acetaminophen (Tylenol Tab*) 975 mg PO Q8H [facility] Last Admin: 10/29/18 08:52 Dose: Not Given Albuterol (Ventolin 2.5 Mg/3 Ml Neb.Carmen*) 2.5 mg INH Q2H PRN PRN Reason: SOB/WHEEZING Apixaban (Eliquis*) 2.5 mg PO Q12H [facility] Last Admin: 10/29/18 08:24 Dose: 2.5 mg Aripiprazole (Abilify Tab*) 15 mg PO QAM [facility] Last Admin: 10/29/18 08:24 Dose: 15 mg Azelastine HCl (Astepro 0.15% Nasal (Nf)) 1 spray RIGHT NARE BID PRN PRN Reason: Allergy Symptoms Bisacodyl (Dulcolax Supp*) 10 mg HI DAILY PRN PRN Reason: constipation Clonazepam (Klonopin Tab(*)) 0.5 mg PO TID PRN PRN Reason: ANXIETY Cyclobenzaprine HCl (Flexeril Tab*) 10 mg PO TID PRN PRN Reason: SPASMS Diphenhydramine HCl (Benadryl Iv*) 25 mg IV Q6H PRN PRN Reason: itching Diphenhydramine HCl (Benadryl Po*) 25 mg PO Q6H PRN PRN Reason: INSOMNIA Docusate Sodium (Colace Cap*) 100 mg PO BID [facility] Last Admin: 10/29/18 08:25 Dose: 100 mg Fluoxetine HCl (Prozac Cap*) 20 mg PO QAM [facility] Last Admin: 10/29/18 08:25 Dose: 20 mg Sodium Chloride (Ns 0.9% 500 Ml*) 500 mls @ 100 mls/hr IV ONCE ONE Stop: 10/29/18 15:49 Last Admin: 10/29/18 12:18 Dose: 100 mls/hr Lactulose (Lactulose*) 30 ml PO Q6H PRN PRN Reason: constipation Magnesium Hydroxide (Milk Of Magnesia Liq*) 30 ml PO BID [facility] Last Admin: 10/29/18 08:25 Dose: 30 ml Magnesium Hydroxide (Milk Of Magnesia Liq*) 30 ml PO Q6H PRN PRN Reason: constipation Mirtazapine (Remeron Tab*) 45 mg PO BEDTIME [facility] Last Admin: 10/28/18 20:52 Dose: 45 mg Modafinil (Provigil Tab*) 200 mg PO QAM [facility] Last Admin: 10/29/18 08:24 Dose: 200 mg Montelukast Sodium (Singulair Tab*) 10 mg PO BEDTIME [facility] Last Admin: 10/28/18 20:51 Dose: 10 mg Morphine Sulfate (Morphine Oral Concentrate*) 15 mg PO TID PRN PRN Reason: PAIN Last Admin: 10/29/18 08:25 Dose: 15 mg Morphine Sulfate (Morphine Inj ((Syringe))*) 2 mg IV Q2H PRN PRN Reason: PAIN Multivitamins/Minerals (Theragran/Minerals Tab*) 1 tab PO QAM [facility] Last Admin: 10/29/18 08:24 Dose: 1 tab Pto:(Dalfampridine [ (Ampyra] Er 10 Mg)) 10 mg PO BID [facility] Last Admin: 10/29/18 08:24 Dose: 10 mg Non-Formulary Medication (Orphenadrine Citrate [Orphenadrine Citrate Er]) 100 mg PO BID PRN PRN Reason: SPASMS Pto:Non Formulary ( Tums Smoothies 750mg ) 2 dose PO Q4H PRN PRN Reason: DYSPEPSIA Ondansetron HCl (Zofran Inj*) 4 mg IV Q6H PRN PRN Reason: nausea Last Admin: 10/27/18 16:56 Dose: 4 mg Oxycodone HCl (Roxycodone Tab*) 10 mg PO Q4H PRN PRN Reason: moderate to severe pain Last Admin: 10/29/18 10:37 Dose: 10 mg Oxycodone/Acetaminophen (Percocet 5/325 Tab*) 2 tab PO Q3H PRN PRN Reason: PAIN - MODERATE Last Admin: 10/29/18 05:44 Dose: 2 tab Pantoprazole Sodium (Protonix Tab*) 40 mg PO QAM PRN PRN Reason: INDIGESTION Last Admin: 10/28/18 16:17 Dose: 40 mg Polyethylene Glycol/Electrolytes (Miralax*) 17 gm PO DAILY PRN PRN Reason: Constipation Tramadol HCl (Ultram*) 50 mg PO Q6H PRN PRN Reason: PAIN Last Admin: 10/28/18 08:32 Dose: 50 mg Zolpidem Tartrate (Ambien Tab*) 10 mg PO BEDTIME PRN; Protocol PRN Reason: INSOMNIA Last Admin: 10/28/18 21:07 Dose: 10 mg Vital Signs - 8 hr 10/29/18 10/29/18 10/29/18 07:31 07:41 08:00 Temperature 98.5 F Pulse Rate 99 Respiratory 16 18 18 Rate Blood Pressure 121/63 (mmHg) O2 Sat by Pulse 93 Oximetry 10/29/18 10/29/18 10/29/18 08:25 10:26 10:27 Temperature Pulse Rate Respiratory 18 18 18 Rate Blood Pressure (mmHg) O2 Sat by Pulse Oximetry 10/29/18 10/29/18 10/29/18 10:37 10:45 11:47 Temperature 98.6 F Pulse Rate 106 103 Respiratory 18 18 Rate Blood Pressure 137/72 (mmHg) O2 Sat by Pulse 94 99 Oximetry 10/29/18 12:46 Temperature Pulse Rate Respiratory 18 Rate Blood Pressure (mmHg) O2 Sat by Pulse Oximetry Oxygen Devices in Use Now: None Appearance: Comfortable, NAD Eyes: No Scleral Icterus Ears/Nose/Mouth/Throat: Clear Oropharnyx, Mucous Membranes Moist Neck: NL Appearance and Movements; NL JVP Respiratory: Symmetrical Chest Expansion and Respiratory Effort, Clear to Auscultation Cardiovascular: NL Sounds; No Murmurs; No JVD, RRR, - - Trace to +1 edema to LLE. No edema to RLE Abdominal: NL Sounds; No Tenderness; No Distention Lymphatic: No Cervical Adenopathy Extremities: No Clubbing, Cyanosis Skin: No Rash or Ulcers Neurological: Alert and Oriented x 3 Nutrition: Taking PO's Result Diagrams: 10/29/18 06:16 10/29/18 12:52 Additional Lab and Data: Laboratory Results - last 24 hr 10/29/18 10/29/18 10/29/18 06:16 06:16 12:52 Hgb 11.4 L Hct 34 L Plt Count 337 MPV 8.0 Sodium 131 L 132 L Potassium 3.9 Chloride 97 L Carbon Dioxide 31 Anion Gap 4 BUN 8 Creatinine 0.53 Est GFR ( Amer) 138.0 Est GFR (Non-Af Amer) 114.0 BUN/Creatinine Ratio 15.1 Glucose 92 Calcium 8.8 Magnesium 2.0 Assess/Plan/Problems-Billing Assessment: Ms. Jennings is a 68 yo F with PMH of MS, GERD, PVD, bladder cancer, chronic pain, and COPD; presented to [facility] for an elective left TKA with Dr. Castillo. [facility] is consulting for co-medical management. - Patient Problems (1) Status post total left knee replacement Comment: - POD #2 - Management per Ortho (2) Tachycardia Comment: - HR low 100s and noted to be 120s overnight. - EKG this morning shows Sinus Tach with rate of 102. No ischemic changes - Afebrile - Asymptomatic - CTA obtained and no evidence of PE, infections, or fluid - Mag 2.0 - K+ 3.9 - TSH wnl - Unremarkable except reveals possible dehydration, will provide fluid - Tele ordered for overnight (3) Anxiety and depression Comment: - Continue Abilify, fluoxitine, modafinil (4) Chronic pain Comment: - Continue Norflex, morphine (5) GERD (gastroesophageal reflux disease) Current Visit: Yes Status: Acute Code(s): K21.9 - GASTRO-ESOPHAGEAL REFLUX DISEASE WITHOUT ESOPHAGITIS SNOMED Code(s): 475117209 Comment: - Continue pantoprazole (6) Multiple sclerosis Current Visit: Yes Status: Acute Code(s): G35 - MULTIPLE SCLEROSIS SNOMED Code(s): 05047509 Comment: - Stable, not in exacerbation - Continue dalfampridine (7) Sinus infection Current Visit: Yes Status: Acute Code(s): J32.9 - CHRONIC SINUSITIS, UNSPECIFIED SNOMED Code(s): 67023374 Comment: - Resolved; currently asymptomatic - According to med rec, Augmentin was started 10/20, so course should be finished at this point - Augmentin d/c'd yesterday (8) DVT prophylaxis Comment: - Eliquis per Ortho (9) Full code status Comment: - Full Code Status and Disposition: Disposition per Ortho. Thank you for this consultation. We will continue to follow. Please call with questions. Attending: Jailyn Medina
[2018-10-29 13:54] LABS: TSH (Thyroid Stimulating Horm) 1.77 mcIU/mL (0.34-5.60)
[2018-10-29 14:55] LABS: Urine Appearance Cloudy; Urine Bacteria Absent (Absent); Urine Bilirubin Negative (Negative); Urine Blood 1+ (Negative); Urine Color Yellow; Urine Glucose Negative (Negative); Urine Ketones Negative (Negative); Urine Nitrite Negative (Negative); Urine Protein Negative (Negative); Urine Red Blood Cell 2+(6-10/hpf) (Absent); Urine Specific Gravity 1.032 (1.010-1.030); Urine Squamous Epithelial Cell Present (Absent); Urine Urobilinogen Negative (Negative); Urine White Blood Cell Trace(0-5/hpf) (Absent)
[2018-10-29] MEDS: clonazePAM TAB(*) 0.5 MG PO PRN ×2 (17:13→20:52)
[2018-10-29] MEDS: Mirtazapine TAB* 15 MG PO SCH (22:21)
[2018-10-29] MEDS: Montelukast Sodium TAB* 10 MG PO SCH (22:21)
[2018-10-29] MEDS: Zolpidem TAB* 10 MG PO PRN (22:22)
[2018-10-30] MEDS: Acetaminophen TAB* 325 MG PO SCH ×2 (03:18→10:44)
[2018-10-30 06:09] LABS: Hematocrit 31 % (35-47); Hemoglobin 10.1 g/dl (12.0-16.0); Platelet Count 326 10^3/ul (150-450)
[2018-10-30 06:26] LABS: BUN/Creatinine Ratio 14.3 (8-20); Calcium 8.2 mg/dL (8.6-10.3); EGFR African American 151.1 (>60); EGFR Non-African American 124.9 (>60); Potassium 3.3 mmol/L (3.5-5.0)
--- NOTE | 2018-10-30 09:21 | PN ---
Progress Note - Progress Note Date of Service: 10/30/18 SOAP: Subjective: []Patient seen OOB in chair. Complaining of chest heaviness. She denies SOB or dizziness. Her O2 sats running in high 80's on RA. Nursing placing her on O2 and medicine is reevaluating her this am- EKG ordered. Objective: [] Vital Signs Temp 98.9 F 10/30/18 07:50 Pulse 104 10/30/18 07:50 Resp 16 10/30/18 07:50 BP 134/69 10/30/18 07:50 Pulse Ox 92 10/30/18 07:50 Intake & Output 10/29/18 10/30/18 10/30/18 18:59 06:59 18:59 Intake Total 1440 1218 230 Output Total 375 500 600 Balance 1065 718 -370 Intake: IV Fluids 968 NS (0.9%) 968 IVPB 1000 NS (0.9%) 1000 Oral 440 250 230 Output: Urine 375 500 600 Other: Date of Last Bowel 10/29/18 Movement # Bowel Movements 1 Estimated Stool Amount Medium Laboratory Results - last 24 hr 10/29/18 10/29/18 10/30/18 12:52 14:03 05:53 Hgb 10.1 L Hct 31 L Plt Count 326 MPV 8.0 Sodium 132 L Potassium 3.9 Chloride 97 L Carbon Dioxide 31 Anion Gap 4 BUN 8 Creatinine 0.53 Est GFR ( Amer) 138.0 Est GFR (Non-Af Amer) 114.0 BUN/Creatinine Ratio 15.1 Glucose 92 Calcium 8.8 Troponin I TSH 1.77 Urine Color Yellow Urine Appearance Cloudy Urine pH 8.0 Ur Specific [place] 1.032 H Urine Protein Negative Urine Ketones Negative Urine Blood 1+ A Urine Nitrate Negative Urine Bilirubin Negative Urine Urobilinogen Negative Ur Leukocyte Esterase Negative Urine WBC (Auto) Trace(0-5/hpf) Urine RBC (Auto) 2+(6-10/hpf) A Ur Squamous Epith Cells Present A Urine Bacteria Absent Urine Glucose Negative 10/30/18 10/30/18 05:53 08:51 Hgb Hct Plt Count MPV Sodium 132 L Potassium 3.3 L Chloride 98 L Carbon Dioxide 28 Anion Gap 6 BUN 7 Creatinine 0.49 L Est GFR ( Amer) 151.1 Est GFR (Non-Af Amer) 124.9 BUN/Creatinine Ratio 14.3 Glucose 113 H Calcium 8.2 L Troponin I 0.03 TSH Urine Color Urine Appearance Urine pH Ur Specific [place] Urine Protein Urine Ketones Urine Blood Urine Nitrate Urine Bilirubin Urine Urobilinogen Ur Leukocyte Esterase Urine WBC (Auto) Urine RBC (Auto) Ur Squamous Epith Cells Urine Bacteria Urine Glucose Left knee dressings are dry- incision benign +DF left ankle calf NT and soft circulation and sensation remains intact distally Assessment: []s/p left total knee arthroplasty POD #3 Plan: []EKG done- await reading Further work up per medicine recommendations on Eliquis 2.5 BID for DVT prophylaxis Medicine repeated troponins, CXR and EKG without new findings. The patient reports improvement of her symptoms. Medicine has cleared her for discharge to home and patient feels ready to go today. Follow up with PCP this week and call with any concerns proir to f/u as scheduled with Dr. Castillo. 4 doses of Potasium [address] Castillo on discharge.
[2018-10-30] MEDS: Morphine ORAL CONCENTRATE* 5 MG/0.25 ML ORAL.SYRIN PO PRN (10:41)
[2018-10-30] MEDS: Magnesium Hydroxide LIQ* 30 ML UDC PO SCH (10:42)
[2018-10-30] MEDS: Multivitamins/Minerals TAB PO SCH (10:42)
[2018-10-30] MEDS: Modafinil TAB* 100 MG PO SCH (10:42)
[2018-10-30] MEDS: Apixaban* 2.5 MG TAB PO SCH (10:42)
[2018-10-30] MEDS: Potassium Chlor TAB* 20 MEQ TAB.ER PO SCH ×2 (10:42→13:24)
[2018-10-30] MEDS: Docusate CAP* 100 MG PO SCH (10:42)
[2018-10-30] MEDS: FLUoxetine CAP* 20 MG PO SCH (10:42)
[2018-10-30] MEDS: ARIPiprazole TAB* 15 MG PO SCH (10:51)
[2018-10-30] MEDS: DALFAMPRIDINE 10 MG PO SCH (10:51)
[2018-10-30] MEDS: clonazePAM TAB(*) 0.5 MG PO PRN (11:02)
[2018-10-30] MEDS: oxyCODONE/Acetamin 5/325 MG* TAB PO PRN (13:28)
[2018-10-30 15:45] VITALS: BP 122/58
[2018-10-30] MEDS: oxyCODONE TAB* 5 MG TAB PO PRN (16:07)
--- NOTE | 2018-10-30 17:20 | PN ---
Subjective Date of Service: 10/30/18 Interval History: Received call this morning that patient woke with chest pressure, therefore, EKG and troponin ordered. In addition nurse states that patient was now requiring supplemental O2 since last evening when she was noted to be in high 80s on room air. On assessment patient is sitting in chair and appears in no acute distress. States chest pressure is worse with taking a deep breath. Reports pressure is mild. No radiation. No associated symptoms. Denies palpitations, sob, dizziness, diaphoresis, nausea, vomiting, diarrhea, chills, fever. Family History: Unchanged from Admission Social History: Unchanged from Admission Past Medical History: Unchanged from Admission Objective Active Medications: Acetaminophen (Tylenol Tab*) 975 mg PO Q8H [facility] Last Admin: 10/30/18 10:44 Dose: Not Given Albuterol (Ventolin 2.5 Mg/3 Ml Neb.Carmen*) 2.5 mg INH Q2H PRN PRN Reason: SOB/WHEEZING Apixaban (Eliquis*) 2.5 mg PO Q12H [facility] Last Admin: 10/30/18 10:42 Dose: 2.5 mg Aripiprazole (Abilify Tab*) 15 mg PO QAM [facility] Last Admin: 10/30/18 10:51 Dose: 15 mg Azelastine HCl (Astepro 0.15% Nasal (Nf)) 1 spray RIGHT NARE BID PRN PRN Reason: Allergy Symptoms Bisacodyl (Dulcolax Supp*) 10 mg RI DAILY PRN PRN Reason: constipation Clonazepam (Klonopin Tab(*)) 0.5 mg PO TID PRN PRN Reason: ANXIETY Last Admin: 10/30/18 11:02 Dose: 0.5 mg Cyclobenzaprine HCl (Flexeril Tab*) 10 mg PO TID PRN PRN Reason: SPASMS Diphenhydramine HCl (Benadryl Iv*) 25 mg IV Q6H PRN PRN Reason: itching Diphenhydramine HCl (Benadryl Po*) 25 mg PO Q6H PRN PRN Reason: INSOMNIA Docusate Sodium (Colace Cap*) 100 mg PO BID [facility] Last Admin: 10/30/18 10:42 Dose: 100 mg Fluoxetine HCl (Prozac Cap*) 20 mg PO QAM [facility] Last Admin: 10/30/18 10:42 Dose: 20 mg Lactulose (Lactulose*) 30 ml PO Q6H PRN PRN Reason: constipation Magnesium Hydroxide (Milk Of Magnesia Liq*) 30 ml PO BID [facility] Last Admin: 10/30/18 10:42 Dose: Not Given Magnesium Hydroxide (Milk Of Magnesia Liq*) 30 ml PO Q6H PRN PRN Reason: constipation Mirtazapine (Remeron Tab*) 45 mg PO BEDTIME [facility] Last Admin: 10/29/18 22:21 Dose: 45 mg Modafinil (Provigil Tab*) 200 mg PO QAM [facility] Last Admin: 10/30/18 10:42 Dose: 200 mg Montelukast Sodium (Singulair Tab*) 10 mg PO BEDTIME [facility] Last Admin: 10/29/18 22:21 Dose: 10 mg Morphine Sulfate (Morphine Oral Concentrate*) 15 mg PO TID PRN PRN Reason: PAIN Last Admin: 10/30/18 10:41 Dose: 15 mg Morphine Sulfate (Morphine Inj ((Syringe))*) 2 mg IV Q2H PRN PRN Reason: PAIN Multivitamins/Minerals (Theragran/Minerals Tab*) 1 tab PO QAM [facility] Last Admin: 10/30/18 10:42 Dose: 1 tab Pto:(Dalfampridine [ (Ampyra] Er 10 Mg)) 10 mg PO BID [facility] Last Admin: 10/30/18 10:51 Dose: 10 mg Non-Formulary Medication (Orphenadrine Citrate [Orphenadrine Citrate Er]) 100 mg PO BID PRN PRN Reason: SPASMS Pto:Non Formulary ( Tums Smoothies 750mg ) 2 dose PO Q4H PRN PRN Reason: DYSPEPSIA Last Admin: 10/30/18 13:28 Dose: 2 dose Ondansetron HCl (Zofran Inj*) 4 mg IV Q6H PRN PRN Reason: nausea Last Admin: 10/27/18 16:56 Dose: 4 mg Oxycodone HCl (Roxycodone Tab*) 10 mg PO Q4H PRN PRN Reason: moderate to severe pain Last Admin: 10/30/18 16:07 Dose: 10 mg Oxycodone/Acetaminophen (Percocet 5/325 Tab*) 2 tab PO Q3H PRN PRN Reason: PAIN - MODERATE Last Admin: 10/30/18 13:28 Dose: 2 tab Pantoprazole Sodium (Protonix Tab*) 40 mg PO QAM PRN PRN Reason: INDIGESTION Last Admin: 10/28/18 16:17 Dose: 40 mg Polyethylene Glycol/Electrolytes (Miralax*) 17 gm PO DAILY PRN PRN Reason: Constipation Potassium Chloride (Klor Con Er Tab*) 20 meq PO TID [facility] Last Admin: 10/30/18 13:24 Dose: 20 meq Tramadol HCl (Ultram*) 50 mg PO Q6H PRN PRN Reason: PAIN Last Admin: 10/28/18 08:32 Dose: 50 mg Zolpidem Tartrate (Ambien Tab*) 10 mg PO BEDTIME PRN; Protocol PRN Reason: INSOMNIA Last Admin: 10/29/18 22:22 Dose: 10 mg Vital Signs - 8 hr 10/30/18 10/30/18 10/30/18 10:41 11:02 11:42 Temperature 98.7 F Pulse Rate 105 Respiratory 16 18 16 Rate Blood Pressure 127/57 (mmHg) O2 Sat by Pulse 94 Oximetry 10/30/18 10/30/18 10/30/18 13:22 13:28 15:35 Temperature 98.4 F Pulse Rate 115 Respiratory 16 16 18 Rate Blood Pressure 122/58 (mmHg) O2 Sat by Pulse 94 Oximetry 10/30/18 16:07 Temperature Pulse Rate Respiratory 16 Rate Blood Pressure (mmHg) O2 Sat by Pulse Oximetry Oxygen Devices in Use Now: Nasal Cannula Appearance: Comfortable, NAD Eyes: No Scleral Icterus Ears/Nose/Mouth/Throat: Clear Oropharnyx, Mucous Membranes Moist Neck: NL Appearance and Movements; NL JVP Respiratory: Symmetrical Chest Expansion and Respiratory Effort, Clear to Auscultation Cardiovascular: NL Sounds; No Murmurs; No JVD, RRR Abdominal: NL Sounds; No Tenderness; No Distention Lymphatic: No Cervical Adenopathy Extremities: No Clubbing, Cyanosis Skin: No Rash or Ulcers Neurological: Alert and Oriented x 3 Nutrition: Taking PO's Result Diagrams: 10/30/18 05:53 10/30/18 05:53 Additional Lab and Data: Laboratory Results - last 24 hr 10/30/18 10/30/18 10/30/18 05:53 05:53 08:51 Hgb 10.1 L Hct 31 L Plt Count 326 MPV 8.0 Sodium 132 L Potassium 3.3 L Chloride 98 L Carbon Dioxide 28 Anion Gap 6 BUN 7 Creatinine 0.49 L Est GFR ( Amer) 151.1 Est GFR (Non-Af Amer) 124.9 BUN/Creatinine Ratio 14.3 Glucose 113 H Calcium 8.2 L Troponin I 0.03 10/30/18 11:57 Hgb Hct Plt Count MPV Sodium Potassium Chloride Carbon Dioxide Anion Gap BUN Creatinine Est GFR ( Amer) Est GFR (Non-Af Amer) BUN/Creatinine Ratio Glucose Calcium Troponin I 0.01 Microbiology and Other Data: Microbiology 10/29/18 14:03 Urine Culture - Final Urine No Growth (<1,000 CFU/mL) Assess/Plan/Problems-Billing Assessment: Ms. Jennings is a 68 yo F with PMH of MS, GERD, PVD, bladder cancer, chronic pain, and COPD; presented to [facility] for an elective left TKA with Dr. Castillo. [facility] is consulting for co-medical management. - Patient Problems (1) Chest pain Comment: - Atypical as it increase with deep breathing. - Repeat EKG revealed no acute findings and was unchanged from previous EKG - Trops negative. - CTA obtained yesterday and normal. - Pain improving on reassessment. - Chest Xray revealed COPD. - Suspected etiology resp and/or muscularskeletol in nature (2) COPD (chronic obstructive pulmonary disease) Comment: - Patient was successfully weaned from O2 per nurses. - Chest Xray consistent with COPD - Reports significant smoking history - No tightness, wheezing, or decrease air flow - Should follow up with primary care regarding copd and management (3) Status post total left knee replacement Comment: - POD #3 - Management per Ortho (4) Tachycardia Comment: - HR low 100s - EKG this morning shows Sinus Tach with rate of 102. - Afebrile - Asymptomatic - CTA obtained and no evidence of PE, infections, or fluid - Mag 2.0 - K+ 3.3, therefore, replacement was ordered by ortho team - TSH wnl - Unremarkable except reveals possible dehydration - Please monitor HR at home and follow up with primary care for reassessment. - In any new/worsening symptoms please return to ED (5) Anxiety and depression Comment: - Continue Abilify, fluoxitine, modafinil (6) Chronic pain Comment: - Continue Norflex, morphine (7) GERD (gastroesophageal reflux disease) Current Visit: Yes Status: Acute Code(s): K21.9 - GASTRO-ESOPHAGEAL REFLUX DISEASE WITHOUT ESOPHAGITIS SNOMED Code(s): 701624502 Comment: - Continue pantoprazole (8) Multiple sclerosis Current Visit: Yes Status: Acute Code(s): G35 - MULTIPLE SCLEROSIS SNOMED Code(s): 42221783 Comment: - Stable, not in exacerbation - Continue dalfampridine (9) Sinus infection Current Visit: Yes Status: Acute Code(s): J32.9 - CHRONIC SINUSITIS, UNSPECIFIED SNOMED Code(s): 32705450 Comment: - Resolved; currently asymptomatic - According to med rec, Augmentin was started 10/20, so course should be finished at this point - Augmentin d/c'd yesterday (10) DVT prophylaxis Comment: - Eliquis per Ortho (11) Full code status Comment: - Full Code Status and Disposition: Disposition per Ortho. Thank you for this consultation. We will continue to follow. Please call with questions. Attending: Jailyn Medina
--- NOTE | 2018-10-30 21:27 | DS ---
DISCHARGE SUMMARY: DATE OF ADMISSION: 10/27/18 DATE OF DISCHARGE: 10/30/18 ATTENDING PHYSICIAN: Dr. Frances Castillo * (DICTATED BY RICKY LO) ADMISSION DIAGNOSIS: Severe end-stage degenerative osteoarthritis of left knee joint with valgus deformity and medial collateral ligament incompetence. DISCHARGE DIAGNOSIS: Severe end-stage degenerative osteoarthritis of left knee joint with valgus deformity and medial collateral ligament incompetence. SURGERY PERFORMED: Left total knee arthroplasty. HOSPITAL COURSE: The patient is a 68-year-old female with years of increasingly severe left knee pain and valgus deformity. The patient had instability due to incompetence of her medial collateral ligament. She failed conservative management with assistive device, wearing a brace, anti- inflammatories, and intraarticular cortisone injections, and elected to proceed with total knee arthroplasty. She was taken to the operating room under the care of Dr. Frances Castillo on the date of 10/27/18. She tolerated the procedure well and left the operating room in stable condition. Postoperative day #1, the patient was noted to have some tachycardia and did have difficulty with pain control initially. She was seen by the medical service and fully worked up with an EKG that showed no ischemic changes with a normal sinus rhythm. She did not show a great improvement in her heart rate. Her chest/thorax CTA was done and found to be negative for evidence of PE. She had complaints of some chest heaviness. Again, repeat EKG done. Troponins, CTA were all unremarkable throughout her hospital stay. The patient denied lightheadedness or dizziness. Her pain was under much better controlled by 10/30/18. It was felt by the medical staff with full workup and negative findings and improvement in her overall pain and symptoms of chest heaviness that she was stable for discharge to home on the date of 10/30/18. CONDITION ON DISCHARGE: Her vital signs on the afternoon of 10/30/18 showed temperature of 98.4, pulse of 115, respiratory rate 18, O2 saturation is 94% on room air, blood pressure 122/58. Her left knee incision is healing well. No drainage, redness, or evidence of infection. Her calf is soft and nontender. She has active dorsiflexion of her left ankle without difficulty. Her sensation and circulation are intact distally. It is noted that she did have potassium levels that were slightly low. She was given potassium supplementation and it was recommended she take 20 mEq of potassium chloride b.i.d. for 2 days and then discontinue. PLAN: Discharge to home on 10/30/18. As above, she will take the 4 doses of potassium. She is provided a prescription of Eliquis 2.5 mg p.o. b.i.d. for 30 days for DVT prophylaxis and given a prescription of Percocet 5/325 mg 1 to 2 p.o. q.4 to 6 hours p.r.n. pain #60, MDD 8. Prescription sent to her [facility]. It is also recommended by the medical providers in-house that she follow up with her primary care provider in 7 to 10 days for evaluation of her COPD findings with her workup for her tachycardia. The patient feels well at the time of discharge. She is ready to go home. She will report to the emergency department for any shortness of breath, chest pain, palpitations, dizziness. Otherwise, she will follow up as scheduled with Dr. Castillo in roughly 10 to 14 days in the office. RICKY LO [id number]/[facility] #: [id number] PRISCILA
== END 2018-10-30 16:45 | disposition home health service (06) | DRG 470 ==
LOC: AA 09:36 → SSU 16:49
PROVIDERS: ADMIT Orthopaedic Surgery Adult Reconstructive Orthopaedic Surgery; ATTEND Orthopaedic Surgery Adult Reconstructive Orthopaedic Surgery
PROC: 0SRD0J9 Replacement of Left Knee Joint with Synthetic Substitute, Cemented, Open Approach (ICD-10-PCS; principal; 2018-10-27 13:00)
DX: M17.12 Unilateral primary osteoarthritis, left knee (principal); M21.062 Valgus deformity, not elsewhere classified, left knee; J32.9 Chronic sinusitis, unspecified; E66.3 Overweight; R07.89 Other chest pain; R00.0 Tachycardia, unspecified; M23.8X2 Other internal derangements of left knee; M06.9 Rheumatoid arthritis, unspecified; G35 Multiple sclerosis; F41.9 Anxiety disorder, unspecified; F32.9 Major depressive disorder, single episode, unspecified; K21.9 Gastro-esophageal reflux disease without esophagitis; Z96.651 Presence of right artificial knee joint; I73.9 Peripheral vascular disease, unspecified; M25.462 Effusion, left knee; M25.762 Osteophyte, left knee; J44.9 Chronic obstructive pulmonary disease, unspecified; G89.29 Other chronic pain; E78.5 Hyperlipidemia, unspecified; Z87.891 Personal history of nicotine dependence; Z80.3 Family history of malignant neoplasm of breast; Z84.1 Family history of disorders of kidney and ureter; Z68.28 Body mass index [BMI] 28.0-28.9, adult; Z85.51 Personal history of malignant neoplasm of bladder; Z88.8 Allergy status to other drugs, medicaments and biological substances; Z90.710 Acquired absence of both cervix and uterus; Z91.040 Latex allergy status; Z87.440 Personal history of urinary (tract) infections
CPT/HCPCS: 36415; 71045; 71275; 80048; 81003; 81015; 83735; 84300; 84443; 84484; 85014; 85018; 85049; 87086; 88305; 88311; 93005; A9270-GY; C1776; G8978-GP-CJ; G8979-GP-CI; G8987-GO-CK; G8988-GO-CI; J0690; J2250; J2270; J2405; J2704; J2795; J3010; J3490; Q9967

== ENCOUNTER 2019-10-06 15:52 | Emergency (ER) | payer MEDICARE, MEDICAID ==
--- OUTSIDE RECORDS SUMMARY | 2019-10-06 15:58 | XMS REPORT | Continuity of Care Document ---
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 Onset: 09/21/2014 Localized, primary osteoarthritis Frances Castillo M.D. Onset: 03/26/2017 Arthroplasty of knee John Cronin N.P. Onset: 10/27/2018 Social History Type Date Description Comments Sex Unknown ETOH Use Denies alcohol use Tobacco Use Start: Unknown End: Patient is a former smoker Unknown Smoking Status Reviewed: 08/31/19 Patient is a former smoker Exercise Type/Frequency Exercises sporadically Allergies, Adverse Reactions, Alerts Active Allergies Reaction Severity Comments Date Latex 01/06/2017 Baclofen rash 06/10/2017 Simvastatin pain 06/10/2017 Inactive Allergies NKDA 03/24/2013 Medications Active Medications SIG Qnty Indications Ordering Date Provider Cyclobenzaprine HCL 1 tab by mouth at 30tabs Emerson Dwyer 06/15/2019 10mg bedtime, as needed [place] Foreman Tablets for muscle pain Nystatin apply to affected 30gm Z47.1 Frances Castillo, 11/09/2018 [id number]/GM area twice daily MAustin Cream Provigil 1/2 tab po qam and 30tabs Emerson Dwyer 06/10/2017 200mg Tablets 1/2 tab po midday [place] Foreman Colace 1 tab by mouth 60caps Frances Jonathan, 05/22/2017 100mg Capsules twice a day as M.D. needed for constipation Compression Stockings wear during day, 1units M25.561 Frances Castillo, 2016 off at night dx- M.D. [facility] ble edema thigh high Knee Brace left knee lateral 1units M23.221 Javier F 09/11/2016 [facility] developing machine operator braemilia Bryson MD Knee Brace right knee lateral 1units M23.221 Javier F 09/11/2016 [facility] developing machine operator braemilia Bryson MD Ampyra take 1 tablet by 180tabs Emerson Dwyer 09/06/2013 10mg Tablets ER mouth twice a day [place] Foreman 12HR (3 month supply) Naproxen 1 tablet with food Unknown 500mg Tablets by mouth twice a day Polyethylene Glycol Unknown 3350 Omeprazole 1 by mouth every Unknown 20mg Capsules day DR Conjugated Estrogens Unknown Medical Marijuana Unknown Azelastine HCL Unknown (Ophthalmic) Bisacodyl Ec take one daily as Unknown 5mg Tablets needed for DR constipation Glucosam Unknown Preservision Areds 1 cap by mouth Unknown twice daily Capsules Detrol LA 1 by mouth every Unknown 2mg Caps ER day 24HR Furosemide take 1 tablet by Unknown 20mg Tablets mouth once daily if needed Miralax 17 gm every day Unknown 3350NF Powder mixed w/ 8 oz water/juice Azelastine HCL (Nasal) spray 2 spray in Unknown each nostril two 0.1% Solution times a day as needed Zolpidem Tartrate ER 1 by mouth at Unknown bedtime as needed 12.5mg Tablets ER Multivitamins 1 capsule guillermo;y 30caps Unknown Capsules Montelukast Sodium 1 by mouth every 90tabs Unknown 10mg day Tablets Mirtazapine take one tablet by 90tabs Unknown 15mg Tablets mouth every other night at bedtime Abilify 1 tab po daily Unknown 15mg Tablets Morphine Sulfate 1 tab po prn Unknown 15mg breakthrough pain Tablets Fluoxetine HCL 1 tab po daily Unknown 20mg Capsules Clonazepam 1 tab po prn Unknown 0.5mg Tablets Medications Administered in Office Medication SIG Qnty Indications Ordering Provider Date Depomedrol 40MG Frances Castillo M.D. 09/21/2018 Injection No Injection Nathan Miguel M.D. 09/11/2018 Injection No Injection Nathan Miguel M.D. 09/11/2018 Injection Triamcinolone (Kenalog) Nathan Miguel M.D. 08/05/2018 Injection Triamcinolone (Kenalog) Nathan Miguel M.D. 07/23/2018 Injection Triamcinolone (Kenalog) Nathan Miguel M.D. 04/23/2018 Injection Triamcinolone (Kenalog) Nathan Miguel M.D. 04/23/2018 Injection Depomedrol 40MG Javier Bryson MD 09/25/2016 Injection No Injection Javier Bryson MD 08/01/2016 Injection Depomedrol 40MG Javier Bryson MD 06/13/2016 Injection Immunizations Description No Information Available Vital Signs Date Vital Result Comment 08/31/2019 3:04pm Height 62 inches 5'2" Weight 140.00 lb Heart Rate 91 /min BP Systolic Sitting 143 mmHg left arm reg cuff BP Diastolic Sitting 86 mmHg left arm reg cuff O2 % BldC Oximetry 96 % room air BMI (Body Mass Index) 25.6 kg/m2 06/15/2019 2:09pm Height 62 inches 5'2" Weight 140.00 lb Heart Rate 74 /min BP Systolic 142 mmHg BP Diastolic 80 mmHg BMI (Body Mass Index) 25.6 kg/m2 Results Description No Information Available Procedures Description No Information Available Medical Devices Description No Information Available Encounters Type Date Location Provider Dx Diagnosis Office Visit 06/15/2019 [facility] Zacarias Alba NP G35 Multiple sclerosis 2:30[facility] Assessments Date Code Description Provider 08/31/2019 E87.1 Hypo-osmolality and hyponatremia Carrie Christian MD 06/15/2019 G35 Multiple sclerosis Zacarias Knaake, [employer] MANAGER Plan of Treatment Future Appointment(s):12/01/2019 2:30 pm - Carrie Christian MD at [facility] [id number] /08/2020 1:45 pm - Emerson Foreman M.D. at [facility]08/31/2019 - Carrie Christian MDE87.1 Hypo-osmolality and hyponatremiaFollow up: 3 months with BMP. all other labs today Functional Status Description No Information Available Mental Status Description No Information Available Referrals Description No Information Available
[2019-10-06 16:03] VITALS: BP 144/87
--- NOTE | 2019-10-06 16:05 | UC ---
Respiratory Complaint HPI - HPI Summary HPI Summary: Patient is a 69yo female presenting with chest congestion and productive cough x2-3 days. Patient states progressively worsened and now fever and chills. Notes SOB and "chest crackling" worse with lying down. Denies chest pain and difficulty breathing. Denies sore throat. Denies myalgias and DIMAS. Denies n/v/d and abd pain. Notes mild decreased appetite and normal fluid intake. Former smoker. - History of Current Complaint Chief Complaint: UCGeneralIllness Stated Complaint: URI Hx Obtained From: Patient Onset/Duration: Gradual Onset, Lasting Days Pain Intensity: 0 - Allergies/Home Medications Allergies/Adverse Reactions: Allergies Allergy/AdvReac Type Severity Reaction Status Date / Time latex Allergy Intermediate Swelling Verified 09/08/19 15:11 Of Face,Lips,& Throat baclofen AdvReac Intermediate Rash Verified 09/08/19 15:11 simvastatin [From Zocor] AdvReac Intermediate Joint Pain Verified 09/08/19 15:11 PMH/Surg Hx/FS Hx/Imm Hx - Additional Past Medical History Additional PMH: multiple sclerosis Respiratory History: COPD Cancer History: Other - bladder - Surgical History Surgical History: Yes Surgery Procedure, Year, and Place: excision empyema lung. T&A. HYSTERECTOMY. ARTHROSCOPY RIGHT KNEE. BLADDER TUMOR REMOVED - Family History Known Family History: Positive: Non-Contributory - Social History Alcohol Use: None Substance Use Type: None Substance Use Comment - Amount & Last Used: Medicinal Marijuana Smoking Status (MU): Former Smoker Type: Cigarettes Amount Used/How Often: 1 PPD FOR ABOUT 30 YEARS Have You Smoked in the Last Year: No When Did the Patient Quit Smoking/Using Tobacco: 2010 - Immunization History Most Recent Influenza Vaccination: 2016 Most Recent Pneumonia Vaccination: 2014 Review of Systems All Other Systems Reviewed And Are Negative: Yes Constitutional: Positive: Fever, Chills ENT: Positive: Negative Respiratory: Positive: Shortness Of Breath, Cough - productive of yellow/green sputum, Other - "chest crackling" Cardiovascular: Positive: Negative. Negative: Chest Pain Gastrointestinal: Positive: Negative. Negative: Abdominal Pain, Vomiting, Nausea Genitourinary: Positive: Negative Musculoskeletal: Negative: Myalgia Neurological: Negative: Headache Physical Exam Triage Information Reviewed: Yes Appearance: No Pain Distress, Well-Nourished, Other: - flushed cheeks Vital Signs: Initial Vital Signs Temp 100.8 F 10/06/19 15:59 Pulse 116 10/06/19 15:59 Resp 22 10/06/19 15:59 BP 144/87 10/06/19 15:59 Pulse Ox 95 10/06/19 15:59 Lab Results 10/06/19 Range/Units 16:11 Influenza A (Rapid) Negative (Negative) Influenza B (Rapid) Negative (Negative) Vital Signs (72 hours) 10/06/19 10/06/19 15:59 16:25 Temperature 100.8 F 99.3 F Pulse Rate 116 106 Respiratory 22 18 Rate Blood Pressure 144/87 (mmHg) O2 Sat by Pulse 95 96 Oximetry Vital Signs Reviewed: Yes Eyes: Positive: Conjunctiva Clear ENT: Positive: Hearing grossly normal, Pharynx normal, TMs normal, Uvula midline. Negative: Nasal congestion, Nasal drainage, Tonsillar swelling, Tonsillar exudate Neck exam: Normal Neck: Positive: Supple, Nontender, No Lymphadenopathy Respiratory Exam: Normal Respiratory: Positive: Lungs clear, Normal breath sounds, No respiratory distress, No accessory muscle use. Negative: Crackles, Rhonchi, Stridor, Wheezing Cardiovascular Exam: Other - regular rhythm Cardiovascular: Positive: Tachycardia Neurological: Positive: Alert Psychological: Positive: Age Appropriate Behavior Diagnostics - Radiology chest Radiology Interpretation Completed By: Radiologist Summary of Radiographic Findings: FINDINGS: The heart is within normal limits in size. The lungs are hyperinflated. There is chronic elevation of the right hemidiaphragm with suggestion of pleural scarring laterally at the right lung base which is unchanged from the prior 2 studies. There is a small infiltrate present medially at the left lung base which appears to be in the left lower lobe. No pleural effusion is seen. IMPRESSION: 1. SMALL LEFT BASILAR INFILTRATE. 2. COPD. Respiratory Course/Dx - Course Course Of Treatment: Patient presenting with productive cough and sob x2 days and fever and chills that began today. Patient with flushed cheeks but well-appearing overall. No respiratory distress. Patient mildly tachycardic with clear lung sounds. Influenza negative. CXR revealed small left basilar infiltrate. Patient non toxic appearing and temperature improved from 100.8 to 99.3, RR decreased from 22 to 18, HR decreased from 116 to 106, and O2 improved to 96 from 95% while here. Patient voiced feeling better. I treated patient with augmentin plus azithromycin given age and copd. Educated patient on pneumonia and instructions of how to take antibiotics and continue with symptomatic treatment. Instructed to follow up with pcp within the next week for reevaluation and to get repeat imaging in 4-6 weeks to ensure resolution of infiltrate. Educated on s/s of worsening illness and instructed to go straight to ED if any red flags occur. Patient voiced understanding and agreed with treatment plan. Discussed patient with Dr. Langston who also agreed with treatment plan. - Differential Dx/Diagnosis Provider Diagnosis: Left lower lobe pulmonary infiltrate Discharge ED - Sign-Out/Discharge Documenting (check all that apply): Patient Departure All imaging exams completed and their final reports reviewed: Yes - Discharge Plan Condition: Stable Disposition: HOME Prescriptions: Amoxicillin/Clavulanate TAB* [Augmentin TAB 875*] 875 mg PO BID #14 tab Azithromyxin EDENILSON (NF) [Z-Edenilson (Zithromax) 250 mg tabs #6] 2 tab PO .TODAY, THEN 1 DAILY #6 tab Patient Education Materials: Pneumonia (ED) Referrals: Cortney Cam MD [Primary Care Provider] - 1 Week Additional Instructions: As discussed, your chest xray revealed pneumonia. Take the two antibiotics as prescribed to you. It is important that you start them today and finish the full course of each. You may continue to take tylenol as directed for fever relief. Increase your fluid intake and get plenty of rest. Follow up with your primary care provider within 1 week for reevaluation of symptoms. It is recommended that you get repeat imaging of your chest in 4-6 weeks to make sure there is full resolution. Go to the emergency room if you experience new or worsening symptoms, including fever higher than 102, nausea and vomiting, difficulty breathing, or you cough up blood. - Billing Disposition and Condition Condition: STABLE Disposition: Home
[2019-10-06] MEDS ORDERED: Acetaminophen TAB* 325 MG PO ONE (16:10)
[2019-10-06 16:23] LABS: Influenza A Molecular NEGATIVE (Negative); Influenza B Molecular NEGATIVE (Negative)
== END 2019-10-06 17:10 | disposition home or self-care (01) ==
LOC: UCEAST 15:52
DX: R91.8 Other nonspecific abnormal finding of lung field (principal); G35 Multiple sclerosis; J44.9 Chronic obstructive pulmonary disease, unspecified; R50.9 Fever, unspecified; Z87.891 Personal history of nicotine dependence; Z88.8 Allergy status to other drugs, medicaments and biological substances; Z91.040 Latex allergy status
CPT/HCPCS: 71046; 99212; A9270-GY; G0463

== ENCOUNTER 2022-10-15 18:43 | Inpatient (IN) ==
[2022-10-15] MEDS ORDERED: Naloxone 0.4 mg VIAL 0.4 mg/ml 1 ml VIAL IV PUSH ONE (19:14)
[2022-10-15] MEDS ORDERED: Furosemide 40 mg/4 ml IV VIAL IV SLOW PU ONE (19:40)
[2022-10-15 20:05] LABS: PCO2 Arterial 50 mmHg (35-45); PO2 Arterial 85 mmHg (80-100)
[2022-10-15 20:53] LABS: ABS Lymphocytes 0.4 10^3/ul (1.0-4.8); ABS Monocytes 1.5 10^3/ul (0-0.8); ABS Neutrophils 13.1 10^3/ul (1.5-7.7); Hematocrit 44 % (35-47); Hemoglobin 14.8 g/dL (12.0-16.0); Mean Corpuscular HGB Conc 34 g/dL (31-36); Mean Corpuscular Hemoglobin 32 pg (27-31); Mean Corpuscular Volume 94 fL (80-97); Mean Platelet Volume 7.4 fL (7.4-10.4); Platelet Count 311 10^3/uL (150-450); Red Blood Count 4.69 10^6 /uL (3.70-4.87); Red Cell Distribution Width 14 % (10-15); White Blood Count 15.1 10^3/uL (3.5-10.8)
[2022-10-15 21:15] LABS: ALT 56 U/L (7-52); AST 55 U/L (13-39); Acetaminophen < 15 mcg/mL; Albumin 4.2 g/dL (3.2-5.2); Albumin/Globulin Ratio 1.8 (1-3); Alcohol, S < 13 mg/dL (<13); Alkaline Phosphatase 71 U/L (35-149); Anion Gap 9 mmol/L (2-11); Blood Urea Nitrogen 25 mg/dL (6-24); CO2 Carbon Dioxide 29 mmol/L (22-32); Calcium 9.4 mg/dL (8.6-10.3); Chloride 92 mmol/L (101-111); Creatinine, Serum 1.36 mg/dL (0.51-0.95); Globulin 2.4 g/dL (2-4); Glucose 127 mg/dL (70-100); Magnesium 2.1 mg/dL (1.9-2.7); Phosphorus 4.7 mg/dL (2.5-5.0); Potassium 4.9 mmol/L (3.5-5.0); Salicylate < 2.50 mg/dL (<30); Sodium 130 mmol/L (135-145); Total Protein 6.6 g/dL (6.4-8.9); eGFR CKD-EPI 40.9 (>60)
[2022-10-15 21:33] LABS: TSH Ultra Thyroid Stim Horm 0.93 mcIU/mL (0.34-5.60)
[2022-10-16] MEDS: Enoxaparin 40 MG/0.4 ML SYR SUBCUT SCH ×2 (00:29→20:17)
[2022-10-16 02:31] LABS: Urine Appearance Cloudy; Urine Bilirubin Negative (Negative); Urine Blood 2+ (Negative); Urine Color Yellow; Urine Glucose Negative (Negative); Urine Ketones Negative (Negative); Urine Nitrite Negative (Negative); Urine Protein 1+(30 mg/dL) (Negative); Urine Specific Gravity 1.011 (1.002-1.030); Urine Urobilinogen Negative (Negative)
[2022-10-16 02:52] LABS: Urine Bacteria Absent (Absent); Urine Red Blood Cell Trace(0-2/hpf) (Absent); Urine White Blood Cell 3+(>20/hpf) (Absent)
[2022-10-16 03:06] LABS: Urine Benzodiazepine Screen None Detected (None Detect); Urine Cannabinoids Screen None Detected (None Detect); Urine Opiates Screen Presumptive Positive (None Detect)
[2022-10-16] MEDS ORDERED: cefTRIAXone 1 gm/50 mL D5W 1 GM/50 ML BAG IV SCH (03:45)
[2022-10-16 05:30] LABS: Hematocrit 41 % (35-47); Hemoglobin 13.7 g/dL (12.0-16.0); Mean Corpuscular HGB Conc 34 g/dL (31-36); Mean Corpuscular Hemoglobin 32 pg (27-31); Mean Corpuscular Volume 94 fL (80-97); Mean Platelet Volume 7.5 fL (7.4-10.4); Platelet Count 278 10^3/uL (150-450); Red Blood Count 4.29 10^6 /uL (3.70-4.87); Red Cell Distribution Width 14 % (10-15); White Blood Count 15.4 10^3/uL (3.5-10.8)
[2022-10-16 06:24] LABS: Creatinine, Serum 1.04 mg/dL (0.51-0.95); Potassium 4.5 mmol/L (3.5-5.0); eGFR CKD-EPI 56.4 (>60)
[2022-10-16 06:44] LABS: ABS Lymphocytes 1.7 10^3/ul (1.0-4.8); ABS Monocytes 1.6 10^3/ul (0-0.8); Eosinophil % 0.3 %; Lymphocyte % 11.2 %
[2022-10-17 06:43] LABS: Albumin 3.8 g/dL (3.2-5.2); Albumin/Globulin Ratio 1.6 (1-3); Creatinine, Serum 0.45 mg/dL (0.51-0.95); Globulin 2.4 g/dL (2-4); Potassium 4.4 mmol/L (3.5-5.0); Total Bilirubin 0.7 mg/dL (0.2-1.0); Total Protein 6.2 g/dL (6.4-8.9); eGFR CKD-EPI 100.9 (>60)
[2022-10-17] MEDS ORDERED: cefTRIAXone ADVAN VIAL 1 GM in NS 0.9% 50 ML 50 ML IVPB SCH (09:00)
[2022-10-17] MEDS: Senna TAB 8.6 mg TAB PO PRN (21:48)
[2022-10-17] MEDS: Enoxaparin 40 MG/0.4 ML SYR SUBCUT SCH (21:49)
[2022-10-18] MEDS: Venlafaxine XR 75 mg PO SCH (09:13)
[2022-10-18 10:04] LABS: Urine Appearance Clear; Urine Bilirubin Negative (Negative); Urine Blood 2+ (Negative); Urine Color Yellow; Urine Glucose Negative (Negative); Urine Ketones Negative (Negative); Urine Nitrite Negative (Negative); Urine Protein Negative (Negative); Urine Urobilinogen Negative (Negative)
[2022-10-18 10:07] LABS: Urine Bacteria Absent (Absent); Urine Red Blood Cell 2+(6-10/hpf) (Absent); Urine Squamous Epithelial Cell Present (Absent); Urine White Blood Cell 3+(>20/hpf) (Absent)
[2022-10-18] MEDS: Polyethylene Glycol 3350 17 GM PACKET PO PRN (16:49)
[2022-10-18] MEDS: Senna TAB 8.6 mg TAB PO PRN (21:18)
[2022-10-18] MEDS: Enoxaparin 40 MG/0.4 ML SYR SUBCUT SCH (21:20)
[2022-10-19 07:44] LABS: Albumin 3.7 g/dL (3.2-5.2); Albumin/Globulin Ratio 1.5 (1-3); Calcium 9.1 mg/dL (8.6-10.3); Creatinine, Serum 0.46 mg/dL (0.51-0.95); Globulin 2.5 g/dL (2-4); Potassium 3.8 mmol/L (3.5-5.0); Total Bilirubin 0.8 mg/dL (0.2-1.0); Total Protein 6.2 g/dL (6.4-8.9); eGFR CKD-EPI 100.4 (>60)
[2022-10-19] MEDS: Venlafaxine XR 75 mg PO SCH (10:08)
[2022-10-19] MEDS: Polyethylene Glycol 3350 17 GM PACKET PO PRN (14:48)
[2022-10-19] MEDS: Senna TAB 8.6 mg TAB PO PRN (21:05)
[2022-10-19] MEDS: Enoxaparin 40 MG/0.4 ML SYR SUBCUT SCH (21:07)
[2022-10-20] MEDS: Venlafaxine XR 75 mg PO SCH (09:47)
[2022-10-20] MEDS ORDERED: Magnesium Hydroxide LIQ 30 ML UDC PO PRN (10:41)
[2022-10-20] MEDS: Polyethylene Glycol 3350 17 GM PACKET PO SCH (11:06)
[2022-10-20] MEDS: Enoxaparin 40 MG/0.4 ML SYR SUBCUT SCH (20:29)
[2022-10-20] MEDS: Carboxymethylcellulos 1% OPTH 1 AMP BOTH EYES SCH (20:41)
[2022-10-21] MEDS: Polyethylene Glycol 3350 17 GM PACKET PO SCH (07:52)
[2022-10-21] MEDS: Venlafaxine XR 75 mg PO SCH (07:52)
[2022-10-21] MEDS: Carboxymethylcellulos 1% OPTH 1 AMP BOTH EYES SCH (08:12)
[2022-10-21] MEDS: Enoxaparin 40 MG/0.4 ML SYR SUBCUT SCH (20:49)
[2022-10-22 06:04] LABS: ABS Basophils 0.1 10^3/ul (0-0.2); ABS Eosinophils 0.8 10^3/ul (0-0.6); ABS Monocytes 0.8 10^3/ul (0-0.8); ABS Neutrophils 3.4 10^3/ul (1.5-7.7); Eosinophil % 10.9 %; Hematocrit 36 % (35-47); Hemoglobin 11.8 g/dL (12.0-16.0); Lymphocyte % 28.9 %; Mean Corpuscular HGB Conc 33 g/dL (31-36); Mean Corpuscular Hemoglobin 32 pg (27-31); Mean Corpuscular Volume 95 fL (80-97); Mean Platelet Volume 7.8 fL (7.4-10.4); Platelet Count 308 10^3/uL (150-450); Red Blood Count 3.73 10^6 /uL (3.70-4.87); Red Cell Distribution Width 14 % (10-15)
[2022-10-22 06:35] LABS: Calcium 8.7 mg/dL (8.6-10.3); Creatinine, Serum 0.6 mg/dL (0.51-0.95); Potassium 4.5 mmol/L (3.5-5.0); eGFR CKD-EPI 94.1 (>60)
[2022-10-22] MEDS: Venlafaxine XR 75 mg PO SCH (09:32)
[2022-10-22] MEDS: Carboxymethylcellulos 1% OPTH 1 AMP BOTH EYES SCH (09:32)
[2022-10-22] MEDS: Polyethylene Glycol 3350 17 GM PACKET PO SCH (09:33)
[2022-10-22 13:34] LABS: Urine Appearance Cloudy; Urine Bilirubin Negative (Negative); Urine Blood 1+ (Negative); Urine Color Yellow; Urine Glucose Negative (Negative); Urine Ketones Negative (Negative); Urine Nitrite Negative (Negative); Urine Protein Negative (Negative); Urine Specific Gravity 1.012 (1.002-1.030); Urine Urobilinogen Negative (Negative)
[2022-10-22 13:38] LABS: Urine Bacteria 1+ (Absent); Urine Red Blood Cell 1+(3-5/hpf) (Absent); Urine Squamous Epithelial Cell Present (Absent); Urine White Blood Cell 1+(6-10/hpf) (Absent)
[2022-10-22] MEDS: Enoxaparin 40 MG/0.4 ML SYR SUBCUT SCH (21:58)
[2022-10-23] MEDS: Venlafaxine XR 75 mg PO SCH (08:17)
[2022-10-23] MEDS: Polyethylene Glycol 3350 17 GM PACKET PO SCH (08:18)
[2022-10-23] MEDS: Carboxymethylcellulos 1% OPTH 1 AMP BOTH EYES SCH (08:18)
[2022-10-23] MEDS: Enoxaparin 40 MG/0.4 ML SYR SUBCUT SCH (20:26)
[2022-10-24] MEDS: Polyethylene Glycol 3350 17 GM PACKET PO SCH (08:15)
[2022-10-24] MEDS: Carboxymethylcellulos 1% OPTH 1 AMP BOTH EYES SCH (08:15)
[2022-10-24] MEDS: Venlafaxine XR 75 mg PO SCH (08:16)
[2022-10-24] MEDS: Enoxaparin 40 MG/0.4 ML SYR SUBCUT SCH (20:48)
[2022-10-25 06:50] LABS: ABS Basophils 0.1 10^3/ul (0-0.2); ABS Eosinophils 0.5 10^3/ul (0-0.6); ABS Lymphocytes 1.6 10^3/ul (1.0-4.8); ABS Monocytes 0.6 10^3/ul (0-0.8); ABS Neutrophils 3.3 10^3/ul (1.5-7.7); Eosinophil % 8.4 %; Hematocrit 38 % (35-47); Hemoglobin 12.3 g/dL (12.0-16.0); Lymphocyte % 26.6 %; Mean Corpuscular HGB Conc 33 g/dL (31-36); Mean Corpuscular Hemoglobin 31 pg (27-31); Mean Corpuscular Volume 96 fL (80-97); Platelet Count 340 10^3/uL (150-450); Red Blood Count 3.91 10^6 /uL (3.70-4.87); Red Cell Distribution Width 14 % (10-15); White Blood Count 6.1 10^3/uL (3.5-10.8)
[2022-10-25 07:25] LABS: Calcium 8.5 mg/dL (8.6-10.3); Creatinine, Serum 0.55 mg/dL (0.51-0.95); Magnesium 1.9 mg/dL (1.9-2.7); Potassium 4.3 mmol/L (3.5-5.0); eGFR CKD-EPI 96.1 (>60)
[2022-10-25] MEDS: Venlafaxine XR 75 mg PO SCH (08:29)
[2022-10-25] MEDS: Polyethylene Glycol 3350 17 GM PACKET PO SCH (08:30)
[2022-10-25] MEDS: Carboxymethylcellulos 1% OPTH 1 AMP BOTH EYES SCH (09:49)
[2022-10-25] MEDS: Enoxaparin 40 MG/0.4 ML SYR SUBCUT SCH (21:47)
[2022-10-26] MEDS: Fluticasone NASAL SPRAY 50MCG 16 gm SPRAY BTL BOTH NARES SCH (08:13)
[2022-10-26] MEDS: Venlafaxine XR 75 mg PO SCH (08:13)
[2022-10-26] MEDS: Polyethylene Glycol 3350 17 GM PACKET PO SCH (08:13)
[2022-10-26] MEDS: Carboxymethylcellulos 1% OPTH 1 AMP BOTH EYES SCH (08:14)
[2022-10-26] MEDS: Enoxaparin 40 MG/0.4 ML SYR SUBCUT SCH (20:53)
[2022-10-27] MEDS: Fluticasone NASAL SPRAY 50MCG 16 gm SPRAY BTL BOTH NARES SCH (07:58)
[2022-10-27] MEDS: Venlafaxine XR 75 mg PO SCH (07:59)
[2022-10-27] MEDS: Polyethylene Glycol 3350 17 GM PACKET PO SCH (08:00)
[2022-10-27] MEDS: Carboxymethylcellulos 1% OPTH 1 AMP BOTH EYES SCH (08:02)
[2022-10-27] MEDS: Enoxaparin 40 MG/0.4 ML SYR SUBCUT SCH (20:05)
[2022-10-28] MEDS: Polyethylene Glycol 3350 17 GM PACKET PO SCH (08:26)
[2022-10-28] MEDS: Carboxymethylcellulos 1% OPTH 1 AMP BOTH EYES SCH (08:26)
[2022-10-28] MEDS: Fluticasone NASAL SPRAY 50MCG 16 gm SPRAY BTL BOTH NARES SCH (08:26)
[2022-10-28] MEDS: Venlafaxine XR 75 mg PO SCH (08:26)
[2022-10-28] MEDS: Enoxaparin 40 MG/0.4 ML SYR SUBCUT SCH (21:02)
[2022-10-29] MEDS: Polyethylene Glycol 3350 17 GM PACKET PO SCH (09:57)
[2022-10-29] MEDS: Venlafaxine XR 75 mg PO SCH (09:57)
[2022-10-29] MEDS: Fluticasone NASAL SPRAY 50MCG 16 gm SPRAY BTL BOTH NARES SCH (09:57)
[2022-10-29] MEDS: Carboxymethylcellulos 1% OPTH 1 AMP BOTH EYES SCH (09:58)
[2022-10-29] MEDS: Enoxaparin 40 MG/0.4 ML SYR SUBCUT SCH (21:21)
[2022-10-30] MEDS: Polyethylene Glycol 3350 17 GM PACKET PO SCH (07:44)
[2022-10-30] MEDS: Fluticasone NASAL SPRAY 50MCG 16 gm SPRAY BTL BOTH NARES SCH (07:45)
[2022-10-30] MEDS: Venlafaxine XR 75 mg PO SCH (07:45)
[2022-10-30] MEDS: Carboxymethylcellulos 1% OPTH 1 AMP BOTH EYES SCH (07:45)
[2022-10-30] MEDS: Enoxaparin 40 MG/0.4 ML SYR SUBCUT SCH (21:11)
[2022-10-31] MEDS: Fluticasone NASAL SPRAY 50MCG 16 gm SPRAY BTL BOTH NARES SCH (07:30)
[2022-10-31] MEDS: Carboxymethylcellulos 1% OPTH 1 AMP BOTH EYES SCH (07:30)
[2022-10-31] MEDS: Polyethylene Glycol 3350 17 GM PACKET PO SCH (07:30)
[2022-10-31] MEDS: Venlafaxine XR 75 mg PO SCH (07:30)
[2022-10-31] MEDS ORDERED: PPD test dose 5 TU/0.1 ML TEST (*USE PPD ORDER SET*) INTRADERM SCH (18:00)
[2022-10-31] MEDS: PPD test dose 5 TU/0.1 ML TEST (*USE PPD ORDER SET*) INTRADERM ONE ×2 (18:20→18:40)
[2022-10-31] MEDS: Enoxaparin 40 MG/0.4 ML SYR SUBCUT SCH (20:54)
[2022-11-01] MEDS: Venlafaxine XR 75 mg PO SCH (07:51)
[2022-11-01] MEDS: Carboxymethylcellulos 1% OPTH 1 AMP BOTH EYES SCH (07:53)
[2022-11-01] MEDS: Fluticasone NASAL SPRAY 50MCG 16 gm SPRAY BTL BOTH NARES SCH (08:03)
[2022-11-01] MEDS: Polyethylene Glycol 3350 17 GM PACKET PO SCH (08:03)
[2022-11-01] MEDS: Magic MouthWash1-BEN/MAAL/LIDO 180 ML BTL SWISH SPIT PRN ×2 (16:57→21:28)
[2022-11-01] MEDS: Enoxaparin 40 MG/0.4 ML SYR SUBCUT SCH (21:17)
[2022-11-02] MEDS: Venlafaxine XR 75 mg PO SCH (08:54)
[2022-11-02] MEDS: Polyethylene Glycol 3350 17 GM PACKET PO SCH (08:54)
[2022-11-02] MEDS: Carboxymethylcellulos 1% OPTH 1 AMP BOTH EYES SCH (08:55)
[2022-11-02] MEDS: Fluticasone NASAL SPRAY 50MCG 16 gm SPRAY BTL BOTH NARES SCH (08:56)
[2022-11-02] MEDS: Magic MouthWash1-BEN/MAAL/LIDO 180 ML BTL SWISH SPIT PRN (17:54)
[2022-11-02] MEDS ORDERED: PPD Reading NOTE 1 EA MISC SCH (18:30)
[2022-11-02] MEDS: Enoxaparin 40 MG/0.4 ML SYR SUBCUT SCH (20:52)
[2022-11-03 06:06] LABS: Hematocrit 39 % (35-47); Hemoglobin 13.1 g/dL (12.0-16.0); Mean Platelet Volume 8.1 fL (7.4-10.4); Platelet Count 435 10^3/uL (150-450)
[2022-11-03 06:19] LABS: Creatinine, Serum 0.67 mg/dL (0.51-0.95); eGFR CKD-EPI 91.7 (>60)
[2022-11-03] MEDS: Carboxymethylcellulos 1% OPTH 1 AMP BOTH EYES SCH (09:25)
[2022-11-03] MEDS: Polyethylene Glycol 3350 17 GM PACKET PO SCH (09:25)
[2022-11-03] MEDS: Venlafaxine XR 75 mg PO SCH (09:25)
[2022-11-03] MEDS: Fluticasone NASAL SPRAY 50MCG 16 gm SPRAY BTL BOTH NARES SCH (09:26)
[2022-11-03] MEDS: Magic MouthWash1-BEN/MAAL/LIDO 180 ML BTL SWISH SPIT PRN ×3 (09:30→23:58)
[2022-11-03] MEDS: Enoxaparin 40 MG/0.4 ML SYR SUBCUT SCH (20:20)
[2022-11-04] MEDS: Polyethylene Glycol 3350 17 GM PACKET PO SCH (08:27)
[2022-11-04] MEDS: Venlafaxine XR 75 mg PO SCH (08:28)
[2022-11-04] MEDS: Carboxymethylcellulos 1% OPTH 1 AMP BOTH EYES SCH (08:29)
[2022-11-04] MEDS: Fluticasone NASAL SPRAY 50MCG 16 gm SPRAY BTL BOTH NARES SCH (08:30)
[2022-11-04] MEDS: Magic MouthWash1-BEN/MAAL/LIDO 180 ML BTL SWISH SPIT PRN ×2 (09:12→21:01)
[2022-11-04] MEDS: Enoxaparin 40 MG/0.4 ML SYR SUBCUT SCH (20:47)
[2022-11-05] MEDS: Polyethylene Glycol 3350 17 GM PACKET PO SCH (08:02)
[2022-11-05] MEDS: Fluticasone NASAL SPRAY 50MCG 16 gm SPRAY BTL BOTH NARES SCH (08:03)
[2022-11-05] MEDS: Venlafaxine XR 75 mg PO SCH (08:04)
[2022-11-05] MEDS: Carboxymethylcellulos 1% OPTH 1 AMP BOTH EYES SCH (08:05)
[2022-11-05] MEDS: Magic MouthWash1-BEN/MAAL/LIDO 180 ML BTL SWISH SPIT PRN ×2 (14:34→21:26)
[2022-11-05] MEDS: Enoxaparin 40 MG/0.4 ML SYR SUBCUT SCH (21:26)
[2022-11-06] MEDS: Venlafaxine XR 75 mg PO SCH (08:11)
[2022-11-06] MEDS: Carboxymethylcellulos 1% OPTH 1 AMP BOTH EYES SCH (08:11)
[2022-11-06] MEDS: Polyethylene Glycol 3350 17 GM PACKET PO SCH (09:39)
[2022-11-06] MEDS: Fluticasone NASAL SPRAY 50MCG 16 gm SPRAY BTL BOTH NARES SCH (09:40)
[2022-11-06] MEDS: Magic MouthWash1-BEN/MAAL/LIDO 180 ML BTL SWISH SPIT PRN (20:15)
[2022-11-06] MEDS: Enoxaparin 40 MG/0.4 ML SYR SUBCUT SCH (20:15)
[2022-11-07] MEDS: Polyethylene Glycol 3350 17 GM PACKET PO SCH (08:32)
[2022-11-07] MEDS: Carboxymethylcellulos 1% OPTH 1 AMP BOTH EYES SCH (08:33)
[2022-11-07] MEDS: Venlafaxine XR 75 mg PO SCH (08:33)
[2022-11-07] MEDS: Fluticasone NASAL SPRAY 50MCG 16 gm SPRAY BTL BOTH NARES SCH (08:34)
[2022-11-07] MEDS: Magic MouthWash1-BEN/MAAL/LIDO 180 ML BTL SWISH SPIT PRN (11:43)
[2022-11-07] MEDS: Enoxaparin 40 MG/0.4 ML SYR SUBCUT SCH (20:49)
[2022-11-08] MEDS: Polyethylene Glycol 3350 17 GM PACKET PO SCH (08:07)
[2022-11-08] MEDS: Carboxymethylcellulos 1% OPTH 1 AMP BOTH EYES SCH (08:07)
[2022-11-08] MEDS: Venlafaxine XR 75 mg PO SCH (08:07)
[2022-11-08] MEDS: Magic MouthWash1-BEN/MAAL/LIDO 180 ML BTL SWISH SPIT PRN ×2 (08:07→23:06)
[2022-11-08] MEDS: Fluticasone NASAL SPRAY 50MCG 16 gm SPRAY BTL BOTH NARES SCH (08:08)
[2022-11-08] MEDS: Enoxaparin 40 MG/0.4 ML SYR SUBCUT SCH (20:52)
[2022-11-09] MEDS: Magic MouthWash1-BEN/MAAL/LIDO 180 ML BTL SWISH SPIT PRN ×2 (09:14→21:05)
[2022-11-09] MEDS: Polyethylene Glycol 3350 17 GM PACKET PO SCH (09:14)
[2022-11-09] MEDS: Venlafaxine XR 75 mg PO SCH (09:14)
[2022-11-09] MEDS: Fluticasone NASAL SPRAY 50MCG 16 gm SPRAY BTL BOTH NARES SCH (09:15)
[2022-11-09] MEDS: Carboxymethylcellulos 1% OPTH 1 AMP BOTH EYES SCH (09:15)
[2022-11-09] MEDS: Enoxaparin 40 MG/0.4 ML SYR SUBCUT SCH (21:00)
[2022-11-10] MEDS: Fluticasone NASAL SPRAY 50MCG 16 gm SPRAY BTL BOTH NARES SCH (08:56)
[2022-11-10] MEDS: Venlafaxine XR 75 mg PO SCH (08:56)
[2022-11-10] MEDS: Polyethylene Glycol 3350 17 GM PACKET PO SCH (08:56)
[2022-11-10] MEDS: Carboxymethylcellulos 1% OPTH 1 AMP BOTH EYES SCH (08:56)
[2022-11-10] MEDS: Magic MouthWash1-BEN/MAAL/LIDO 180 ML BTL SWISH SPIT PRN (09:01)
[2022-11-10] MEDS: Enoxaparin 40 MG/0.4 ML SYR SUBCUT SCH (20:20)
[2022-11-11] MEDS: Polyethylene Glycol 3350 17 GM PACKET PO SCH (08:54)
[2022-11-11] MEDS: Venlafaxine XR 75 mg PO SCH (08:54)
[2022-11-11] MEDS: Magic MouthWash1-BEN/MAAL/LIDO 180 ML BTL SWISH SPIT PRN (08:54)
[2022-11-11] MEDS: Fluticasone NASAL SPRAY 50MCG 16 gm SPRAY BTL BOTH NARES SCH (08:55)
[2022-11-11] MEDS: Carboxymethylcellulos 1% OPTH 1 AMP BOTH EYES SCH (08:55)
[2022-11-11 15:41] LABS: Rapid COVID-19 Molecular Undetected (Undetected)
[2022-11-11] MEDS: Enoxaparin 40 MG/0.4 ML SYR SUBCUT SCH (22:20)
[2022-11-12 07:09] VITALS: BP 128/76
[2022-11-12] MEDS: Fluticasone NASAL SPRAY 50MCG 16 gm SPRAY BTL BOTH NARES SCH (08:21)
[2022-11-12] MEDS: Venlafaxine XR 75 mg PO SCH (08:21)
[2022-11-12] MEDS: Magic MouthWash1-BEN/MAAL/LIDO 180 ML BTL SWISH SPIT PRN (08:22)
[2022-11-12] MEDS: Carboxymethylcellulos 1% OPTH 1 AMP BOTH EYES SCH (08:22)
[2022-11-12] MEDS: Polyethylene Glycol 3350 17 GM PACKET PO SCH (08:22)
== END 2022-11-12 13:00 | DRG 918 ==
LOC: ED 18:43 → EDHOLD 18:43 → INTOOBSV 22:36 → SUATTDRO 22:36 → OBSVTOIN 22:36 → EDHOLD 10-16 13:47 → MEDTELE 10-16 14:19 → SUATTDRO 10-16 15:25 → MED 10-24 11:31
PROVIDERS: ADMIT Internal Medicine; ATTEND Internal Medicine

== ENCOUNTER 2023-03-17 06:06 | Observation (INO) ==
[~2023-03-17 06:06] MED LIST changes: +Buffered Lidocaine 1% SYRIN 1 ml INTRADERM ONE; -Buffered Lidocaine 1% SYRIN* 1 ML/SYRINGE INTRADERM ONE; -Lactated Ringers 1000 ML Bag* 1,000 ML IV SCH; +Lactated Ringers 1000 ml BAG 1,000 ML IV SCH; -Tranexamic Acid 1,000 MG in NS 0.9% 50 ML* (outpatient use) IV SCH
[2023-03-17] MEDS ORDERED: ceFAZolin 2 GM PREMIX 0 GM/0 ML BAG ONE (06:37)
[2023-03-17] MEDS ORDERED: Bupivacaine 0.25% EPI 200,000 30 ML SDV ONE (06:49)
[2023-03-17] MEDS ORDERED: ceFAZolin 2 GM PREMIX 2 GM/50 ML BAG ONE (07:05)
[2023-03-17] MEDS ORDERED: Lidocaine 2% PF 5 ML VIAL ONE (07:17)
[2023-03-17] MEDS ORDERED: Propofol 10 MG/ML 20 ML BTL ONE (07:17)
[2023-03-17] MEDS ORDERED: Midazolam 2 mg/2 ml VIAL 1 mg/ml 2 ml VIAL (2 mg) ONE (07:18)
[2023-03-17] MEDS ORDERED: Rocuronium 50 mg VIAL 10 mg/ml 5 ml VIAL (50 mg) ONE (07:18)
[2023-03-17] MEDS ORDERED: fentaNYL 100 mcg/2 ml 50 MCG/ML VIAL ONE ×2 (07:18→10:38)
[2023-03-17] MEDS ORDERED: Sodium Citrate/Citric Acid LIQ 15 ML UDC ONE (07:23)
[2023-03-17] MEDS ORDERED: Famotidine IV 10 MG/ML 2 ml VIAL (20 mg) ONE (07:23)
[2023-03-17] MEDS ORDERED: Famotidine IV 10 MG/ML 2 ml VIAL (20 mg) IV SLOW PU ONE (07:31)
[2023-03-17] MEDS ORDERED: Ondansetron 4 mg VIAL 2 MG/ML 2 ml VIAL ONE (08:14)
[2023-03-17] MEDS ORDERED: Dexamethasone IV 4 MG/ML VIAL 1 ml VIAL ONE (08:14)
[2023-03-17] MEDS ORDERED: hydrALAZINE 20 mg/ml 1 ML Vial IV ONE (08:19)
[2023-03-17] MEDS ORDERED: Ondansetron 4 mg VIAL 2 MG/ML 2 ml VIAL IV PRN ×2 (08:33→13:41)
[2023-03-17] MEDS ORDERED: Naloxone 0.4 mg VIAL 0.4 mg/ml 1 ml VIAL IV PRN (08:33)
[2023-03-17] MEDS ORDERED: HYDROmorphone 1 MG/1 ML SYRINGE ONE (10:18)
[2023-03-17] MEDS: HYDROmorphone 1 MG/1 ML SYRINGE IV PRN ×2 (10:19→10:29)
[2023-03-17] MEDS: fentaNYL 100 mcg/2 ml 50 MCG/ML VIAL IV PRN ×4 (10:39→11:28)
[2023-03-17] MEDS ORDERED: Magnesium Hydroxide LIQ 30 ML UDC PO PRN (13:46)
[2023-03-17 15:10] LABS: Rapid COVID-19 Molecular Undetected (Undetected)
[2023-03-17] MEDS: Acetaminophen IV 1 GM/100ML 1,000 MG/100 ML BAG IV SCH (16:27)
[2023-03-17] MEDS: Heparin 5000 UNITS/ML 1 mL VIAL SUBCUT SCH (23:12)
[2023-03-18] MEDS: Acetaminophen IV 1 GM/100ML 1,000 MG/100 ML BAG IV SCH ×3 (00:49→16:09)
[2023-03-18] MEDS: Heparin 5000 UNITS/ML 1 mL VIAL SUBCUT SCH ×2 (05:41→14:44)
[2023-03-18] MEDS ORDERED: Fluticasone NASAL SPRAY 50MCG 16 gm SPRAY BTL BOTH NARES SCH (09:00)
[2023-03-18] MEDS ORDERED: Polyethylene Glycol 3350 17 GM PACKET PO SCH (09:00)
[2023-03-18] MEDS ORDERED: Carboxymethylcellulos 1% OPTH 1 AMP BOTH EYES SCH (09:00)
[2023-03-18] MEDS ORDERED: Venlafaxine XR 75 mg PO SCH (09:00)
[2023-03-18 14:40] VITALS: BP 177/82
== END 2023-03-18 17:40 | disposition home or self-care (01) ==
LOC: OR 06:06 → SSU 06:06
PROVIDERS: ADMIT Nurse Practitioner; ATTEND Surgery